=== PATIENT | male | born 1945 | race Caucasian/White ===

== ENCOUNTER 2017-06-10 18:46 | Emergency (ER) | payer MEDICARE, SELFPAY ==
[2017-06-10 18:48] VITALS: BP 146/77; PULSE 98; RESP 18; TEMP 36.9; O2SAT 95; BMI 24.5
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
--- NOTE | 2017-06-10 19:08 | CT_ITS ---
STUDY: CT BRAIN WITHOUT CONTRAST REASON FOR EXAM: Male, 72 years old. Dizziness after falling. RADIATION DOSAGE (If Supplied By Facility): CTDIvol = ( 44.99 ) mGy, DLP = ( 779.24 ) mGycm TECHNIQUE: Transaxial CT imaging of the brain was performed without administration of intravenous contrast material. Individualized dose optimization techniques were used for this CT. COMPARISON: None. FINDINGS: Normal soft tissue structures. Normal calvarium. Normal size ventricles and extra-axial spaces for the patient's age. Normal white matter tracts of the cerebral hemispheres. Normal basal ganglia and thalami. Normal brainstem. There is mild cerebellar atrophy. Carotid artery calcification. There is no intracranial hemorrhage. There are no findings of an acute ischemic infarction. 1.5 cm retention cyst of the right maxillary sinus. Mild mucosal thickening in right ethmoid, sphenoid and frontal sinuses. One opacified air cell at the tip of the left mastoid process. CT/Brain/Head without Contrast IMPRESSION: No acute intracranial findings. Negative for hemorrhage, hematoma or mass density. Negative for demarcation of a nonhemorrhagic infarct zone. Mild involutional changes. Carotid artery calcifications. Incidental sinus findings as stated above. Electronically Signed: Kenyatta Burger MD at 19:52 EST , Service support ,
--- NOTE | 2017-06-10 19:08 | EKG12_ITS ---
Test Reason : FALL Blood Pressure : / mmHG Vent. Rate : 089 BPM Atrial Rate : 089 BPM P-R Int : 194 ms QRS Dur : 090 ms QT Int : 372 ms P-R-T Axes : 003 015 030 degrees QTc Int : 452 ms Normal sinus rhythm Normal ECG Confirmed by KATYA ROBERTS, AMBER ([id number]), content editor BASSAM HENDERSON ([id number]) on 06/14/2017 3:26:27 PM Referred By: CORAZON Confirmed By:AMBER ALDANA MD
[2017-06-10 19:24] LABS: Absolute Lymphocyte Count 3.32 X10^3/ul (0.83-4.51); Absolute Neutrophil Count 2.2 X10^3/uL (2.0-7.7); Basophil# 0.02 X10^3/uL; Basophil% 0.3 % (0-1); Eosinophil# 0.52 X10^3/uL; Eosinophils% 7.9 % (0-5); Hematocrit 43.8 % (40-54); Hemoglobin 14.9 g/dl (13.0-16.5); Lymphocyte # 3.32 X10^3/ul (4.0); Lymphocyte % 50.4 % (19-41); Mean Corpuscular Hgb 34.9 pg (27.0-32.0); Mean Corpuscular Volume 102.6 fL (80-94); Monocyte# 0.48 X10^3/uL; Monocyte% 7.3 % (0-10); Neutrophil # 2.24 X10^3/uL (2.7-7.7); Neutrophil % 33.9 % (47-70); Platelet Count 161 K/mm3 (150-450); RBC Distribution Width CV 13.9 % (11.6-14.6); RBC Distribution Width SD 51.8 fl (35.1-43.9); Red Blood Count 4.27 M/mm3 (4.6-6.2); White Blood Count 6.6 K/mm3 (4.4-11.0)
[2017-06-10 19:25] LABS: POSITIVE COUNT NO; POSITIVE DIFFERENTIAL NO; POSITIVE MORPHOLOGY NO
[2017-06-10 20:07] LABS: BUN 13 mg/dL (7-18); Creatinine, Serum 0.82 mg/dL (0.70-1.30); Glucose 102 mg/dL (70-110)
[2017-06-10 20:08] LABS: AST(SGOT) 29 U/L (15-37); Alanine Aminotransfer ALT/SGPT 30 U/L (16-61); Albumin, Serum 3.8 g/dL (3.2-5.0); Alkaline Phosphatase 80 U/L (45-117); Anion Gap 12 (5-15); BUN/Creat Ratio 15.8 RATIO (10-20); Calcium,Total 8.4 mg/dL (8.5-10.1); Chloride 101 mmol/L (98-107); EST Glomerular Filtration Rate 97 mL/min (>60); Est Glom Filt Rate - Afr Amer 118 mL/min (>60); Estimated Creatinine Clearance 84.18 ml/min; Globulin 3.8 g/dL (2.2-4.2); Potassium 3.9 mmol/L (3.5-5.1); Protein, Total 7.6 g/dL (6.4-8.2); Sodium Level 138 mmol/L (136-145)
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
[2017-06-10 20:52] VITALS: BP 137/91; PULSE 91; RESP 16; O2SAT 94
[2017-06-10] MEDS: BACITRACIN 15 GM Tube 1 APPLIC TOPICAL (20:52)
--- NOTE | 2017-06-10 20:53 | ED.RN ---
REVIEWED D/C INSTRUCTIONS, FOLLOW UP CARE, AND S/S THAT WOULD WARRANT A RETURN TO THE ED WITH PT. PT VERBALIZED AN UNDERSTANDING AND DENIES FURTHER QUESTIONS FOR THIS RN. PT SKIN P/W/D, RESP EVEN AND UNLABORED, PT A&O X 3, NO DISTRESS NOTED. PT AMBULATED OUT OF ED WITH FRIEND, GAIT STEADY.
== END 2017-06-10 20:53 | disposition home or self-care (01) ==
PROVIDERS: Emergency Provider Emergency Medicine; Family Provider Family Medicine; PCP Family Medicine
DX: F10.129 Alcohol abuse with intoxication, unspecified (principal); Y90.8 Blood alcohol level of 240 mg/100 ml or more; S61.012A Laceration without foreign body of left thumb without damage to nail, initial encounter; S60.812A Abrasion of left wrist, initial encounter; S60.811A Abrasion of right wrist, initial encounter; W19.XXXA Unspecified fall, initial encounter; Y93.9 Activity, unspecified; Y92.9 Unspecified place or not applicable; Y99.9 Unspecified external cause status; R29.6 Repeated falls; I10 Essential (primary) hypertension; J45.909 Unspecified asthma, uncomplicated; Z79.899 Other long term (current) drug therapy
CPT/HCPCS: 12001; 70450; 72125; 80053; 80320; 84484; 85025; 93005; 99285; A4216; G0480

== ENCOUNTER 2018-04-23 21:49 | Inpatient (IN) | payer MEDICARE, SELFPAY ==
[2018-04-23] VITALS (8 sets, daily range): BP systolic 76–214; BP diastolic 47–181; PULSE 126–179; RESP 20–34; TEMP 37.9–39.4; O2SAT 90–97; BMI 24.3
--- NOTE | 2018-04-23 21:52 | ED.RN ---
CALLED FOR EKG PER RN REQUEST, PULLED OLD EKGS FOR
--- NOTE | 2018-04-23 21:59 | RAD_ITS ---
STUDY: X-RAY CHEST REASON FOR EXAM: Male, 73 years old. Chest pain started approximately 2 hours ago TECHNIQUE: AP COMPARISON: 03/27/2017 FINDINGS: EKG leads project over the chest. Lungs are less expanded as compared to the prior study with persistent mild fibrotic changes in the lung bases. There is no demonstrated pleural abnormality. Normal size heart. Normal mediastinum and monisha. Normal visualized pulmonary arteries. There is atherosclerotic calcification of the aortic arch with tortuosity. No acute bony process. There is no demonstrated abnormality of the visualized soft tissue structures of the upper abdomen. RAD/Chest 1 View (Portable) IMPRESSION: Hypoinflation but no airspace consolidation. Electronically Signed: Calvin Cee MD at 22:22 EST , Service support ,
--- NOTE | 2018-04-23 21:59 | EKG12_ITS ---
Test Reason : CP Blood Pressure : / mmHG Vent. Rate : 171 BPM Atrial Rate : 171 BPM P-R Int : 000 ms QRS Dur : 076 ms QT Int : 292 ms P-R-T Axes : 000 -38 059 degrees QTc Int : 492 ms Supraventricular tachycardia Left axis deviation Septal infarct , age undetermined Inferior infarct , age undetermined Abnormal ECG Confirmed by KATYA ROBERTS, AMBER ([id number]), editor book BASSAM HENDERSON ([id number]) on 04/27/2018 3:30:05 PM Referred By: CYNDI Confirmed By:AMBER ALDANA MD
[2018-04-23] MEDS: Adenosine 6 MG/2 ML Syringe IV (22:07)
[2018-04-23] MEDS: Adenosine 6 MG/2 ML Syringe 12 MG IV (22:09)
[2018-04-23] MEDS: 0.9% Normal Saline 1,000 ML 150 ML IV (22:23)
[2018-04-23 22:28] LABS: Absolute Lymphocyte Count 0.21 X10^3/ul (0.83-4.51); Absolute Neutrophil Count 0.8 X10^3/uL (2.0-7.7); Eosinophil# 0.01 X10^3/uL; Hematocrit 46.4 % (40-54); Hemoglobin 15.6 g/dl (13.0-16.5); Lymphocyte # 0.21 X10^3/ul (4.0); Mean Corp Hgb Conc 33.6 g/gl (32-36); Mean Corpuscular Hgb 35.1 pg (27.0-32.0); Mean Corpuscular Volume 104.3 fL (80-94); Neutrophil # 0.78 X10^3/uL (2.7-7.7); Platelet Count 121 K/mm3 (150-450); RBC Distribution Width CV 13.5 % (11.6-14.6); RBC Distribution Width SD 51.4 fl (35.1-43.9); Red Blood Count 4.45 M/mm3 (4.6-6.2)
[2018-04-23 22:30] LABS: Differential Indicated SCAN CRITERIA MET; POSITIVE COUNT YES; POSITIVE DIFFERENTIAL YES; POSITIVE MORPHOLOGY YES
[2018-04-23] MEDS: Acetaminophen 500 MG Tablet 1000 MG PO (22:30)
--- NOTE | 2018-04-23 22:30 | ED.RN ---
lab called with critical lab results. WBC 1.0. Dr. Banegas made aware. Order given for 500 ml bolus normal saline at this time
[2018-04-23 22:36] LABS: International Normalized Ratio 1.2; Prothrombin Time (Protime)PT. 15.3 SECONDS (11.7-14.9)
[2018-04-23 22:37] LABS: Partial Thromboplast Time 29.5 Seconds (24.1-36.2)
[2018-04-23 22:38] LABS: AST(SGOT) 30 U/L (15-37); Alanine Aminotransfer ALT/SGPT 22 U/L (16-61); Albumin, Serum 3.4 g/dL (3.2-5.0); Alkaline Phosphatase 87 U/L (45-117); Anion Gap 16 (5-15); BUN 6 mg/dL (7-18); Calcium,Total 8.2 mg/dL (8.5-10.1); Chloride 102 mmol/L (98-107); EST Glomerular Filtration Rate 63 mL/min (>60); Est Glom Filt Rate - Afr Amer 76 mL/min (>60); Estimated Creatinine Clearance 56.65 ml/min; Globulin 3.5 g/dL (2.2-4.2); Glucose 91 mg/dL (74-106); Potassium 3.7 mmol/L (3.5-5.1); Protein, Total 6.9 g/dL (6.4-8.2); Sodium Level 139 mmol/L (136-145)
[2018-04-23 22:45] LABS: Anisocytosis 1+; Differential Comment SEE COMMENTS; Macrocytosis 1+; Platelet Estimate ADEQUATE (ADEQ)
[2018-04-23 22:48] LABS: Bacteria 0 SEEN /hpf (None Seen); Mucous, Urine 0 SEEN /hpf (<or=2+); Red Blood Cells-Urine 0 SEEN /hpf (0-5); Squamous Epithelial Cells - UA 0 SEEN /hpf (0-5)
[2018-04-23 22:49] LABS: Color, Urine Yellow (Yellow); Glucose, Dipstick Normal (Normal); Ketone-Dipstick Negative (Negative); Leukocyte Esterase-Dipstick Negative /ul (Negative); Nitrite-Dipstick Negative (Negative); Occult Blood-Urine Negative /ul (Negative); Protein-Dipstick 100 mg/dl (Negative); Urine Bilirubin Dipstick Negative (Negative); Urine Clarity Clear (Clear); Urine Urobilinogen Normal (Normal)
[2018-04-23 22:54] LABS: Hyaline Cast 0-5 SEEN /lpf (0-5)
[2018-04-23 22:56] LABS: Transitional Epithelial - Ur 0-5 SEEN /hpf (0-5); White Blood Cells 0-5 SEEN /hpf (0-5)
--- NOTE | 2018-04-23 23:02 | ED.RN ---
lab called with critical lab results. Lactic acid 7.6. Dr. Banegas made aware.
[2018-04-23 23:03] LABS: Lactic Acid 7.6 mmol/L (0.4-2.0)
[2018-04-23] MEDS: 0.9% Normal Saline 1,000 ML 999 ML IV ×2 (23:08→23:13)
--- NOTE | 2018-04-23 23:45 | ED.VISSUMM ---
- ER Visit Summary Date of Service: 04/23/18 Chief Complaint: Chest pain and tachycardia History of Present Illness: The patient is a 73 M who presents with chest pain and tachycardia that began approximately 8 hours prior to arrival. Patient states he feels like he has some tightness in his chest. Patient states it is across his entire chest. Patient states nothing seems to make it better or worse. Patient denies any fevers at home. Patient admits to a cough. Patient admits to some nausea but denies any vomiting. Patient admits to some shortness of breath and diaphoresis. Patient also states he had an episode of lightheadedness today. Patient has a history of hypertension and a family history of coronary artery disease in both parents. Physical Examination: Vital signs showed a initial blood pressure of 214/181, temperature is 101.3, heart rate 170, respiratory rate 31, pulse oximeter on 3 L nasal cannula. Oral mucosa is pink and moist. Neck is supple. Trachea is midline. There is no JVD noted. Heart was regular and tachycardic. Lung sounds were diminished bilaterally. There is adequate respiratory effort noted. Abdomen is soft. Bowel sounds are normal. There is no tenderness. Cranial nerves II through XII are intact. There are no focal motor or sensory deficits noted. The remaining physical exam is within normal limits. Test Results: EKG showed supraventricular tachycardia with a rate of 171. There are no acute ST or T wave changes. Portable chest x-ray shows hypoinflation but there is no infiltrate noted. CBC shows a white blood cell count of 1.0. Lactate was elevated at 7.6. Comprehensive metabolic profile was essentially within normal limits. INR was 1.2. Urinalysis was normal. Troponin was 0.019. Emergency Department Course and Treatment: Patient was initially given adenosine 6 mg IV with no improvement. Patient was given a dose of adenosine 12 mg IV which had no improvement of the tachycardia. Patient was given 1000 mg of Tylenol. Patient was given normal saline bolus of 2500 cc. Blood cultures were obtained and are pending. Patient was started on Zosyn and vancomycin. Case was discussed with Dr. King. He will admit the patient to his service to the ICU. Disposition: Admit to ICU Impression: 1. SIRS 2. Neutropenia This note was generated with HASHation software. It may contain incorrect words, spelling, and punctuation that were not noted in review of the chart prior to signing ED Disposition - Plan for ED Patient: Disposition: Acute Care Hospital [facility] Chief Complaint: Chest Pain Diagnosis: SIRS (systemic inflammatory response syndrome), Neutropenia Referrals: Elijah Rodriguez MD [Primary Care Provider] -
--- NOTE | 2018-04-23 23:53 | ED.DCSUM_ITS ---
- ER Visit Summary Date of Service: 04/23/18 Chief Complaint: Chest pain and tachycardia History of Present Illness: The patient is a 73 M who presents with chest pain and tachycardia that began approximately 8 hours prior to arrival. Patient states he feels like he has some tightness in his chest. Patient states it is across his entire chest. Patient states nothing seems to make it better or worse. Patient denies any fevers at home. Patient admits to a cough. Patient admits to some nausea but denies any vomiting. Patient admits to some shortness of breath and diaphoresis. Patient also states he had an episode of lightheadedness today. Patient has a history of hypertension and a family hist ory of coronary artery disease in both parents. Physical Examination: Vital signs showed a initial blood pressure of 214/181, temperature is 101.3, heart rate 170, respiratory rate 31, pulse oximeter on 3 L nasal cannula. Oral mucosa is pink and moist. Neck is supple. Trachea is midline. There is no JVD noted. Heart was regular and tachycardic. Lung sounds were diminished bilaterally. There is adequate respiratory effort noted. Abdomen is soft. Bowel sounds are normal. There is no tenderness. Cranial nerves II through XII are intact. There are no focal motor or sensory deficits noted. The remaining physical exam is within normal limits. Test Results: EKG showed supraventricular tachycardia with a rate of 171. There are no acute ST or T wave changes. Portable chest x-ray shows hypoinflation but there is no infiltrate noted. CBC shows a white blood cell count of 1.0. Lactate was elevated at 7.6. Comprehensive metabolic profile was essentially within normal limits. INR was 1.2. Urinalysis was normal. Troponin was 0.019. Emergency Department Course and Treatment: Patient was initially given adenosine 6 mg IV with no improvement. Patient was given a dose of adenosine 12 mg IV which had no improvement of the tachycardia. Patient was given 1000 mg of Tylenol. Patient was given normal saline bolus of 2500 cc. Blood cultures were obtained and are pending. Patient was started on Zosyn and vancomycin. Case was discussed with Dr. King. He will admit the patient to his service to the ICU. Disposition: Admit to ICU Impression: 1. SIRS 2. Neutropenia This note was generated with vitalclipation software. It may contain incorrect words, spelling, and punctuation that were not noted in review of the chart prior to signing ED Disposition - Plan for ED Patient: Disposition: Acute Care Hospital [facility] Chief Complaint: Chest Pain Diagnosis: SIRS (systemic inflammatory response syndrome), Neutropenia Referrals: Elijah Rodriguez MD [Primary Care Provider] -
[2018-04-24] VITALS (35 sets, daily range): BP systolic 75–106; BP diastolic 48–75; PULSE 87–120; RESP 13–24; TEMP 37–37.7; O2SAT 90–97; BMI 24.4; BMI 24.6
[2018-04-24] MEDS: Vancomycin IV 1,000 MG/200 ML BAG 200 MG IV (00:24)
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
[2018-04-24] MEDS: 0.9% Normal Saline 1,000 ML 150 ML IV ×3 (01:45→18:34)
[2018-04-24] MEDS: 0.9% NaCl Peripheral Flush Adult/Peds IV (02:02)
[2018-04-24 02:23] LABS: Reflex Lactate? Y
[2018-04-24 02:30] LABS: LDH 218 U/L (87-241); Uric Acid 5.2 mg/dL (3.5-7.2)
--- NOTE | 2018-04-24 02:32 | PCM.RX.CS ---
Consult Pharmacy has been consulted to manage selected antiobiotic: Vancomycin Type of Consult: New start Suspected Infection: Sepsis Prior Doses of Antibiotics Received/Current Regimen: Medications Vancomycin HCl 750 mg/ Sodium (Chloride) 265 mls @ 250 mls/hr IV Q12H LELO Discontinued Medications Vancomycin HCl (Vancomycin) 1,000 mg in 200 mls @ 200 mls/hr IV X1 ONE Stop: 04/24/18 00:37 Last Admin: 04/24/18 00:24 Dose: 200 mls/hr Labs: Sodium 139 mmol/L (136-145) 04/23/18 22:00 Potassium 3.7 mmol/L (3.5-5.1) 04/23/18 22:00 Chloride 102 mmol/L (98-107) 04/23/18 22:00 Carbon Dioxide 21.0 mmol/L (21.0-32.0) 04/23/18 22:00 Anion Gap 16 (5-15) H 04/23/18 22:00 BUN 6 mg/dL (7-18) L 04/23/18 22:00 Creatinine 1.20 mg/dL (0.70-1.30) 04/23/18 22:00 Est GFR (MDRD) Af Amer 76 mL/min (>60) 04/23/18 22:00 Est GFR (MDRD) Non-Af 63 mL/min (>60) 04/23/18 22:00 BUN/Creatinine Ratio 5.0 RATIO (10-20) L 04/23/18 22:00 Glucose 91 mg/dL (74-106) 04/23/18 22:00 Weight used for dosin.2 kg Estimated Creatinine Clearance: 57 Goal Trough: 15-20 mcg/mL Pharmacy Plan for Drug Dosing: Pharmacy Service will continue to monitor and adjust dosing as required. Follow-Up Labs: Trough Vancomycin Labs to be done on [date and time ordered]: 04/25/18 @1200
[2018-04-24] MEDS: Midodrine HCl 5 MG Tablet 10 MG PO (02:55)
[2018-04-24 05:27] LABS: Hematocrit 37.4 % (40-54); Hemoglobin 12.7 g/dl (13.0-16.5); Mean Corpuscular Hgb 35.8 pg (27.0-32.0); Mean Corpuscular Volume 105.4 fL (80-94); Mean Platelet Vol. 10.5 fl (6.2-12.0); Platelet Count 65 K/mm3 (150-450); RBC Distribution Width CV 13.5 % (11.6-14.6); RBC Distribution Width SD 50.8 fl (35.1-43.9); Red Blood Count 3.55 M/mm3 (4.6-6.2); White Blood Count 5.2 K/mm3 (4.4-11.0)
[2018-04-24 05:36] LABS: Anion Gap 9 (5-15); BUN 10 mg/dL (7-18); BUN/Creat Ratio 7.4 RATIO (10-20); Calcium,Total 6.7 mg/dL (8.5-10.1); Chloride 111 mmol/L (98-107); Creatinine, Serum 1.35 mg/dL (0.70-1.30); EST Glomerular Filtration Rate 55 mL/min (>60); Est Glom Filt Rate - Afr Amer 66 mL/min (>60); Estimated Creatinine Clearance 50.35 ml/min; Glucose 114 mg/dL (74-106); Lactic Acid 2.6 mmol/L (0.4-2.0); Potassium 3.5 mmol/L (3.5-5.1); Sodium Level 141 mmol/L (136-145)
[2018-04-24 05:40] LABS: Scan Indicated on CBC? Y/N NO
[2018-04-24] MEDS: Piperacil/Tazobactam 3.375 GM/50 ML ML IV ×3 (06:07→21:12)
--- NOTE | 2018-04-24 07:55 | ECHOD_ITS ---
Reason For Study: ARRHYTHMIA Procedure This was a 2D Doppler, Color Flow transthoracic echocardiogram. Exam performed portable in ICU/CCU. Left Ventricle Normal LV size. The estimated ejection fraction is 47 %. Left ventricular systolic function is lower limits of normal. Transmitral and pulmonary venous doppler flow suggestive of impaired relaxation of left ventricle. Stage 1 diastolic dysfunction. There is borderline global hypokinesis of the left ventricle. Right Ventricle Normal RV size. Normal systolic function. Atria Normal left atrium. Normal right atrium. Mitral Valve Normal mitral valve. Tricuspid Valve Normal tricuspid valve. Mild (1+) tricuspid valve insufficiency. Pulmonary artery systolic pressure is 43 mmHg. Aortic Valve Trisinus/trileaflet aortic valve. Mild focal aortic valve thickening. Pulmonic Valve Normal pulmonic valve. Mild (1+) pulmonic valve insufficiency. Great Vessels Normal aortic root. The pulmonary artery is normal size. Normal inferior vena cava. Pericardium/Pleural Trivial pericardial effusion. MMode/2D Measurements & Calculations LVIDd: 4.4 cm IVSd: 1.1 cm Ao root diam: 3.3 cm LVIDs: 3.6 cm LVPWd: 0.91 cm RVDd: 3.1 cm FS: 19.2 % LAV(MOD-bp): 54.5 ml EDV(MOD-sp4): 81.5 ml EDV(MOD-sp2): 73.0 ml LAV(MOD-bp) Indexed: 28.4 ml/m2 ESV(MOD-sp4): 41.7 ml EF(MOD-sp2): 39.5 % LAV(MOD-sp2): 45.9 ml EF(MOD-sp4): 48.8 % LAV(MOD-sp4): 59.7 ml SV(MOD-sp4): 39.8 ml SV(MOD-sp2): 28.8 ml LA A4 area: 19.7 cm2 LA dimension(2D): 4.5 cm RA A4 area: 16.2 cm2 Time Measurements MV dec time: 0.23 sec Doppler Measurements & Calculations MV E max ryan: 67.4 cm/sec Lat Peak E' Ryan: 7.7 cm/sec Med Peak E' Ryan: 4.9 cm/sec MV A max ryan: 76.4 cm/sec E/E' lat: 8.8 E/E' med: 13.7 MV E/A: 0.88 Ao V2 max: 102.0 cm/sec LV V1 max: 71.8 cm/sec PA V2 max: 82.2 cm/sec Ao max P.2 mmHg LV V1 max P.1 mmHg PI end-d ryan: 159.1 cm/sec TR max ryan: 314.4 cm/sec TR max P.6 mmHg Interpretation Summary Normal LV size. The estimated ejection fraction is 47 %. Left ventricular systolic function is lower limits of normal. Transmitral and pulmonary venous doppler flow suggestive of impaired relaxation of left ventricle Stage 1 diastolic dysfunction. Mild (1+) tricuspid valve insufficiency. Ordering Physician: Trace Alcazar Referring Physician: MICHELE DYER Performed By: Vale Maldonado, PRADIP, RVT
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
[2018-04-24 09:01] LABS: Reflex Lactate? Y
[2018-04-24] MEDS: Lactated Ringers 1,000 ML 999 ML IV (09:07)
[2018-04-24 10:17] LABS: Lactic Acid 3.5 mmol/L (0.4-2.0)
--- NOTE | 2018-04-24 15:14 | CON.PCM_ITS ---
Consult Referring Physician: Dr. King. Consult Results: Pancytopenia. Subjective Date of Service:: 04/24/18 Chief Complaint: Tightness in chest History of Present Illness: 73y.o.man presented to ER with chest pain, abdominal pain, vomiting after eating stallings sandwich. EKG showed SVT which did not respond to adenosine so patient was admitted. Admission labs showed WBC 1, hemoglobin 15.6 platelets 121, high Lactic acid. Patient was given Zosyn and Vancomycin for suspected SIRS in the ER. Subsequent labs showed PLT of 65K, and normal WBC. He feels better this morning. Past Medical History: Chronic Problems Asthma (Chronic) Past Medical/Surgical History: Past Medical History - Most Recent Inpatient Visit Past Medical History Start: 04/24/18 01:07 Text: Status: Complete Freq: ONCE Protocol: Document 04/24/18 01:07 SHERRI (Rec: 04/24/18 01:34 [facility] [id number]) BMI Required to complete PMH What is Patient's BMI 24.4 Past Medical History Unable History Recalled No Query Text:Pt Unable/Family Not Present Neurologic Medical History Hx Stroke/TIA No Hx Dementia/Alzheimer's No Hx Parkinson's Disease No Hx Seizures No Hx Multiple Sclerosis No Hx Migraines No Cardiac Medical History VTE Present on Admission No Hx of Deep Vein Thrombosis/VTE/PE No Hx Hypertension Yes Hx Chest Pain/Angina No Hx Heart Attack No Hx Cardiac Surgery/Stents/Etc. No Hx Heart Failure No Hx Pacemaker/AICD No Hx Irregular Heartbeat and/or Afib No Hx Anticoagulant Therapy No Query Text:(Coumadin, Aspirin, Plavix, Xarelto, etc.) Hx Pain in Legs when Walking/Leg Cramps No Respiratory Medical History Hx COPD Yes: Asthma Hx Emphysema No Hx Smoking No Smoking Status Never smoker Tobacco Use Non-smoker Secondhand Hx Smoking Exposure Yes: Parents and Grandparents smoked around pt Hx Tobacco Use in last 12 months No Hx of Pipe Smoking No Hx of Cigar Smoking No Hx Sleep Apnea Yes CPAP No BIPAP No STOP Results Positive GI Medical History Hx Ulcer No Hx Hepatitis No Hx Cirrhosis No Hx GI Bleed No Hx Unplanned Weight Loss No Genitourinary Medical History Indwelling Catheter in Place on Arrival/ No Admission Hx Renal Disease No Hx Dialysis No Musculoskeletal History Hx Arthritis No Hx Rheumatoid Arthritis No Endocrine Medical History Hx Diabetes No Hx Thyroid Disease No Hematologic Medical History Hx of Blood Transfusion No Hx of Transfusion in last 3 Months No Ever experience any problems with No transfusion(s)? Hx of Preganancy in last 3 Months N/A Nurse Filling Out Transfusion & DMORROW Questions: Date: 04/24/18 Time: 01:25 Psycho/Social Medical History Hx Depression No Hx Anxiety No Hx Behavior Disorder No Hx Alcohol Use Yes: 1-2 GLASSES WINE QOD Hx Substance Use No Other Medical History Hx Blood Disorders No Hx Anemia No Hx Cancer No Hx Drug Resistant Organism No Wound/Pressure Injury Present on Arrival No /Admission Query Text:If yes, chart assessment in Shift/Clinical Findings Central Line/PICC/VAD Present on Arrival No /Admission Antibiotics within last 7 days? No Methicillin Resistant Staphylococcus aureus Screening Active MRSA No Risk for Readmission Number of Risk Factors 2 At Risk for Readmission Patient is Not at Risk Patient is eligible for Call Back N Maternal Family History: No pertinent history - Social History Lives: Alone Smoking Status: Never smoker Tobacco Use: Non-smoker, Secondhand Alcohol: None Drugs: None Allergies/Adverse Reactions: Allergy/AdvReac Type Severity Reaction Status Date / Time Sulfa (Sulfonamide Allergy Rash Verified 04/23/18 22:21 Antibiotics) Review of Systems Constitutional:: Denies: Fever, Sweats, Weight loss, Appetite change, Chills Cardiovascular:: Denies: Chest pain, Palpitations, Dyspnea on exertion, Orthopnea, PND, Shortness of breath Respiratory: Denies: Cough, Hemoptysis, Shortness of Breath, Wheezing Gastrointestinal:: Denies: Abdominal pain, Nausea, Vomiting, Diarrhea, Cons tipation, Hematochezia Genitourinary: Denies: Dysuria, Hematuria, 15, Flank pain Musculoskeletal:: Denies: Back pain, Myalgia, Arthralgia Skin: Denies: Rash, Skin Changes, Wounds Neurological:: Denies: Headache, Dizziness, Visual changes, Tinnitus, Hearing loss Psychiatric: Denies: Anxiety, Depression, Homicidal Ideations, Suicidal Ideations Vital Signs Height 5 ft 11 in Weight: 80.2 kg Weight in Pounds 176.8 lbs Pulse Ox 95 Temperature 98.6 F Pulse Rate 94 Respiratory Rate 19 Blood Pressure [BP] 100/60 Blood Pressure 102/54 Blood Pressure Position [BP] Semi-Fowlers Blood Pressure Position Sitting - Physical Exam General: Alert, Oriented x3, No apparent distress HEENT: Atraumatic, PERRLA, EOMI, Normocephalic Oropharynx:: Dry mucosa Neck:: Supple, Trachea midline. Negative for: JVD, bilateral Cardiac:: Regular rate, Regular rhythm, Normal S1, Normal S2. Negative for: Murmur Lungs: Clear to auscultation, Excusion symmetrical. Negative for: Rhonchi, Wheezes Abdomen:: Bowel sounds x 4, Soft, Non-tender, Non-distended. Negative for: Hepatosplenomegaly Extremities:: Negative for: Cyanosis, Edema Neurological: Neuro grossly intact Skin:: Negative for: Lesions, Rash, Petechiae, Ecchymosis Psychiatric:: Appropriate affect, Euthymic Lymphatics:: Negative for: Cervical lymphadenopathy, Supraclavicular lymphadenopathy, Axillary lymphadenopathy Laboratory Data: Microbiology 04/23/18 22:20 Blood Culture - Preliminary Blood Culture (Wb) - Venous 04/23/18 22:20 Blood Culture - Preliminary Blood Culture (Wb) - Venous 04/24/18 06:50 Respiratory Panel (PCR) - Final Mucosa - Nose Laboratory Tests 04/24/18 04/24/18 04/24/18 Range/Units 09:40 04:55 04:55 WBC 5.2 (4.4-11.0) K/mm3 RBC 3.55 L (4.6-6.2) M/mm3 Hgb 12.7 L (13.0-16.5) g/dl Hct 37.4 L (40-54) % MCV 105.4 H (80-94) fL MCH 35.8 H (27.0-32.0) pg MCHC 34.0 (32-36) g/gl RDW 13.5 (11.6-14.6) % RDW Differential 50.8 H (35.1-43.9) fl Plt Count 65 L (150-450) K/mm3 MPV 10.5 (6.2-12.0) fl Immature Gran % (Auto) (0.0-0.9) % Neut % (Auto) (47-70) % Lymph % (Auto) (19-41) % [place] % (Auto) (0-10) % Eos % (Auto) (0-5) % Baso % (Auto) (0-1) % Absolute Neuts (auto) (2.0-7.7) X10^3/uL Absolute Lymphs (auto) (0.83-4.51) X10^3/ul Total Counted Differential Comment Diff Path Review Platelet Estimate (ADEQ) Anisocytosis Macrocytosis PT (11.7-14.9) SECONDS INR APTT (24.1-36.2) Seconds Sodium 141 (136-145) mmol/L Potassium 3.5 (3.5-5.1) mmol/L Chloride 111 H (98-107) mmol/L Carbon Dioxide 21.0 (21.0-32.0) mmol/L Anion Gap 9 (5-15) BUN 10 (7-18) mg/dL Creatinine 1.35 H (0.70-1.30) mg/dL Estim Creat Clear Calc 50.35 ml/min Est GFR (MDRD) Af Amer 66 (>60) mL/min Est GFR (MDRD) Non-Af 55 L (>60) mL/min BUN/Creatinine Ratio 7.4 L (10-20) RATIO Glucose 114 H (74-106) mg/dL Lactic Acid 3.5 H (0.4-2.0) mmol/L Uric Acid (3.5-7.2) mg/dL Calcium 6.7 L (8.5-10.1) mg/dL Total Bilirubin (0.20-1.00) mg/dL AST (15-37) U/L ALT (16-61) U/L Alkaline Phosphatase (45-117) U/L Lactate Dehydrogenase (87-241) U/L Troponin I (<0.045) ng/mL Total Protein (6.4-8.2) g/dL Albumin (3.2-5.0) g/dL Globulin (2.2-4.2) g/dL Albumin/Globulin Ratio (0.9-2.4) RATIO Urine Color (Yellow) Urine Clarity (Clear) Urine pH (5.0 - 8.0) Ur Specific [place] (1.002-1.030) Urine Protein (Negative) mg/dl Urine Glucose (UA) (Normal) mg/dl Urine Ketones (Negative) mg/dl Urine Occult Blood (Negative) /ul Urine Nitrite (Negative) Urine Bilirubin (Negative) mg/dL Urine Urobilinogen (Normal) mg/dl Ur Leukocyte Esterase (Negative) /ul Urine RBC (0-5) /hpf Urine WBC (0-5) /hpf Ur Squamous Epith Cells (0-5) /hpf Ur Transition Epith Cell (0-5) /hpf Urine Bacteria (None Seen) /hpf Hyaline Casts (0-5) /lpf Urine Mucus (<or=2+) /hpf 04/24/18 04/24/18 04/24/18 Range/Units 04:55 02:50 02:05 WBC (4.4-11.0) K/mm3 RBC (4.6-6.2) M/mm3 Hgb (13.0-16.5) g/dl Hct (40-54) % MCV (80-94) fL MCH (27.0-32.0) pg MCHC (32-36) g/gl RDW (11.6-14.6) % RDW Differential (35.1-43.9) fl Plt Count (150-450) K/mm3 MPV (6.2-12.0) fl Immature Gran % (Auto) (0.0-0.9) % Neut % (Auto) (47-70) % Lymph % (Auto) (19-41) % [place] % (Auto) (0-10) % Eos % (Auto) (0-5) % Baso % (Auto) (0-1) % Absolute Neuts (auto) (2.0-7.7) X10^3/uL Absolute Lymphs (auto) (0.83-4.51) X10^3/ul Total Counted Differential Comment Diff Path Review Platelet Estimate (ADEQ) Anisocytosis Macrocytosis PT (11.7-14.9) SECONDS INR APTT (24.1-36.2) Seconds Sodium (136-145) mmol/L Potassium (3.5-5.1) mmol/L Chloride (98-107) mmol/L Carbon Dioxide (21.0-32.0) mmol/L Anion Gap (5-15) BUN (7-18) mg/dL Creatinine (0.70-1.30) mg/dL Estim Creat Clear Calc ml/min Est GFR (MDRD) Af Amer (>60) mL/min Est GFR (MDRD) Non-Af (>60) mL/min BUN/Creatinine Ratio (10-20) RATIO Glucose (74-106) mg/dL Lactic Acid 2.6 H 3.0 H (0.4-2.0) mmol/L Uric Acid 5.2 (3.5-7.2) mg/dL Calcium (8.5-10.1) mg/dL Total Bilirubin (0.20-1.00) mg/dL AST (15-37) U/L ALT (16-61) U/L Alkaline Phosphatase (45-117) U/L Lactate Dehydrogenase 218 (87-241) U/L Troponin I (<0.045) ng/mL Total Protein (6.4-8.2) g/dL Albumin (3.2-5.0) g/dL Globulin (2.2-4.2) g/dL Albumin/Globulin Ratio (0.9-2.4) RATIO Urine Color (Yellow) Urine Clarity (Clear) Urine pH (5.0 - 8.0) Ur Specific [place] (1.002-1.030) Urine Protein (Negative) mg/dl Urine Glucose (UA) (Normal) mg/dl Urine Ketones (Negative) mg/dl Urine Occult Blood (Negative) /ul Urine Nitrite (Negative) Urine Bilirubin (Negative) mg/dL Urine Urobilinogen (Normal) mg/dl Ur Leukocyte Esterase (Negative) /ul Urine RBC (0-5) /hpf Urine WBC (0-5) /hpf Ur Squamous Epith Cells (0-5) /hpf Ur Transition Epith Cell (0-5) /hpf Urine Bacteria (None Seen) /hpf Hyaline Casts (0-5) /lpf Urine Mucus (<or=2+) /hpf 04/23/18 04/23/18 04/23/18 Range/Units 22:40 22:20 22:20 WBC (4.4-11.0) K/mm3 RBC (4.6-6.2) M/mm3 Hgb (13.0-16.5) g/dl Hct (40-54) % MCV (80-94) fL MCH (27.0-32.0) pg MCHC (32-36) g/gl RDW (11.6-14.6) % RDW Differential (35.1-43.9) fl Plt Count (150-450) K/mm3 MPV (6.2-12.0) fl Immature Gran % (Auto) (0.0-0.9) % Neut % (Auto) (47-70) % Lymph % (Auto) (19-41) % [place] % (Auto) (0-10) % Eos % (Auto) (0-5) % Baso % (Auto) (0-1) % Absolute Neuts (auto) (2.0-7.7) X10^3/uL Absolute Lymphs (auto) (0.83-4.51) X10^3/ul Total Counted Differential Comment Diff Path Review Platelet Estimate (ADEQ) Anisocytosis Macrocytosis PT 15.3 H (11.7-14.9) SECONDS INR 1.2 APTT 29.5 (24.1-36.2) Seconds Sodium (136-145) mmol/L Potassium (3.5-5.1) mmol/L Chloride (98-107) mmol/L Carbon Dioxide (21.0-32.0) mmol/L Anion Gap (5-15) BUN (7-18) mg/dL Creatinine (0.70-1.30) mg/dL Estim Creat Clear Calc ml/min Est GFR (MDRD) Af Amer (>60) mL/min Est GFR (MDRD) Non-Af (>60) mL/min BUN/Creatinine Ratio (10-20) RATIO Glucose (74-106) mg/dL Lactic Acid 7.6 H* (0.4-2.0) mmol/L Uric Acid (3.5-7.2) mg/dL Calcium (8.5-10.1) mg/dL Total Bilirubin (0.20-1.00) mg/dL AST (15-37) U/L ALT (16-61) U/L Alkaline Phosphatase (45-117) U/L Lactate Dehydrogenase (87-241) U/L Troponin I (<0.045) ng/mL Total Protein (6.4-8.2) g/dL Albumin (3.2-5.0) g/dL Globulin (2.2-4.2) g/dL Albumin/Globulin Ratio (0.9-2.4) RATIO Urine Color Yellow (Yellow) Urine Clarity Clear (Clear) Urine pH 5.0 (5.0 - 8.0) Ur Specific [place] 1.010 (1.002-1.030) Urine Protein 100 H (Negative) mg/dl Urine Glucose (UA) Normal (Normal) mg/dl Urine Ketones Negative (Negative) mg/dl Urine Occult Blood Negative (Negative) /ul Urine Nitrite Negative (Negative) Urine Bilirubin Negative (Negative) mg/dL Urine Urobilinogen Normal (Normal) mg/dl Ur Leukocyte Esterase Negative (Negative) /ul Urine RBC 0 SEEN (0-5) /hpf Urine WBC 0-5 SEEN (0-5) /hpf Ur Squamous Epith Cells 0 SEEN (0-5) /hpf Ur Transition Epith Cell 0-5 SEEN (0-5) /hpf Urine Bacteria 0 SEEN (None Seen) /hpf Hyaline Casts 0-5 SEEN (0-5) /lpf Urine Mucus 0 SEEN (<or=2+) /hpf 04/23/18 04/23/18 Range/Units 22:11 22:00 WBC 1.0 L* (4.4-11.0) K/mm3 RBC 4.45 L (4.6-6.2) M/mm3 Hgb 15.6 (13.0-16.5) g/dl Hct 46.4 (40-54) % MCV 104.3 H (80-94) fL MCH 35.1 H (27.0-32.0) pg MCHC 33.6 (32-36) g/gl RDW 13.5 (11.6-14.6) % RDW Differential 51.4 H (35.1-43.9) fl Plt Count 121 L (150-450) K/mm3 MPV 10.0 (6.2-12.0) fl Immature Gran % (Auto) 0.000 (0.0-0.9) % Neut % (Auto) 78.0 H (47-70) % Lymph % (Auto) 21.0 (19-41) % [place] % (Auto) 0.0 (0-10) % Eos % (Auto) 1.0 (0-5) % Baso % (Auto) 0.0 (0-1) % Absolute Neuts (auto) 0.8 L (2.0-7.7) X10^3/uL Absolute Lymphs (auto) 0.21 L (0.83-4.51) X10^3/ul Total Counted Not Reportable Differential Comment SEE COMMENTS Diff Path Review May foll Platelet Estimate ADEQUATE (ADEQ) Anisocytosis 1+ Macrocytosis 1+ PT (11.7-14.9) SECONDS INR APTT (24.1-36.2) Seconds Sodium 139 (136-145) mmol/L Potassium 3.7 (3.5-5.1) mmol/L Chloride 102 (98-107) mmol/L Carbon Dioxide 21.0 (21.0-32.0) mmol/L Anion Gap 16 H (5-15) BUN 6 L (7-18) mg/dL Creatinine 1.20 (0.70-1.30) mg/dL Estim Creat Clear Calc 56.65 ml/min Est GFR (MDRD) Af Amer 76 (>60) mL/min Est GFR (MDRD) Non-Af 63 (>60) mL/min BUN/Creatinine Ratio 5.0 L (10-20) RATIO Glucose 91 (74-106) mg/dL Lactic Acid (0.4-2.0) mmol/L Uric Acid (3.5-7.2) mg/dL Calcium 8.2 L (8.5-10.1) mg/dL Total Bilirubin 0.80 (0.20-1.00) mg/dL AST 30 (15-37) U/L ALT 22 (16-61) U/L Alkaline Phosphatase 87 (45-117) U/L Lactate Dehydrogenase (87-241) U/L Troponin I 0.019 (<0.045) ng/mL Total Protein 6.9 (6.4-8.2) g/dL Albumin 3.4 (3.2-5.0) g/dL Globulin 3.5 (2.2-4.2) g/dL Albumin/Globulin Ratio 1.0 (0.9-2.4) RATIO Urine Color (Yellow) Urine Clarity (Clear) Urine pH (5.0 - 8.0) Ur Specific [place] (1.002-1.030) Urine Protein (Negative) mg/dl Urine Glucose (UA) (Normal) mg/dl Urine Ketones (Negative) mg/dl Urine Occult Blood (Negative) /ul Urine Nitrite (Negative) Urine Bilirubin (Negative) mg/dL Urine Urobilinogen (Normal) mg/dl Ur Leukocyte Esterase (Negative) /ul Urine RBC (0-5) /hpf Urine WBC (0-5) /hpf Ur Squamous Epith Cells (0-5) /hpf Ur Transition Epith Cell (0-5) /hpf Urine Bacteria (None Seen) /hpf Hyaline Casts (0-5) /lpf Urine Mucus (<or=2+) /hpf Diagnostic Data: Diagnostic Data Chest X-Ray 04/23/18 21:59 IMPRESSION: Hypoinflation but no airspace consolidation. Electronically Signed: Calvin Cee MD at 22:22 EST , Service support , Assessment and Plan Thrombocytopenia, etiology may be multifactorial including SIRS, Medication including Zosyn, Vancomycin. ITP is unlikely as he has never had low PLT before this time. Suggestion: Observation, transfuse only if PLT drop to less than 20K. Avoid Heparin for DVT prophylaxis. Will follow. Medications: Prescriptions This Visit Medication Instructions Recorded Amlodipine [Norvasc] 5 mg PO DAILY 04/23/18 Medications Added to Medication List This Visit Category Date Time Status Vancomycin IV 750 mg Med 04/24/18 12:30 Active 0.9% Normal Saline 250 ml IV Q12H Primary Care Provider: Elijah Rodriguez Referring Provider: - Problem List (1) Thrombocytopenia Status: Acute Code Visit Office Visits / Consults: [id number] IP Consult L5
[2018-04-24] MEDS: Acetaminophen 325 MG Tablet 650 MG PO (20:33)
[2018-04-25] VITALS (16 sets, daily range): BP systolic 88–141; BP diastolic 60–92; PULSE 78–98; RESP 15–22; TEMP 36.4–37.1; O2SAT 93–96
[2018-04-25] MEDS: DiphenhydrAMINE 25 MG Capsule 50 MG PO (00:11)
[2018-04-25] MEDS: 0.9% Normal Saline 1,000 ML 150 ML IV ×3 (01:19→20:26)
[2018-04-25] MEDS: Acetaminophen 325 MG Tablet 650 MG PO ×2 (02:32→12:06)
[2018-04-25] MEDS: Piperacil/Tazobactam 3.375 GM/50 ML ML IV ×3 (05:38→21:49)
--- NOTE | 2018-04-25 06:42 | PCM.PN.INT ---
Subjective: The patient was seen and examined at the bedside this morning. Events from the last 24 hours have been reviewed. The patient is currently afebrile, hemodynamically stable and maintaining appropriate oxygen saturations on room air. He denies the presence of abdominal pain, nausea or vomiting. His only complaint is for that of right lower extremity weakness. Objective: The patient's most recent lab work, culture data and imaging studies have all been personally reviewed. Preliminary blood cultures from April 23 were positive for the presence of a gram-negative emi. Urine culture is pending. Respiratory viral panel was negative. C. difficile was negative. General: Alert, Oriented x3, Cooperative, No apparent distress HEENT: Atraumatic, PERRLA, Normocephalic Oral: No Gingival or Mucosal Lesions/ Ulcerations Neck: Supple, No Nodes, Trachea Midline Lungs: No rhonchi, No wheeze, No rales, Diminished Cardiovascular: Regular rate, Regular Rhythm, Normal S1, Normal S2, No murmurs Abdomen: Bowel Sounds Present, Soft, Non Tender Extremities: No clubbing, No cyanosis, No edema Skin: No breakdown Musculoskeletal: No Tenderness to Palpation of Joints or Extremities Lymphatic: No Cervical, Supraclavicular, or Inguinal Adenopathy Neurological: Cranial nerves II-XII grossly intact, Neuro grossly intact Psych/Mental Status: Alert and oriented to time, place, person, mood and affect Vital Signs Temp Pulse Resp BP Pulse Ox 37.1 C 86 21 H 113/74 95 04/25/18 04:00 04/25/18 06:00 04/25/18 06:00 04/25/18 06:00 04/25/18 06:00 Oxygen Flow Rate (L/min) 2 Oxygen Delivery Method Room Air Weight: 183 lb 3.266 oz Body Mass Index (BMI) 24.6 Intake and Output for Last 24 Hours 04/23/18 04/24/18 04/25/18 23:59 23:59 23:59 Intake Total 3540 / 3540 3190.8 / 3190.8 Output Total 1070 / 1070 550 / 550 Balance 2470 / 2470 2640.8 / 2640.8 Labs (Last 48 Hours) 04/23/18 04/23/18 04/23/18 22:00 22:11 22:20 WBC 1.0 L* RBC 4.45 L Hgb 15.6 Hct 46.4 MCV 104.3 H MCH 35.1 H MCHC 33.6 RDW 13.5 RDW Differential 51.4 H Plt Count 121 L MPV 10.0 Immature Gran % (Auto) 0.000 Neut % (Auto) 78.0 H Lymph % (Auto) 21.0 [place] % (Auto) 0.0 Eos % (Auto) 1.0 Baso % (Auto) 0.0 Absolute Neuts (auto) 0.8 L Absolute Lymphs (auto) 0.21 L Total Counted Not Reportable Differential Comment SEE COMMENTS Diff Path Review May foll Platelet Estimate ADEQUATE Anisocytosis 1+ Macrocytosis 1+ PT 15.3 H INR 1.2 APTT 29.5 Sodium 139 Potassium 3.7 Chloride 102 Carbon Dioxide 21.0 Anion Gap 16 H BUN 6 L Creatinine 1.20 Estim Creat Clear Calc 56.65 Est GFR (MDRD) Af Amer 76 Est GFR (MDRD) Non-Af 63 BUN/Creatinine Ratio 5.0 L Glucose 91 Lactic Acid Uric Acid Calcium 8.2 L Total Bilirubin 0.80 AST 30 ALT 22 Alkaline Phosphatase 87 Lactate Dehydrogenase Troponin I 0.019 Total Protein 6.9 Albumin 3.4 Globulin 3.5 Albumin/Globulin Ratio 1.0 Urine Color Urine Clarity Urine pH Ur Specific [place] Urine Protein Urine Glucose (UA) Urine Ketones Urine Occult Blood Urine Nitrite Urine Bilirubin Urine Urobilinogen Ur Leukocyte Esterase Urine RBC Urine WBC Ur Squamous Epith Cells Ur Transition Epith Cell Urine Bacteria Hyaline Casts Urine Mucus 04/23/18 04/23/18 04/24/18 22:20 22:40 02:05 WBC RBC Hgb Hct MCV MCH MCHC RDW RDW Differential Plt Count MPV Immature Gran % (Auto) Neut % (Auto) Lymph % (Auto) [place] % (Auto) Eos % (Auto) Baso % (Auto) Absolute Neuts (auto) Absolute Lymphs (auto) Total Counted Differential Comment Diff Path Review Platelet Estimate Anisocytosis Macrocytosis PT INR APTT Sodium Potassium Chloride Carbon Dioxide Anion Gap BUN Creatinine Estim Creat Clear Calc Est GFR (MDRD) Af Amer Est GFR (MDRD) Non-Af BUN/Creatinine Ratio Glucose Lactic Acid 7.6 H* Uric Acid 5.2 Calcium Total Bilirubin AST ALT Alkaline Phosphatase Lactate Dehydrogenase 218 Troponin I Total Protein Albumin Globulin Albumin/Globulin Ratio Urine Color Yellow Urine Clarity Clear Urine pH 5.0 Ur Specific [place] 1.010 Urine Protein 100 H Urine Glucose (UA) Normal Urine Ketones Negative Urine Occult Blood Negative Urine Nitrite Negative Urine Bilirubin Negative Urine Urobilinogen Normal Ur Leukocyte Esterase Negative Urine RBC 0 SEEN Urine WBC 0-5 SEEN Ur Squamous Epith Cells 0 SEEN Ur Transition Epith Cell 0-5 SEEN Urine Bacteria 0 SEEN Hyaline Casts 0-5 SEEN Urine Mucus 0 SEEN 04/24/18 04/24/18 04/24/18 02:50 04:55 04:55 WBC 5.2 RBC 3.55 L Hgb 12.7 L Hct 37.4 L MCV 105.4 H MCH 35.8 H MCHC 34.0 RDW 13.5 RDW Differential 50.8 H Plt Count 65 L MPV 10.5 Immature Gran % (Auto) Neut % (Auto) Lymph % (Auto) [place] % (Auto) Eos % (Auto) Baso % (Auto) Absolute Neuts (auto) Absolute Lymphs (auto) Total Counted Differential Comment Diff Path Review Platelet Estimate Anisocytosis Macrocytosis PT INR APTT Sodium Potassium Chloride Carbon Dioxide Anion Gap BUN Creatinine Estim Creat Clear Calc Est GFR (MDRD) Af Amer Est GFR (MDRD) Non-Af BUN/Creatinine Ratio Glucose Lactic Acid 3.0 H 2.6 H Uric Acid Calcium Total Bilirubin AST ALT Alkaline Phosphatase Lactate Dehydrogenase Troponin I Total Protein Albumin Globulin Albumin/Globulin Ratio Urine Color Urine Clarity Urine pH Ur Specific [place] Urine Protein Urine Glucose (UA) Urine Ketones Urine Occult Blood Urine Nitrite Urine Bilirubin Urine Urobilinogen Ur Leukocyte Esterase Urine RBC Urine WBC Ur Squamous Epith Cells Ur Transition Epith Cell Urine Bacteria Hyaline Casts Urine Mucus 04/24/18 04/24/18 04:55 09:40 WBC RBC Hgb Hct MCV MCH MCHC RDW RDW Differential Plt Count MPV Immature Gran % (Auto) Neut % (Auto) Lymph % (Auto) [place] % (Auto) Eos % (Auto) Baso % (Auto) Absolute Neuts (auto) Absolute Lymphs (auto) Total Counted Differential Comment Diff Path Review Platelet Estimate Anisocytosis Macrocytosis PT INR APTT Sodium 141 Potassium 3.5 Chloride 111 H Carbon Dioxide 21.0 Anion Gap 9 BUN 10 Creatinine 1.35 H Estim Creat Clear Calc 50.35 Est GFR (MDRD) Af Amer 66 Est GFR (MDRD) Non-Af 55 L BUN/Creatinine Ratio 7.4 L Glucose 114 H Lactic Acid 3.5 H Uric Acid Calcium 6.7 L Total Bilirubin AST ALT Alkaline Phosphatase Lactate Dehydrogenase Troponin I Total Protein Albumin Globulin Albumin/Globulin Ratio Urine Color Urine Clarity Urine pH Ur Specific [place] Urine Protein Urine Glucose (UA) Urine Ketones Urine Occult Blood Urine Nitrite Urine Bilirubin Urine Urobilinogen Ur Leukocyte Esterase Urine RBC Urine WBC Ur Squamous Epith Cells Ur Transition Epith Cell Urine Bacteria Hyaline Casts Urine Mucus Microbiology 04/24/18 22:00 Stool C. difficile DNA Amplification - Final 04/23/18 22:20 Blood Culture (Wb) - Venous Blood Culture - Preliminary 04/23/18 22:20 Blood Culture (Wb) - Venous Blood Culture - Preliminary 04/24/18 06:50 Mucosa - Nose Respiratory Panel (PCR) - Final Clinical Impression(s) from Imaging Studies Chest X-Ray 04/23/18 21:59 IMPRESSION: Hypoinflation but no airspace consolidation. Electronically Signed: Calvin Cee MD at 22:22 EST , Service support , Medical Necessity - Tobacco Use Smoking Status: Never smoker Tobacco Use: Non-smoker, Secondhand Assessment/Plan All Active Problems SIRS (systemic inflammatory response syndrome) (Acute) Neutropenia (Acute) Sepsis associated hypotension (Acute) SVT (supraventricular tachycardia) (Acute) Thrombocytopenia (Acute) Asthma exacerbation (Acute) RECOMMENDATIONS: 1. Recommend discontinuation of supplemental IV fluids, as the patient is becoming hyperchloremic. 2. Continue antibiotics. 3. Encourage incentive spirometer use and mobilize patient as tolerated. 4. The patient can be transferred out of the ICU to [facility] telemetry. IMPRESSIONS: 1. Sepsis secondary to gram-negative bacteremia The patient's initial blood cultures obtained on April 23 were positive for gram-negative rods. Urine culture is currently pending. The patient has responded appropriately to IV fluid resuscitation and antibiotics. At this time, the patient is tolerating p.o. intake. Therefore, would recommend discontinuation of supplemental IV fluids. Antibiotics will be continued, pending finalized culture results. 2. SVT Resolved at this time. Likely secondary to the above. 3. Acute kidney injury Likely prerenal in etiology. Given that the patient is developing hyperchloremia, recommend discontinuation of supplemental IV fluids. The patient remains hemodynamically stable. Urine output is appropriate. No indication for renal replacement therapy. 4. Advanced age/hypertension Complicates care, management, recovery and prognosis. Recommend physical therapy evaluation today. This note was generated with [employer] software. It may contain incorrect words, spelling, and punctuation that were not noted in checking the note before signing. Code Visit Inpatient E&M: 46496 Subs Hosp L3
--- NOTE | 2018-04-25 07:59 | PN_ITS ---
Patient Problems: Active and Suspected Problems SIRS (systemic inflammatory response syndrome) (Acute) Neutropenia (Acute) Sepsis associated hypotension (Acute) SVT (supraventricular tachycardia) (Acute) Thrombocytopenia (Acute) Subjective: Patient is a 73-year-old gentleman who presented to the emergency department with chest discomfort. EKG on admission demonstrated SVT which apparently did not respond to adenosine. Patient was also found to have leukopenia as well as thrombocytopenia with elevated lactic acid level and assessment of sepsis of undetermined source made admitted to the intensive care unit for further management Objective: GENERAL: cooperative HEENT: Atraumatic; moist oral mucosa EYES; Anicteric, Normal Conjunctiva NECK; supple, normal thyroid, no distended JVD. RESPIRATORY: Diminished to auscultation bilaterally, CARDIOVASCULAR: Regular S1 S2, no audible murmurs GI: soft, non-tender, normoactive bowel sounds, : No Renal angle tenderness; EXTREMITIES: No edema, no clubbing, no cyanosis. MUSCULOSKELETAL: No Joint Tenderness; NEURO: Awake; no lateralizing signs. SKIN: No Rash PSYCH; Normal affect Vitals/I&O's: Vital Signs Temp Pulse Resp BP Pulse Ox 98.7 F 86 21 H 113/74 95 04/25/18 04:00 04/25/18 06:00 04/25/18 06:00 04/25/18 06:00 04/25/18 06:50 Oxygen Flow Rate (L/min) 2 Oxygen Delivery Method Room Air Weight: 83.1 kg Body Mass Index (BMI) 24.6 Intake and Output for Last 24 Hours 04/23/18 04/24/18 04/25/18 23:59 23:59 23:59 Intake Total 3540 / 3540 3190.8 / 3190.8 Output Total 1070 / 1070 550 / 550 Balance 2470 / 2470 2640.8 / 2640.8 Microbiology Past 72 Hours 04/24/18 22:00 Stool C. difficile DNA Amplification - Final 04/23/18 22:20 Blood Culture (Wb) - Venous Blood Culture - Preliminary 04/23/18 22:20 Blood Culture (Wb) - Venous Blood Culture - Preliminary 04/24/18 06:50 Mucosa - Nose Respiratory Panel (PCR) - Final Laboratory Results 04/24/18 09:40: Lactic Acid 3.5 H Current Medications Acetaminophen (Tylenol) 650 mg PO Q6H PRN PRN PRN Reason: fever, headache, pain Last Admin: 04/25/18 02:32 Dose: 650 mg Albuterol Sulfate (Ventolin Aerosols) 2.5 mg INHALATION Q2H PRN PRN PRN Reason: WHEEZING Diphenhydramine HCl (Benadryl) 50 mg PO QHS PRN PRN PRN Reason: SLEEP Last Admin: 04/25/18 00:11 Dose: 50 mg Sodium Chloride () 1,000 mls @ 150 mls/hr IV .Q6H40M [facility] Last Admin: 04/25/18 01:19 Dose: 150 mls/hr Piperacillin Sod/Tazobactam Sod (Zosyn) 3.375 gm in 50 mls @ 12.5 mls/hr IV Q8 [facility] Last Admin: 04/25/18 05:38 Dose: 12.5 mls/hr Vancomycin IV Pharmacy to Dose (1 ea/ Sodium Chloride) 500 mls @ 250 mls/hr IV PRN PRN; Protocol PRN Reason: Rx to Dose Vancomycin HCl 750 mg/ Sodium (Chloride) 265 mls @ 250 mls/hr IV Q12H [facility] Last Admin: 04/25/18 01:18 Dose: 250 mls/hr Sodium Chloride () 250 mls @ 15 mls/hr IV BOLUS [facility] Last Admin: 04/24/18 06:45 Dose: 15 mls/hr Magnesium Hydroxide (Milk Of Magnesia) 30 ml PO DAILY PRN PRN PRN Reason: Constipation Sodium Chloride () 5 - 15 ml IV UD PRN PRN Reason: flush Medical Necessity - Tobacco Use Smoking Status: Never smoker Tobacco Use: Non-smoker, Secondhand Assessment/Plan All Active Problems SIRS (systemic inflammatory response syndrome) (Acute) Neutropenia (Acute) Sepsis associated hypotension (Acute) SVT (supraventricular tachycardia) (Acute) Thrombocytopenia (Acute) Asthma exacerbation (Acute) Patient is a 73-year-old gentleman who presented to the emergency department with chest discomfort. EKG on admission demonstrated SVT which apparently did not respond to adenosine. Patient was also found to have leukopenia as well as thrombocytopenia with elevated lactic acid level and assessment of sepsis of undetermined source made admitted to the intensive care unit for further management 1. Septic shock of undetermined origin. Patient blood cultures so far positive for gram-negative rods. Patient was started on Zosyn and vancomycin admitted to the intensive care unit 2. SVT attributed by patient underlying infection 3. Leukopenia leukopenia attributed to patient sepsis 4. Thrombocytopenia treated patient sepsis 5. Hypertension: Patient is on amlodipine at home however this was held in view of patient presented with hypotension 6. DVT prophylaxis SCDs avoided systemic use of anticoagulants Advance planning; did discuss with the patient regarding his advanced directives as well as CODE STATUS. Did explain the various modalities involved ( FULL CODE, DNR CCA, DNR CCA with no intubation, and DNR CC ) patient elected to be full code order was placed. Time spent on discussion 18 minutes. Active Medications Acetaminophen (Tylenol) 650 mg PO Q6H PRN PRN PRN Reason: fever, headache, pain Last Admin: 04/25/18 02:32 Dose: 650 mg Albuterol Sulfate (Ventolin Aerosols) 2.5 mg INHALATION Q2H PRN PRN PRN Reason: WHEEZING Diphenhydramine HCl (Benadryl) 50 mg PO QHS PRN PRN PRN Reason: SLEEP Last Admin: 04/25/18 00:11 Dose: 50 mg Sodium Chloride () 1,000 mls @ 150 mls/hr IV .Q6H40M [facility] Last Admin: 04/25/18 01:19 Dose: 150 mls/hr Piperacillin Sod/Tazobactam Sod (Zosyn) 3.375 gm in 50 mls @ 12.5 mls/hr IV Q8 [facility] Last Admin: 04/25/18 05:38 Dose: 12.5 mls/hr Vancomycin IV Pharmacy to Dose (1 ea/ Sodium Chloride) 500 mls @ 250 mls/hr IV PRN PRN; Protocol PRN Reason: Rx to Dose Vancomycin HCl 750 mg/ Sodium (Chloride) 265 mls @ 250 mls/hr IV Q12H [facility] Last Admin: 04/25/18 01:18 Dose: 250 mls/hr Sodium Chloride () 250 mls @ 15 mls/hr IV BOLUS [facility] Last Admin: 04/24/18 06:45 Dose: 15 mls/hr Magnesium Hydroxide (Milk Of Magnesia) 30 ml PO DAILY PRN PRN PRN Reason: Constipation Sodium Chloride () 5 - 15 ml IV UD PRN PRN Reason: flush Clinical Impression(s) from Imaging Studies Chest X-Ray 12/15/18 21:59 IMPRESSION: Hypoinflation but no airspace consolidation. Electronically Signed: Calvin Cee MD at 22:22 EST , Service support , Code Visit Inpatient E&M: 65035 Subs Hosp L3 Procedures: 98738 Advncd Care Plan 30 Min
--- NOTE | 2018-04-25 10:47 | CASEMGMT ---
SW met w/pt briefly in room in regard to prior level of function and discharge plan. Pt's primary care doctor is Dr. Rodriguez, pt sees no specialists. Pt goes to [facility] for scripts, [employer] is pt's insurance. Prior to admission, pt lives alone in an apartment, two steps to enter. Pt is fully independent, no DME, no O2, drives. Pt does have someone come in to clean. Pt has no history of home health, SNF. Pt reports no family in the area. Pt anticipates returning home at discharge and no homegoing needs are anticipated. RN did state pt is having some right leg weakness so pt will be seen by PT. SW explained to pt will let the caser in know on the floor where pt is going to watch for the PT notes to make sure nothing is needed. Otherwise, pt does not identify any homegoing needs. SW did let CM and SW on MS3 know that pt has been seen, and for CM to watch for PT in the event pt needs PT at discharge. NELSON High, CONSULTING NURSE
[2018-04-25] MEDS: 0.9% Saline Lock 10 ML Syringe IV (11:13)
[2018-04-25 14:02] LABS: Pathologist Review Reviewed
[2018-04-25] MEDS: HYDROcodone Bitartrate/Apap 5/325 Tablet PO ×2 (17:41→21:48)
[2018-04-25] MEDS: Loperamide 2 MG Capsule PO (21:48)
[2018-04-26] VITALS (15 sets, daily range): BP systolic 135–167; BP diastolic 76–103; PULSE 80–97; RESP 18; TEMP 36.3–36.9; O2SAT 94–96
[2018-04-26] MEDS: 0.9% Normal Saline 1,000 ML 150 ML IV (03:46)
[2018-04-26] MEDS: HYDROcodone Bitartrate/Apap 5/325 Tablet PO ×4 (03:49→22:04)
[2018-04-26] MEDS: Piperacil/Tazobactam 3.375 GM/50 ML ML IV (05:57)
[2018-04-26 06:11] LABS: Mean Corp Hgb Conc 33.3 g/gl (32-36); Mean Corpuscular Hgb 35.3 pg (27.0-32.0); Mean Corpuscular Volume 105.9 fL (80-94); Mean Platelet Vol. 11.6 fl (6.2-12.0); Platelet Count 56 K/mm3 (150-450); RBC Distribution Width CV 13.8 % (11.6-14.6); RBC Distribution Width SD 52.3 fl (35.1-43.9); White Blood Count 6.6 K/mm3 (4.4-11.0)
[2018-04-26 06:12] LABS: Scan Indicated on CBC? Y/N NO
[2018-04-26 06:22] LABS: Anion Gap 10 (5-15); BUN 14 mg/dL (7-18); Calcium,Total 7.6 mg/dL (8.5-10.1); Chloride 114 mmol/L (98-107); Creatinine, Serum 0.74 mg/dL (0.70-1.30); EST Glomerular Filtration Rate 110 mL/min (>60); Est Glom Filt Rate - Afr Amer 133 mL/min (>60); Estimated Creatinine Clearance 67.98 ml/min; Glucose 63 mg/dL (74-106); Magnesium 1.8 mg/dL (1.6-2.6); Potassium 3.1 mmol/L (3.5-5.1); Sodium Level 145 mmol/L (136-145)
--- NOTE | 2018-04-26 07:24 | PCM.PROGNOTE ---
Patient Problems: Active and Suspected Problems SIRS (systemic inflammatory response syndrome) (Acute) Neutropenia (Acute) Sepsis associated hypotension (Acute) SVT (supraventricular tachycardia) (Acute) Thrombocytopenia (Acute) Subjective: The patient was seen and examined at the bedside this morning. Events from the last 24 hours have been reviewed. The patient is currently afebrile, hemodynamically stable and maintaining appropriate oxygen saturations on room air. Objective: The patient's most recent lab work, culture data and imaging studies have all been personally reviewed. Preliminary blood cultures from April 23 were positive for the presence of a gram-negative emi. The rest of the patient's infectious workup has been negative. - Physical Exam General: Alert, Oriented x3, Cooperative, No apparent distress HEENT: Atraumatic, PERRLA, Normocephalic Oral: No Gingival or Mucosal Lesions/ Ulcerations Neck: Supple, No Nodes, Trachea Midline Lungs: No rhonchi, No wheeze, No rales, Diminished Cardiovascular: Regular rate, Regular Rhythm, Normal S1, Normal S2, No murmurs Abdomen: Bowel Sounds Present, Soft, Non Tender, Non-Distended Extremities: No clubbing, No cyanosis, No edema Skin: No breakdown Musculoskeletal: No Tenderness to Palpation of Joints or Extremities Lymphatic: No Cervical, Supraclavicular, or Inguinal Adenopathy Neurological: Cranial nerves II-XII grossly intact, Neuro grossly intact Psych/Mental Status: Normal Affect, Appropriate Vital Signs Temp Pulse Resp BP Pulse Ox 36.3 C L 97 18 152/88 H 94 04/26/18 02:30 04/26/18 04:00 04/26/18 02:30 04/26/18 02:30 04/26/18 02:30 Oxygen Flow Rate (L/min) 2 Oxygen Delivery Method Room Air Weight: 183 lb 3.266 oz Body Mass Index (BMI) 24.6 Intake and Output for Last 24 Hours 04/24/18 04/25/18 04/26/18 23:59 23:59 23:59 Intake Total 3540 / 3540 3286.8 / 3286.8 2455 / 2455 Output Total 1070 / 1070 750 / 750 1300 / 1300 Balance 2470 / 2470 2536.8 / 2536.8 1155 / 1155 Microbiology Past 72 Hours 04/24/18 22:00 Enteric Bacteriology - Final Stool 04/23/18 22:40 Urine Culture - Final Urine, Clean Catch Mixed Gram Positive Organisms 04/24/18 22:00 C. difficile DNA Amplification - Final Stool 04/23/18 22:20 Blood Culture - Preliminary Blood Culture (Wb) - Venous 04/23/18 22:20 Blood Culture - Preliminary Blood Culture (Wb) - Venous 04/24/18 06:50 Respiratory Panel (PCR) - Final Mucosa - Nose Laboratory Tests Past 24 Hrs 04/23/18 04/26/18 04/26/18 22:11 05:15 05:15 WBC 6.6 RBC 3.40 L Hgb 12.0 L Hct 36.0 L MCV 105.9 H MCH 35.3 H MCHC 33.3 RDW 13.8 RDW Differential 52.3 H Plt Count 56 L MPV 11.6 [address] Review Reviewed Sodium 145 Potassium 3.1 L Chloride 114 H Carbon Dioxide 21.0 Anion Gap 10 BUN 14 Creatinine 0.74 Estim Creat Clear Calc 67.98 Est GFR (MDRD) Af Amer 133 Est GFR (MDRD) Non-Af 110 BUN/Creatinine Ratio 19.0 Glucose 63 L Calcium 7.6 L Magnesium 1.8 Clinical Impression(s) from Imaging Studies Chest X-Ray 04/23/18 21:59 IMPRESSION: Hypoinflation but no airspace consolidation. Electronically Signed: Calvin Cee MD at 22:22 EST , Service support , Medical Necessity - Tobacco Use Smoking Status: Never smoker Tobacco Use: Non-smoker, Secondhand Assessment/Plan All Active Problems SIRS (systemic inflammatory response syndrome) (Acute) Neutropenia (Acute) Sepsis associated hypotension (Acute) SVT (supraventricular tachycardia) (Acute) Thrombocytopenia (Acute) Asthma exacerbation (Acute) RECOMMENDATIONS: 1. Okay from my perspective to transition to cefazolin to complete treatment course. 2. Potassium repletion as indicated. 3. Encourage incentive spirometer use and mobilize patient as tolerated. IMPRESSIONS: 1. Sepsis secondary to gram-negative bacteremia The patient's initial blood cultures obtained on April 23 were positive for gram-negative rods. The remainder of the infectious workup has been unrevealing. The patient has responded appropriately to IV fluid resuscitation and antibiotics. At this time, the patient is tolerating p.o. intake. The patient can be transitioned to cefazolin to complete a treatment course of antibiotics. 2. SVT Resolved at this time. Likely secondary to the above. 3. Acute kidney injury Resolved. Likely prerenal in etiology. The patient remains hemodynamically stable. Urine output is appropriate. No indication for renal replacement therapy. 4. Hypokalemia Electrolyte repletion as indicated. 5. Advanced age/hypertension Complicates care, management, recovery and prognosis. Physical therapy to work with patient. This note was generated with [employer] software. It may contain incorrect words, spelling, and punctuation that were not noted in checking the note before signing. DISPOSITION: Given the lack of further ICU/pulmonary needs, will sign off. Please call with any additional questions. Code Visit Inpatient E&M: 56567 Subs Hosp L2
--- NOTE | 2018-04-26 09:01 | PN_ITS ---
Patient Problems: Active and Suspected Problems SIRS (systemic inflammatory response syndrome) (Acute) Neutropenia (Acute) Sepsis associated hypotension (Acute) SVT (supraventricular tachycardia) (Acute) Thrombocytopenia (Acute) Subjective: Patient was transferred from intensive care unit to [facility] on 04/25/2018. Potassium this morning is 3.0 correction initiated. Patient blood cultures grew E. coli in the blood possibly from urinary source. On appropriate antibiotic therapy Objective: GENERAL: cooperative HEENT: Atraumatic; moist oral mucosa EYES; Anicteric, Normal Conjunctiva NECK; supple, normal thyroid, no distended JVD. RESPIRATORY: Diminished to auscultation bilaterally, CARDIOVASCULAR: Regular S1 S2, no audible murmurs GI: soft, non-tender, normoactive bowel sounds, : No Renal angle tenderness; EXTREMITIES: No edema, no clubbing, no cyanosis. MUSCULOSKELETAL: No Joint Tenderness; NEURO: Awake; no lateralizing signs. SKIN: No Rash PSYCH; Normal affect Vitals/I&O's: Vital Signs Temp Pulse Resp BP Pulse Ox 98.5 F 88 18 153/76 H 95 04/26/18 07:59 04/26/18 07:59 04/26/18 07:59 04/26/18 07:59 04/26/18 08:07 Oxygen Flow Rate (L/min) 2 Oxygen Delivery Method Room Air Weight: 82.7 kg Body Mass Index (BMI) 24.6 Intake and Output for Last 24 Hours 04/24/18 04/25/18 04/26/18 23:59 23:59 23:59 Intake Total 3540 / 3540 3286.8 / 3286.8 2455 / 2455 Output Total 1070 / 1070 750 / 750 1300 / 1300 Balance 2470 / 2470 2536.8 / 2536.8 1155 / 1155 Microbiology Past 72 Hours 04/23/18 22:20 Blood Culture (Wb) - Venous Blood Culture - 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 difficile DNA Amplification - Final 04/24/18 06:50 Mucosa - Nose Respiratory Panel (PCR) - Final Laboratory Results 04/23/18 22:11: Diff Path Review Reviewed 04/26/18 05:15: WBC 6.6, RBC 3.40 L, Hgb 12.0 L, Hct 36.0 L, MCV 105.9 H, MCH 35.3 H, MCHC 33.3, RDW 13.8, RDW Differential 52.3 H, Plt Count 56 L, MPV 11.6 04/26/18 05:15: Sodium 145, Potassium 3.1 L, Chloride 114 H, Carbon Dioxide 21.0, Anion Gap 10, BUN 14, Creatinine 0.74, Estim Creat Clear Calc 67.98, Est GFR (MDRD) Af Amer 133, Est GFR (MDRD) Non-Af 110, BUN/Creatinine Ratio 19.0, Glucose 63 L, Calcium 7.6 L, Magnesium 1.8 Current Medications Acetaminophen (Tylenol) 650 mg PO Q6H PRN PRN PRN Reason: fever, headache, pain Last Admin: 04/25/18 12:06 Dose: 650 mg Hydrocodone Bitart/Acetaminophen (Fleming 5mg-325mg) 1 tablet PO Q4H PRN PRN PRN Reason: SEVERE PAIN (6-10/10) Last Admin: 04/26/18 03:49 Dose: 1 tablet Albuterol Sulfate (Ventolin Aerosols) 2.5 mg INHALATION Q2H PRN PRN PRN Reason: WHEEZING Diphenhydramine HCl (Benadryl) 50 mg PO QHS PRN PRN PRN Reason: SLEEP Last Admin: 04/25/18 00:11 Dose: 50 mg Piperacillin Sod/Tazobactam Sod (Zosyn) 3.375 gm in 50 mls @ 12.5 mls/hr IV Q8 [facility] Last Admin: 04/26/18 05:57 Dose: 12.5 mls/hr Sodium Chloride () 250 mls @ 15 mls/hr IV BOLUS [facility] Last Admin: 04/24/18 06:45 Dose: 15 mls/hr Potassium Chloride (Kcl 10meq/100ml) 10 meq in 100 mls @ 100 mls/hr IV BOLUS Q1H [facility] Stop: 04/26/18 11:59 Loperamide HCl (Imodium) 2 mg PO Q6H PRN PRN PRN Reason: Diarrhea Last Admin: 04/25/18 21:48 Dose: 2 mg Magnesium Hydroxide (Milk Of Magnesia) 30 ml PO DAILY PRN PRN PRN Reason: Constipation Potassium Chloride (K-Dur) 20 meq PO BIDCM [facility] Sodium Chloride () 5 - 15 ml IV UD PRN PRN Reason: flush Last Admin: 04/25/18 11:13 Dose: 10 ml Medical Necessity - Tobacco Use Smoking Status: Never smoker Tobacco Use: Non-smoker, Secondhand Assessment/Plan All Active Problems SIRS (systemic inflammatory response syndrome) (Acute) Neutropenia (Acute) Sepsis associated hypotension (Acute) SVT (supraventricular tachycardia) (Acute) Thrombocytopenia (Acute) Asthma exacerbation (Acute) Patient is a 73-year-old gentleman who presented to the emergency department with chest discomfort. EKG on admission demonstrated SVT which apparently did not respond to adenosine. Patient was also found to have leukopenia as well as thrombocytopenia with elevated lactic acid level and assessment of sepsis of undetermined source made admitted to the intensive care unit for further management 1. Septic shock of undetermined origin. Patient blood cultures so far positive for gram-negative rods. Patient was started on Zosyn and vancomycin admitted to the intensive care unit 2. SVT attributed by patient underlying infection 3. Leukopenia leukopenia attributed to patient sepsis 4. Thrombocytopenia treated patient sepsis 5. Hypertension: Patient is on amlodipine at home however this was held in view of patient presented with hypotension 6. DVT prophylaxis SCDs avoided systemic use of anticoagulants 7. Hypokalemia corrected per protocol Disposition: Do anticipate discharging to home in 1-2 days Code Visit Inpatient E&M: 43446 [facility] L3
[2018-04-26] MEDS: Cefazolin 2 GM in 0.9% Normal Saline 100 ML IV ×2 (14:28→22:04)
[2018-04-26] MEDS: DiphenhydrAMINE 25 MG Capsule 50 MG PO (22:04)
[2018-04-26] MEDS: 0.9% Saline Lock 10 ML Syringe IV ×2 (22:04→22:23)
[2018-04-26] MEDS: hydrALAZINE 20 MG/ML Vial 10 MG IV (22:23)
[2018-04-27 02:57] VITALS: BP 139/85; PULSE 82; RESP 18; TEMP 36.6; O2SAT 95
[2018-04-27 04:00] VITALS: PULSE 72
[2018-04-27 05:41] LABS: Hematocrit 39.2 % (40-54); Hemoglobin 13.3 g/dl (13.0-16.5); Mean Corp Hgb Conc 33.9 g/gl (32-36); Mean Corpuscular Hgb 35.6 pg (27.0-32.0); Mean Corpuscular Volume 104.8 fL (80-94); Mean Platelet Vol. 11.6 fl (6.2-12.0); Platelet Count 73 K/mm3 (150-450); RBC Distribution Width CV 13.5 % (11.6-14.6); RBC Distribution Width SD 50.4 fl (35.1-43.9); Red Blood Count 3.74 M/mm3 (4.6-6.2); White Blood Count 5.5 K/mm3 (4.4-11.0)
[2018-04-27 05:45] LABS: Anion Gap 8 (5-15); BUN 10 mg/dL (7-18); BUN/Creat Ratio 13.6 RATIO (10-20); Calcium,Total 8.4 mg/dL (8.5-10.1); Chloride 108 mmol/L (98-107); Creatinine, Serum 0.74 mg/dL (0.70-1.30); EST Glomerular Filtration Rate 110 mL/min (>60); Est Glom Filt Rate - Afr Amer 133 mL/min (>60); Estimated Creatinine Clearance 67.98 ml/min; Glucose 69 mg/dL (74-106); Potassium 3.3 mmol/L (3.5-5.1); Sodium Level 142 mmol/L (136-145)
[2018-04-27] MEDS: Cefazolin 2 GM in 0.9% Normal Saline 100 ML IV (05:48)
[2018-04-27] MEDS: 0.9% Saline Lock 10 ML Syringe IV (05:48)
[2018-04-27] MEDS: HYDROcodone Bitartrate/Apap 5/325 Tablet PO (05:48)
[2018-04-27 05:59] LABS: Scan Indicated on CBC? Y/N NO
[2018-04-27 06:46] VITALS: O2SAT 93
[2018-04-27 07:27] VITALS: BP 139/85; PULSE 72; PULSE 80; RESP 18; TEMP 36.6
--- NOTE | 2018-04-27 09:39 | PCM.DC ---
- Discharge Diagnoses Current Active Problems: Current Active and Chronic Problems SIRS (systemic inflammatory response syndrome) (Acute) Neutropenia (Acute) Sepsis associated hypotension (Acute) SVT (supraventricular tachycardia) (Acute) Thrombocytopenia (Acute) You will use the following diet at home:: No restrictions Your food should be the consistency of: Regular Discharge Activity: Return to Normal Activity Allergies/Adverse Reactions: Allergies Sulfa (Sulfonamide Antibiotics) Allergy (Verified 04/23/18 22:21) Rash Medications to take at Discharge Albuterol Aerosols [Ventolin Aerosols] 2.5 mg INHALATION Q2H PRN PRN #1000 vial.neb. 11/06/13 Amlodipine [Norvasc] 5 mg PO DAILY 04/23/18 Cephalexin [Keflex] 500 mg PO Q12 #14 capsule 04/27/18 The following prescriptions were given: Cephalexin [Keflex] 500 mg PO Q12 #14 capsule Primary Care Physician: Elijah Rodriguez MD [Primary Care Provider] - Test Results: Test results from this visit will be discussed in further detail at your follow-up appointment, if applicable. Proposed Discharge Date: 04/27/18
--- NOTE | 2018-04-27 09:43 | DCINST_ITS ---
- Discharge Diagnoses Current Active Problems: Current Active and Chronic Problems SIRS (systemic inflammatory response syndrome) (Acute) Neutropenia (Acute) Sepsis associated hypotension (Acute) SVT (supraventricular tachycardia) (Acute) Thrombocytopenia (Acute) You will use the following diet at home:: No restrictions Your food should be the consistency of: Regular Discharge Activity: Return to Normal Activity Allergies/Adverse Reactions: Allergies Sulfa (Sulfonamide Antibiotics) Allergy (Verified 04/23/18 22:21) Rash Medications to take at Discharge Albuterol Aerosols [Ventolin Aerosols] 2.5 mg INHALATION Q2H PRN PRN #1000 vial.neb. 11/06/13 Amlodipine [Norvasc] 5 mg PO DAILY 04/23/18 Cephalexin [Keflex] 500 mg PO Q12 #14 capsule 04/27/18 The following prescriptions were given: Cephalexin [Keflex] 500 mg PO Q12 #14 capsule Primary Care Physician: Elijah Rodriguez MD [Primary Care Provider] - Test Results: Test results from this visit will be discussed in further detail at your follow- up appointment, if applicable. Proposed Discharge Date: 04/27/18
[2018-04-27 10:19] VITALS: BP 151/88; PULSE 85; RESP 18; TEMP 36.9; O2SAT 993
--- NOTE | 2018-04-27 10:31 | PCA ---
Made follow up apt for primary care physician
--- NOTE | 2018-04-27 13:38 | PCM.DC.SUM ---
Discharge Date and Diagnosis Date of Admission: 04/24/18 Date of Discharge: 04/27/18 - Primary Discharge Diagnosis Septic shock secondary to E. coli bacteremia probably from a urinary - Secondary Discharge Diagnosis Chronic Problems Asthma (Chronic) Hospital Course and Treatment Imaging Results: Clinical Impression(s) from Imaging Studies Chest X-Ray 04/23/18 21:59 IMPRESSION: Hypoinflation but no airspace consolidation. Electronically Signed: Calvin Cee MD at 22:22 EST , Service support , Summary of Care Provided: Patient is a 73-year-old gentleman who presented to the emergency department with chest discomfort. EKG on admission demonstrated SVT which apparently did not respond to adenosine. Patient was also found to have leukopenia as well as thrombocytopenia with elevated lactic acid level and assessment of sepsis of undetermined source made admitted to the intensive care unit for further management 1. Septic shock secondary to E. coli bacteremia. Patient was initially managed with Zosyn and vancomycin and admitted to the intensive care unit resuscitated with IV fluid. Patient was transferred to regular nursing floor once his condition stabilized. Patient was discharged home on Keflex 500 mg p.o. twice daily for 7 days. 2. SVT attributed by patient underlying infection 3. Leukopenia leukopenia attributed to patient sepsis 4. Thrombocytopenia attributed to patient's sepsis plan is for patient to follow-up with PCP in 1-2 weeks for repeat CBC to be done 5. Hypertension: Patient is on amlodipine at home however this was held in view of patient presented with hypotension 6. DVT prophylaxis SCDs avoided systemic use of anticoagulants 7. Hypokalemia corrected per protocol - Physical Exam General: Alert HEENT: Atraumatic Oral: Moist Mucosa Neck: Supple Neurological: Neuro grossly intact Psych/Mental Status: Normal Affect Vital Signs Temp Pulse Resp BP Pulse Ox 98.5 F 85 18 151/88 H 993 04/27/18 10:19 04/27/18 10:19 04/27/18 10:19 04/27/18 10:19 04/27/18 10:19 Oxygen Flow Rate (L/min) 2 Oxygen Delivery Method Room Air Weight: 79.6 kg Body Mass Index (BMI) 24.6 Intake and Output for Last 24 Hours 04/25/18 04/26/18 04/27/18 23:59 23:59 23:59 Intake Total 3286.8 / 3286.8 5428 / 5428 200 / 200 Output Total 750 / 750 4340 / 4340 1775 / 1775 Balance 2536.8 / 2536.8 1088 / 1088 -1575 / -1575 Microbiology Past 72 Hours 04/23/18 22:20 Blood Culture - Final Blood Culture (Wb) - 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 difficile DNA Amplification - Final Stool 04/24/18 06:50 Respiratory Panel (PCR) - Final Mucosa - Nose Laboratory Tests Past 24 Hrs 04/27/18 04/27/18 04:58 04:58 WBC 5.5 RBC 3.74 L Hgb 13.3 Hct 39.2 L MCV 104.8 H MCH 35.6 H MCHC 33.9 RDW 13.5 RDW Differential 50.4 H Plt Count 73 L MPV 11.6 Sodium 142 Potassium 3.3 L Chloride 108 H Carbon Dioxide 26.0 Anion Gap 8 BUN 10 Creatinine 0.74 Estim Creat Clear Calc 67.98 Est GFR (MDRD) Af Amer 133 Est GFR (MDRD) Non-Af 110 BUN/Creatinine Ratio 13.6 Glucose 69 L Calcium 8.4 L Discharge Diet: No Restrictions Discharge Activity: Return to Normal Activity Home Medications: Medications to take at Discharge Albuterol Aerosols [Ventolin Aerosols] 2.5 mg INHALATION Q2H PRN PRN #1000 vial.neb. 11/06/13 Amlodipine [Norvasc] 5 mg PO DAILY 04/23/18 Cephalexin [Keflex] 500 mg PO Q12 #14 capsule 04/27/18 Following Prescrptions Were Given to Patient: Cephalexin [Keflex] 500 mg PO Q12 #14 capsule Primary Care Physician: Maeve Domingo MD [Primary Care Provider] - Please Follow Up With: maeve domingo Disposition: Home Minutes spent on discharge:: 40 Patient Condition:: Stable Medical Necessity - Tobacco Use Smoking Status: Never smoker Tobacco Use: Non-smoker, Secondhand Meaningful Use Info Meaningful Use Diagnoses (Choose all that apply): None applicable Code Visit Inpatient E&M: 41126 Disch Hosp
--- NOTE | 2018-04-29 16:40 | CASEMGMT ---
RN CM Discharge Follow-up Phone Call: GUMARO: Jana Strata: 3 Call Date: 04/29/18 Discharge Date: 04/27/18 Time of Call: 1640 Duration: 1 minute ? Admitting Diagnosis: Sepsis due to UTI This RN CM attempted to contact pt regarding discharge follow-up. Voicemail received and message left requesting a return call if pt has questions or concerns. Chuy Briceno RN
--- NOTE | 2018-04-29 17:23 | CASEMGMT ---
[facility] Discharge Follow-up Phone Call: Pt returned call. States he has been doing well since discharged. Complained of right leg pain when he tries to pick it up and when getting in and out of the car. States it is decreasing. Denies any swelling, reddness or bruising to the leg. He has a follow-up appointment with his PCP Dr. Rodriguez on 05/19 and states he did stop into Dr. Rodriguez's office to say hi on the way home from [place]. States he will have the doctor look at it when he goes in if it isn't better. Pt states he has been taking his antibiotic without difficulty. Denied any other complaints, questions, or concerns. Chuy Briceno RN
--- OUTSIDE RECORDS SUMMARY | 2018-07-27 12:37 | XMS RPT_ITS ---
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 [place], [place], [address] Observed: 04/23/2018 Status: F Source: JEFF CULTURE, BLOOD (WB) 10:20 PM [facility] REPOSITORY AEROBIC AND ANAEROBIC BOTTLE GRAM STAIN= GRAM NEGATIVE RODS REFER TO -46 FOR COMPLETE IDENTIFICATION AND SENSITIVITIES. RESULTS CALLED TO [facility] 04/24/18 1108 Corinne Barillas. REPORT READ BACK BY [facility]. ORGANISM 1: GNR lactose dope edger Amount Growth Growth Performed By: #### M200.1000 #### [facility] [place], [place], [address] Observed: 04/23/2018 Status: F Source: [place] CULTURE, BLOOD (WB) 10:20 PM [facility] REPOSITORY AEROBIC AND ANAEROBIC BOTTLE GRAM STAIN= GRAM NEGATIVE JANETH RESULTS CALLED TO [facility] 04/24/18 1248 Corinne Barillas. REPORT READ BACK BY [employer]. ORGANISM 1: Escherichia coli Escherichia coli: REACTION Amoxacillin/Clavulanic Acid $ 4 S Ampicillin $ 8 S Ampicillin/Sulbactam $ 4 S Cefazolin $ <=4 S Cefepime $ <=1 S Ceftriaxone $ <=1 S Ciprofloxacin $ <=0.25 S ESBL - Ertapenim $$$ <=0.5 S Gentamicin $ <=1 S Imipenem *NF <=0.25 S Levofloxacin $ <=0.12 S Piperacillin/Tazobactam $$ <=4 S Tobramycin $ <=1 S Trimethoprim/Sulfametho $ <=20 S (NF) indicates non-formulary drug at [facility]. Approval by Infectious Disease Specialist required before non-formulary drugs may be ordered and/or dispensed. Performed By: #### M200.1000 #### [facility] [address] [place], [place], [address] CBC W/DIFF, AUTOMATED Collected: 04/23/2018 Status: C Source: [place] 10:11 PM [facility] REPOSITORY Order Comment: CRITICAL VALUE VERIFIED. CALLED TO ALYSSA SCHMITT 04/23/18 2220 Cassie Akil Efren. RESULTS READ BACK BY SAME. TYPE CODE TESTS RESULT OUT OF RANGE REFERENCE UNITS LAB L100.1000 4.4-11.0 K/mm3 Low alert WBC 1.0 LAB L100.1200 4.6-6.2 M/mm3 Low RBC 4.45 LAB L100.1300 13.0-16.5 g/dl Normal HGB 15.6 LAB L100.1400 40-54 % Normal HCT 46.4 LAB L100.1500 80-94 fL High MCV 104.3 LAB L100.1600 27.0-32.0 pg High MCH 35.1 LAB L100.1700 32-36 g/gl Normal MCHC 33.6 LAB L100.1810 11.6-14.6 % Normal RDW CV 13.5 LAB L100.1820 35.1-43.9 fl High RDW SD 51.4 LAB L100.1900 150-450 K/mm3 Low PLT 121 LAB L100.2000 6.2-12.0 fl Normal MPV 10.0 LAB L100.2100 47-70 % High NEUT% 78.0 LAB L100.2200 19-41 % Normal LY% 21.0 LAB L100.2300 0-10 % Normal MONO% 0.0 LAB L100.2400 0-5 % Normal EO% 1.0 LAB L100.2500 0-1 % Normal BASO% 0.0 LAB L100.2550 0.0-0.9 % Normal IM GRAN % 0.000 Result Comment: IG% - Immature Granulocytes (promyelocytes, myelocytes and metamyelocytes) > 1% indicates that a LEFT SHIFT is Present. LAB L100.2620 2.0-7.7 X10 3/uL Low Absolute Neut 0.8 LAB L100.2720 0.83-4.51 X10 3/ul Low Absolute Lymph 0.21 LAB L100.4500 Normal SMEAR COMMENT SEE COMMENTS Result Comment: NEUTROPENIA NOTED LYMPHOPENIA NOTED LEUKOCYTOPENIA NOTED LAB L100.5500 ADEQ PLT EST Normal ADEQUATE LAB L100.7300 ANISO 1+ Normal LAB L100.7800 1+ Normal MACROCYTE LAB L100.9900 PATH REV Normal Reviewed Result Comment: Leukopenia and neutropenia. Clinical correlation necessary. Chalo Coelho M.D. 04/25/18 AMENDED REPORT 04/25/18 1401 PATH REV previously reported as: September Performed By: #### L100.0100 #### [facility] [address] [place], [address] CHEST 1 VIEW Observed: 04/23/2018 Status: F Source: [place] (PORTABLE) 10:01 PM [facility] REPOSITORY [facility] Imaging Services [address] [place] [address] Chest 1 View (Portable) MR#: [id number] Acct: [id number] Name: BHASKAR VASQUEZ Rep #: [id number] : 1945 M 73 From: Calvin Cee MD PCP: Elijah Domingo MD Status: REG ER Study: Chest 1 View (Portable) Date of Exam: 04/23/18 Exam# [id number] Ordering Dr: Homer Banegas DO STUDY: X-RAY CHEST REASON FOR EXAM: Male, 73 years old. Chest pain started approximately 2 hours ago TECHNIQUE: AP COMPARISON: 03/27/2017 FINDINGS: EKG leads project over the chest. Lungs are less expanded as compared to the prior study with persistent mild fibrotic changes in the lung bases. There is no demonstrated pleural abnormality. Normal size heart. Normal mediastinum and monisha. Normal visualized pulmonary arteries. There is atherosclerotic calcification of the aortic arch with tortuosity. No acute bony process. There is no demonstrated abnormality of the visualized soft tissue structures of the upper abdomen. RAD/Chest 1 View (Portable) IMPRESSION: Hypoinflation but no airspace consolidation. Electronically Signed: Calvin Cee MD at 22:22 EST , Service support , CC: Homer Banegas DO; Elijah oDmingo MD Reinforcing Rod Layer: Signed COMPREHENSIVE METABOLIC Collected: 04/23/2018 Status: F Source: JEFF PRUETT 10:00 PM [facility] REPOSITORY TYPE CODE TESTS RESULT OUT OF RANGE REFERENCE UNITS LAB L501.0100 74-106 mg/dL Normal GLU 91 Result Comment: Please note revised GLUCOSE reference range effective 2017. LAB L501.1000 7-18 mg/dL Low BUN 6 LAB L501.1100 0.70-1.30 mg/dL Normal CREAT,SERUM 1.20 Result Comment: The validity of the calculated GFR AND GFRAA in patients over 70 years has not been determined. Clinical correlation is essential. LAB L501.1110 >60 mL/min Normal EST GFR 63 Result Comment: Non- GFR Calc LAB L501.1115 >60 mL/min Normal EST GFR - AA 76 Result Comment: GFR Calc LAB L501.1255 ml/min Normal Estimated CRCL 56.65 LAB L501.1300 10-20 RATIO Low BUN/CRE 5.0 LAB L501.1500 6.4-8. g/dL Normal 2 T PROT 6.9 LAB L501.1800 3.2-5. g/dL Normal 0 ALB 3.4 LAB L501.1950 2.2-4. g/dL Normal 2 GLOB 3.5 LAB L501.2000 0.9-2. RATIO Normal 4 A/G 1.0 LAB L501.2200 8.5-10 mg/dL Low .1 CA 8.2 LAB L501.4100 15-37 U/L Normal AST 30 LAB L501.4305 45-117 U/L Normal ALK P 87 LAB L501.4405 16-61 U/L Normal ALT 22 LAB L501.4600 0.20-1 mg/dL Normal .00 T BILI 0.80 LAB L501.5300 136-14 mmol/L Normal 5 NA 139 LAB L501.5600 3.5-5. mmol/L Normal 1 K 3.7 LAB L501.5900 98-107 mmol/L Normal CL 102 LAB L501.6100 21.0-3 mmol/L Normal 2.0 CO2 21.0 LAB L501.6200 5-15 High GAP 16 Performed By: #### L500.4050, L501.4010 #### [facility] [address] [place], [address] TROPONIN-I Collected: 04/23/2018 Status: F Source: [place] 10:00 PM [facility] REPOSITORY TYPE CODE TESTS RESULT OUT OF RANGE REFERENCE UNITS LAB L501.4010 <0.045 ng/mL Normal 0.019 TROPONIN-I Result Comment: TROPONIN-I EXPECTED VALUES <0.045 Negative 0.045 - 0.590 Consistent with Cardiac Damage > OR = 0.600 Critical Value Not every elevated troponin is indicative of DE. These values should be used with clinical judgement in examining the patient's clinical picture for diagnosis. To establish a diagnosis of DE versus myocardial injury, there must be a demonstrated rise and/or fall in the troponin values, in addition to ischemic symptoms, EKG changes, new regional wall motion abnormality, and/or angiographical evidence. PLEASE NOTE: REFERENCE RANGES EDITED 17 Performed By: #### L500.4050, L501.4010 #### [facility] [address] [place], [address] 12 LEAD ELECTROCARDIOGRAM Observed: 06/14/2017 Status: F Source: [place] 3:26 PM [facility] REPOSITORY [facility] Cardiovascular Services [address] [facility] [place] [address] 12 Lead EKG 06/10/171932 MR#: [id number] Acct: [id number] Name: BHASKAR VASQUEZ Kinjal Rep #: [id number] : 1945 72 From: Rickie Rangel MD Attending Dr: Status: DEP ER Ordering Dr: Ryder Fleming DO Date: 06/10/17 Location: ED Sex: M C Admitted: Test Reason : FALL Blood Pressure : / mmHG Vent. Rate : 089 BPM Atrial Rate : 089 BPM P-R Int : 194 ms QRS Dur : 090 ms QT Int : 372 ms P-R-T Axes : 003 015 030 degrees QTc Int : 452 ms Normal sinus rhythm Normal ECG Confirmed by RICKIE RANGEL MD ([id number]), editor map BASSAM HENDERSON ([id number]) on 06/14/2017 3:26:27 PM Referred By: CORAZON Confirmed By:RICKIE RANGEL MD 06/14/17 1526 Date Rickie Rangel MD CC: Elijah Domingo MD Signed EMERGENCY DEPARTMENT Observed: 06/11/2017 Status: F Source: [place] SUMMARY 3:35 PM [facility] REPOSITORY [facility] Medical Records Department [address] [place] [address] Emergency Department Summary 06/10/172036 MR#: [id number] Acct: [id number] Name: BHASKAR VASQUEZ Rep #: [id number] : 1945 72 From: Ryder Fleming DO PCP: Elijah Domingo MD Status: DEP ER - ER Visit Summary Date of Service: 06/10/17 Chief Complaint: Alcohol intoxication and fall History of Present Illness: The patient is a 72 M who parked his car then went inside his house. He states he had a number of glasses Pinot grigio. Afterwards she decided to go back out to the car and take a drive. However he did not make it to his car. Serendipitously he fell and was unable to get up. He states that he is very sorry that he is here in his intoxicated state and tries very hard not to come here. He does drink alcohol quite regularly. He notes blood in his hands but is unsure where he cut himself. He denies any leg or arm symptoms. He does not believe he hit his head. He has fallen several times over the past month and he believes those were also alcohol related. Tetanus was approximately 6 years ago. Physical Examination: Afebrile vital signs are stable Gen: Well-nourished well-developed Head: Normocephalic atraumatic Eyes: Perrl EOMI ENT: TMs clear no rhinorrhea moist mucous membranes Neck: Supple no lymphadenopathy no JVD nontender CVS: Regular rate rhythm no murmurs normal S1-S2 Respiratory: No distress clear to auscultation bilaterally chest nontender Abdomen: Soft nontender nondistended normal bowel sounds no masses Back: Nontender Extremity: Nontender no edema Skin: 1 cm left skin laceration and a flap-like fashion there are numerous wrist abrasions on the right and the left volar surfaces. Neuro: alert orientated 3 CN II-XII intact normal strength sensation reflexes gait cerebellar Psych: Normal affect normal mood Test Results: Basic labs showed an alcohol level of 265. CT of the brain and C-spine was negative. Emergency Department Course and Treatment: His wounds were locally washed and dressed with bacitracin and dressings. The left thumb was washed and Dermabonded. The patient ambulated and did quite well. He has a sober straddle bug driver (his neighbor) who is willing to take care of him and ensure that he has a safe night. Patient was advised not to drink and drive. Impression: 1. Alcohol intoxication 2. Left thumb laceration with repair 1 cm This note was generated with [employer] dictation software. It may contain incorrect words, spelling, and punctuation that were not noted in review of the chart prior to signing ED Disposition - Plan for ED Patient: Disposition: Home or Assisted Living Chief Complaint: Fall Instructions: ED Alcohol Intoxication, ED Laceration Ext Skin Glue Referrals: Elijah Domingo MD [Primary Care Provider] - As Needed Additional Instructions: Please do not drink and drive What to do if you have Problems For any increased pain, shortness of breath, bleeding, nausea or vomiting, chest pain, or any unexpected problems, contact your Primary Care Provider. Call [facility] ([phone]) or report to the closest Emergency Room. Call 911 if necessary. 06/11/17 1535 <Electronically signed by Ryder Fleming DO> Date Ryder Fleming DO Cosigner Signature (If Indicated): Date CC: Elijah Domingo MD BRAIN/HEAD WITHOUT Observed: 06/10/2017 Status: F Source: JEFF CONTRAST 7:10 PM [facility] REPOSITORY [facility] Imaging Services [address] [place] [address] [place] [address] Brain/Head without Contrast MR#: [id number] Acct: [id number] Name: BHASKAR VASQUEZ Rep #: [id number] : 1945 M 72 From: Kenyatta Burger MD PCP: Elijah Domingo MD Status: REG ER Study: Brain/Head without Contrast Date of Exam: 06/10/17 Exam# [id number] Ordering Dr: Ryder Fleming DO STUDY: CT BRAIN WITHOUT CONTRAST REASON FOR EXAM: Male, 72 years old. Dizziness after falling. RADIATION DOSAGE (If Supplied By Facility): CTDIvol = ( 44.99 ) mGy, DLP = ( 779.24 ) mGycm TECHNIQUE: Transaxial CT imaging of the brain was performed without administration of intravenous contrast material. Individualized dose optimization techniques were used for this CT. COMPARISON: None. FINDINGS: Normal soft tissue structures. Normal calvarium. Normal size ventricles and extra-axial spaces for the patient's age. Normal white matter tracts of the cerebral hemispheres. Normal basal ganglia and thalami. Normal brainstem. There is mild cerebellar atrophy. Carotid artery calcification. There is no intracranial hemorrhage. There are no findings of an acute ischemic infarction. 1.5 cm retention cyst of the right maxillary sinus. Mild mucosal thickening in right ethmoid, sphenoid and frontal sinuses. One opacified air cell at the tip of the left mastoid process. CT/Brain/Head without Contrast IMPRESSION: No acute intracranial findings. Negative for hemorrhage, hematoma or mass density. Negative for demarcation of a nonhemorrhagic infarct zone. Mild involutional changes. Carotid artery calcifications. Incidental sinus findings as stated above. Electronically Signed: Kenyatta Burger MD at 19:52 EST , Service support , CC: Ryder Fleming DO; Elijah Domingo MD Reinforcing Rod Layer: Signed SPINE CERVICAL Observed: 06/10/2017 Status: F Source: TOUGAL[place] WITHOUT CONTRAS 7:10 PM [facility] REPOSITORY [facility] Imaging Services [address] [place] [address] Spine Cervical without Contras MR#: [id number] Acct: [id number] Name: BHASKAR VASQUEZ Rep #: [id number] : 1945 M 72 From: Kenyatta Burger MD PCP: Elijah Domingo MD Status: REG ER Study: Spine Cervical without Contras Date of Exam: 06/10/17 Exam# [id number] Ordering Dr: Ryder Fleming DO STUDY: CT CERVICAL SPINE WITHOUT CONTRAST REASON FOR EXAM: Male, 72 years old. Falling injury of the neck. Dizziness. RADIATION DOSAGE (If Supplied By Facility): CTDIvol = ( 24.16 ) mGy, DLP = ( 487.21 ) mGycm TECHNIQUE: High resolution transaxial imaging was performed without contrast material. Sagittal and coronal images were reconstructed. Individualized dose optimization techniques were used for this CT. COMPARISON: None FINDINGS: Normal craniovertebral junction. Normal C1, C2 and odontoid alignment. Degenerative arthrosis of the atlantoaxial articulation. Normal odontoid process. Straightening of the cervical spine and a mild dextroscoliosis. Negative for acute fracture of the cervical spine. C2-3: Disc narrowing, uncovertebral arthrosis and bilateral facet arthrosis, left greater than right. Minimal central disc bulge. Negative for central stenosis. Moderate foraminal narrowing on the right. Mild foraminal narrowing on the left. C3-4: Disc narrowing, uncovertebral arthrosis. Facet arthrosis greater on the left. Posterior disc osteophyte. Negative for central stenosis. Severe foraminal narrowing on the right. Mild foraminal narrowing on the left. C4-5: Advanced disc narrowing and uncovertebral arthrosis. Bilateral facet arthrosis. Posterior disc osteophyte. Borderline spinal stenosis. Severe foraminal narrowing on the right. Mild to moderate foraminal narrowing on the left. C5-6: Advanced disc narrowing and uncovertebral arthrosis. Posterior disc osteophyte. Borderline spinal stenosis. Severe foraminal narrowing on the right. Moderate foraminal narrowing on the left. C6-7: Advanced disc narrowing and uncovertebral arthrosis. Negative for central stenosis. Moderate foraminal narrowing on the right and mild foraminal narrowing on the left. C7-T1: Disc narrowing and uncovertebral arthrosis. Bilateral facet arthrosis. Slight degenerative anterolisthesis of C7. Negative for central stenosis. Moderate foraminal narrowing on the right and mild foraminal narrowing on the left. Carotid artery calcifications. CT/Spine Cervical without Contras IMPRESSION: Straightening of the cervical spine with a minimal degenerative anterolisthesis of C7. Otherwise normal alignment. Negative for acute fracture of the cervical spine. Degenerative disc and joint changes as stated above. Bilateral carotid artery calcifications. Electronically Signed: Kenyatta Burger MD at 20:00 EST , Service support , CC: Ryder Fleming DO; Elijah Domingo MD Reinforcing Rod Layer: Signed CBC W/DIFF, AUTOMATED Collected: 06/10/2017 Status: F Source: [place] 7:05 PM [facility] REPOSITORY TYPE CODE TESTS RESULT OUT OF RANGE REFERENCE UNITS LAB L100.1000 4.4-11.0 K/mm3 Normal WBC 6.6 LAB L100.1200 4.6-6.2 M/mm3 Low RBC 4.27 LAB L100.1300 13.0-16.5 g/dl Normal HGB 14.9 LAB L100.1400 40-54 % Normal HCT 43.8 LAB L100.1500 80-94 fL High MCV 102.6 LAB L100.1600 27.0-32.0 pg High MCH 34.9 LAB L100.1700 32-36 g/gl Normal MCHC 34.0 LAB L100.1810 11.6-14.6 % Normal RDW CV 13.9 LAB L100.1820 35.1-43.9 fl High RDW SD 51.8 LAB L100.1900 150-450 K/mm3 Normal PLT 161 LAB L100.2000 6.2-12.0 fl Normal MPV 10.0 LAB L100.2100 47-70 % Low NEUT% 33.9 LAB L100.2200 19-41 % High LY% 50.4 LAB L100.2300 0-10 % Normal MONO% 7.3 LAB L100.2400 0-5 % High EO% 7.9 LAB L100.2500 0-1 % Normal BASO% 0.3 LAB L100.2550 0.0-0.9 % Normal IM GRAN % 0.200 Result Comment: IG% - Immature Granulocytes (promyelocytes, myelocytes and metamyelocytes) > 1% indicates that a LEFT SHIFT is Present. LAB L100.2620 2.0-7.7 X10 3/uL Normal Absolute Neut 2.2 LAB L100.2720 0.83-4.51 X10 3/ul Normal Absolute Lymph 3.32 Performed By: #### L100.0100 #### [facility] [address] [place], [place], [address] ALCOHOL, BLOOD Collected: 06/10/2017 Status: F Source: [place] (MEDICAL)-SERUM 7:05 PM [facility] REPOSITORY TYPE CODE TESTS RESULT OUT OF RANGE REFERENCE UNITS LAB L501.9100 mg/dL Normal SERUM 265.0 ETOH Result Comment: The serum:whole blood ethanol ratio is approximately 1.14 and varies slightly with hematocrit. Medical Alcohol reference interval and critical value in non-tolerant individuals; 50 - 100 Impairment 100 Intoxication 100 - 250 Severe Poisoning 250 - 400 Deep/possible fatal coma Performed By: #### L501.9100 #### [facility] [address] [place], [place], [address] COMPREHENSIVE METABOLIC Collected: 06/10/2017 Status: F Source: [place] PROFIL 7:05 PM [facility] REPOSITORY Order Comment: 'TROP' Serial specimen #1, #2, #3, or #4: 1 TYPE CODE TESTS RESULT OUT OF RANGE REFERENCE UNITS LAB L501.0100 70-110 mg/dL Normal GLU 102 LAB L501.1000 7-18 mg/dL Normal BUN 13 LAB L501.1100 0.70-1.30 mg/dL Normal 0.82 CREAT,SERUM Result Comment: The validity of the calculated GFR AND GFRAA in patients over 70 years has not been determined. Clinical correlation is essential. LAB L501.1110 >60 mL/min Normal EST GFR 97 Result Comment: Non- GFR Calc LAB L501.1115 >60 mL/min Normal EST GFR - AA 118 Result Comment: GFR Calc LAB L501.1255 ml/min Normal Estimated CRCL 84.18 LAB L501.1300 10-20 RATIO Normal BUN/CRE 15.8 LAB L501.1500 6.4-8. g/dL Normal 2 T PROT 7.6 LAB L501.1800 3.2-5. g/dL Normal 0 ALB 3.8 LAB L501.1950 2.2-4. g/dL Normal 2 GLOB 3.8 LAB L501.2000 0.9-2. RATIO Normal 4 A/G 1.0 LAB L501.2200 8.5-10 mg/dL Low .1 CA 8.4 LAB L501.4100 15-37 U/L Normal AST 29 LAB L501.4305 45-117 U/L Normal ALK P 80 LAB L501.4405 16-61 U/L Normal ALT 30 Result Comment: Please note revised ALT reference range effective 2017. LAB L501.4600 0.20-1.00 mg/dL Normal T BILI 0.40 LAB L501.5300 136-145 mmol/L Normal NA 138 LAB L501.5600 3.5-5.1 mmol/L Normal K 3.9 LAB L501.5900 98-107 mmol/L Normal CL 101 LAB L501.6100 21.0-32.0 mmol/L Normal CO2 25.0 LAB L501.6200 5-15 Normal GAP 12 Performed By: #### L500.4050, L501.4010 #### [facility] [address] [place], [place], [address] TROPONIN-I Collected: 06/10/2017 Status: F Source: [place] 7:05 PM [facility] REPOSITORY Order Comment: 'TROP' Serial specimen #1, #2, #3, or #4: 1 TYPE CODE TESTS RESULT OUT OF RANGE REFERENCE UNITS LAB L501.4010 <0.06 ng/mL Normal < 0.02 TROPONIN-I Result Comment: TROPONIN-I EXPECTED VALUES <0.05 NEGATIVE 0.06 - 0.59 AT RISK OF DE > OR = 0.60 SUGGEST DE Performed By: #### L500.4050, L501.4010 #### [facility] [address] [place], [address] ALLERGIES ALLERGIES DATE TYPE / CODE NAME / CODE REACTION SEVERITY SOURCE 04/23/2018 Drug Sulfa Rash Unknown [facility] Allergy/4160 ([facility] 7[facility]25(SNOMED Antibiotics)/ Repository CT) [id number](RX NORM) ENCOUNTERS ENCOUNTERS ADMIT/DISCHARGE ACCOUNT ADMITTING ENCOUNTER LOCATION SOURCE NUMBER CLASS 04/24/2018/ [id number] [facility] Inpatient Jeff Jeff 8 0 Encounter [facility] ing:[id number]: Repository [id number]: 1 04/24/2018 [id number] Christine, Jose Ambulatory BMSBuilding:B [place] 5 MS.[facility] Repository 04/24/2018 [id number] Christine, [facility] Ambulatory BMSBuilding:B [place] [address] MS.CF.[facility] Repository 04/24/2018 [id number] Christine, Jose Ambulatory BMSBuilding:B [place] 7 MS.[facility] Repository 04/24/2018 [id number] Christine, [facility] Ambulatory BMSBuilding:B Jeff 9 MS.CF.[facility] Repository 04/24/2018 [id number] Christine, Jose Ambulatory BMSBuilding:B [place] 5 MS.CF.[facility] Repository 04/24/2018 [id number] Christine, Jose Ambulatory BMSBuilding:B [place] 8 MS.[facility] Repository 04/24/2018 [id number] Christine, Jose Ambulatory BMSBuilding:B [place] 2 MS.CF.[facility] Repository 04/24/2018 [id number] Christine, Jose Ambulatory BMSBuilding:B [place] 7 MS.[facility] Repository 04/24/2018/ [id number] Ambulatory BMSBuilding:W Jeff 8 6 [facility] Repository 06/10/2017/ [id number] Emergency Jeff Jeff 8 7 [facility] ing:ED Repository PAYERS PAYERS ENCOUNTER GUARANTOR PAYER SUBSCRIBER SOURCE 04/24/2018 BHASKAR R Primary BHASKAR R Jeff VASQUEZ416 SAUNDRA Insurance:DUC MORRISDOB: [id number] [address]: Repository [id number] (HP) Date:[id number] [address]RM: 04/24/2018 Secondary NOT GIVENUNK Jeff Insurance:SELF PAY [facility] Number: Effective Repository Date:2018-04-23 04/24/2018 BHASKAR R Primary BHASKAR R Jeff VASQUEZ416 SAUNDRA Insurance:DUC MORRISDOB: [facility] [id number] [place] [address]Dzw: [facility]: [facility] [id number] (HP) Date:2442-49-69XD [address] [place] [address]GB: 04/24/2018 Secondary NOT GIVENUNK [place] Insurance:SELF PAY [facility] Number: Effective Repository Date:2018-04-24 04/24/2018 BHASKAR R Primary BHASKAR R Jeff [id number] SAUNDRA Insurance:DUC MORRISDOB: [facility] [id number] [place] [address]Pts: [facility]ository [id number] (HP) Date:8832-70-79RX [address] [address]EP: 04/24/2018 Secondary NOT GIVENUNK Jeff Insurance:SELF PAY [facility] Number: Effective Repository Date:2018-04-24 04/24/2018 BHASKAR R Primary BHASKAR R Jeff [id number] SAUNDRA Insurance:DUC MORRISDOB: [facility] [id number] [place] [address]Ctm: [facility]: [facility]ository [id number] (HP) Date:8894-07-47[address] [address]IB: 04/24/2018 Secondary NOT GIVENUNK Jeff Insurance:SELF PAY [facility] Number: Effective Repository Date:2018-04-24 04/24/2018 BHASKAR R Primary BHASKAR R Jeff [id number] SAUNDRA Insurance:DUC MORRISDOB: [facility] [id number] Hospital [place] [address]Zld: [facility]: Repository [id number] (HP) Date:2817-75-58FY [facility] [address] [place] [address]HS: 04/24/2018 Secondary NOT GIVENUNK Jeff Insurance:SELF PAY [facility] Number: Effective Repository Date:2018-04-24 04/24/2018 BHASKAR R Primary BHASKAR R Jeff [id number] SAUNDRA Insurance:DUC MORRISDOB: [facility] [id number] [place] [address]Pxw: [facility]: [facility]ository [id number] (HP) Date:[id number] [facility] [address] [place] [phone]: 04/24/2018 Secondary NOT GIVENUNK Jeff Insurance:SELF PAY [facility] Number: Effective Repository Date:2018-04-24 04/24/2018 BHASKAR R Primary BHASKAR R Jeff [id number] SAUNDRA Insurance:DUC MORRISDOB: [facility] [id number] [place] [address]Gpe: [facility]: Repository [id number] (HP) Date:3958-24-19YY [facility] [place] [address]KC: 04/24/2018 Secondary NOT GIVENUNK [place] Insurance:SELF PAY [facility] Number: Effective Repository Date:2018-04-24 04/24/2018 BHASKAR R Primary BHASKAR R Jeff [id number] SAUNDRA Insurance:DUC CHRISTINADOB: [facility] [id number] [place] [address]Bxo[facility] [id number] (HP) Date:2074-16-46VK [address] [place] [phone]: 04/24/2018 Secondary NOT GIVENUNK [place] Insurance:SELF PAY [facility] Number: Effective Repository Date:2018-04-24 04/24/2018 BHASKAR R Primary BHASKAR R Jeffwerner [id number] SAUNDRA Insurance:DUC CHRISTINADOB: [facility] [id number] [place] [address]Jed: [facility]: [facility]ository [id number] (HP) Date:4736-03-35WT [address] [place] [address]DD: 04/24/2018 Secondary NOT GIVENUNK [place] Insurance:SELF PAY [facility] Number: Effective Repository Date:2018-04-24 04/24/2018 BHASKAR R Primary [place]AR R [place] [id number] [place]UNDRA Insurance:DUC CHRISTINADOB: [facility] [id number] [place] [address]Wbg: [facility]: [facility]ository [id number] (HP) Date:6916-45-00US [facility] [address] [place] [phone]: 04/24/2018 Secondary NOT GIVENUNK [place] Insurance:SELF PAY [facility] Number: Effective Repository Date:2018-04-24 06/10/2017 BHASKAR R Primary BHASKAR R Jeff [id number] ASUNDRA Insurance:DUC CHRISTINADOB: [facility] [id number] [place] [address]Wpl: [facility]: Repository [id number] (HP) Date:[id number] [address]GE: 06/10/2017 Secondary NOT GIVENUNK [place] Insurance:[facility]LF [facility]: Effective Repository Date:2017-06-10
== END 2018-04-27 11:08 | disposition home or self-care (01) | DRG 871 ==
LOC: ED 23:47 → ICU 04-24 00:08 → MS3 04-25 10:48
PROVIDERS: Admitting Provider Internal Medicine; Emergency Provider Emergency Medicine; Family Provider Family Medicine; PCP Family Medicine; Visit Provider Internal Medicine
DX: A41.51 Sepsis due to Escherichia coli [E. coli] (principal); R65.21 Severe sepsis with septic shock; I47.1 Supraventricular tachycardia; N17.9 Acute kidney failure, unspecified; E87.2 Acidosis; I10 Essential (primary) hypertension; E87.6 Hypokalemia; Z82.49 Family history of ischemic heart disease and other diseases of the circulatory system; Z23 Encounter for immunization; J45.909 Unspecified asthma, uncomplicated; D72.819 Decreased white blood cell count, unspecified; D69.59 Other secondary thrombocytopenia
CPT/HCPCS: 36415; 71045; 80048; 80053; 81001; 83605; 83615; 83735; 84484; 84550; 85025; 85027; 85610; 85730; 87040; 87086; 87088; 87186; 87493; 87506; 87633; 93005; 93306; 97161; 97530; 99285; J7030; J7040; J7050; J7120; 90686; A4216; J0153

== ENCOUNTER → 2018-09-12 08:15 | Outpatient (CLI) | payer MEDICARE, SELFPAY ==
[2018-04-24 01:07] VITALS: BMI 24.6
[2018-09-12 10:32] LABS: Absolute Lymphocyte Count 1.91 X10^3/ul (0.83-4.51); Basophil# 0.02 X10^3/uL; Basophil% 0.4 % (0-1); Eosinophil# 0.66 X10^3/uL; Eosinophils% 13.4 % (0-5); Hematocrit 47.5 % (40-54); Hemoglobin 16.1 g/dl (13.0-16.5); Lymphocyte # 1.91 X10^3/ul (4.0); Lymphocyte % 38.7 % (19-41); Mean Corp Hgb Conc 33.9 g/gl (32-36); Mean Corpuscular Hgb 33.9 pg (27.0-32.0); Mean Platelet Vol. 10.9 fl (6.2-12.0); Monocyte# 0.32 X10^3/uL; Monocyte% 6.5 % (0-10); Neutrophil # 2.01 X10^3/uL (2.7-7.7); Neutrophil % 40.8 % (47-70); Platelet Count 147 K/mm3 (150-450); RBC Distribution Width CV 13.3 % (11.6-14.6); RBC Distribution Width SD 48.2 fl (35.1-43.9); Red Blood Count 4.75 M/mm3 (4.6-6.2); White Blood Count 4.9 K/mm3 (4.4-11.0)
[2018-09-12 10:36] LABS: POSITIVE COUNT NO; POSITIVE DIFFERENTIAL NO; POSITIVE MORPHOLOGY NO
[2018-09-12 11:14] LABS: ALB/GLOB Ratio 1.1 RATIO (0.9-2.4); AST(SGOT) 25 U/L (15-37); Alanine Aminotransfer ALT/SGPT 21 U/L (16-61); Albumin, Serum 3.8 g/dL (3.2-5.0); Alkaline Phosphatase 74 U/L (45-117); Anion Gap 7 (5-15); BUN 10 mg/dL (7-18); BUN/Creat Ratio 11.1 RATIO (10-20); Chloride 102 mmol/L (98-107); Cholesterol 157 mg/dL (200); EST Glomerular Filtration Rate 87 mL/min (>60); Est Glom Filt Rate - Afr Amer 105 mL/min (>60); Globulin 3.6 g/dL (2.2-4.2); Glucose 97 mg/dL (74-106); High Density Lipoprotein 72 mg/dL; PSA,Total - Annual Screen 2.52 ng/mL (0.00-4.00); Potassium 3.6 mmol/L (3.5-5.1); Protein, Total 7.4 g/dL (6.4-8.2); Sodium Level 139 mmol/L (136-145); Triglycerides 106 mg/dL; Very Low Density Lipoprotein 21 mg/dL (5-40)
[2018-09-12 13:27] LABS: Color, Urine Yellow (Yellow); Glucose, Dipstick Normal (Normal); Ketone-Dipstick Negative (Negative); Leukocyte Esterase-Dipstick Negative /ul (Negative); Nitrite-Dipstick Negative (Negative); Occult Blood-Urine Negative /ul (Negative); Protein-Dipstick Negative (Negative); Urine Bilirubin Dipstick Negative (Negative); Urine Clarity Sl. Cloudy (Clear); Urine Urobilinogen 1 mg/dl (Normal)
== END ==
PROVIDERS: Family Provider Family Medicine; PCP Family Medicine; Referring Provider Family Medicine; Visit Provider Family Medicine
DX: Z00.00 Encounter for general adult medical examination without abnormal findings (principal); I10 Essential (primary) hypertension; Z12.5 Encounter for screening for malignant neoplasm of prostate
CPT/HCPCS: 36415; 80053; 80061; 81002; 84153; 85025; G0103

== ENCOUNTER 2019-02-15 23:46 | Inpatient (IN) | payer MEDICARE, SELFPAY ==
[2018-04-24 01:07] VITALS: BMI 24.6
[2019-02-15 23:47] VITALS: BP 147/133; PULSE 117; RESP 22; TEMP 36.6; O2SAT 95; BMI 22.2
[2019-02-16] VITALS (21 sets, daily range): BP systolic 110–160; BP diastolic 62–98; PULSE 90–124; RESP 16–28; TEMP 36.7–37; O2SAT 92–98; BMI 21.0
--- NOTE | 2019-02-16 | EKG12_ITS ---
Test Reason : SOB Blood Pressure : / mmHG Vent. Rate : 117 BPM Atrial Rate : 117 BPM P-R Int : 176 ms QRS Dur : 084 ms QT Int : 334 ms P-R-T Axes : 063 -01 050 degrees QTc Int : 465 ms Sinus tachycardia Anteroseptal infarct , age undetermined Abnormal ECG Confirmed by NHUNG ROBERTS, CARMEN ([id number]), graphics editor RUKHSANA PIERRE ([id number]) on 02/22/2019 9:33:46 A M Referred By: Gabino Feng Confirmed By:EDIE HOOKER MD
--- NOTE | 2019-02-16 00:05 | ED.RN ---
UPON ARRIVAL PT SPO2 WAS 78 ON ROOM AIR, PLACED PT ON 4L OF O2 TO GET HIS SPO2 ABOVE 90%. DR. KAYE MADE AWARE.
--- NOTE | 2019-02-16 00:06 | RAD_ITS ---
STUDY: X-RAY CHEST REASON FOR EXAM: Male, 74 years old. Short of breath TECHNIQUE: Portable chest COMPARISON: 04/23/2018 FINDINGS: There is stable bibasilar scarring.. There is no demonstrated pleural abnormality. Normal size heart. Normal mediastinum and monisha. Normal visualized pulmonary arteries. Normal visualized aortic arch and descending thoracic aorta. Normal visualized thoracic spine. Normal visualized ribs, clavicles, and shoulders. There is no demonstrated abnormality of the visualized soft tissue structures of the upper abdomen. RAD/Chest 1 View (Portable) IMPRESSION: Stable bibasilar scarring Electronically Signed: Alex Medrano, at 1:27 EDT Tel , Service support ,
[2019-02-16] MEDS: Ipratropium/Albuterol Sulfate 3 ML AMPUL.NEB INHALATION ×4 (00:25→22:06)
[2019-02-16 00:26] LABS: Absolute Neutrophil Count 3.5 X10^3/uL (2.0-7.7); Basophil# 0.03 X10^3/uL; Basophil% 0.5 % (0-1); Eosinophil# 0.57 X10^3/uL; Eosinophils% 10.1 % (0-5); Hematocrit 45.3 % (40-54); Hemoglobin 15.1 g/dL (13.0-16.5); Lymphocyte % 19.4 % (19-41); Mean Corp Hgb Conc 33.3 g/dL (32-36); Mean Corpuscular Hgb 35.1 pg (27.0-32.0); Mean Corpuscular Volume 105.3 fL (80-94); Mean Platelet Vol. 10.4 fl (6.2-12.0); Monocyte# 0.41 X10^3/uL; Monocyte% 7.2 % (0-10); NRBC Flagged by Analyzer 0 % (0-5); Neutrophil # 3.53 X10^3/uL (2.7-7.7); Neutrophil % 62.4 % (47-70); Platelet Count 130 K/mm3 (150-450); RBC Distribution Width CV 13.2 % (11.6-14.6); RBC Distribution Width SD 51.2 fl (35.1-43.9); White Blood Count 5.7 K/mm3 (4.4-11.0)
[2019-02-16 00:29] LABS: International Normalized Ratio 1.1; Prothrombin Time (Protime)PT. 14.1 SECONDS (11.7-14.9)
[2019-02-16 00:30] LABS: Partial Thromboplast Time 30.2 Seconds (24.1-36.2)
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
[2019-02-16 00:41] LABS: Anion Gap 4 (5-15); BUN 9 mg/dL (7-18); BUN/Creat Ratio 10.2 RATIO (10-20); Calcium,Total 9.1 mg/dL (8.5-10.1); Chloride 101 mmol/L (98-107); Creatinine, Serum 0.88 mg/dL (0.70-1.30); EST Glomerular Filtration Rate 89 mL/min (>60); Est Glom Filt Rate - Afr Amer 108 mL/min (>60); Estimated Creatinine Clearance 73.03 ml/min; Glucose 118 mg/dL (74-106); Potassium 3.7 mmol/L (3.5-5.1); Sodium Level 136 mmol/L (136-145)
[2019-02-16 00:54] LABS: D-Dimer Quantitative (DVT/PE) 0.31 FEU/ug/m (0.27-0.49)
--- NOTE | 2019-02-16 01:02 | CT_ITS ---
STUDY: CTA CHEST REASON FOR EXAM: Male, 74 years old. Short of breath, hypertension RADIATION DOSAGE (If Supplied By Facility): CTDIvol = ( 11.43 ) mGy, DLP = ( 443.62 ) mGycm TECHNIQUE: The examination was performed with the intravenous administration of IV 75mL [id number]-[id number] 75ML. Post-processing of the angiographic images was performed, with multiplanar reformation and 3D reconstruction. Individualized dose optimization techniques were used for this CT. COMPARISON: CT chest 01/30/2015 FINDINGS: Normal enhancement of the main pulmonary artery and right and left pulmonary arteries. Evaluation of the subsegmental pulmonary arteries is nondiagnostic due to significant respiratory motion. There is a small hiatal hernia. The surgical clips within the right upper quadrant of the abdomen. There is no demonstrated pulmonary embolism. Normal thoracic aorta and visualized great vessels. There is no demonstrated aortic dissection. Normal mediastinum. Normal hilar regions. There is calcific coronary atherosclerosis.. The lungs are well expanded. There is new infiltrate within the right middle lobe. There is significant respiratory motion artifact. There is mild persistent right lower lobe segmental atelectasis and mild bronchiectasis. There is slight worsening when compared to the prior exam. There is mild right basilar infiltrate. Normal pleura. There is mild stenosis proximal celiac artery with mild poststenotic dilation unchanged from prior imaging. Normal chest wall structures. Normal osseous structures. There are stable multiple surgical clips within the right upper quadrant of the abdomen CT/CTA Chest W/WO Contrast IMPRESSION: No CTA evidence of pulmonary emboli within the main pulmonary arteries, evaluation of more distal pulmonary arteries is nondiagnostic due to significant respiratory motion artifact, there is no CTA evidence for thoracic aortic aneurysm or dissection New significant pulmonary infiltrate within the right middle lobe which is suspicious for pneumonia, follow-up CT in 3 months is recommended to prove stability and/or clearing to exclude pathologic lesion Evaluation for pulmonary nodules is limited due to significant respiratory motion artifact Right lower lobe subsegmental atelectasis and mild bronchiectasis, mild right basilar infiltrate which demonstrates slight worsening when compared to CT chest 01/30/2015 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 Calcific coronary atherosclerosis that should be correlated clinically Electronically Signed: Alex Medrano, at 2:59 EDT Tel , Service support ,
[2019-02-16 02:19] LABS: Lactic Acid 1.8 mmol/L (0.4-2.0)
[2019-02-16] MEDS: levoFLOXacin IV 750 MG/150 ML BAG 150 MG IV (03:01)
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
[2019-02-16] MEDS: Albuterol 2.5 MG/3 ML VIAL.NEB. INHALATION (04:00)
[2019-02-16 05:36] LABS: Thyroid Stim Hormone (TSH) 1.04 uIU/mL (0.358-3.74)
[2019-02-16] MEDS: Enoxaparin 40 MG/0.4 ML Syringe SC (05:37)
[2019-02-16] MEDS: 0.9% Normal Saline 1,000 ML 100 ML IV ×2 (05:37→15:41)
--- NOTE | 2019-02-16 05:39 | ED.RN ---
pt 95% on 2L on admission. had requested for 4L. breathing much improved after breathing tx.
--- NOTE | 2019-02-16 06:39 | NURSING ---
notified resp therapy of pt requesting breathing tx. pt calling down his breakfast at this time.
[2019-02-16] MEDS: Budesonide Respules 0.5 MG/2 ML AMPUL.NEB. INHALATION (06:47)
[2019-02-16] MEDS: guaiFENesin 1,200 MG Tablet 1200 MG PO ×2 (08:05→21:39)
[2019-02-16] MEDS: amLODIPine 5 MG Tablet PO (08:05)
[2019-02-16] MEDS: Famotidine 20 MG Tablet PO ×2 (08:05→21:39)
--- NOTE | 2019-02-16 11:35 | CASEMGMT ---
RN ROZINA TERRAZZO TILE SETTER CM to room to meet with patient for initial transition planning/care coordination assessment. ZAHIDA HANDY introduced self and role at [facility]. Pt voices understanding and consents to assessment at this time. Pt resting in bed in no distress at this time. Pt is A/O at this time and answers all questions appropriately. Care providers, pharmacy, and demographics verified/updated at this time. PCP: Dr Rodriguez Specialists: Denies Preferred Pharmacy: [facility] Insurance: [employer] listed on demographics sheet. Pt states he no longer has [employer], but now has M[employer] and [employer]. Pt gave ZAHIDA HANDY MCR card, copy made and faxed to Registration and placed on chart. MCR Card given back to pt. Call placed to Registration to inform them that pt states no longer has [employer] and that he states he has both MCR and LORENE. They stated they would check/confirm this information. Prescription Benefit: Yes Living Will/HPOA: does not have LW or HCPOA . Interested in more information but states does not want to talk with SW at this time to complete paperwork. Provided information on advanced directives and given Social Service rac card with number to call if chooses in the future to utilize [facility] social work for advanced directive completion. Educated patient that, if patient so chooses, can come back to [facility] and meet with a SW as an outpatient to complete health care advanced directives. Patient expresses understanding. Pt states he would like to think about who he would like to have as his POA. States he is considering his wilfrid who lives in [place] but would like to talk with him first to inquire if he would be willing to do this. Pt states he plans on making an appt with SW as an Out-pt once he gets a chance to talk with him. LNOK: does not have any LNOK. Has friend, Liban Morin, listed on demographics as personal care worker. Living Arrangements: Lives alone in a1-story apartment w/3 steps to enter. is independent with ADL's and home mgmt tasks. Transportation: Pt states drives self and states no transportation concerns at this time. DME: has the following DME: shower chair (does not use), rails/grab bars, hand held shower, nebulizer. No home O2. Currently remains on O2. Denies having preference of DME company if he would need home O2 @ discharge. Given list of DME companies. Pt states no need for further DME at this time. HHC/SNF: No history of either and denies needs. Pt wishes to return home and states has no concerns with going home at time of discharge. CM to follow for home oxygen needs and any further discharge planning/needs. Pt voices no further concerns/needs at this time. Advised pt to ask for CM if any further questions/concerns/needs arise. Voices understanding. PLAN: Home w/discharge plans in place. Jose WASHINGTON RN
--- NOTE | 2019-02-16 17:08 | PCM.PROGNOTE ---
Patient Problems: Active and Suspected Problems CAP (community acquired pneumonia) (Acute) Hypoxemia (Acute) Subjective: The patient is a 74-year-old male with a past medical history of asthma, thrombocytopenia and hypertension presented to the emergency department at [facility] on 02/16/2019 complaining of shortness of breath with a cough productive of yellow sputum for the preceding 2 days. Vital signs at presentation to the emergency room were temperature 97.9, pulse rate 117, blood pressure 147/133, respiratory rate 22 and he was 95% saturated on a 4 L nasal cannula. White blood cell count was 5.7 with 62% neutrophils. There were 10.1% eosinophils. Hemoglobin was 15.1 and the platelet count was mildly decreased at 130,000 which is within his baseline. BMP was remarkable for a mildly increased random blood sugar of 118. TSH was normal. Troponin was less than 0.019. Lactic acid was normal at 1.8. Was recently in [facility] visiting a friend and towards the end of the visit he started sneezing and it has gotten worse since he returned to [place]. Nose is also itchy and he has a dry cough. Admits to having seasonal allergies. No new medications recently - Physical Exam General: Alert, Oriented x3, Cooperative HEENT: Atraumatic Oral: Moist Mucosa Neck: No Nodes, Trachea Midline Lungs: No rales, Tachypneic, - - BS's are very diminished throughout with very poor air exchange....localized very tight inspiratory and expiratory wheezing in the Left base posteriorly Cardiovascular: Regular Rhythm, Normal S1, Normal S2, No murmurs, Tachycardic Abdomen: Bowel Sounds Present, Soft, Non Tender, Non-Distended Extremities: No cyanosis, No edema Skin: No rashes Neurological: Cranial nerves II-XII grossly intact, Neuro grossly intact Psych/Mental Status: Normal Affect, Appropriate Vital Signs Temp Pulse Resp BP Pulse Ox 98.3 F 90 20 H 116/62 95 02/16/19 13:15 02/16/19 14:46 02/16/19 13:15 02/16/19 13:15 02/16/19 13:15 Oxygen Flow Rate (L/min) 3 Oxygen Delivery Method Room Air Weight: 155 lb 6.814 oz Body Mass Index (BMI) 21.0 Intake and Output for Last 24 Hours 02/14/19 02/15/19 02/16/19 23:59 23:59 23:59 Intake Total 1965 Output Total 775 / 775 Balance 1191 / 1191 Microbiology Past 72 Hours 02/16/19 07:00 Gram Stain - Final Sputum, Expectorated/Coughed 02/16/19 04:13 Respiratory Panel (PCR) - Final Mucosa - Nose 02/16/19 04:30 Legionella Antigen - Final Urine, Clean Catch 02/16/19 04:30 Streptococcus pneumoniae Antigen (M - Final Urine, Clean Catch Laboratory Tests Past 24 Hrs 02/16/19 02/16/19 02/16/19 00:10 00:10 00:10 WBC 5.7 RBC 4.30 L Hgb 15.1 Hct 45.3 MCV 105.3 H MCH 35.1 H MCHC 33.3 RDW Std Deviation 51.2 H RDW Coeff of Mya 13.2 Plt Count 130 L MPV 10.4 Immature Gran % (Auto) 0.400 Neut % (Auto) 62.4 Lymph % (Auto) 19.4 [place] % (Auto) 7.2 Eos % (Auto) 10.1 H Baso % (Auto) 0.5 Absolute Neuts (auto) 3.5 Absolute Lymphs (auto) 1.10 Nucleated RBC % 0 PT 14.1 INR 1.1 APTT 30.2 D-Dimer Quant (PE/DVT) 0.31 Sodium 136 Potassium 3.7 Chloride 101 Carbon Dioxide 31.0 Anion Gap 4 L BUN 9 Creatinine 0.88 Estim Creat Clear Calc 73.03 Est GFR (MDRD) Af Amer 108 Est GFR (MDRD) Non-Af 89 BUN/Creatinine Ratio 10.2 Glucose 118 H Lactic Acid Calcium 9.1 Troponin I < 0.015 TSH 02/16/19 02/16/19 00:10 01:35 WBC RBC Hgb Hct MCV MCH MCHC RDW Std Deviation RDW Coeff of Mya Plt Count MPV Immature Gran % (Auto) Neut % (Auto) Lymph % (Auto) [place] % (Auto) Eos % (Auto) Baso % (Auto) Absolute Neuts (auto) Absolute Lymphs (auto) Nucleated RBC % PT INR APTT D-Dimer Quant (PE/DVT) Sodium Potassium Chloride Carbon Dioxide Anion Gap BUN Creatinine Estim Creat Clear Calc Est GFR (MDRD) Af Amer Est GFR (MDRD) Non-Af BUN/Creatinine Ratio Glucose Lactic Acid 1.8 Calcium Troponin I TSH 1.04 Medical Necessity - Tobacco Use Smoking Status: Never smoker Assessment/Plan All Active Problems SIRS (systemic inflammatory response syndrome) (Acute) Sepsis associated hypotension (Acute) CAP (community acquired pneumonia) (Acute) Hypoxemia (Acute) Asthma exacerbation (Acute) Impressions 1. acute exacerbation asthma - has never been a smoker. Has not had PFT's. suspect the exacerbation is due to allergic reaction/trigger... Eosinophils are 10% 2. 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 DC the Budesonide and start Solumedrol. Refer to the pulmonary clinic for follow up at [place]. Ambulatory pulse ox on RA prior to DC
[2019-02-16] MEDS: levoFLOXacin IV 750 MG/150 ML BAG 100 MG IV (21:37)
[2019-02-17] VITALS (15 sets, daily range): BP systolic 136–155; BP diastolic 73–96; PULSE 76–103; RESP 16–20; TEMP 36.6–37.1; O2SAT 89–98
[2019-02-17] MEDS: 0.9% Normal Saline 1,000 ML 100 ML IV ×3 (02:46→21:57)
[2019-02-17] MEDS: Enoxaparin 40 MG/0.4 ML Syringe SC (05:24)
[2019-02-17 05:52] LABS: Absolute Lymphocyte Count 0.48 X10^3/uL (0.83-4.51); Absolute Neutrophil Count 2.2 X10^3/uL (2.0-7.7); Basophil# 0.01 X10^3/uL; Basophil% 0.3 % (0-1); Hematocrit 39.9 % (40-54); Hemoglobin 13.4 g/dL (13.0-16.5); Lymphocyte # 0.48 X10^3/ul (4.0); Lymphocyte % 16.6 % (19-41); Mean Corp Hgb Conc 33.6 g/dL (32-36); Mean Corpuscular Hgb 35.3 pg (27.0-32.0); Mean Platelet Vol. 11.2 fl (6.2-12.0); Monocyte# 0.15 X10^3/uL; Monocyte% 5.2 % (0-10); NRBC Flagged by Analyzer 0 % (0-5); Neutrophil # 2.24 X10^3/uL (2.7-7.7); Neutrophil % 77.6 % (47-70); POSITIVE DIFFERENTIAL YES; Platelet Count 106 K/mm3 (150-450); RBC Distribution Width CV 13.1 % (11.6-14.6); RBC Distribution Width SD 50.6 fl (35.1-43.9); White Blood Count 2.9 K/mm3 (4.4-11.0)
[2019-02-17 05:57] LABS: Differential Indicated SCAN CRITERIA MET
[2019-02-17 06:20] LABS: Anion Gap 7 (5-15); BUN 8 mg/dL (7-18); BUN/Creat Ratio 9.6 RATIO (10-20); Calcium,Total 8.8 mg/dL (8.5-10.1); Chloride 107 mmol/L (98-107); Creatinine, Serum 0.84 mg/dL (0.70-1.30); EST Glomerular Filtration Rate 95 mL/min (>60); Est Glom Filt Rate - Afr Amer 115 mL/min (>60); Estimated Creatinine Clearance 75.66 ml/min; Glucose 127 mg/dL (74-106); Sodium Level 140 mmol/L (136-145)
[2019-02-17] MEDS: Ipratropium/Albuterol Sulfate 3 ML AMPUL.NEB INHALATION ×4 (07:06→19:18)
[2019-02-17] MEDS: guaiFENesin 1,200 MG Tablet 1200 MG PO ×2 (08:10→21:59)
[2019-02-17] MEDS: amLODIPine 5 MG Tablet PO (08:10)
[2019-02-17] MEDS: Famotidine 20 MG Tablet PO ×2 (08:10→21:59)
[2019-02-17 10:18] LABS: Pathologist Review Reviewed
--- NOTE | 2019-02-17 14:02 | CASEMGMT ---
Pt does not qualify for home oxygen at this time. Katya TEAGUE CM
--- NOTE | 2019-02-17 19:50 | PCM.PROGNOTE ---
Patient Problems: Active and Suspected Problems CAP (community acquired pneumonia) (Acute) Hypoxemia (Acute) Subjective: Afebrile Vital signs are stable, heart rate has improved with treatment of acute exacerbation of asthma with steroids He was 89% ambulating on room air today and 94% at rest on room air. All lab was personally reviewed. The white blood cell count today is 2.9 with 77% neutrophils however the patient is on high-dose intravenous steroids. Hemoglobin is within normal limits and the platelet count is 106,000. BMP is unremarkable. Fasting glucose is mildly increased at 127, likely secondary to high-dose steroids. Sputum culture appears to be normal respiratory isabel. Legionella and streptococcal antigens were negative. States he feels better today but not sure he is ready to go home. - Physical Exam General: Alert, Cooperative Oral: Moist Mucosa Neck: No Nodes, Trachea Midline Lungs: Wheezes - too tight to wheeze yesterday. the air exchange is better but still considered diminished in a pt who has been a life long non-smoker, - - Not tachypneic today, no conversational dyspnea, no accessory muscle use Cardiovascular: Regular rate, Regular Rhythm, Normal S1, Normal S2, No Gallop Abdomen: Bowel Sounds Present, Soft, Non Tender, Non-Distended Extremities: No edema Skin: No rashes Psych/Mental Status: Normal Affect, Appropriate Vital Signs Temp Pulse Resp BP Pulse Ox 98.8 F 101 H 20 H 146/81 H 94 02/17/19 16:15 02/17/19 18:53 02/17/19 16:15 02/17/19 16:15 02/17/19 16:15 Oxygen Flow Rate (L/min) 2 Oxygen Delivery Method Room Air Weight: 157 lb 10.088 oz Body Mass Index (BMI) 21.0 Intake and Output for Last 24 Hours 02/15/19 02/16/19 02/17/19 23:59 23:59 23:59 Intake Total 3276.00 / 3276.00 1878.33 / 1878.33 Output Total 1875 / 1875 2024 Balance 1401.00 / 1401.00 -146.67 / -146.67 Microbiology Past 72 Hours 02/16/19 07:00 Gram Stain - Final Sputum, Expectorated/Coughed Respiratory Culture - Preliminary Appears to be normal respiratory isabel. Further studies to follow. 02/16/19 04:13 Respiratory Panel (PCR) - Final Mucosa - Nose 02/16/19 04:30 Legionella Antigen - Final Urine, Clean Catch 02/16/19 04:30 Streptococcus pneumoniae Antigen (M - Final Urine, Clean Catch Laboratory Tests Past 24 Hrs 02/17/19 02/17/19 05:25 05:25 WBC 2.9 L RBC 3.80 L Hgb 13.4 Hct 39.9 L MCV 105.0 H MCH 35.3 H MCHC 33.6 RDW Std Deviation 50.6 H RDW Coeff of Mya 13.1 Plt Count 106 L MPV 11.2 Immature Gran % (Auto) 0.300 Neut % (Auto) 77.6 H Lymph % (Auto) 16.6 L [place] % (Auto) 5.2 Eos % (Auto) 0.0 Baso % (Auto) 0.3 Absolute Neuts (auto) 2.2 Absolute Lymphs (auto) 0.48 L Nucleated RBC % 0 [address] Review Reviewed Sodium 140 Potassium 4.0 Chloride 107 Carbon Dioxide 26.0 Anion Gap 7 BUN 8 Creatinine 0.84 Estim Creat Clear Calc 75.66 Est GFR (MDRD) Af Amer 115 Est GFR (MDRD) Non-Af 95 BUN/Creatinine Ratio 9.6 L Glucose 127 H Calcium 8.8 Medical Necessity - Tobacco Use Smoking Status: Never smoker Assessment/Plan All Active Problems SIRS (systemic inflammatory response syndrome) (Acute) Sepsis associated hypotension (Acute) CAP (community acquired pneumonia) (Acute) Hypoxemia (Acute) Asthma exacerbation (Acute) Impressions 1. acute exacerbation asthma - has never been a smoker. Has not had PFT's. suspect the exacerbation is due to allergic reaction/trigger... Eosinophils 10% at admission. 0% after high dose steroid started. Has seen Dr. Raymond in the past but, not for 3-4 years. Uses duonebs at home and has a rescue inhaler. Not on a steroid inhaler or a long-acting inhaled bronchodilator. 2. 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 Continue antibiotic. Continue the Solu-medrol re-evaluate in the AM Recheck PA and Lat Code Visit Inpatient E&M: 31300 Subs Hosp L2
[2019-02-17] MEDS: levoFLOXacin IV 750 MG/150 ML BAG 100 MG IV (21:57)
[2019-02-17] MEDS: 0.9% NaCl Peripheral Flush Adult/Peds IV (21:59)
[2019-02-18] VITALS (8 sets, daily range): BP systolic 145–147; BP diastolic 72–84; PULSE 89–100; RESP 15–19; TEMP 36.8–36.9; O2SAT 92–94
[2019-02-18] MEDS: Ipratropium/Albuterol Sulfate 3 ML AMPUL.NEB INHALATION ×3 (00:07→06:24)
[2019-02-18] MEDS: Enoxaparin 40 MG/0.4 ML Syringe SC (06:01)
--- NOTE | 2019-02-18 06:10 | RAD_ITS ---
STUDY: X-RAY CHEST REASON FOR EXAM: Male, 74 years old. Pneumonia TECHNIQUE: Frontal and lateral views COMPARISON: February 16, 2019 FINDINGS: Slightly elevated right hemidiaphragm. The lungs are not fully expanded. Mild basilar atelectasis. Normal size heart. Normal mediastinum and monisha. Normal visualized pulmonary arteries. Calcified aortic arch and descending thoracic aorta. Normal visualized thoracic spine. Normal visualized ribs, clavicles, and shoulders. Surgical clips in the right upper quadrant. RAD/Chest PA and Lateral IMPRESSION: Mild basilar atelectasis. Electronically Signed: Elfego Godfrey DO at 9:10 EDT Tel [phone], Service support ,
[2019-02-18] MEDS: Famotidine 20 MG Tablet PO (08:09)
[2019-02-18] MEDS: amLODIPine 5 MG Tablet PO (08:09)
[2019-02-18] MEDS: guaiFENesin 1,200 MG Tablet 1200 MG PO (08:09)
--- NOTE | 2019-02-18 10:15 | DCINST_ITS ---
- Discharge Diagnoses Current Active Problems: Current Active and Chronic Problems CAP (community acquired pneumonia) (Acute) Hypoxemia (Acute) You will use the following diet at home:: No restrictions Your food should be the consistency of: Regular Your liquids should be the consistency of: Regular/Thin Discharge Activity: - - Avoid exposure to any strong smells such as bleach, cleaning products, strong colognes or perfumes, paint fumes and smoke of any kind. Avoid sudden exposure to cold air because this can cause bronchospasm. You may want to cover your mouth when you go outside in the winter. Avoid exposure to anyone who is sick with a cough or sore throat. Call your doctor if you observe: Fever of 101 or Higher, Shortness of breath, Dizziness, Fainting spells, Swelling in the ankles, Chest pain, - - Call your PCP if severe diarrhea ( > 5 stools a day), painful sores in the mouth, painful swallowing, rash or itching. Taking a probiotic such as Lactobacillus or Kefir can help with loose stools while taking antibiotics. Additional Instructions: You should check in with Dr. Raymond.....if you are getting frequent exacerbations of asthma you may need a steroid inhaler. You will need a follow up CT scan of your chest in 3 months to make sure the pneumonia has resolved. Dr. Raymond or your PCP can order this for you. I have given you a prescription for Famotidine for the next 2 weeks. Steroids can irritate your stomach and cause ulcers. Famotidine will protect your stomach. Allergies/Adverse Reactions: Allergies Sulfa (Sulfonamide Antibiotics) Allergy (Verified 04/23/18 22:21) Rash Medications to take at Discharge Albuterol Aerosols [Ventolin Aerosols] 2.5 mg INHALATION Q2H PRN PRN #1000 vial.neb. 11/06/13 Amlodipine [Norvasc] 5 mg PO DAILY 04/23/18 Famotidine [Pepcid] 20 mg PO BID #28 tab 02/18/19 Guaifenesin [Mucinex] 1,200 mg PO BID #20 tab 02/18/19 Prednisone 10 mg PO UD #30 tab 02/18/19 levoFLOXacin tablet [Levaquin tablet] 750 mg PO DAILY #3 tab 02/18/19 The following prescriptions were given: levoFLOXacin tablet [Levaquin tablet] 750 mg PO DAILY #3 tab Transmission Status: Pending to [facility]30 Guaifenesin [Mucinex] 1,200 mg PO BID #20 tab Transmission Status: Pending to [facility]30 Famotidine [Pepcid] 20 mg PO BID #28 tab Transmission Status: Pending to [facility]30 Prednisone 10 mg PO UD #30 tab Primary Care Physician: Elijah Rodriguez MD [Primary Care Provider] - Please follow up with your Primary Care Physician in: 1-2 weeks. Test Results: Test results from this visit will be discussed in further detail at your follow- up appointment, if applicable. Please Follow Up With: Alex Raymond MD When: call for an appt in the next 2-4 weeks Proposed Discharge Date: 02/18/19
--- NOTE | 2019-02-18 10:34 | PCM.DC.SUM ---
Discharge Date and Diagnosis - Problem List Patient Problems: Active and Suspected Problems Eosinophilia (Acute) Acute respiratory insufficiency (Acute) CAP (community acquired pneumonia) (Acute) Hypoxemia (Acute) Date of Admission: 02/16/19 Date of Discharge: 02/18/19 - Primary Discharge Diagnosis Active and Suspected Problems Community-acquired right middle lobe pneumonia Acute exacerbation of asthma Acute respiratory insufficiency with hypoxemia Eosinophilia with 10% eosinophils on white blood cell differential Neutropenia - Secondary Discharge Diagnosis Chronic Problems SVT (supraventricular tachycardia) (Chronic) Thrombocytopenia (Chronic) Asthma (Chronic) Calcification of coronary arteries on CT scan of the chest 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 Hospital Course and Treatment Imaging Results: 02/18/19 06:10 Chest PA and Lateral [RAD] AM (NON MEDS) Clinical Impression(s) from Imaging Studies Chest X-Ray 02/16/19 00:06 IMPRESSION: Stable bibasilar scarring Electronically Signed: Alex Medrano at 1:27 EDT Tel , Service support , Chest CTA 02/16/19 01:02 IMPRESSION: No CTA evidence of pulmonary emboli within the main pulmonary arteries, evaluation of more distal pulmonary arteries is nondiagnostic due to significant respiratory motion artifact, there is no CTA evidence for thoracic aortic aneurysm or dissection New significant pulmonary infiltrate within the right middle lobe which is suspicious for pneumonia, follow-up CT in 3 months is recommended to prove stability and/or clearing to exclude pathologic lesion Evaluation for pulmonary nodules is limited due to significant respiratory motion artifact Right lower lobe subsegmental atelectasis and mild bronchiectasis, mild right basilar infiltrate which demonstrates slight worsening when compared to CT chest 01/30/2015 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 Calcific coronary atherosclerosis that should be correlated clinically Electronically Signed: Alex Medrano at 2:59 EDT Tel , Service support , Chest X-Ray 02/18/19 06:10 IMPRESSION: Mild basilar atelectasis. Electronically Signed: Elfego Godfrey DO at 9:10 EDT Tel [phone], Service support , Microbiology 02/16/19 01:50 Blood Culture (Wb) - Anticubital Right Blood Culture - Preliminary No growth in 48 hours. 02/16/19 01:35 Blood Culture (Wb) - Anticubital Left Blood Culture - Preliminary No growth in 48 hours. 02/16/19 07:00 Sputum, Expectorated/Coughed Gram Stain - Final 02/16/19 07:00 Sputum, Expectorated/Coughed Respiratory Culture - Final Mixed normal respiratory isabel. No Haemophilus, Streptococcus pneumoniae, beta-hemolytic Streptococcus or Staphylococcus aureus isolated. 02/16/19 04:13 Mucosa - Nose Respiratory Panel (PCR) - Final 02/16/19 04:30 Urine, Clean Catch Legionella Antigen - Final 02/16/19 04:30 Urine, Clean Catch Streptococcus pneumoniae Antigen (M - Final none Operations: None Procedures: None Summary of Care Provided: The patient is a 74-year-old male with a past medical history of asthma, thrombocytopenia and hypertension who presented to the emergency department at [facility] on 02/16/2019 complaining of shortness of breath with a cough productive of yellow sputum for the preceding 2 days. Vital signs at presentation to the emergency room were temperature 97.9, pulse rate 117, blood pressure 147/133, respiratory rate 22 and he was 95% saturated on a 4 L nasal cannula. White blood cell count was 5.7 with 62% neutrophils. There were 10.1% eosinophils. Hemoglobin was 15.1 and the platelet count was mildly decreased at 130,000 which is within his baseline. BMP was remarkable for a mildly increased random blood sugar of 118. TSH was normal. Troponin was less than 0.019. Lactic acid was normal at 1.8. Chest x-ray in the emergency department showed stable bibasilar scarring. CTA of the chest showed no evidence of pulmonary emboli but there was a new significant pulmonary infiltrate within the right middle lobe and right lower lobe and the radiologist recommended a CT scan in 3 months to document that this is cleared with treatment. The CT also was reported as having mild stenosis of the proximal celiac artery with mild poststenotic dilatation which was unchanged from prior studies. There was calcification of the coronary arteries. There was right lower lobe subsegmental atelectasis and mild bronchiectasis. He was admitted to the hospital with diagnosis of Sirs and community-acquired pneumonia. He was started on Levaquin 750 mg p.o. daily. He was initially treated with ATC aerosols and Budesonide but, he was transitioned to high dose Solu-medrol because of the eosinophila and the failure to improve significantly with budesonide. He was afebrile for the duration of his hospital stay. The percent eosinophils on the WBC differential was 0.0% following initiation of high-dose steroids. Cough improved and he had much better air exchange after 48 hours on intravenous steroids. On 02/18/2019 he had no cough and his breathing was much improved. He was ambulating in the halls off oxygen with no shortness of breath. He was discharged home with a tapering dose of prednisone, guaifenesin, 3 additional days of Levaquin 750 mg daily to complete 5 days of treatment and Famotidine for GI protection. He will follow up with Dr. Rodriguez in 1 week and will also reconnect with Dr. Raymond. He needs a follow up CT chest in 3 months to document clearing of the RML and RLL infiltrates. If the R middle lobe infiltrate fails to clear he will require additional W/U for possible post obstructive PNA. He has been a life long non-smoker. The infiltrates were not seen on the PA and Lateral chest XRAYs. - Physical Exam General: Alert, Oriented x3, Cooperative, no apparent distress, not coughing HEENT: Atraumatic Oral: Moist Mucosa Neck: No Nodes, Trachea Midline Lungs: No rales, no wheezes, no rhonchi. Air exchange is much improved from admission and he was observed walking on room air with no tachypnea and no obvious shortness of breath. Cardiovascular: Regular Rhythm, Normal S1, Normal S2, No murmurs, Tachycardic Abdomen: Bowel Sounds Present, Soft, Non Tender, Non-Distended Extremities: No cyanosis, No edema Skin: No rashes Neurological: Cranial nerves II-XII grossly intact, Neuro grossly intact Psych/Mental Status: Normal Affect, Appropriate This note was generated with [employer] software. It may contain incorrect words, spelling, and punctuation that were not noted in checking the note before signing. Patient Problems: Active and Suspected Problems Eosinophilia (Acute) Acute respiratory insufficiency (Acute) CAP (community acquired pneumonia) (Acute) Hypoxemia (Acute) - Physical Exam Vital Signs Temp Pulse Resp BP Pulse Ox 98.2 F 96 16 147/72 H 94 02/18/19 08:09 02/18/19 08:09 02/18/19 08:09 02/18/19 08:09 02/18/19 08:09 Oxygen Flow Rate (L/min) 2 Oxygen Delivery Method Room Air Weight: 162 lb 7.691 oz Body Mass Index (BMI) 21.0 Intake and Output for Last 24 Hours 02/16/19 02/17/19 02/18/19 23:59 23:59 23:59 Intake Total 3276.00 / 3276.00 3050.00 / 3050.00 656.67 / 656.67 Output Total 1875 / 1875 2250 / 2250 1050 / 1050 Balance 1401.00 / 1401.00 800.00 / 800.00 -393.33 / -393.33 Microbiology Past 72 Hours 02/16/19 01:50 Blood Culture - Preliminary Blood Culture (Wb) - Anticubital Right No growth in 48 hours. 02/16/19 01:35 Blood Culture - Preliminary Blood Culture (Wb) - Anticubital Left No growth in 48 hours. 02/16/19 07:00 Gram Stain - Final Sputum, Expectorated/Coughed Respiratory Culture - Final Mixed normal respiratory isabel. No Haemophilus, Streptococcus pneumoniae, beta-hemolytic Streptococcus or Staphylococcus aureus isolated. 02/16/19 04:13 Respiratory Panel (PCR) - Final Mucosa - Nose 02/16/19 04:30 Legionella Antigen - Final Urine, Clean Catch 02/16/19 04:30 Streptococcus pneumoniae Antigen (M - Final Urine, Clean Catch Discharge Activity: - - Avoid exposure to any strong smells such as bleach, cleaning products, strong colognes or perfumes, paint fumes and smoke of any kind. Avoid sudden exposure to cold air because this can cause bronchospasm. You may want to cover your mouth when you go outside in the winter. Avoid exposure to anyone who is sick with a cough or sore throat. Call your doctor if you observe: Fever of 101 or Higher, Shortness of breath, Dizziness, Fainting spells, Swelling in the ankles, Chest pain, - - Call your PCP if severe diarrhea ( > 5 stools a day), painful sores in the mouth, painful swallowing, rash or itching. Taking a probiotic such as Lactobacillus or Kefir can help with loose stools while taking antibiotics. Home Medications: Medications to take at Discharge Albuterol Aerosols [Ventolin Aerosols] 2.5 mg INHALATION Q2H PRN PRN #1000 vial.neb. 11/06/13 Amlodipine [Norvasc] 5 mg PO DAILY 04/23/18 Famotidine [Pepcid] 20 mg PO BID #28 tab 02/18/19 Guaifenesin [Mucinex] 1,200 mg PO BID #20 tab 02/18/19 Prednisone 10 mg PO UD #30 tab 02/18/19 levoFLOXacin tablet [Levaquin tablet] 750 mg PO DAILY #3 tab 02/18/19 Following Prescrptions Were Given to Patient: levoFLOXacin tablet [Levaquin tablet] 750 mg PO DAILY #3 tab Transmission Status: Pending to [facility] #30 Guaifenesin [Mucinex] 1,200 mg PO BID #20 tab Transmission Status: Pending to [facility] #30 Famotidine [Pepcid] 20 mg PO BID #28 tab Transmission Status: Pending to [facility] #30 Prednisone 10 mg PO UD #30 tab Primary Care Physician: Elijah Rodriguez MD [Primary Care Provider] - Please follow up with your Primary Care Physician in: 1-2 weeks. Please Follow Up With: Alex Raymond MD When: call for an appt in the next 2-4 weeks Minutes spent on discharge:: 30 Patient Condition:: Good Medical Necessity - Tobacco Use Smoking Status: Never smoker Tobacco Use: Non-smoker Meaningful Use Info Meaningful Use Diagnoses (Choose all that apply): None applicable Code Visit Inpatient E&M: 61122 Disch Hosp
--- NOTE | 2019-02-18 11:00 | NURSING ---
This nurse reviewed charting of student nurseGracie SN
--- NOTE | 2019-02-20 15:31 | CASEMGMT ---
Case Management DC F/u Call: DC Date: 02/18/19 DC Diagnosis: Community-acquired right middle lobe pneumonia, Acute exacerbation of asthma, Acute respiratory insufficiency with hypoxemia Eosinophilia with 10% eosinophils on white blood cell differential, Neutropenia DC Disposition: Home Lace/Strata: 02/09 Called patient cell phone listed in demographics, no answer and Voice Msg does not identify correct patient-Therefore no VM left. Anshu Nation RNCM
== END 2019-02-18 10:56 | disposition home or self-care (01) | DRG 871 ==
LOC: ED 02-16 03:09 → PCU 02-16 03:40
PROVIDERS: Admitting Provider Internal Medicine; Emergency Provider Emergency Medicine; Family Provider Family Medicine; PCP Family Medicine; Referring Provider Internal Medicine; Visit Provider Internal Medicine
DX: A41.9 Sepsis, unspecified organism (principal); J44.0 Chronic obstructive pulmonary disease with (acute) lower respiratory infection; J18.9 Pneumonia, unspecified organism; J45.901 Unspecified asthma with (acute) exacerbation; I47.1 Supraventricular tachycardia; R09.02 Hypoxemia; I95.89 Other hypotension; D70.3 Neutropenia due to infection; D69.6 Thrombocytopenia, unspecified; R73.9 Hyperglycemia, unspecified; T38.0X5A Adverse effect of glucocorticoids and synthetic analogues, initial encounter; Y92.9 Unspecified place or not applicable; I25.10 Atherosclerotic heart disease of native coronary artery without angina pectoris; I10 Essential (primary) hypertension; Z79.899 Other long term (current) drug therapy; Z87.01 Personal history of pneumonia (recurrent)
CPT/HCPCS: 36415; 71045; 71046; 71275; 80048; 83605; 84443; 84484; 85025; 85379; 85610; 85730; 87040; 87070; 87205; 87449; 87633; 93005; 94640; 94668; 99285; J7030; J7050; Q9967; A4216; J0696

== ENCOUNTER 2019-09-09 20:27 | Inpatient (IN) | payer MEDICARE, SELFPAY ==
[2019-02-16 03:32] VITALS: BMI 21.0
[2019-09-09 20:28] VITALS: BP 141/67; PULSE 122; RESP 18; TEMP 36.8; O2SAT 90; O2SAT 91; BMI 21.3
--- NOTE | 2019-09-09 20:59 | EKG12_ITS ---
Test Reason : SOB Blood Pressure : / mmHG Vent. Rate : 112 BPM Atrial Rate : 112 BPM P-R Int : 174 ms QRS Dur : 072 ms QT Int : 328 ms P-R-T Axes : 063 016 068 degrees QTc Int : 447 ms Sinus tachycardia Nonspecific ST abnormality Abnormal ECG Confirmed by KATYA ROBERTS, AMBER ([id number]), news copy editor BASSAM HENDERSON ([id number]) on 09/12/2019 11:12:34 AM Referred By: Confirmed By:AMBER ALDANA MD
[2019-09-09] MEDS: Ipratropium/Albuterol Sulfate 3 ML AMPUL.NEB INHALATION (21:20)
--- NOTE | 2019-09-09 21:40 | RAD_ITS ---
STUDY: X-RAY CHEST REASON FOR EXAM: Male, 74 years old. INCREASING SOB AND SORE THROAT. PT REPORTS SYMPTOM STARTING 2 WEEKS AGO. TECHNIQUE: Single AP portable view of the chest. COMPARISON: 02/18/2019. FINDINGS: The lungs are clear and expanded. There is no demonstrated pleural abnormality. Normal size heart. Normal mediastinum and monisha. Normal visualized pulmonary arteries. There is atherosclerotic calcification of the aortic arch. Normal visualized thoracic spine. Normal visualized ribs, clavicles, and shoulders. There is no demonstrated abnormality of the visualized soft tissue structures of the upper abdomen. RAD/Chest 1 View (Portable) IMPRESSION: Normal x-ray examination of the chest. Electronically Signed: Abigail Gonzalez MD at 22:04 EDT Tel , Service support ,
[2019-09-09] MEDS: 0.9% Normal Saline 1,000 ML 999 ML IV (22:01)
[2019-09-09] MEDS: MethylPREDNISolone 125 MG/2 ML Vial IV (22:02)
[2019-09-09 22:09] VITALS: BP 154/76; PULSE 110; RESP 22; O2SAT 99
[2019-09-09 22:09] LABS: Absolute Lymphocyte Count 1.44 X10^3/uL (0.83-4.51); Absolute Neutrophil Count 4.3 X10^3/uL (2.0-7.7); Basophil# 0.04 X10^3/uL; Basophil% 0.5 % (0-1); Eosinophil# 0.99 X10^3/uL; Eosinophils% 13.4 % (0-5); Hemoglobin 14.7 g/dL (13.0-16.5); Lymphocyte # 1.44 X10^3/ul (4.0); Lymphocyte % 19.5 % (19-41); Mean Corp Hgb Conc 33.4 g/dL (32-36); Mean Corpuscular Hgb 35.1 pg (27.0-32.0); Mean Platelet Vol. 10.3 fl (6.2-12.0); Monocyte# 0.63 X10^3/uL; Monocyte% 8.5 % (0-10); NRBC Flagged by Analyzer 0 % (0-5); Neutrophil # 4.28 X10^3/uL (2.7-7.7); Neutrophil % 57.8 % (47-70); Platelet Count 131 K/mm3 (150-450); RBC Distribution Width CV 14.4 % (11.6-14.6); Red Blood Count 4.19 M/mm3 (4.6-6.2); White Blood Count 7.4 K/mm3 (4.4-11.0)
[2019-09-09 22:33] LABS: Anion Gap 4 (5-15); BUN 12 mg/dL (7-18); Calcium,Total 9.1 mg/dL (8.5-10.1); Chloride 104 mmol/L (98-107); Creatinine, Serum 0.92 mg/dL (0.70-1.30); EST Glomerular Filtration Rate 85 mL/min (>60); Est Glom Filt Rate - Afr Amer 102 mL/min (>60); Estimated Creatinine Clearance 67.15 ml/min; Glucose 124 mg/dL (74-106); Potassium 3.1 mmol/L (3.5-5.1); Sodium Level 138 mmol/L (136-145)
[2019-09-09 23:00] VITALS: BP 150/78; PULSE 112; RESP 18; O2SAT 92
--- NOTE | 2019-09-09 23:27 | ED.DCSUM_ITS ---
- ER Visit Summary Date of Service: 09/09/19 Chief Complaint: Cough and shortness of breath History of Present Illness: The patient is a [address] Rodriguez. He has a history of severe asthma. He is not on home O2. He reports he has a cough began approximately 2 weeks ago. Is productive yellow sputum initially and now hutchins/brown sputum. He denies any blood in the sputum. Reports he has shortness of breath is severe at worst moderate currently. Has been using his nebulizer with minimal/transient relief. Patient denies any fever or chills. He does have a sore throat. He denies chest pain. He has been self quarantining. He denies any sick contacts. Physical Examination: Vitals: Stable. Afebrile. General: Well-nourished and well-developed. Head: Normocephalic atraumatic. Neck: Supple, no lymphadenopathy. No JVD. Nontender. Cardiovascular: Tachycardic regular rhythm with a 2 out of 6 systolic murmur. Respiratory: Moderate respiratory distress. He is wheezing bilaterally with greatly decreased air movement. Abdominal: Soft, nontender, nondistended, normal bowel sounds. No guarding, rebound, or peritoneal signs. Back: Nontender. Extremities: Nontender, no edema. Skin: Normal color, no rash. Neurologic: Alert and oriented ?3. Cranial nerves II through XII are intact. Normal strength and sensation. Psych: Normal affect. Test Results: EKG is sinus tach at [address] changes. CBC shows platelets 131 and eosinophils of 13. Chem-7 shows a potassium 3.1 and glucose 124. Lactic acid is 1.0. Troponin is negative. Influenza is negative. Clinical Impression(s) from Imaging Studies Chest X-Ray 09/09/19 21:40 IMPRESSION: Normal x-ray examination of the chest. Electronically Signed: Abigail Gonzalez MD at 22:04 EDT Tel , Service support , Emergency Department Course and Treatment: Patient's pulse ox when he got into bed was 83% on room air. It was 91% once he was back at rest. He was treated with multiple albuterol aerosols. He is given Atrovent aerosol. He is given Solu-Medrol IV. He was given Tessalon Perles p.o. He had a COVID-19 and respiratory panel sent. Treatment Plan: Patient was discussed with Dr. Hernandez. He will be admitted to the hospital for further evaluation and treatment. Disposition: Admitted in improved condition. Impression: 1. Asthma exacerbation. 2. URI. 3. Hypoxia. 4. Possible COVID-19 infection. This note was generated with [email or web address] dictation software. It may contain incorrect words, spelling, and punctuation that were not noted in review of the chart prior to signing ED Disposition - Plan for ED Patient: Referrals: Elijah Rodriguez MD [Primary Care Provider] -
[2019-09-09] MEDS: Albuterol 2.5 MG/3 ML VIAL.NEB. INHALATION (23:36)
[2019-09-09 23:37] VITALS: PULSE 110; RESP 20
[2019-09-09 23:57] VITALS: BP 156/80; PULSE 114; RESP 18; TEMP 36.7; O2SAT 92
[2019-09-10] VITALS (11 sets, daily range): BP systolic 125–150; BP diastolic 73–85; PULSE 95–114; RESP 16–20; TEMP 36.3–36.7; O2SAT 95–98; BMI 21.1; BMI 21.4
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
[2019-09-10] MEDS: Benzonatate 100 MG Capsule 200 MG PO (00:06)
[2019-09-10 00:12] LABS: D-Dimer Quantitative (DVT/PE) < 0.27 FEU/ug/m (0.27-0.49)
[2019-09-10 06:33] LABS: Absolute Lymphocyte Count 0.29 X10^3/uL (0.83-4.51); Absolute Neutrophil Count 3.2 X10^3/uL (2.0-7.7); Basophil# 0.01 X10^3/uL; Basophil% 0.3 % (0-1); Hematocrit 43.4 % (40-54); Hemoglobin 14.4 g/dL (13.0-16.5); Lymphocyte # 0.29 X10^3/ul (4.0); Lymphocyte % 8.3 % (19-41); Mean Corp Hgb Conc 33.2 g/dL (32-36); Mean Corpuscular Hgb 34.4 pg (27.0-32.0); Mean Corpuscular Volume 103.6 fL (80-94); Mean Platelet Vol. 10.7 fl (6.2-12.0); Monocyte# 0.02 X10^3/uL; Monocyte% 0.6 % (0-10); NRBC Flagged by Analyzer 0 % (0-5); Neutrophil # 3.15 X10^3/uL (2.7-7.7); Neutrophil % 90.2 % (47-70); POSITIVE DIFFERENTIAL YES; Platelet Count 124 K/mm3 (150-450); RBC Distribution Width CV 13.9 % (11.6-14.6); RBC Distribution Width SD 53.1 fl (35.1-43.9); Red Blood Count 4.19 M/mm3 (4.6-6.2); White Blood Count 3.5 K/mm3 (4.4-11.0)
[2019-09-10 06:34] LABS: Differential Indicated SCAN CRITERIA MET
[2019-09-10 06:48] LABS: Anion Gap 5 (5-15); BUN 10 mg/dL (7-18); BUN/Creat Ratio 13.8 RATIO (10-20); Calcium,Total 8.4 mg/dL (8.5-10.1); Chloride 106 mmol/L (98-107); Creatinine, Serum 0.72 mg/dL (0.70-1.30); EST Glomerular Filtration Rate 112 mL/min (>60); Est Glom Filt Rate - Afr Amer 135 mL/min (>60); Estimated Creatinine Clearance 61.16 ml/min; Glucose 166 mg/dL (74-106); Potassium 4.2 mmol/L (3.5-5.1); Sodium Level 139 mmol/L (136-145)
[2019-09-10 06:53] LABS: Differential Comment SCANNED; Reactive Lymphocyte 1+
[2019-09-10 06:55] LABS: Bedside Glucose 174 mg/dL (70-110)
[2019-09-10] MEDS: Ipratropium/Albuterol Sulfate 3 ML AMPUL.NEB INHALATION ×4 (07:33→23:10)
[2019-09-10] MEDS: 0.9% Saline Lock 10 ML Syringe IV ×2 (09:11→17:21)
[2019-09-10] MEDS: amLODIPine 5 MG Tablet PO (09:12)
[2019-09-10] MEDS: Famotidine 20 MG Tablet PO ×2 (09:12→21:54)
[2019-09-10] MEDS: Enoxaparin 40 MG/0.4 ML Syringe SC (09:13)
[2019-09-10] MEDS: guaiFENesin 10 ML UDC (200MG/10ML) PO ×4 (10:54→21:54)
--- NOTE | 2019-09-10 11:23 | PCM.PN.HOSP ---
Patient Problems: Active and Suspected Problems Asthma exacerbation (Acute) Reason for Visit: asthma exacerbation Subjective: Breathing better. Not on oxygen at home. Vitals/I&O's: Vital Signs Temp Pulse Resp BP Pulse Ox 36.5 C L 102 H 20 H 144/85 H 97 09/10/19 08:30 09/10/19 08:30 09/10/19 08:30 09/10/19 08:30 09/10/19 08:30 Oxygen Flow Rate (L/min) 3.5 Oxygen Delivery Method Nasal Cannula Weight: 68.8 kg Body Mass Index (BMI) 21.1 Intake and Output for Last 24 Hours 09/08/19 09/09/19 09/10/19 23:59 23:59 23:59 Intake Total 1000 / 1000 200 / 200 Balance 1000 / 1000 200 / 200 General: Alert, No apparent distress HEENT: Atraumatic, Normocephalic Neck: No Nodes, Trachea Midline Lungs: Diminished, Wheezes Cardiovascular: Regular rate, Regular Rhythm, Normal S1, Normal S2, No murmurs Abdomen: Bowel Sounds Present, Soft, Non Tender, Non-Distended, No Hepato-splenomegaly Extremities: No edema, No Calf Tenderness Skin: No rashes, No breakdown Psych/Mental Status: Normal Affect, Appropriate Microbiology Past 72 Hours 09/09/19 23:31 Mucosa - Nose Respiratory Panel (PCR) - Final 09/09/19 21:05 Mucosa - Nose Influenza Types A,B Direct FA (AJ) - Final Laboratory Results 09/09/19 22:00: WBC 7.4, RBC 4.19 L, Hgb 14.7, Hct 44.0, MCV 105.0 H, MCH 35.1 H, MCHC 33.4, RDW Std Deviation 55.0 H, RDW Coeff of Mya 14.4, Plt Count 131 L, MPV 10.3, Immature Gran % (Auto) 0.300, Neut % (Auto) 57.8, Lymph % (Auto) 19.5, [place] % (Auto) 8.5, Eos % (Auto) 13.4 H, Baso % (Auto) 0.5, Absolute Neuts (auto) 4.3, Absolute Lymphs (auto) 1.44, Nucleated RBC % 0 09/09/19 22:00: Sodium 138, Potassium 3.1 L, Chloride 104, Carbon Dioxide 30.0, Anion Gap 4 L, BUN 12, Creatinine 0.92, Estim Creat Clear Calc 67.15, Est GFR (MDRD) Af Amer 102, Est GFR (MDRD) Non-Af 85, BUN/Creatinine Ratio 13.0, Glucose 124 H, Calcium 9.1, Troponin I < 0.015 09/09/19 22:00: Lactic Acid 1.0 09/09/19 22:00: D-Dimer Quant (PE/DVT) < 0.27 L 09/09/19 23:31: COVID-19 (ABBIE) Pending 09/10/19 05:56: WBC 3.5 L, RBC 4.19 L, Hgb 14.4, Hct 43.4, MCV 103.6 H, MCH 34.4 H, MCHC 33.2, RDW Std Deviation 53.1 H, RDW Coeff of Mya 13.9, Plt Count 124 L, MPV 10.7, Immature Gran % (Auto) 0.600, Neut % (Auto) 90.2 H, Lymph % (Auto) 8.3 L, [place] % (Auto) 0.6, Eos % (Auto) 0.0, Baso % (Auto) 0.3, Absolute Neuts (auto) 3.2, Absolute Lymphs (auto) 0.29 L, Nucleated RBC % 0, Differential Comment SCANNED, Diff Path Review May , Reactive Lymphocytes 1+ 09/10/19 05:56: Sodium 139, Potassium 4.2, Chloride 106, Carbon Dioxide 28.0, Anion Gap 5, BUN 10, Creatinine 0.72, Estim Creat Clear Calc 61.16, Est GFR (MDRD) Af Amer 135, Est GFR (MDRD) Non-Af 112, BUN/Creatinine Ratio 13.8, Glucose 166 H, Calcium 8.4 L 09/10/19 06:45: POC Glucose 174 H Current Medications Acetaminophen (Tylenol) 650 mg PO Q6H PRN PRN PRN Reason: Pain Score 1-10/Temp > 100.7 F Albuterol Sulfate (Ventolin Aerosols) 2.5 mg INHALATION Q2H PRN PRN PRN Reason: Shortness of Breath/Wheezing Albuterol/Ipratropium (Duoneb) 3 ml INHALATION Q4HWA.RT [facility] Last Admin: 09/10/19 07:33 Dose: 3 ml Documented by: Amlodipine Besylate (Norvasc) 5 mg PO DAILY [facility] Last Admin: 09/10/19 09:12 Dose: 5 mg Documented by: Dextrose (D50w Syringe) 0 gm IV X1 PRN; Protocol PRN Reason: Hypoglycemia Enoxaparin Sodium (Lovenox) 40 mg SC DAILY [facility] Last Admin: 09/10/19 09:13 Dose: 40 mg Documented by: Famotidine (Pepcid) 20 mg PO BID [facility] Last Admin: 09/10/19 09:12 Dose: 20 mg Documented by: Glucagon () 1 mg IM .X1 PRN PRN Reason: Hypoglycemia Guaifenesin (Robitussin) 10 ml PO 4X/DAY [facility] Last Admin: 09/10/19 10:54 Dose: 10 ml Documented by: Sodium Chloride () 250 mls @ 15 mls/hr IV .[id number] PRN PRN Reason: Saline Flush Sodium Chloride () 250 mls @ 15 mls/hr IV .[id number] PRN PRN Reason: Additional IVPB Infusion Methylprednisolone (Solu-Medrol) 40 mg IV Q8@0200,1000,1800 [facility] Last Admin: 09/10/19 09:09 Dose: 40 mg Documented by: Ondansetron HCl (Zofran) 4 mg IV Q8H PRN PRN PRN Reason: NAUSEA/VOMITING Potassium Chloride (K-Dur) 40 meq PO BIDCM [facility] Stop: 09/10/19 17:01 Last Admin: 09/10/19 08:32 Dose: 40 meq Documented by: Sodium Chloride () 10 - 40 ml IV UD PRN PRN Reason: SALINE FLUSH Last Admin: 09/10/19 09:11 Dose: 10 ml Documented by: STROKE Vital Signs/Narrative: Vital Signs Temp Pulse Resp BP Pulse Ox 09/10/19 08:30 36.5 C L 102 H 20 H 144/85 H 97 09/10/19 07:34 95 16 98 Medical Necessity - Tobacco Use Smoking Status: Never smoker Assessment/Plan All Active Problems Asthma exacerbation (Acute) Acute respiratory insufficiency (Acute) SIRS (systemic inflammatory response syndrome) (Acute) Hypoxemia (Acute) Asthma exacerbation (Acute) Sepsis associated hypotension (Resolved) 1. acute asthma exacerbation subjectively improved on BDs and methylpred check ambulatory pulse ox prior to discharge (no oxygen at home) COVID-19 testing pending, 2. acute hypoxic respiratory insufficiency wean oxygen as able. 3. VTE prophylaxis: LMWH Inpatient E&M: 16268 Subs Hosp L2
[2019-09-10 12:46] LABS: Bedside Glucose 134 mg/dL (70-110)
[2019-09-10 20:26] LABS: Bedside Glucose 145 mg/dL (70-110)
[2019-09-10 22:41] LABS: Bedside Glucose 193 mg/dL (70-110)
[2019-09-11] VITALS (7 sets, daily range): BP systolic 119–128; BP diastolic 66–69; PULSE 96–110; RESP 16–20; TEMP 35.8–36.7; O2SAT 92–98
[2019-09-11] MEDS: 0.9% Saline Lock 10 ML Syringe IV ×2 (01:55→09:15)
[2019-09-11 07:00] LABS: Bedside Glucose 190 mg/dL (70-110)
[2019-09-11] MEDS: Ipratropium/Albuterol Sulfate 3 ML AMPUL.NEB INHALATION ×3 (07:12→16:03)
[2019-09-11] MEDS: guaiFENesin 10 ML UDC (200MG/10ML) PO (09:15)
[2019-09-11] MEDS: Famotidine 20 MG Tablet PO (09:15)
[2019-09-11] MEDS: Enoxaparin 40 MG/0.4 ML Syringe SC (09:15)
[2019-09-11] MEDS: amLODIPine 5 MG Tablet PO (09:15)
[2019-09-11 11:18] LABS: Pathologist Review Reviewed
[2019-09-11] MEDS: guaiFENesin 1,200 MG Tablet 1200 MG PO (12:33)
[2019-09-11] MEDS: Benzonatate 100 MG Capsule 200 MG PO (12:33)
[2019-09-11 12:46] LABS: Bedside Glucose 189 mg/dL (70-110)
--- NOTE | 2019-09-11 14:30 | CASEMGMT ---
Social Work Note SW reviewed chart, pt has difficulty paying for Symbicort. RN ROZINA Saucedo updating this worker that pt is interested in talking to someone regarding Medicaid. SINTIA placed a call to pt's room as pt is in COVID precautions, SW unable to meet in pt's room. SW introduced self and role at [facility]. Pt is alert and orientated x3. Pt states that he has Medicare and Medicaid and he wanted to know if he should get a supplement insurance or go back to [employer]. SW informed pt that this worker can't tell him what insurance to get and it is personal choice but recommended pt call Medicaid or [employer] to review costs/plans/etc. SW informed pt that this worker can put together packet of financial resources and can provide numbers for Medicaid and [employer]. SW informed pt that this worker can't enter pt's room but can give resources to RN to give to pt. Pt states understanding, thanked this worker for the help. SINTIA put together packet of financial resources including Medicaid application, [employer], [employer], [employer], Application from [employer] website that pt can complete to determine if eligible for financial assistance, Medicaid number, [facility] number and [employer] number. SINTIA placed a call to registration and spoke with Sharon. Sharon states pt is only showing that Medicare is active not medicaid. SINTIA placed another call to pt's room and informed him that Medicaid is not showing active for pt and encouraged Reji to call Medicaid to determine if he is eligible for Medicaid. SW informed pt that he can complete over the phone application for medicaid. Reji states understanding. Pt was provided resources for financial assistance and insurances. Pt will need to call Medicaid/[employer] to discuss costs and plans and determine best plan for pt. Silvia Waller POLYSTYRENE BEAD MOLDER, BILINGUAL SECRETARY
--- NOTE | 2019-09-11 14:33 | CASEMGMT ---
RN CM Assessment Note Presentation: Asthma exacerbation, respiratory insufficiency and SIRS. COVID-19 testing pending Intro role of CM and purpose of RN CM assessment to patient via phone. Demographics, PCP and Pharmacy verified. Pt states he is independent @ home, does not use DME, drives and is able to care for self. Plans to return home on dc. -Pt states he lives alone, so can self-isolate if needed. -Has friend who is can assist with bring groceries, prescriptions if needed on dc. -Does not anticipate transportation home concerns. -RN CM let pt know physician and nursing would give information re: dc instructions, including any special isolation needs if COVID 19 testing returns positive. PCP: Chandler Killian. Call to office to inquire if they have completed any financial forms for patient re: Symbicort. Per nurse, they were aware pt could not afford, and have given samples in past, but no further assistance was given. Specialists: Pt saw Dr. Raymond in past and if recommended pt see insurance examiner on dc, would like to return to Dr. Raymond's office. [email or web address] [employer] Prescription Benefit: no. Pt states he does not have [facility] prescription coverage and has paid out of pocket for medications. Call to [email or web address] to verify any prescription coverage. They do not have prescription coverage listed for pt. Symbicort cost would have been over $200, so pt did not fill. -[employer] has a financial form pt can complete and mail in. Script portion for Dr. Feng faxed to unit to place on front of chart, and Dr. Feng notified. When completed, can give remaining packet to pt to take home to complete the financial portion and mail to [place]. -Spoke with pt on phone re: [place] form. Reviewed that financial information will need to be filled out, and phone # for rep is listed if there are questions. Pt states he feels able to complete this and mail in. RN CM let pt know it would be reviewed, and if he qualifies, they would notify him and provide the medication. Pt was very appreciative for assistance. LNOK : Friend, Liban Morin Living Arrangements: Lives in 1st story apartment withy 3 steps to enter. States he has been independent with his own care. Transportation: drives, or friend can drive DME: shower chair, HHC: no Patient DC goals: Home DC PLAN: Home on discharge. Pt to take [place] packet home to complete. RN CM advised to contact cm for any concerns/needs that may arise. Myrtle MIGUELN RN ACM
--- NOTE | 2019-09-11 15:27 | PN_ITS ---
Patient Problems: Active and Suspected Problems Asthma exacerbation (Acute) Reason for Visit: Asthma exacerbation shortness of breath. Objective: Patient shortness of breath is getting better. Pulse ox 92% on room air. Currently off oxygen. Mild tachycardia. Afebrile. Vitals/I&O's: Vital Signs Temp Pulse Resp BP Pulse Ox 98.0 F 106 H 20 H 124/69 H 92 09/11/19 15:00 09/11/19 15:00 09/11/19 15:00 09/11/19 15:00 09/11/19 15:00 Oxygen Flow Rate (L/min) 2 Oxygen Delivery Method Room Air Weight: 151 lb 10.848 oz Body Mass Index (BMI) 21.1 Intake and Output for Last 24 Hours 09/09/19 09/10/19 09/11/19 23:59 23:59 23:59 Intake Total 1000 / 1000 1020 / 1020 630 / 630 Balance 1000 / 1000 1020 / 1020 630 / 630 General: Alert, Oriented x3, Cooperative HEENT: Atraumatic, PERRLA, EOMI, Normocephalic Neck: Supple, No JVD, Negative Carotid Bruits Lungs: No rhonchi, No wheeze, No rales, Diminished, Wheezes Cardiovascular: Regular rate, Regular Rhythm, Normal S1, Normal S2, No murmurs Abdomen: Bowel Sounds Present, Soft, Non Tender, Non-Distended Extremities: No edema, Capillary Refill Less than 3 Seconds Skin: No rashes, No breakdown Musculoskeletal: No Tenderness to Palpation of Joints or Extremities, Arthritic Changes Neurological: Cranial nerves II-XII grossly intact, Deep Tendon Reflexes 2+/4 and Symmetrical, Neuro grossly intact Psych/Mental Status: Normal Affect, Appropriate Microbiology Past 72 Hours 09/09/19 23:31 Mucosa - Nose Respiratory Panel (PCR) - Final 09/09/19 21:05 Mucosa - Nose Influenza Types A,B Direct FA (AJ) - Final Laboratory Results 09/09/19 23:31: COVID-19 (ABBIE) Pending 09/10/19 05:56: Diff Path Review Reviewed 09/10/19 17:12: POC Glucose 145 H 09/10/19 22:00: POC Glucose 193 H 09/11/19 06:51: POC Glucose 190 H 09/11/19 12:31: POC Glucose 189 H Current Medications Acetaminophen (Tylenol) 650 mg PO Q6H PRN PRN PRN Reason: Pain Score 1-10/Temp > 100.7 F Albuterol Sulfate (Ventolin Aerosols) 2.5 mg INHALATION Q2H PRN PRN PRN Reason: Shortness of Breath/Wheezing Albuterol/Ipratropium (Duoneb) 3 ml INHALATION Q4HWA.RT [facility] Last Admin: 09/11/19 11:50 Dose: 3 ml Documented by: Amlodipine Besylate (Norvasc) 5 mg PO DAILY [facility] Last Admin: 09/11/19 09:15 Dose: 5 mg Documented by: Benzonatate (Tessalon Perle) 200 mg PO TID [facility] Last Admin: 09/11/19 12:33 Dose: 200 mg Documented by: Dextrose (D50w Syringe) 0 gm IV X1 PRN; Protocol PRN Reason: Hypoglycemia Enoxaparin Sodium (Lovenox) 40 mg SC DAILY [facility] Last Admin: 09/11/19 09:15 Dose: 40 mg Documented by: Famotidine (Pepcid) 20 mg PO BID [facility] Last Admin: 09/11/19 09:15 Dose: 20 mg Documented by: Glucagon () 1 mg IM .X1 PRN PRN Reason: Hypoglycemia Guaifenesin (Mucinex) 1,200 mg PO BID [facility] Last Admin: 09/11/19 12:33 Dose: 1,200 mg Documented by: Sodium Chloride () 250 mls @ 15 mls/hr IV .[id number] PRN PRN Reason: Saline Flush Sodium Chloride () 250 mls @ 15 mls/hr IV .[id number] PRN PRN Reason: Additional IVPB Infusion Methylprednisolone (Solu-Medrol) 40 mg IV Q8@0200,1000,1800 [facility] Last Admin: 09/11/19 09:15 Dose: 40 mg Documented by: Ondansetron HCl (Zofran) 4 mg IV Q8H PRN PRN PRN Reason: NAUSEA/VOMITING Sodium Chloride () 10 - 40 ml IV UD PRN PRN Reason: SALINE FLUSH Last Admin: 09/11/19 09:15 Dose: 10 ml Documented by: STROKE Vital Signs/Narrative: Vital Signs Temp Pulse Resp BP Pulse Ox 09/11/19 15:00 98.0 F 106 H 20 H 124/69 H 92 09/11/19 11:52 105 H 16 Medical Necessity - Tobacco Use Smoking Status: Never smoker Assessment/Plan All Active Problems Asthma exacerbation (Acute) Acute respiratory insufficiency (Acute) SIRS (systemic inflammatory response syndrome) (Acute) Hypoxemia (Acute) Asthma exacerbation (Acute) Sepsis associated hypotension (Resolved) This 74-year-old gentleman with history of hypertension and asthma admitted with 2-week history of persistent shortness of breath associated with productive cough and sore throat. Patient has been on 2 courses of antibiotics as an outpatient. 1. acute asthma exacerbation: Patient shortness of breath is improved. It seems patient could not afford for Symbicort, probably reason for asthma exacerbation. His prescription for free supply of Symbicort from pharmacy, with the help of skilled nursing case manager signed. On Solu-MedBrian [place], bronchopulmonary hygiene. COVID- 19 test pending. * 2. acute hypoxic respiratory insufficiency * Currently patient is off oxygen at rest. Will need home oxygen testing at the time of discharge. 3. VTE prophylaxis: On Lovenox. Inpatient E&M: [id number] [facility] Hosp L2
--- NOTE | 2019-09-11 15:32 | CASEMGMT ---
RN CM Note: Dr. Feng completed [place] script for Symbicort. Placed with packet for pt. Nurse took packet for AZ&ME, and SW resources including [employer] application in to patient. CM will be available if questions arise. Myrtle MIGUELN RN ACM
--- NOTE | 2019-09-11 17:08 | PCM.DC ---
- Discharge Diagnoses Current Active Problems: Current Active and Chronic Problems Asthma exacerbation (Acute) You will use the following diet at home:: Cardiac Your food should be the consistency of: Regular Discharge Activity: May Not Drive - Until sees PCP in about 1 to 2 weeks Call your doctor if you observe: Fever of 101 or Higher, Coldness, Increased Pain, Numbness or Tingling, Inability to urinate, Inability to have a bowel movement, Shortness of breath, Dizziness, Fainting spells, Swelling in the ankles, Chest pain, Prolonged hiccoughing, Increased palpitations (irregular heartbeat) Allergies/Adverse Reactions: Allergies Sulfa (Sulfonamide Antibiotics) Allergy (Verified 09/09/19 20:28) Rash Medications to take at Discharge Albuterol Aerosols [Ventolin Aerosols] 2.5 mg INHALATION Q2H PRN PRN #1000 vial.neb. 11/06/13 Amlodipine [Norvasc] 5 mg PO DAILY 04/23/18 Famotidine [Pepcid] 20 mg PO BID #28 tab 02/18/19 Albuterol Sulfate [Albuterol Sulfate HFA] 1 - 2 puff INHALATION Q4H PRN 09/09/19 Ipratropium/Albuterol Sulfate [Duoneb] 1 amp INHALATION TID 09/09/19 Benzonatate [Tessalon Perle] 200 mg PO TID PRN PRN #20 cap 09/11/19 Guaifenesin [Mucinex] 1,200 mg PO BID #14 tab 09/11/19 Prednisone 10 mg PO DAILY #30 tab 09/11/19 The following prescriptions were given: Guaifenesin [Mucinex] 1,200 mg PO BID #14 tab Transmission Status: Pending to [facility] #30 Prednisone 10 mg PO DAILY #30 tab Transmission Status: Pending to [facility] #30 Benzonatate [Tessalon Perle] 200 mg PO TID PRN PRN #20 cap PRN Reason: cough Transmission Status: Pending to [facility] Primary Care Physician: Elijah Rodriguez MD [Primary Care Provider] - Please follow up with your Primary Care Physician in: in 2 week Test Results: Test results from this visit will be discussed in further detail at your follow-up appointment, if applicable. Please Follow Up With: Trace Alcazar MD When: in 3-4 weeks for asthma
--- NOTE | 2019-09-11 17:09 | PCM.DC.SUM ---
Discharge Date and Diagnosis Date of Admission: 09/09/19 Date of Discharge: 09/11/19 - Primary Discharge Diagnosis Active and Suspected Problems Asthma exacerbation (Acute) - Secondary Discharge Diagnosis Chronic Problems SVT (supraventricular tachycardia) (Chronic) Thrombocytopenia (Chronic) Asthma (Chronic) Hospital Course and Treatment Operations: None Summary of Care Provided: The patient is a 74 year old gentleman with history of hypertension and asthma admitted with 2-week history of persistent shortness of breath associated with productive cough and sore throat. Patient has been on 2 courses of antibiotics as an outpatient. 1. acute asthma exacerbation: Patient shortness of breath is improved. It seems patient could not afford for Symbicort, probably reason for asthma exacerbation. His prescription for free supply of Symbicort from pharmacy, with the help of case resource manager signed. On Solu-Medrol, [facility]eb, bronchopulmonary hygiene. COVID-19 test came negative. Blood culture negative for more than 48 hours. Respiratory panel negative. Infectious process ruled out. Patient discharged on tapering dose of prednisone, Tessalon Perles and Mucinex. Pretension: On Norvasc. 2. acute hypoxic respiratory insufficiency Currently patient is off oxygen at rest. Walking pulse oximetry at time of discharge done. Patient pulse ox normal and does not require oxygen. 3. VTE prophylaxis: On Lovenox. Discharge medication reconciliation done. Discharge follow-up instructions completed. Discharge process discussed with the patient and all questions were answered to patient's satisfaction. Total time spent, exact 35 minutes on discharge meds reconciliation, examination, coordination of care with nurses and ancillary staff, review of imaging and blood test and discussion with the patient on follow-up instructions - Physical Exam Vitals/I&O's: Vital Signs Temp Pulse Resp BP Pulse Ox 98.0 F 99 16 124/69 H 92 09/11/19 15:00 09/11/19 16:03 09/11/19 16:03 09/11/19 15:00 09/11/19 15:00 Oxygen Flow Rate (L/min) 2 Oxygen Delivery Method Room Air Weight: 151 lb 10.848 oz Body Mass Index (BMI) 21.1 Intake and Output for Last 24 Hours 09/09/19 09/10/19 09/11/19 23:59 23:59 23:59 Intake Total 1000 / 1000 1020 / 1020 630 / 630 Balance 1000 / 1000 1020 / 1020 630 / 630 Microbiology Past 72 Hours 09/09/19 23:31 Mucosa - Nose Respiratory Panel (PCR) - Final 09/09/19 21:05 Mucosa - Nose Influenza Types A,B Direct FA (AJ) - Final Laboratory Results 09/09/19 23:31: COVID-19 (ABBIE) Not Detected 09/10/19 05:56: Diff Path Review Reviewed 09/10/19 17:12: POC Glucose 145 H 09/10/19 22:00: POC Glucose 193 H 09/11/19 06:51: POC Glucose 190 H 09/11/19 12:31: POC Glucose 189 H Current Medications Acetaminophen (Tylenol) 650 mg PO Q6H PRN PRN PRN Reason: Pain Score 1-10/Temp > 100.7 F Albuterol Sulfate (Ventolin Aerosols) 2.5 mg INHALATION Q2H PRN PRN PRN Reason: Shortness of Breath/Wheezing Albuterol/Ipratropium (Duoneb) 3 ml INHALATION Q4HWA.RT [facility] Last Admin: 09/11/19 16:03 Dose: 3 ml Documented by: Amlodipine Besylate (Norvasc) 5 mg PO DAILY [facility] Last Admin: 09/11/19 09:15 Dose: 5 mg Documented by: Benzonatate (Tessalon Perle) 200 mg PO TID [facility] Last Admin: 09/11/19 12:33 Dose: 200 mg Documented by: Dextrose (D50w Syringe) 0 gm IV X1 PRN; Protocol PRN Reason: Hypoglycemia Enoxaparin Sodium (Lovenox) 40 mg SC DAILY [facility] Last Admin: 09/11/19 09:15 Dose: 40 mg Documented by: Famotidine (Pepcid) 20 mg PO BID [facility] Last Admin: 09/11/19 09:15 Dose: 20 mg Documented by: Glucagon () 1 mg IM .X1 PRN PRN Reason: Hypoglycemia Guaifenesin (Mucinex) 1,200 mg PO BID [facility] Last Admin: 09/11/19 12:33 Dose: 1,200 mg Documented by: Sodium Chloride () 250 mls @ 15 mls/hr IV .[id number] PRN PRN Reason: Saline Flush Sodium Chloride () 250 mls @ 15 mls/hr IV .[id number] PRN PRN Reason: Additional IVPB Infusion Methylprednisolone (Solu-Medrol) 40 mg IV Q8@0200,1000,1800 [facility] Last Admin: 09/11/19 09:15 Dose: 40 mg Documented by: Ondansetron HCl (Zofran) 4 mg IV Q8H PRN PRN PRN Reason: NAUSEA/VOMITING Sodium Chloride () 10 - 40 ml IV UD PRN PRN Reason: SALINE FLUSH Last Admin: 09/11/19 09:15 Dose: 10 ml Documented by: Discharge Activity: May Not Drive - Until sees PCP in about 1 to 2 weeks Call your doctor if you observe: Fever of 101 or Higher, Coldness, Increased Pain, Numbness or Tingling, Inability to urinate, Inability to have a bowel movement, Shortness of breath, Dizziness, Fainting spells, Swelling in the ankles, Chest pain, Prolonged hiccoughing, Increased palpitations (irregular heartbeat) Home Medications: Medications to take at Discharge Albuterol Aerosols [Ventolin Aerosols] 2.5 mg INHALATION Q2H PRN PRN #1000 vial.neb. 11/06/13 Amlodipine [Norvasc] 5 mg PO DAILY 04/23/18 Famotidine [Pepcid] 20 mg PO BID #28 tab 02/18/19 Albuterol Sulfate [Albuterol Sulfate HFA] 1 - 2 puff INHALATION Q4H PRN 09/09/19 Ipratropium/Albuterol Sulfate [Duoneb] 1 amp INHALATION TID 09/09/19 Benzonatate [Tessalon Perle] 200 mg PO TID PRN PRN #20 cap 09/11/19 Guaifenesin [Mucinex] 1,200 mg PO BID #14 tab 09/11/19 Prednisone 10 mg PO DAILY #30 tab 09/11/19 Following Prescrptions Were Given to Patient: Guaifenesin [Mucinex] 1,200 mg PO BID #14 tab Transmission Status: Received by [facility] #30 Prednisone 10 mg PO DAILY #30 tab Transmission Status: Received by [facility] #30 Benzonatate [Tessalon Perle] 200 mg PO TID PRN PRN #20 cap PRN Reason: cough Transmission Status: Received by [facility] #30 Primary Care Physician: Elijah Rodriguez MD [Primary Care Provider] - Please follow up with your Primary Care Physician in: in 2 week Please Follow Up With: Trace Alcazar MD When: in 3-4 weeks for asthma Medical Necessity - Tobacco Use Smoking Status: Never smoker Meaningful Use Info Meaningful Use Diagnoses (Choose all that apply): None applicable Please cancel the charge for progress note of same date. Inpatient E&M: [id number] [facility] Hosp
--- NOTE | 2019-09-14 10:01 | PCM.PN.SRG ---
Subjective: Patient is doing well and tolerating regular diet with several bowel movements and no abdominal pain and he is passing flatus - Physical Exam Vitals/I&O's: Vital Signs Temp Pulse Resp BP Pulse Ox 98.0 F 99 16 124/69 H 92 09/11/19 15:00 09/11/19 16:03 09/11/19 16:03 09/11/19 15:00 09/11/19 15:00 Oxygen Flow Rate (L/min) 2 Oxygen Delivery Method Room Air Weight: 151 lb 10.848 oz Body Mass Index (BMI) 21.1 General: Alert, Oriented x3 Lungs: Normal air movement Cardiovascular: Regular rate, Regular Rhythm Abdomen: Soft, Non Tender, Non-Distended Microbiology Past 72 Hours 09/09/19 22:15 Blood Culture (Wb) #2 - Venous Blood Culture - Preliminary No growth in 48 hours. 09/09/19 22:00 Blood Culture (Wb) - Left Forearm Blood Culture - Preliminary No growth in 48 hours. Medical Necessity - Tobacco Use Smoking Status: Never smoker Assessment/Plan All Active Problems Small bowel obstruction (Acute) 74-year-old male with resolving obstruction versus ileus 1. Patient is doing well and tolerating regular diet. He had a small bowel follow-through yesterday which showed no complete obstruction. There was a small change in caliber of his small bowel. The patient reports no abdominal pain and he is not having any nausea or vomiting. He is passing flatus. He is okay for discharge. Rafiq Beltre MD Pager: [facility] [address] [place] [address], [address] [place] [address] Office:
== END 2019-09-11 17:45 | disposition home or self-care (01) | DRG 202 ==
LOC: ED 23:46 → MS2 09-10 01:15
PROVIDERS: Admitting Provider Hospitalist; Emergency Provider Emergency Medicine; PCP Family Medicine; Visit Provider Internal Medicine
DX: J45.901 Unspecified asthma with (acute) exacerbation (principal); I47.1 Supraventricular tachycardia; R06.89 Other abnormalities of breathing; R09.02 Hypoxemia; I10 Essential (primary) hypertension; D69.6 Thrombocytopenia, unspecified; K21.9 Gastro-esophageal reflux disease without esophagitis; Z82.5 Family history of asthma and other chronic lower respiratory diseases
CPT/HCPCS: 36415; 71045; 80048; 82962; 83605; 84484; 85025; 85379; 87040; 87633; 87635; 87804; 93005; 94640; 96361; 96374; 99285; G2023; J7030; A4216; U0004

== ENCOUNTER 2019-09-12 16:00 | Inpatient (IN) | payer MEDICARE, SELFPAY ==
[2019-09-10 02:38] VITALS: BMI 21.1
[2019-09-12] VITALS (7 sets, daily range): BP systolic 132–165; BP diastolic 89–93; PULSE 63–100; RESP 16–20; TEMP 36.3–36.9; O2SAT 93–100; BMI 21.5; BMI 21.2
--- NOTE | 2019-09-12 16:36 | CT_ITS ---
STUDY: CT ABDOMEN AND PELVIS WITH CONTRAST REASON FOR EXAM: Male, 74 years old. Nausea. History of appendectomy. RADIATION DOSAGE (If Supplied By Facility): CTDIvol = ( 12.12 ) mGy, DLP = ( 789.30 ) mGycm TECHNIQUE: Transaxial images were obtained from the dome of the diaphragm to the symphysis pubis without oral contrast. 100 ml of Isovue-300 contrast was administered. Sagittal and coronal images were reconstructed. Individualized dose optimization techniques were used for this CT. COMPARISON: 01/30/2015 FINDINGS: There is atelectasis at the lung bases. The visualized portions of the heart and pericardium are within normal limits. There are no calcified gallstones present. The liver is within normal limits. There are no suspicious hepatic lesions. The spleen is normal in size. The pancreas is within normal limits. The adrenal glands are within normal limits. There are no renal or ureteral stones. There is no hydronephrosis. There are no focal renal lesions. Normal visualized stomach. The multiple dilated loops of small bowel partially collapsed loops noted distally. This is consistent with small bowel obstruction. The transition point appears to be in the right lower quadrant. There are colonic diverticula noted without evidence of diverticulitis. The aorta is normal in caliber. There are atherosclerotic calcifications noted in the aorta and its branches. There is a small amount of free fluid. There is no free air, fluid collection or lymphadenopathy. There are no destructive osseous lesions. CT/Abdomen/Pelvis W IV Cont ONLY IMPRESSION: Small bowel obstruction with the transition point likely in the right lower quadrant. Small amount of free fluid. No free air or fluid collections. Electronically Signed: Noah Mcnally, at 17:35 EDT Tel , Service support ,
[2019-09-12 16:53] LABS: Absolute Lymphocyte Count 1.35 X10^3/uL (0.83-4.51); Absolute Neutrophil Count 9.5 X10^3/uL (2.0-7.7); Basophil# 0.03 X10^3/uL; Basophil% 0.3 % (0-1); Eosinophil# 0.02 X10^3/uL; Eosinophils% 0.2 % (0-5); Hematocrit 49.6 % (40-54); Hemoglobin 16.4 g/dL (13.0-16.5); Lymphocyte # 1.35 X10^3/ul (4.0); Lymphocyte % 11.4 % (19-41); Mean Corp Hgb Conc 33.1 g/dL (32-36); Mean Corpuscular Hgb 34.5 pg (27.0-32.0); Mean Corpuscular Volume 104.2 fL (80-94); Mean Platelet Vol. 10.5 fl (6.2-12.0); Monocyte# 0.93 X10^3/uL; Monocyte% 7.8 % (0-10); NRBC Flagged by Analyzer 0 % (0-5); Neutrophil # 9.46 X10^3/uL (2.7-7.7); Neutrophil % 79.6 % (47-70); Platelet Count 187 K/mm3 (150-450); RBC Distribution Width SD 54.5 fl (35.1-43.9); Red Blood Count 4.76 M/mm3 (4.6-6.2); White Blood Count 11.9 K/mm3 (4.4-11.0)
--- NOTE | 2019-09-12 17:02 | RAD_ITS ---
STUDY: X-RAY CHEST REASON FOR EXAM: Male, 74 years old. Chest pain TECHNIQUE: Frontal view of the chest COMPARISON: 07/10/2019 FINDINGS: There is linear atelectasis at the lung bases. The lungs are otherwise clear. There are no pleural effusions. There is no pneumothorax. The heart is normal in size. The visualized osseous structures are within normal limits. RAD/Chest 1 View (Portable) IMPRESSION: Bibasilar atelectasis. Otherwise, clear lungs. Electronically Signed: Noah Mcnally, at 17:15 EDT Tel , Service support ,
[2019-09-12 17:04] LABS: ALB/GLOB Ratio 1.1 RATIO (0.9-2.4); AST(SGOT) 19 U/L (15-37); Alanine Aminotransfer ALT/SGPT 28 U/L (16-61); Albumin, Serum 3.9 g/dL (3.2-5.0); Alkaline Phosphatase 64 U/L (45-117); Anion Gap 4 (5-15); BUN 26 mg/dL (7-18); BUN/Creat Ratio 25.5 RATIO (10-20); Calcium,Total 9.8 mg/dL (8.5-10.1); Chloride 102 mmol/L (98-107); Creatinine, Serum 1.02 mg/dL (0.70-1.30); EST Glomerular Filtration Rate 75 mL/min (>60); Est Glom Filt Rate - Afr Amer 91 mL/min (>60); Globulin 3.6 g/dL (2.2-4.2); Glucose 122 mg/dL (74-106); Lipase 87 U/L (73-393); Potassium 3.9 mmol/L (3.5-5.1); Protein, Total 7.5 g/dL (6.4-8.2); Sodium Level 138 mmol/L (136-145)
[2019-09-12] MEDS: Morphine 4 MG/ML Syringe IV (17:10)
[2019-09-12] MEDS: Ondansetron 4 MG/2 ML Vial IV (17:10)
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
[2019-09-12 17:55] LABS: Bacteria 0 SEEN /hpf (None Seen); Mucous, Urine 0 SEEN /hpf (<or=2+); Red Blood Cells-Urine 0 SEEN /hpf (0-5); White Blood Cells 0 SEEN /hpf (0-5)
[2019-09-12 18:10] LABS: Color, Urine Yellow (Yellow); Glucose, Dipstick Normal (Normal); Ketone-Dipstick Negative (Negative); Leukocyte Esterase-Dipstick Negative /ul (Negative); Nitrite-Dipstick Negative (Negative); Occult Blood-Urine Negative /ul (Negative); Protein-Dipstick Negative (Negative); Urine Bilirubin Dipstick Negative (Negative); Urine Clarity Clear (Clear); Urine Urobilinogen Normal (Normal)
[2019-09-12 18:36] LABS: Squamous Epithelial Cells - UA 0-5 SEEN /hpf (0-5)
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
--- NOTE | 2019-09-12 18:59 | ED.RN ---
ng tube held per dr thomas
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
[2019-09-12] MEDS: 0.9% Normal Saline 1,000 ML 100 ML IV (20:15)
[2019-09-12] MEDS: Morphine 2 MG/ML Syringe IV (20:22)
[2019-09-12] MEDS: Famotidine 200 MG/20 ML MDV 20 MG in 0.9% Normal Saline (Pres. free 8 ML 300 MG IV (20:22)
[2019-09-12] MEDS: Ipratropium/Albuterol Sulfate 3 ML AMPUL.NEB INHALATION (23:13)
[2019-09-13] VITALS (10 sets, daily range): BP systolic 116–135; BP diastolic 69–88; PULSE 85–97; RESP 18–21; TEMP 36.6–37.1; O2SAT 92–96
--- NOTE | 2019-09-13 02:41 | NURSING ---
Called for breathing tmt per pt request.
[2019-09-13] MEDS: Albuterol 2.5 MG/3 ML VIAL.NEB. INHALATION (02:54)
[2019-09-13] MEDS: 0.9% Normal Saline 1,000 ML 100 ML IV ×2 (04:09→16:34)
--- NOTE | 2019-09-13 05:30 | RAD_ITS ---
STUDY: X-RAY - ABDOMEN/PELVIS REASON FOR EXAM: Male, 74 years old. ILEUS VS SBO -- SMALL BOWEL OBSTRUCTION TECHNIQUE: AP supine and upright views of the abdomen and pelvis. COMPARISON: Comparison is made with prior CT scan done the pelvis done earlier in the evening. FINDINGS: Blunting of both cosmetic angles. Mild bibasilar atelectasis. There are dilated loops of the small intestine with a non-distended colon consistent with a small bowel obstruction. Large amount of fecal material is seen in the colon. There is no demonstrated free abdominal air. Surgical clips are seen in the right upper quadrant. Contrast is seen within the urinary bladder. There are diffuse degenerative changes of the visualized lumbar spine. RAD/Abd Decub and/or Erect(Portabl IMPRESSION: Mildly distended small bowel loops with air-fluid levels suggestive of very early small bowel obstruction. Large amount of fecal material is seen in the colon. Electronically Signed: Babar Tomas, at 8:59 EDT , Service support ,
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
[2019-09-13] MEDS: Ipratropium/Albuterol Sulfate 3 ML AMPUL.NEB INHALATION ×3 (07:00→19:30)
[2019-09-13 07:05] LABS: Absolute Lymphocyte Count 1.34 X10^3/uL (0.83-4.51); Absolute Neutrophil Count 4.7 X10^3/uL (2.0-7.7); Basophil# 0.01 X10^3/uL; Basophil% 0.1 % (0-1); Eosinophil# 0.26 X10^3/uL; Eosinophils% 3.7 % (0-5); Hematocrit 43.9 % (40-54); Hemoglobin 14.5 g/dL (13.0-16.5); Lymphocyte # 1.34 X10^3/ul (4.0); Lymphocyte % 19.2 % (19-41); Mean Corpuscular Hgb 34.6 pg (27.0-32.0); Mean Corpuscular Volume 104.8 fL (80-94); Mean Platelet Vol. 10.4 fl (6.2-12.0); Monocyte% 8.6 % (0-10); NRBC Flagged by Analyzer 0 % (0-5); Neutrophil # 4.73 X10^3/uL (2.7-7.7); Neutrophil % 67.8 % (47-70); Platelet Count 147 K/mm3 (150-450); RBC Distribution Width SD 54.3 fl (35.1-43.9); Red Blood Count 4.19 M/mm3 (4.6-6.2)
[2019-09-13 07:27] LABS: Anion Gap 4 (5-15); BUN 17 mg/dL (7-18); BUN/Creat Ratio 19.9 RATIO (10-20); Calcium,Total 8.6 mg/dL (8.5-10.1); Chloride 102 mmol/L (98-107); Creatinine, Serum 0.86 mg/dL (0.70-1.30); EST Glomerular Filtration Rate 92 mL/min (>60); Est Glom Filt Rate - Afr Amer 112 mL/min (>60); Estimated Creatinine Clearance 71.21 ml/min; Glucose 93 mg/dL (74-106); Potassium 4.1 mmol/L (3.5-5.1); Sodium Level 138 mmol/L (136-145)
--- NOTE | 2019-09-13 08:17 | PN.SURG_ITS ---
Subjective: Patient reports he is passing flatus and his abdominal pain is improved. No nausea or vomiting. - Physical Exam Vitals/I&O's: Vital Signs Temp Pulse Resp BP Pulse Ox 98.8 F 91 18 125/69 H 94 09/13/19 02:31 09/13/19 07:10 09/13/19 07:10 09/13/19 02:31 09/13/19 07:45 Oxygen Flow Rate (L/min) 2 Oxygen Delivery Method Room Air Weight: 151 lb 14.376 oz Body Mass Index (BMI) 21.2 Intake and Output for Last 24 Hours 09/11/19 09/12/19 09/13/19 23:59 23:59 23:59 Intake Total 820 / 820 Balance 820 / 820 General: Alert, Oriented x3 Lungs: Normal air movement Abdomen: Soft, Non-Distended, Tender - Mildly tender in the lower abdomen Laboratory Results 09/12/19 16:20: WBC 11.9 H, RBC 4.76, Hgb 16.4, Hct 49.6, MCV 104.2 H, MCH 34.5 H, MCHC 33.1, RDW Std Deviation 54.5 H, RDW Coeff of Mya 14.0, Plt Count 187, MPV 10.5, Immature Gran % (Auto) 0.700, Neut % (Auto) 79.6 H, Lymph % (Auto) 11.4 L, [place] % (Auto) 7.8, Eos % (Auto) 0.2, Baso % (Auto) 0.3, Absolute Neuts (auto) 9.5 H, Absolute Lymphs (auto) 1.35, Nucleated RBC % 0 09/12/19 16:20: Sodium 138, Potassium 3.9, Chloride 102, Carbon Dioxide 32.0, Anion Gap 4 L, BUN 26 H, Creatinine 1.02, Estim Creat Clear Calc 61.00, Est GFR (MDRD) Af Amer 91, Est GFR (MDRD) Non-Af 75, BUN/Creatinine Ratio 25.5 H, Glucose 122 H, Calcium 9.8, Total Bilirubin 0.80, AST 19, ALT 28, Alkaline Phosphatase 64, Troponin I < 0.015, Total Protein 7.5, Albumin 3.9, Globulin 3.6, Albumin/Globulin Ratio 1.1, Lipase 87 09/12/19 17:50: Urine Color Yellow, Urine Clarity Clear, Urine pH 7.0, Ur Specific [place] 1.010, Urine Protein Negative, Urine Glucose (UA) Normal, Urine Ketones Negative, Urine Occult Blood Negative, Urine Nitrite Negative, Urine Bilirubin Negative, Urine Urobilinogen Normal, Ur Leukocyte Esterase Negative, Urine RBC 0 SEEN, Urine WBC 0 SEEN, Ur Squamous Epith Cells 0-5 SEEN, Urine Bacteria 0 SEEN, Urine Mucus 0 SEEN 09/13/19 06:30: WBC 7.0, RBC 4.19 L, Hgb 14.5, Hct 43.9, MCV 104.8 H, MCH 34.6 H , MCHC 33.0, RDW Std Deviation 54.3 H, RDW Coeff of Mya 14.0, Plt Count 147 L, MPV 10.4, Immature Gran % (Auto) 0.600, Neut % (Auto) 67.8, Lymph % (Auto) 19.2, [place] % (Auto) 8.6, Eos % (Auto) 3.7, Baso % (Auto) 0.1, Absolute Neuts (auto) 4.7, Absolute Lymphs (auto) 1.34, Nucleated RBC % 0 09/13/19 06:30: Sodium 138, Potassium 4.1, Chloride 102, Carbon Dioxide 32.0, Anion Gap 4 L, BUN 17, Creatinine 0.86, Estim Creat Clear Calc 71.21, Est GFR (MDRD) Af Amer 112, Est GFR (MDRD) Non-Af 92, BUN/Creatinine Ratio 19.9, Glucose 93, Calcium 8.6 Current Medications Acetaminophen (Tylenol) 650 mg PO Q6H PRN PRN PRN Reason: Pain Score 1-10/Temp > 100.7 F Albuterol Sulfate (Ventolin Aerosols) 2.5 mg INHALATION Q2H PRN PRN PRN Reason: Shortness of Breath/Wheezing Last Admin: 09/13/19 02:54 Dose: 2.5 mg Documented by: Albuterol/Ipratropium (Duoneb) 3 ml INHALATION Q6H.RT [facility] Last Admin: 09/13/19 07:00 Dose: 3 ml Documented by: Amlodipine Besylate (Norvasc) 5 mg PO DAILY [facility] Enoxaparin Sodium (Lovenox) 40 mg SC DAILY [facility] Guaifenesin (Mucinex) 1,200 mg PO BID [facility] Last Admin: 09/12/19 20:22 Dose: Not Given Documented by: Sodium Chloride () 1,000 mls @ 100 mls/hr IV .Q10H [facility] Last Admin: 09/13/19 04:09 Dose: 100 mls/hr Documented by: Famotidine 20 mg/ Sodium (Chloride) 10 mls @ 300 mls/hr IV Q12 [facility] Last Infusion: 09/12/19 20:24 Dose: Infused Documented by: Morphine Sulfate () 2 mg IV Q3H PRN PRN PRN Reason: Pain Score 6-10/10 Last Admin: 09/12/19 20:22 Dose: 2 mg Documented by: Ondansetron HCl (Zofran) 4 mg IV Q8H PRN PRN PRN Reason: NAUSEA/VOMITING Prednisone () 40 mg PO DAILY@0800 [facility]; Taper Stop: 09/23/19 07:59 Sodium Chloride () 10 - 40 ml IV UD PRN PRN Reason: SALINE FLUSH Zolpidem Tartrate (Ambien (Generic)) 5 mg PO QHS PRN PRN PRN Reason: INSOMNIA Medical Necessity - Tobacco Use Smoking Status: Never smoker Tobacco Use: Secondhand Assessment/Plan All Active Problems Small bowel obstruction (Acute) 74-year-old male with ileus versus small bowel obstruction 1. Patient reports he is passing flatus and his abdominal pain is improving. His x-ray does show some dilation of his small bowel still. I will order a Gastrografin small bowel follow-through today. If the contrast reaches the colon he may start on a clear liquid diet and advance as tolerated. Rafiq Beltre MD Pager: [facility] [address] [place] [address], [address] [place] [address] Office:
[2019-09-13] MEDS: predniSONE 20 MG Tablet 30 MG PO (12:16)
[2019-09-13] MEDS: Enoxaparin 40 MG/0.4 ML Syringe SC (12:16)
[2019-09-13] MEDS: amLODIPine 5 MG Tablet PO (12:17)
[2019-09-13] MEDS: 0.9% Saline Lock 10 ML Syringe IV (12:17)
[2019-09-13] MEDS: guaiFENesin 1,200 MG Tablet 1200 MG PO ×2 (12:17→21:19)
[2019-09-13] MEDS: Famotidine 200 MG/20 ML MDV 20 MG in 0.9% Normal Saline (Pres. free 8 ML 300 MG IV ×2 (12:17→21:19)
--- NOTE | 2019-09-13 12:17 | PN_ITS ---
Reason for Visit: follow up for small bowel obstruction Subjective: Patient seen and examined. No new complaints. Was comfortably lying in bed. He was passing gas and not had a bowel movement just before reviewed. Review of systems otherwise negative. He is tolerating the clear liquid diet. Vitals/I&O's: Vital Signs Temp Pulse Resp BP Pulse Ox 97.9 F 85 19 H 116/74 94 09/13/19 08:25 09/13/19 08:25 09/13/19 08:25 09/13/19 08:25 09/13/19 08:25 Oxygen Flow Rate (L/min) 2 Oxygen Delivery Method Room Air Weight: 151 lb 14.376 oz Body Mass Index (BMI) 21.2 Intake and Output for Last 24 Hours 09/11/19 09/12/19 09/13/19 23:59 23:59 23:59 Intake Total 820 / 820 Balance 820 / 820 General: Alert, Oriented x3, Cooperative, No apparent distress HEENT: EOMI, Normocephalic Oral: Moist Mucosa, No Gingival or Mucosal Lesions/ Ulcerations Neck: Supple, No JVD, Negative Carotid Bruits, Trachea Midline, Thyroid Normal Size and Texture Lungs: Clear to auscultation, Normal air movement, No rhonchi, No wheeze Cardiovascular: Regular rate, Regular Rhythm, Normal S1, Normal S2, PMI Normal Abdomen: Soft, Non-Distended, No Hepato-splenomegaly, normal bowel sounds, nontender Extremities: No clubbing, No cyanosis, No edema Skin: No rashes, No breakdown Lymphatic: No Cervical, Supraclavicular, or Inguinal Adenopathy Neurological: Cranial nerves II-XII grossly intact, Motor Exam 5/5 strength throughout Psych/Mental Status: Normal Affect, Appropriate, Alert and oriented to time, place, person, mood and affect Laboratory Results 09/12/19 16:20: WBC 11.9 H, RBC 4.76, Hgb 16.4, Hct 49.6, MCV 104.2 H, MCH 34.5 H, MCHC 33.1, RDW Std Deviation 54.5 H, RDW Coeff of Mya 14.0, Plt Count 187, MPV 10.5, Immature Gran % (Auto) 0.700, Neut % (Auto) 79.6 H, Lymph % (Auto) 11.4 L, [place] % (Auto) 7.8, Eos % (Auto) 0.2, Baso % (Auto) 0.3, Absolute Neuts (auto) 9.5 H, Absolute Lymphs (auto) 1.35, Nucleated RBC % 0 09/12/19 16:20: Sodium 138, Potassium 3.9, Chloride 102, Carbon Dioxide 32.0, Anion Gap 4 L, BUN 26 H, Creatinine 1.02, Estim Creat Clear Calc 61.00, Est GFR (MDRD) Af Amer 91, Est GFR (MDRD) Non-Af 75, BUN/Creatinine Ratio 25.5 H, Glucose 122 H, Calcium 9.8, Total Bilirubin 0.80, AST 19, ALT 28, Alkaline Phosphatase 64, Troponin I < 0.015, Total Protein 7.5, Albumin 3.9, Globulin 3.6, Albumin/Globulin Ratio 1.1, Lipase 87 09/12/19 17:50: Urine Color Yellow, Urine Clarity Clear, Urine pH 7.0, Ur Specific [place] 1.010, Urine Protein Negative, Urine Glucose (UA) Normal, Urine Ketones Negative, Urine Occult Blood Negative, Urine Nitrite Negative, Urine Bilirubin Negative, Urine Urobilinogen Normal, Ur Leukocyte Esterase Negative, Urine RBC 0 SEEN, Urine WBC 0 SEEN, Ur Squamous Epith Cells 0-5 SEEN, Urine Bacteria 0 SEEN, Urine Mucus 0 SEEN 09/13/19 06:30: WBC 7.0, RBC 4.19 L, Hgb 14.5, Hct 43.9, MCV 104.8 H, MCH 34.6 H , MCHC 33.0, RDW Std Deviation 54.3 H, RDW Coeff of Mya 14.0, Plt Count 147 L, MPV 10.4, Immature Gran % (Auto) 0.600, Neut % (Auto) 67.8, Lymph % (Auto) 19.2, [place] % (Auto) 8.6, Eos % (Auto) 3.7, Baso % (Auto) 0.1, Absolute Neuts (auto) 4.7, Absolute Lymphs (auto) 1.34, Nucleated RBC % 0 09/13/19 06:30: Sodium 138, Potassium 4.1, Chloride 102, Carbon Dioxide 32.0, Anion Gap 4 L, BUN 17, Creatinine 0.86, Estim Creat Clear Calc 71.21, Est GFR (MDRD) Af Amer 112, Est GFR (MDRD) Non-Af 92, BUN/Creatinine Ratio 19.9, Glucose 93, Calcium 8.6 Diagnostic Data Abdomen/Pelvis CT 09/12/19 16:36 IMPRESSION: Small bowel obstruction with the transition point likely in the right lower quadrant. Small amount of free fluid. No free air or fluid collections. Electronically Signed: Noah cMnally, at 17:35 EDT Tel , Service support , Chest X-Ray 09/12/19 17:02 IMPRESSION: Bibasilar atelectasis. Otherwise, clear lungs. Electronically Signed: Noah Mcnally, at 17:15 EDT Tel , Service support , Abdomen X-Ray 09/13/19 05:30 IMPRESSION: Mildly distended small bowel loops with air-fluid levels suggestive of very early small bowel obstruction. Large amount of fecal material is seen in the colon. Electronically Signed: Babar Tomas, at 8:59 EDT , Service support , Small Bowel X-Ray 09/13/19 06:59 IMPRESSION: Findings suggestive of a partial small bowel obstruction with the transition point in the mid to lower left lower quadrant. Electronically Signed: Babar Tomas, at 11:12 EDT , Service support , Current Medications Acetaminophen (Tylenol) 650 mg PO Q6H PRN PRN PRN Reason: Pain Score 1-10/Temp > 100.7 F Albuterol Sulfate (Ventolin Aerosols) 2.5 mg INHALATION Q2H PRN PRN PRN Reason: Shortness of Breath/Wheezing Last Admin: 09/13/19 02:54 Dose: 2.5 mg Documented by: Albuterol/Ipratropium (Duoneb) 3 ml INHALATION Q6H.RT [facility] Last Admin: 09/13/19 07:00 Dose: 3 ml Documented by: Amlodipine Besylate (Norvasc) 5 mg PO DAILY [facility] Enoxaparin Sodium (Lovenox) 40 mg SC DAILY [facility] Guaifenesin (Mucinex) 1,200 mg PO BID [facility] Last Admin: 09/12/19 20:22 Dose: Not Given Documented by: Sodium Chloride () 1,000 mls @ 100 mls/hr IV .Q10H [facility] Last Admin: 09/13/19 04:09 Dose: 100 mls/hr Documented by: Famotidine 20 mg/ Sodium (Chloride) 10 mls @ 300 mls/hr IV Q12 [facility] Last Infusion: 09/12/19 20:24 Dose: Infused Documented by: Morphine Sulfate () 2 mg IV Q3H PRN PRN PRN Reason: Pain Score 6-10/10 Last Admin: 09/12/19 20:22 Dose: 2 mg Documented by: Ondansetron HCl (Zofran) 4 mg IV Q8H PRN PRN PRN Reason: NAUSEA/VOMITING Prednisone () 40 mg PO DAILY@0800 [facility]; Taper Stop: 09/23/19 07:59 Sodium Chloride () 10 - 40 ml IV UD PRN PRN Reason: SALINE FLUSH Zolpidem Tartrate (Ambien (Generic)) 5 mg PO QHS PRN PRN PRN Reason: INSOMNIA STROKE Vital Signs/Narrative: Vital Signs Temp Pulse Resp BP Pulse Ox 09/13/19 08:25 97.9 F 85 19 H 116/74 94 Medical Necessity - Tobacco Use Smoking Status: Never smoker Tobacco Use: Secondhand Assessment/Plan All Active Problems Small bowel obstruction (Acute) 1. Small bowel obstruction * Patient now passing gas. * Small bowel x-ray this morning showed findings suggestive of partial small bowel obstruction with a transition point in the mid to lower left quadrant. * general surgery on board; patient started on clear liquids today, to advance diet 2. Asthma * not in exacerbation. on breathing treatments with bronchodilators * 3. Hypertension: stable. 4. chronic thrombocytopenia: * platelets today are 147. Have ranged between 56 to the 130s since 2018. Will monitor. * DVT prophylaxis: lovenox. Will monitor platelet count closely. OBSV E&M: 63556 Subsequent observation care L2
--- NOTE | 2019-09-13 12:20 | NURSING ---
medication late due to NPO and test.
[2019-09-14 02:38] VITALS: BP 141/86; PULSE 87; RESP 18; TEMP 36.6; O2SAT 94
[2019-09-14] MEDS: 0.9% Normal Saline 1,000 ML 100 ML IV (02:42)
[2019-09-14 05:38] LABS: Absolute Lymphocyte Count 0.56 X10^3/uL (0.83-4.51); Absolute Neutrophil Count 4.7 X10^3/uL (2.0-7.7); Eosinophil# 0.04 X10^3/uL; Eosinophils% 0.7 % (0-5); Hematocrit 38.7 % (40-54); Hemoglobin 13.1 g/dL (13.0-16.5); Lymphocyte # 0.56 X10^3/ul (4.0); Lymphocyte % 9.8 % (19-41); Mean Corp Hgb Conc 33.9 g/dL (32-36); Mean Corpuscular Hgb 34.7 pg (27.0-32.0); Mean Corpuscular Volume 102.4 fL (80-94); Mean Platelet Vol. 10.6 fl (6.2-12.0); Monocyte# 0.39 X10^3/uL; Monocyte% 6.8 % (0-10); NRBC Flagged by Analyzer 0 % (0-5); POSITIVE DIFFERENTIAL YES; Platelet Count 126 K/mm3 (150-450); RBC Distribution Width CV 13.5 % (11.6-14.6); RBC Distribution Width SD 51.1 fl (35.1-43.9); Red Blood Count 3.78 M/mm3 (4.6-6.2); White Blood Count 5.7 K/mm3 (4.4-11.0)
[2019-09-14 05:40] LABS: Differential Indicated SCAN CRITERIA MET
[2019-09-14 05:57] LABS: Anion Gap 5 (5-15); BUN 11 mg/dL (7-18); BUN/Creat Ratio 19.1 RATIO (10-20); Calcium,Total 8.1 mg/dL (8.5-10.1); Chloride 104 mmol/L (98-107); Creatinine, Serum 0.58 mg/dL (0.70-1.30); EST Glomerular Filtration Rate 146 mL/min (>60); Est Glom Filt Rate - Afr Amer 176 mL/min (>60); Estimated Creatinine Clearance 61.24 ml/min; Glucose 112 mg/dL (74-106); Potassium 3.5 mmol/L (3.5-5.1); Sodium Level 138 mmol/L (136-145)
[2019-09-14 07:15] VITALS: PULSE 85; RESP 20; O2SAT 95
[2019-09-14] MEDS: Ipratropium/Albuterol Sulfate 3 ML AMPUL.NEB INHALATION (07:15)
--- NOTE | 2019-09-14 08:21 | DCINST_ITS ---
You will use the following diet at home:: Cardiac Your food should be the consistency of: Regular Your liquids should be the consistency of: Regular/Thin Discharge Activity: Return to Normal Activity Weight Bearing Status: Weight bearing as tolerated Call your doctor if you observe: Shortness of breath, Uncontrolled pain, - - abdominal pain, inability to pass gas or have a bowel movement. Allergies/Adverse Reactions: Allergies Sulfa (Sulfonamide Antibiotics) Allergy (Verified 09/12/19 16:14) Rash Medications to take at Discharge Albuterol Aerosols [Ventolin Aerosols] 2.5 mg INHALATION Q2H PRN PRN #1000 vial.neb. 11/06/13 Amlodipine [Norvasc] 5 mg PO DAILY 04/23/18 Famotidine [Pepcid] 20 mg PO BID #28 tab 02/18/19 Albuterol Sulfate [Albuterol Sulfate HFA] 1 - 2 puff INHALATION Q4H PRN 09/09/19 Ipratropium/Albuterol Sulfate [Duoneb] 1 amp INHALATION TID 09/09/19 Benzonatate [Tessalon Perle] 200 mg PO TID PRN PRN #20 cap 09/11/19 Guaifenesin [Mucinex] 1,200 mg PO BID #14 tab 09/11/19 Prednisone 10 mg PO DAILY #30 tab 09/11/19 Primary Care Physician: Elijah Rodriguez MD [Primary Care Provider] - Please follow up with your Primary Care Physician in: 1-2 weeks Test Results: Test results from this visit will be discussed in further detail at your follow- up appointment, if applicable. Please Follow Up With: Rafiq Beltre MD When: one week Proposed Discharge Date: 09/14/19
--- NOTE | 2019-09-14 08:24 | DS.PCM_ITS ---
Discharge Date and Diagnosis Date of Admission: 09/12/19 Date of Discharge: 09/14/19 - Primary Discharge Diagnosis small bowel obstruction - Secondary Discharge Diagnosis Chronic Problems Hypertension (Chronic) SVT (supraventricular tachycardia) (Chronic) Thrombocytopenia (Chronic) Asthma (Chronic) Hospital Course and Treatment Imaging Results: Diagnostic Data Abdomen/Pelvis CT 09/12/19 16:36 IMPRESSION: Small bowel obstruction with the transition point likely in the right lower quadrant. Small amount of free fluid. No free air or fluid collections. Electronically Signed: Noah Mcnally, at 17:35 EDT Tel , Service support , Chest X-Ray 09/12/19 17:02 IMPRESSION: Bibasilar atelectasis. Otherwise, clear lungs. Electronically Signed: Noah Mcnally, at 17:15 EDT Tel , Service support , Abdomen X-Ray 09/13/19 05:30 IMPRESSION: Mildly distended small bowel loops with air-fluid levels suggestive of very early small bowel obstruction. Large amount of fecal material is seen in the colon. Electronically Signed: Babar Tomas, at 8:59 EDT , Service support , Small Bowel X-Ray 09/13/19 06:59 IMPRESSION: Findings suggestive of a partial small bowel obstruction with the transition point in the mid to lower left lower quadrant. Electronically Signed: Babar Tomas, at 11:12 EDT , Service support , general surgery- Dr Beltre Operations: None Procedures: None Summary of Care Provided: The patient is a 74 year old M with a past medical history as outlined. He was admitted through the ED on 09/12/2019 with a complaint of abdominal pain. Symptoms began on the morning of admission and was dull and aching, rated at 9 out of 10 in severity with no aggravating or relieving factors. He had no associated nausea vomiting and not had bowel movements on the morning of admission which was normal. CT of the abdomen and pelvis done showed small bowel obstruction. He was admitted to be managed for small bowel obstruction. He was kept n.p.o. and hydrated with IV fluids. General surgery was consulted. Subsequent abdominal x-rays done showed mildly distended small bowel loops of air level suggestive of very early small bowel obstruction and large amount of fecal material seen in the colon. However patient symptoms improved and he was started on clear liquid diet as per general surgery. This was advanced as tolerated and patient did very well. He was passing gas and had several bowel movements during admission. Patient remained stable and was discharged home on 09/14/2019. He is to follow-up with his primary care doctor and to follow-up with general surgery. Seen and examined prior to discharge. He has no complaints. Review of systems otherwise negative. Labs and vitals reviewed. Home medication reviewed and r econciled. o/e: Vital Signs Temp Pulse Resp BP Pulse Ox 97.4 F L 99 18 141/77 H 98 09/14/19 08:46 09/14/19 08:46 09/14/19 08:46 09/14/19 08:46 09/14/19 08:46 [] General: Alert, Oriented x3, Cooperative, No apparent distress HEENT: EOMI, Normocephalic Oral: Moist Mucosa, No Gingival or Mucosal Lesions/ Ulcerations Neck: Supple, No JVD, Negative Carotid Bruits, Lungs: Clear to auscultation, Normal air movement, No rhonchi, No wheeze Cardiovascular: Regular rate, Regular Rhythm, Normal S1, Normal S2, PMI Normal Abdomen: Soft, Non-Distended, No Hepato-splenomegaly, normal bowel sounds, nontender Extremities: No clubbing, No cyanosis, No edema Skin: No rashes, No breakdown Lymphatic: No Cervical, Supraclavicular, or Inguinal Adenopathy Neurological: Cranial nerves II-XII grossly intact, Motor Exam 5/5 strength throughout Psych/Mental Status: Normal Affect, Appropriate, Alert and oriented to time, place, person, mood and affect Plan is for discharge home today. - Physical Exam Vitals/I&O's: Vital Signs Temp Pulse Resp BP Pulse Ox 98 F 87 18 141/86 H 94 09/14/19 02:38 09/14/19 02:38 09/14/19 02:38 09/14/19 02:38 09/14/19 02:38 Oxygen Flow Rate (L/min) 2 Oxygen Delivery Method Room Air Weight: 151 lb 14.376 oz Body Mass Index (BMI) 21.2 Intake and Output for Last 24 Hours 09/12/19 09/13/19 09/14/19 23:59 23:59 23:59 Intake Total 2750 / 3290 1640 / 1640 Balance 2750 / 3290 1640 / 1640 Laboratory Results 09/14/19 05:20: WBC 5.7, RBC 3.78 L, Hgb 13.1, Hct 38.7 L, MCV 102.4 H, MCH 34.7 H, MCHC 33.9, RDW Std Deviation 51.1 H, RDW Coeff of Mya 13.5, Plt Count 126 L, MPV 10.6, Immature Gran % (Auto) 0.700, Neut % (Auto) 82.0 H, Lymph % (Auto) 9.8 L, [place] % (Auto) 6.8, Eos % (Auto) 0.7, Baso % (Auto) 0.0, Absolute Neuts (auto) 4.7, Absolute Lymphs (auto) 0.56 L, Nucleated RBC % 0, Differential Comment COMMENT 09/14/19 05:20: Sodium 138, Potassium 3.5, Chloride 104, Carbon Dioxide 29.0, Anion Gap 5, BUN 11, Creatinine 0.58 L, Estim Creat Clear Calc 61.24, Est GFR (MDRD) Af Amer 176, Est GFR (MDRD) Non-Af 146, BUN/Creatinine Ratio 19.1, Glucose 112 H, Calcium 8.1 L Current Medications Acetaminophen (Tylenol) 650 mg PO Q6H PRN PRN PRN Reason: Pain Score 1-10/Temp > 100.7 F Albuterol Sulfate (Ventolin Aerosols) 2.5 mg INHALATION Q2H PRN PRN PRN Reason: Shortness of Breath/Wheezing Last Admin: 09/13/19 02:54 Dose: 2.5 mg Documented by: Albuterol/Ipratropium (Duoneb) 3 ml INHALATION Q6H.RT [facility] Last Admin: 09/14/19 07:15 Dose: 3 ml Documented by: Amlodipine Besylate (Norvasc) 5 mg PO DAILY [facility] Last Admin: 09/13/19 12:17 Dose: 5 mg Documented by: Enoxaparin Sodium (Lovenox) 40 mg SC DAILY [facility] Last Admin: 09/13/19 12:16 Dose: 40 mg Documented by: Guaifenesin (Mucinex) 1,200 mg PO BID [facility] Last Admin: 09/13/19 21:19 Dose: 1,200 mg Documented by: Sodium Chloride () 1,000 mls @ 100 mls/hr IV .Q10H [facility] Last Admin: 09/14/19 02:42 Dose: 100 mls/hr Documented by: Famotidine 20 mg/ Sodium (Chloride) 10 mls @ 300 mls/hr IV Q12 [facility] Last Infusion: 09/13/19 21:21 Dose: Infused Documented by: Morphine Sulfate () 2 mg IV Q3H PRN PRN PRN Reason: Pain Score 6-10/10 Last Admin: 09/12/19 20:22 Dose: 2 mg Documented by: Ondansetron HCl (Zofran) 4 mg IV Q8H PRN PRN PRN Reason: NAUSEA/VOMITING Prednisone () 30 mg PO DAILY@0800 [facility]; Taper Stop: 09/23/19 07:59 Last Admin: 09/13/19 12:16 Dose: 40 mg Documented by: Sodium Chloride () 10 - 40 ml IV UD PRN PRN Reason: SALINE FLUSH Last Admin: 09/13/19 12:17 Dose: 10 ml Documented by: Zolpidem Tartrate (Ambien (Generic)) 5 mg PO QHS PRN PRN PRN Reason: INSOMNIA Discharge Diet: Low fat/ Low Cholesterol Discharge Activity: Return to Normal Activity Weight Bearing Status: Weight bearing as tolerated Call your doctor if you observe: Shortness of breath, Uncontrolled pain, - - abdominal pain, inability to pass gas or have a bowel movement. Home Medications: Medications to take at Discharge Albuterol Aerosols [Ventolin Aerosols] 2.5 mg INHALATION Q2H PRN PRN #1000 vial.neb. 11/06/13 Amlodipine [Norvasc] 5 mg PO DAILY 04/23/18 Famotidine [Pepcid] 20 mg PO BID #28 tab 02/18/19 Albuterol Sulfate [Albuterol Sulfate HFA] 1 - 2 puff INHALATION Q4H PRN 09/09/19 Ipratropium/Albuterol Sulfate [Duoneb] 1 amp INHALATION TID 09/09/19 Benzonatate [Tessalon Perle] 200 mg PO TID PRN PRN #20 cap 09/11/19 Guaifenesin [Mucinex] 1,200 mg PO BID #14 tab 09/11/19 Prednisone 10 mg PO DAILY #30 tab 09/11/19 Primary Care Physician: Elijah Rodriguez MD [Primary Care Provider] - Please follow up with your Primary Care Physician in: 1-2 weeks Please Follow Up With: Rafiq Beltre MD When: one week Patient Instructions: Small Bowel Obstruction Disposition: Home Minutes spent on discharge:: 35 Patient Condition:: Stable Medical Necessity - Tobacco Use Smoking Status: Never smoker Tobacco Use: Secondhand Meaningful Use Info Meaningful Use Diagnoses (Choose all that apply): None applicable Inpatient E&M: 56804 [facility]
[2019-09-14 08:46] VITALS: BP 141/77; PULSE 99; RESP 18; TEMP 36.3; O2SAT 98
[2019-09-14] MEDS: guaiFENesin 1,200 MG Tablet 1200 MG PO (08:49)
[2019-09-14] MEDS: amLODIPine 5 MG Tablet PO (08:49)
[2019-09-14] MEDS: Enoxaparin 40 MG/0.4 ML Syringe SC (08:49)
[2019-09-14] MEDS: predniSONE 20 MG Tablet 30 MG PO (08:49)
[2019-09-14] MEDS: 0.9% Saline Lock 10 ML Syringe IV (08:52)
[2019-09-14] MEDS: Famotidine 200 MG/20 ML MDV 20 MG in 0.9% Normal Saline (Pres. free 8 ML 300 MG IV (08:52)
--- NOTE | 2019-09-14 09:30 | CASEMGMT ---
Readmission chart review: Pt was initially admitted 09/10/2019 for c/o asthma exacerbation/rule out COVID. Pt's COVID test was negative and pt was discharged the next day. Pt then returned to [facility] ED on 09/12/2019 for Abd pain and admitted with SBO, which surgeon states may have been an ileus and treated conservatively. Pt's pain improving and was started on diet. CM to follow for any further discharge planning/needs. SStnathanael TEAGUE CM
--- NOTE | 2019-09-15 14:22 | CASEMGMT ---
ZAHIDA CM DC PHONE CALL DC DATE: 09.14.2019 DC DISPOSITION: Home DC DIAGNOSIS: SBO LACE/STRATA: 02/09 F/U APPTS MADE PRIOR TO DC: no Attempted to call. No answer and message machine did not have name identifier. Myrtle MIGUELN RN ACM
== END 2019-09-14 09:23 | disposition home or self-care (01) | DRG 389 ==
LOC: ED 18:31 → MS3 22:54
PROVIDERS: Admitting Provider Hospitalist; Emergency Provider Emergency Medicine; PCP Family Medicine; Referring Provider Hospitalist; Visit Provider Student in an Organized Health Care Education/Training Program
DX: K56.600 Partial intestinal obstruction, unspecified as to cause (principal); I47.1 Supraventricular tachycardia; I10 Essential (primary) hypertension; D69.6 Thrombocytopenia, unspecified; J45.909 Unspecified asthma, uncomplicated; Z77.22 Contact with and (suspected) exposure to environmental tobacco smoke (acute) (chronic)
CPT/HCPCS: 36415; 71045; 74019; 74177; 74250; 80048; 80053; 81001; 83690; 84484; 85025; 94640; 97802; 99251; 99285; J7030; Q9967; A4216; G0463; J2405; J3490

== ENCOUNTER 2019-10-14 01:26 | Inpatient (IN) | payer MEDICARE, SELFPAY ==
[2019-09-12 19:58] VITALS: BMI 21.2
[2019-10-14] VITALS (24 sets, daily range): BP systolic 130–166; BP diastolic 69–114; PULSE 88–120; RESP 18–24; TEMP 36.2–37.1; O2SAT 86–97; BMI 21.7; BMI 21.1
--- NOTE | 2019-10-14 01:29 | EKG12_ITS ---
Test Reason : SOB Blood Pressure : / mmHG Vent. Rate : 115 BPM Atrial Rate : 115 BPM P-R Int : 164 ms QRS Dur : 070 ms QT Int : 322 ms P-R-T Axes : 071 028 057 degrees QTc Int : 445 ms Sinus tachycardia with Premature atrial complexes Septal infarct , age undetermined Abnormal ECG Confirmed by KATYA ROBERTS, AMBER ([id number]), newspaper copy editor RUKHSANA PIERRE ([id number]) on 10/16/2019 1:31:19 PM Referred By: JAYNA Confirmed By:AMBER ALDANA MD
--- NOTE | 2019-10-14 01:29 | RAD_ITS ---
STUDY: X-RAY CHEST REASON FOR EXAM: Male, 74 years old. sob -- hx of copd TECHNIQUE: Frontal view COMPARISON: September 12, 2019 FINDINGS: The lungs are clear and expanded. There are fibrotic changes at the lung bases. There are NO acute infiltrates. There is NO pleural effusion or pneumothorax. Normal size heart. Normal mediastinum and monisha. Normal visualized pulmonary arteries. There is atherosclerotic calcification of the aortic arch with tortuosity. Normal visualized thoracic spine. Normal visualized ribs, clavicles, and shoulders. There is no demonstrated abnormality of the visualized soft tissue structures of the upper abdomen. RAD/Chest 1 View (Portable) IMPRESSION: The lungs are clear and expanded. There are fibrotic changes at the lung bases. There are NO acute infiltrates. There is NO pleural effusion or pneumothorax. Normal size heart. Electronically Signed: Vick Lee MD at 3:08 EDT , Service support ,
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
[2019-10-14] MEDS: MethylPREDNISolone 125 MG/2 ML Vial IV (01:46)
[2019-10-14] MEDS: Albuterol 2.5 MG/3 ML VIAL.NEB. INHALATION ×3 (01:57→22:15)
[2019-10-14] MEDS: Ipratropium/Albuterol Sulfate 3 ML AMPUL.NEB INHALATION ×5 (01:57→19:30)
[2019-10-14 02:03] LABS: Absolute Neutrophil Count 4.4 X10^3/uL (2.0-7.7); Basophil# 0.05 X10^3/uL; Basophil% 0.7 % (0-1); Eosinophil# 0.89 X10^3/uL; Eosinophils% 13.2 % (0-5); Hemoglobin 15.2 g/dL (13.0-16.5); Lymphocyte % 14.9 % (19-41); Mean Corpuscular Hgb 34.9 pg (27.0-32.0); Mean Corpuscular Volume 105.5 fL (80-94); Mean Platelet Vol. 10.1 fl (6.2-12.0); Monocyte# 0.31 X10^3/uL; Monocyte% 4.6 % (0-10); NRBC Flagged by Analyzer 0 % (0-5); Neutrophil # 4.44 X10^3/uL (2.7-7.7); Platelet Count 140 K/mm3 (150-450); RBC Distribution Width CV 14.6 % (11.6-14.6); RBC Distribution Width SD 57.2 fl (35.1-43.9); Red Blood Count 4.36 M/mm3 (4.6-6.2); White Blood Count 6.7 K/mm3 (4.4-11.0)
[2019-10-14 02:19] LABS: Anion Gap 6 (5-15); BUN 15 mg/dL (7-18); BUN/Creat Ratio 20.6 RATIO (10-20); Calcium,Total 9.1 mg/dL (8.5-10.1); Chloride 100 mmol/L (98-107); Creatinine, Serum 0.73 mg/dL (0.70-1.30); EST Glomerular Filtration Rate 111 mL/min (>60); Est Glom Filt Rate - Afr Amer 135 mL/min (>60); Estimated Creatinine Clearance 62.93 ml/min; Glucose 105 mg/dL (74-106); Potassium 3.7 mmol/L (3.5-5.1); Sodium Level 136 mmol/L (136-145)
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
[2019-10-14] MEDS: Terbutaline 1 MG/ML Vial 0.25 MG SC (04:15)
[2019-10-14 05:57] LABS: Probe Check PASS; Specimen Processing Control PASS
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
[2019-10-14] MEDS: 0.9% Normal Saline 1,000 ML 100 ML IV ×2 (09:01→18:17)
[2019-10-14] MEDS: guaiFENesin 1,200 MG Tablet 1200 MG PO (09:06)
[2019-10-14] MEDS: amLODIPine 5 MG Tablet PO (09:06)
[2019-10-14] MEDS: Enoxaparin 40 MG/0.4 ML Syringe SC (09:06)
[2019-10-14] MEDS: Famotidine 20 MG Tablet PO ×2 (09:06→21:51)
[2019-10-14] MEDS: dilTIAZem 30 MG Tablet PO ×3 (10:04→21:51)
--- NOTE | 2019-10-14 14:55 | CASEMGMT ---
RN CM MAJOR GIFTS OFFICER CM to room to meet with patient for initial transition planning/care coordination assessment. RN ROZINA introduced self and role at [facility]. Pt voices understanding and consents to assessment at this time. Pt resting in bed in no distress at this time. Pt is A/O at this time and answers all questions appropriately. Care providers, pharmacy, and demographics verified/updated at this time. PCP: Dr. Rodriguez. Has an appt Sunday 10/15 @ 0800. Specialists: Pt saw Dr Raymond in the past, but now wishes to follow up @ [facility] pulmonary clinic Preferred Pharmacy: [facility] Insurance: [employer]. Prescription Benefit: no. Pt states he does not have [facility] prescription coverage and has paid out of pocket for medications. Pt was given paperwork for financial assistance for Symbicort through [place] & [place], but states he has not mailed it in yet, therefore he has not got the prescription for Symbicort filled yet. Pt states I was going to do that, but then I started not feeling well and never got it sent out. Pt states he plans to do this soon when he returns home. LNOK : Friend, Liban Morin. Pt states he does not have any living family members Living Will/HPOA: Pt does not have LW or Healthcare POA, but he is interested in completing paperwork. Pt made aware, if he is discharged prior to a SW coming to talk with him, that he can make an appt as an out-pt to meet with a SW to complete paperwork. Pt given [employer] card with contact number to call if he chooses. Pt voices appreciation. SW, Francia, made aware. Living Arrangements: Lives in 1st story apartment withy 3 steps to enter. States he has been independent with his own care. Transportation: drives, or friend can drive. Pt states his car is @ [facility] and he plans to drive home @ d/c. DME: shower chair, nebulizer. Does not have Home O2. Currently on 2 L/M. Pt given list of local DME companies and preference is [employer]. HHC/SNF: No history of either and no needs identified. Pt wishes to return home and states has no concerns with going home at time of discharge. Follow for home oxygen needs. Pt voices no further concerns/needs at this time. Advised pt to ask for CM if any further questions/concerns/needs arise. Voices understanding. Patient DC goals: Home DC PLAN: Home on discharge. Follow for Home O2 needs @ d/c. Jose MIGUELN RN CM
[2019-10-14] MEDS: BENZOCAINE/MENTHOL 1 LOZENGE MUCOUS MEM (21:50)
[2019-10-14] MEDS: 0.9% Saline Lock 10 ML Syringe IV (21:51)
[2019-10-14] MEDS: guaiFENesin 10 ML UDC (200MG/10ML) PO (22:38)
[2019-10-15] VITALS (9 sets, daily range): BP systolic 97–135; BP diastolic 65–80; PULSE 69–97; RESP 18–20; TEMP 36.5–37.1; O2SAT 89–95
[2019-10-15] MEDS: 0.9% Normal Saline 1,000 ML 100 ML IV (04:22)
[2019-10-15] MEDS: 0.9% Saline Lock 10 ML Syringe IV (05:35)
[2019-10-15] MEDS: dilTIAZem 30 MG Tablet PO (05:35)
[2019-10-15 06:18] LABS: Absolute Lymphocyte Count 0.45 X10^3/uL (0.83-4.51); Absolute Neutrophil Count 10.1 X10^3/uL (2.0-7.7); Basophil# 0.01 X10^3/uL; Basophil% 0.1 % (0-1); Hematocrit 37.2 % (40-54); Hemoglobin 12.6 g/dL (13.0-16.5); Lymphocyte # 0.45 X10^3/ul (4.0); Lymphocyte % 4.1 % (19-41); Mean Corp Hgb Conc 33.9 g/dL (32-36); Mean Corpuscular Hgb 35.1 pg (27.0-32.0); Mean Corpuscular Volume 103.6 fL (80-94); Mean Platelet Vol. 10.6 fl (6.2-12.0); Monocyte# 0.28 X10^3/uL; Monocyte% 2.6 % (0-10); NRBC Flagged by Analyzer 0 % (0-5); Neutrophil # 10.11 X10^3/uL (2.7-7.7); Neutrophil % 92.7 % (47-70); POSITIVE DIFFERENTIAL YES; POSITIVE MORPHOLOGY YES; Platelet Count 120 K/mm3 (150-450); RBC Distribution Width CV 14.3 % (11.6-14.6); RBC Distribution Width SD 54.4 fl (35.1-43.9); Red Blood Count 3.59 M/mm3 (4.6-6.2); White Blood Count 10.9 K/mm3 (4.4-11.0)
[2019-10-15 06:25] LABS: Anion Gap 6 (5-15); BUN 16 mg/dL (7-18); BUN/Creat Ratio 27.4 RATIO (10-20); Calcium,Total 8.3 mg/dL (8.5-10.1); Chloride 104 mmol/L (98-107); Creatinine, Serum 0.58 mg/dL (0.70-1.30); EST Glomerular Filtration Rate 144 mL/min (>60); Est Glom Filt Rate - Afr Amer 174 mL/min (>60); Estimated Creatinine Clearance 61.11 ml/min; Glucose 165 mg/dL (74-106); Potassium 3.6 mmol/L (3.5-5.1); Sodium Level 138 mmol/L (136-145)
[2019-10-15 06:44] LABS: Differential Indicated SCAN CRITERIA MET
[2019-10-15] MEDS: Ipratropium/Albuterol Sulfate 3 ML AMPUL.NEB INHALATION ×2 (06:55→11:32)
[2019-10-15] MEDS: guaiFENesin 10 ML UDC (200MG/10ML) PO (07:18)
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
[2019-10-15 08:32] LABS: Differential Comment SCANNED
[2019-10-15] MEDS: Enoxaparin 40 MG/0.4 ML Syringe SC (09:45)
[2019-10-15] MEDS: Famotidine 20 MG Tablet PO (09:46)
[2019-10-15] MEDS: amLODIPine 5 MG Tablet PO (09:46)
--- NOTE | 2019-10-15 10:17 | PCM.DC ---
- Discharge Diagnoses Current Active Problems: Current Active and Chronic Problems Acute respiratory failure with hypoxia (Acute) Status asthmaticus (Acute) You will use the following diet at home:: Cardiac Your food should be the consistency of: Regular Discharge Activity: May Not Drive Call your doctor if you observe: Fever of 101 or Higher, Numbness or Tingling, Inability to urinate, Inability to have a bowel movement, Shortness of breath, Dizziness, Fainting spells, Swelling in the ankles, Chest pain, Prolonged hiccoughing, Increased palpitations (irregular heartbeat), Uncontrolled pain Additional Instructions: Needs maintenance inhaler either Symbicort or Pulmicort inhaler Allergies/Adverse Reactions: Allergies Sulfa (Sulfonamide Antibiotics) Allergy (Verified 09/12/19 16:14) Rash Medications to take at Discharge Albuterol Aerosols [Ventolin Aerosols] 2.5 mg INHALATION Q2H PRN PRN #1000 vial.neb. 11/06/13 Amlodipine [Norvasc] 5 mg PO DAILY 04/23/18 Albuterol Sulfate [Albuterol Sulfate HFA] 1 - 2 puff INHALATION Q4H PRN 09/09/19 Ipratropium/Albuterol Sulfate [Duoneb] 1 amp INHALATION TID 09/09/19 Benzonatate [Tessalon Perle] 200 mg PO TID PRN PRN #20 cap 09/11/19 Guaifenesin [Mucinex] 1,200 mg PO BID #14 tab 09/11/19 Prednisone 10 mg PO DAILY #30 tab 10/15/19 The following prescriptions were given: Prednisone 10 mg PO DAILY #30 tab Transmission Status: Pending to [facility]30 Primary Care Physician: Elijah Rodriguez MD [Primary Care Provider] - Please follow up with your Primary Care Physician in: on 10/16/2019 Test Results: Test results from this visit will be discussed in further detail at your follow-up appointment, if applicable. Please Follow Up With: Elijah Rodriguez MD Please Follow Up With: Adiel Ashley DO When: Follow-up with Amy Schmitt NP in 2 weeks
--- NOTE | 2019-10-15 10:20 | PCM.DC.SUM ---
Discharge Date and Diagnosis Date of Admission: 10/14/19 Date of Discharge: 10/15/19 - Primary Discharge Diagnosis Acute Problems: Active Problems Acute respiratory failure with hypoxia (Acute) Status asthmaticus (Acute) - Secondary Discharge Diagnosis Chronic Problems: Chronic Problems Hypertension (Chronic) SVT (supraventricular tachycardia) (Chronic) Thrombocytopenia (Chronic) Asthma (Chronic) Hospital Course and Treatment Operations: None Summary of Care Provided: The patient is a 74 year old M history of chronic Asthma/COPD overlap syndrome, HTN, Hx SVT, Chronic Thrombocytopenia, Hx SBO recently admitted 09/12/19 which resolved conservatively is being admitted on 10/14/19 with shortness of breath, dyspnea and wheezing, progressive worsening along with cough for 4 to 5 days despite recent treatment with prednisone consistent with asthma exacerbation. Pulse ox was found 85% on room air in ED which improved with bronchodilator, IV Solu-Medrol and oxygen therapy. Patient was admitted on [facility] floor. Respiratory panel was negative. Chest x-ray shows mild elevation of right hemidiaphragm. Pulmonary consult seen by Dr. Ashley, reviewed and appreciated. Patient has asthma exacerbation with allergic trigger possible cat dander, household environment as patient has significant peripheral eosinophilia. Patient is discharged on tapering dose of prednisone and Symbicort. Follow-up in pulmonary clinic Patient also has mild sinus tachycardia mostly secondary to frequent use of bronchodilator as patient was using every 1-2 hours. Heart rate was controlled. Other comorbidities include hypertension, recent small bowel obstruction was admitted 09/12/2019 which resolved conservatively. Chronic thrombocytopenia, GERD: Stable. Blood pressure is controlled Walking pulse oximetry was done and pulse ox 95% on room air, 89% ambulating on room air and patient does not meet criteria for home oxygen therapy. Discharge medication reconciliation done. Discharge follow-up instructions completed. Discharge process discussed with the patient and all questions were answered to patient's satisfaction. Follow-up in pulmonary clinic in 2 weeks for PFT, RAST, ANCA and IgE testing. Patient has follow-up PCP tomorrow a.m. Patient was admitted as inpatient but was discharged because of sooner recovery than expected. Total time spent, exact 35 minutes on discharge meds reconciliation, examination, coordination of care with nurses and ancillary staff, review of imaging and blood test and discussion with the patient on follow-up instructions [] Objective: Seen and examined. Patient weaned off oxygen. No tachypnea or hypoxia. Ambulatory Home oxygen evaluation done - Physical Exam Vitals/I&O's: Vital Signs Temp Pulse Resp BP Pulse Ox 98.3 F 91 18 135/75 H 95 10/15/19 09:43 10/15/19 09:43 10/15/19 09:43 10/15/19 09:43 10/15/19 09:43 Oxygen Flow Rate (L/min) 1 Oxygen Delivery Method Room Air Weight: 151 lb 9 oz Body Mass Index (BMI) 21.1 Intake and Output for Last 24 Hours 10/13/19 10/14/19 10/15/19 23:59 23:59 23:59 Intake Total 3030.67 / 3030.67 1150 / 1150 Output Total 1999 / 1999 200 / 200 Balance 1030.67 / 1030.67 950 / 950 General: Alert, Oriented x3, Cooperative HEENT: Atraumatic, PERRLA, EOMI, Normocephalic Neck: Supple, No JVD, Negative Carotid Bruits Lungs: No rhonchi, No wheeze, No rales, Diminished - Air entry diminished but no audible wheezing. No shortness of breath Cardiovascular: Regular rate, Regular Rhythm, Normal S1, Normal S2, No murmurs Abdomen: Bowel Sounds Present, Soft, Non Tender, Non-Distended, No Hepato-splenomegaly Extremities: No edema, Capillary Refill Less than 3 Seconds Skin: No rashes, No breakdown Musculoskeletal: No Tenderness to Palpation of Joints or Extremities Neurological: Cranial nerves II-XII grossly intact Psych/Mental Status: Normal Affect, Appropriate Microbiology Past 72 Hours 10/14/19 08:32 Mucosa - Nose Respiratory Panel (PCR) - Final Laboratory Results 10/15/19 05:26: WBC 10.9, RBC 3.59 L, Hgb 12.6 L, Hct 37.2 L, MCV 103.6 H, MCH 35.1 H, MCHC 33.9, RDW Std Deviation 54.4 H, RDW Coeff of Mya 14.3, Plt Count 120 L, MPV 10.6, Immature Gran % (Auto) 0.500, Neut % (Auto) 92.7 H, Lymph % (Auto) 4.1 L, [place] % (Auto) 2.6, Eos % (Auto) 0.0, Baso % (Auto) 0.1, Absolute Neuts (auto) 10.1 H, Absolute Lymphs (auto) 0.45 L, Nucleated RBC % 0, Differential Comment SCANNED 10/15/19 05:26: Sodium 138, Potassium 3.6, Chloride 104, Carbon Dioxide 28.0, Anion Gap 6, BUN 16, Creatinine 0.58 L, Estim Creat Clear Calc 61.11, Est GFR (MDRD) Af Amer 174, Est GFR (MDRD) Non-Af 144, BUN/Creatinine Ratio 27.4 H, Glucose 165 H, Calcium 8.3 L Current Medications Acetaminophen (Tylenol) 650 mg PO Q6H PRN PRN PRN Reason: Pain Score 1-10/Temp > 100.7 F Al Hydroxide/Mg Hydroxide (Mylanta Ii) 30 ml PO Q6H PRN PRN PRN Reason: Gastric Burning Albuterol Sulfate (Ventolin Aerosols) 2.5 mg INHALATION Q2H PRN PRN PRN Reason: Dyspnea, wheezing Last Admin: 10/14/19 22:15 Dose: 2.5 mg Documented by: Albuterol/Ipratropium (Duoneb) 3 ml INHALATION Q4HWA.RT [facility] Last Admin: 10/15/19 06:55 Dose: 3 ml Documented by: Amlodipine Besylate (Norvasc) 5 mg PO DAILY [facility] Last Admin: 10/15/19 09:46 Dose: 5 mg Documented by: Dextrose (D50w Syringe) 0 gm IV X1 PRN; Protocol PRN Reason: Hypoglycemia Diltiazem HCl (Cardizem) 30 mg PO Q8 [facility] Last Admin: 10/15/19 05:35 Dose: 30 mg Documented by: Enoxaparin Sodium (Lovenox) 40 mg SC DAILY [facility] Last Admin: 10/15/19 09:45 Dose: 40 mg Documented by: Famotidine (Pepcid) 20 mg PO BID [facility] Last Admin: 10/15/19 09:46 Dose: 20 mg Documented by: Glucagon () 1 mg IM .X1 PRN PRN Reason: Hypoglycemia Guaifenesin (Robitussin) 10 ml PO Q4H PRN PRN PRN Reason: COUGH Last Admin: 10/15/19 07:18 Dose: 10 ml Documented by: Hydralazine HCl (Apresoline Iv) 10 mg IV Q4H PRN PRN PRN Reason: SBP > 160 Sodium Chloride () 250 mls @ 15 mls/hr IV .[id number] PRN PRN Reason: Saline Flush Sodium Chloride () 250 mls @ 15 mls/hr IV .[id number] PRN PRN Reason: Additional IVPB Infusion Melatonin (Melatonin) 3 mg PO QHS PRN PRN PRN Reason: INSOMNIA Methylprednisolone (Solu-Medrol) 40 mg IV Q8 [facility] Last Admin: 10/15/19 05:35 Dose: 40 mg Documented by: Morphine Sulfate () 2 mg IV Q3H PRN PRN PRN Reason: Pain Score 6-10/10 Nitroglycerin (Nitrostat) 0.4 mg SUBLINGUAL Q5M PRN PRN Reason: CARDIAC/CHEST PAIN Nutritional Formula (Lactose Free) (Ensure Enlive) 120 ml PO 4X/DAY [facility] Last Admin: 10/15/19 09:47 Dose: 120 ml Documented by: Ondansetron HCl (Zofran) 4 mg IV Q8H PRN PRN PRN Reason: NAUSEA/VOMITING Oxycodone HCl (Oxyir) 5 mg PO Q4H PRN PRN PRN Reason: Pain Score 4-5/10 Prochlorperazine Edisylate (Compazine Iv) 5 mg IV Q4H PRN PRN PRN Reason: Breakthrough Nausea/Vomiting Psyllium Hydrophilic Mucilloid (Metamucil) 1 packet PO DAILY PRN PRN PRN Reason: Constipation Senna/Docusate Sodium (Senokot-S, Mya-Colace) 2 tablet PO BID PRN PRN PRN Reason: Constipation Sodium Chloride () 10 - 40 ml IV UD PRN PRN Reason: SALINE FLUSH Last Admin: 10/15/19 05:35 Dose: 10 ml Documented by: Throat Lozenges (Cepacol Sore Throat Lozenge) 1 lozenge MUCOUS MEM Q2H PRN PRN PRN Reason: SORE THROAT Last Admin: 10/14/19 21:50 Dose: 1 lozenge Documented by: Discharge Activity: May Not Drive Call your doctor if you observe: Fever of 101 or Higher, Numbness or Tingling, Inability to urinate, Inability to have a bowel movement, Shortness of breath, Dizziness, Fainting spells, Swelling in the ankles, Chest pain, Prolonged hiccoughing, Increased palpitations (irregular heartbeat), Uncontrolled pain Home Medications: Medications to take at Discharge Albuterol Aerosols [Ventolin Aerosols] 2.5 mg INHALATION Q2H PRN PRN #1000 vial.neb. 11/06/13 Amlodipine [Norvasc] 5 mg PO DAILY 04/23/18 Albuterol Sulfate [Albuterol Sulfate HFA] 1 - 2 puff INHALATION Q4H PRN 09/09/19 Ipratropium/Albuterol Sulfate [Duoneb] 1 amp INHALATION TID 09/09/19 Benzonatate [Tessalon Perle] 200 mg PO TID PRN PRN #20 cap 09/11/19 Guaifenesin [Mucinex] 1,200 mg PO BID #14 tab 09/11/19 Prednisone 10 mg PO DAILY #30 tab 10/15/19 Following Prescrptions Were Given to Patient: Prednisone 10 mg PO DAILY #30 tab Transmission Status: Received by [facility] #30 Primary Care Physician: Elijah Rodriguez MD [Primary Care Provider] - Please follow up with your Primary Care Physician in: on 10/16/2019 Please Follow Up With: Elijah Rodriguez MD Please Follow Up With: Adiel Ashley DO When: Follow-up with Amy Schmitt NP in 2 weeks Medical Necessity - Tobacco Use Smoking Status: Never smoker Tobacco Use: Secondhand Meaningful Use Info Meaningful Use Diagnoses (Choose all that apply): None applicable Inpatient E&M: 60807 SNF Disch >30 Min
--- NOTE | 2019-10-16 14:58 | CASEMGMT ---
[facility] DC PHONE CALL DC DATE: 10/15/2019 DC DISPOSITION: Home DC DIAGNOSIS: Asthma LACE/STRATA: 03/12 Attempted call. No answer and no message with name identifier. Myrtle WASHINGTON RN ACM
== END 2019-10-15 11:47 | disposition home or self-care (01) | DRG 202 ==
LOC: ED 03:27 → MS3 05:03
PROVIDERS: Admitting Provider Family Medicine; Emergency Provider Emergency Medicine; PCP Family Medicine; Visit Provider Internal Medicine
DX: J45.901 Unspecified asthma with (acute) exacerbation (principal); J96.01 Acute respiratory failure with hypoxia; I47.1 Supraventricular tachycardia; J45.902 Unspecified asthma with status asthmaticus; J44.9 Chronic obstructive pulmonary disease, unspecified; I10 Essential (primary) hypertension; D69.6 Thrombocytopenia, unspecified; D72.1 Eosinophilia; K21.9 Gastro-esophageal reflux disease without esophagitis; Z79.51 Long term (current) use of inhaled steroids; Z79.899 Other long term (current) drug therapy; Z77.22 Contact with and (suspected) exposure to environmental tobacco smoke (acute) (chronic)
CPT/HCPCS: 36415; 71045; 80048; 84484; 85025; 87070; 87106; 87205; 87633; 87635; 93005; 94640; 94664; 94667; 94668; 97802; 99251; 99285; G2023; J7030; A4216; G0463; U0003

== ENCOUNTER → 2019-10-31 09:58 | Outpatient (CLI) | payer MEDICARE, SELFPAY ==
[2019-10-31 08:48] VITALS: BMI 21.1
[2019-10-31 10:19] LABS: Absolute Lymphocyte Count 1.31 X10^3/uL (0.83-4.51); Absolute Neutrophil Count 5.7 X10^3/uL (2.0-7.7); Basophil# 0.03 X10^3/uL; Basophil% 0.4 % (0-1); Eosinophil# 0.35 X10^3/uL; Eosinophils% 4.4 % (0-5); Hematocrit 42.7 % (40-54); Hemoglobin 14.3 g/dL (13.0-16.5); Lymphocyte # 1.31 X10^3/ul (4.0); Lymphocyte % 16.4 % (19-41); Mean Corp Hgb Conc 33.5 g/dL (32-36); Mean Corpuscular Hgb 35.3 pg (27.0-32.0); Mean Corpuscular Volume 105.4 fL (80-94); Mean Platelet Vol. 9.5 fl (6.2-12.0); Monocyte# 0.57 X10^3/uL; Monocyte% 7.2 % (0-10); NRBC Flagged by Analyzer 0 % (0-5); Neutrophil # 5.68 X10^3/uL (2.7-7.7); Neutrophil % 71.2 % (47-70); Platelet Count 163 K/mm3 (150-450); RBC Distribution Width CV 13.9 % (11.6-14.6); RBC Distribution Width SD 54.2 fl (35.1-43.9); Red Blood Count 4.05 M/mm3 (4.6-6.2)
[2019-11-03 03:06] LABS: Alternaria alternata 0.19 kU/L (Class 0/I); Bermuda Grass 0.26 kU/L (Class 0/I); Bluegrass, Kentucky 0.14 kU/L (Class 0/I); Cat Hair/Dander, Standard 0.94 kU/L (Class II); D farinae Mite 2.69 kU/L (Class III); D pteronyssinus 2.91 kU/L (Class III); Elm, American White 0.18 kU/L (Class 0/I); Oak, White 0.17 kU/L (Class 0/I); Plantain, English 0.24 kU/L (Class 0/I); Ragweed, Short/Common 0.37 kU/L (Class I)
[2019-11-03 04:14] LABS: ANTINUCLEAR ANTIBODIES DIRECT Negative (Negative)
[2019-11-06 09:07] LABS: Aspirgillus flavus Negative (Neg:<1:1); Aspirgillus fumigatus Negative (Neg:<1:1); Aspirgillus niger Negative (Neg:<1:1); Cytoplasmic Ab (C-ANCA) <1:20 titer (Neg:<1:20)
[2019-11-06 13:37] LABS: Immunoglobulin E 8646 IU/mL (6-495); Perinuclear Ab (P-ANCA) <1:20 titer (Neg:<1:20)
== END ==
PROVIDERS: PCP Family Medicine; Referring Provider Nurse Practitioner Acute Care; Visit Provider Nurse Practitioner Acute Care
DX: J45.909 Unspecified asthma, uncomplicated (principal); J96.01 Acute respiratory failure with hypoxia
CPT/HCPCS: 36415; 82785; 85025; 86003; 86038; 86225; 86235; 86256; 86606

== ENCOUNTER → 2019-11-06 10:39 | Outpatient (CLI) | payer MEDICARE, SELFPAY ==
[2019-10-31 08:48] VITALS: BMI 21.1
[2019-11-06 12:07] LABS: Absolute Neutrophil Count 2.6 X10^3/uL (2.0-7.7); Basophil# 0.02 X10^3/uL; Basophil% 0.4 % (0-1); Eosinophil# 0.75 X10^3/uL; Eosinophils% 14.4 % (0-5); Hematocrit 39.9 % (40-54); Hemoglobin 13.3 g/dL (13.0-16.5); Lymphocyte % 26.9 % (19-41); Mean Corp Hgb Conc 33.3 g/dL (32-36); Mean Corpuscular Hgb 35.6 pg (27.0-32.0); Mean Corpuscular Volume 106.7 fL (80-94); Mean Platelet Vol. 9.8 fl (6.2-12.0); Monocyte# 0.46 X10^3/uL; Monocyte% 8.8 % (0-10); NRBC Flagged by Analyzer 0 % (0-5); Neutrophil # 2.56 X10^3/uL (2.7-7.7); Neutrophil % 49.3 % (47-70); Platelet Count 210 K/mm3 (150-450); RBC Distribution Width CV 14.2 % (11.6-14.6); RBC Distribution Width SD 55.3 fl (35.1-43.9); Red Blood Count 3.74 M/mm3 (4.6-6.2); White Blood Count 5.2 K/mm3 (4.4-11.0)
[2019-11-06 12:08] LABS: Color, Urine Yellow (Yellow); Glucose, Dipstick Normal (Normal); Ketone-Dipstick 5 mg/dl (Negative); Leukocyte Esterase-Dipstick 25 /ul (Negative); Nitrite-Dipstick Negative (Negative); Occult Blood-Urine Negative /ul (Negative); Protein-Dipstick 15 mg/dl (Negative); Specific Gravity, Urine 1.015 (1.002-1.030); Urine Bilirubin Dipstick Negative (Negative); Urine Clarity Clear (Clear); Urine Urobilinogen 4 mg/dl (Normal)
[2019-11-06 12:29] LABS: ALB/GLOB Ratio 0.8 RATIO (0.9-2.4); AST(SGOT) 17 U/L (15-37); Alanine Aminotransfer ALT/SGPT 21 U/L (16-61); Albumin, Serum 3.2 g/dL (3.2-5.0); Alkaline Phosphatase 89 U/L (45-117); Anion Gap 6 (5-15); BUN 9 mg/dL (7-18); BUN/Creat Ratio 12.7 RATIO (10-20); Calcium,Total 8.5 mg/dL (8.5-10.1); Chloride 102 mmol/L (98-107); Cholesterol 158 mg/dL (200); Creatinine, Serum 0.71 mg/dL (0.70-1.30); EST Glomerular Filtration Rate 115 mL/min (>60); Est Glom Filt Rate - Afr Amer 139 mL/min (>60); Globulin 3.8 g/dL (2.2-4.2); Glucose 98 mg/dL (74-106); High Density Lipoprotein 79 mg/dL; PSA,Total - Annual Screen 2.98 ng/mL (0.00-4.00); Potassium 3.4 mmol/L (3.5-5.1); Sodium Level 136 mmol/L (136-145); Triglycerides 70 mg/dL; Very Low Density Lipoprotein 14 mg/dL (5-40)
== END ==
PROVIDERS: PCP Family Medicine; Referring Provider Family Medicine; Visit Provider Family Medicine
DX: Z00.00 Encounter for general adult medical examination without abnormal findings (principal); Z12.5 Encounter for screening for malignant neoplasm of prostate; I10 Essential (primary) hypertension; J44.9 Chronic obstructive pulmonary disease, unspecified
CPT/HCPCS: 36415; 80053; 80061; 81002; 84153; 85025; G0103

== ENCOUNTER → 2019-11-14 10:20 | Outpatient (CLI) | payer MEDICARE, SELFPAY ==
[2019-10-31 08:48] VITALS: BMI 21.1
--- NOTE | 2019-11-14 14:23 | PFTCOMP_ITS ---
COMPLETE PULMONARY FUNCTION TEST INTERPRETATION Brief HPI: Patient is a 74 year old male, currently under the care of Amy Schmitt, who presents to [facility] for complete pulmonary function tests secondary to diagnosis of asthma. Respiratory therapist reports good effort and reproducible results. Interpretation: Forced expiration spirometry shows a moderate large airways obstructive ventilatory defect with an FEV1 of 70% predicted. There is a significant bronchodilator response in FVC by strict ATS criteria. Spirograms are of good quality and plateau slowly, indicating slowly emptying areas of the lungs. The respiratory flow volume loop shows decreased expiratory flow rates at high lung volumes consistent with small airways obstruction. Lung volumes by body plethysmography show a decreased total lung capacity at 4.73 L, 74% predicted. All other lung volumes are reduced symmetrically. Diffusion capacity by carbon monoxide is normal at 75% predicted. The airway resistance is elevated. No previous pulmonary function tests were available for review. Impression: Partially reversible moderate mixed ventilatory defect with a symmetric reduction diffusion capacity
== END ==
LOC: PSN 10:20
PROVIDERS: PCP Family Medicine; Referring Provider Nurse Practitioner Acute Care; Visit Provider Nurse Practitioner Acute Care
DX: J45.909 Unspecified asthma, uncomplicated (principal)
CPT/HCPCS: 94060; 94726; 94729

== ENCOUNTER 2020-07-26 16:41 | Emergency (ER) | payer MEDICARE, SELFPAY ==
[2020-02-06 06:43] VITALS: BMI 21.9
[2020-07-26 16:43] VITALS: BP 144/74; PULSE 102; RESP 18; TEMP 36.4; O2SAT 96; BMI 23.7
--- NOTE | 2020-07-26 17:06 | EKG12_ITS ---
Test Reason : TRAUMA Blood Pressure : / mmHG Vent. Rate : 103 BPM Atrial Rate : 103 BPM P-R Int : 182 ms QRS Dur : 088 ms QT Int : 358 ms P-R-T Axes : 063 -09 028 degrees QTc Int : 468 ms Sinus tachycardia with Premature atrial complexes with Aberrant conduction Septal infarct , age undetermined Abnormal ECG Confirmed by NHUNG ROBERTS, CARMEN ([id number]), deputy editor in chief RUKHSANA PIERRE ([id number]) on 07/29/2020 10:36:11 A M Referred By: JAMARCUS Confirmed By:EDIE HOOKER MD
--- NOTE | 2020-07-26 17:07 | CT_ITS ---
We are attempting to reach an attending provider to discuss findings. An addendum with communication details will be sent when the communication is complete. STUDY: CT CERVICAL SPINE WITHOUT CONTRAST REASON FOR EXAM: Male, 75 years old. Neck injury RADIATION DOSAGE (If Supplied By Facility): CTDIvol = ( 15.46 ) mGy, DLP = ( 319.39 ) mGycm TECHNIQUE: High resolution transaxial imaging was performed without contrast material. Sagittal and coronal images were reconstructed. Individualized dose optimization techniques were used for this CT. COMPARISON: None FINDINGS: Craniocervical junction is intact and aligned. C1 ring is intact. There is a horizontally oriented fracture at the base of odontoid. There is anterior displacement of the body of C2 with respect to the odontoid by approximately 5 mm with resultant at least moderate thecal sac compression and probably underlying at least mild cord compression. C3-C7 are intact and aligned with expected age-related change. There is multilevel chronic mild spondylotic thecal sac stenosis at most cervical levels. CT/Spine Cervical without Contras IMPRESSION: 1. Acute C2, base of odontoid, moderately displaced acute fracture with moderate thecal sac compression. Emergency neurosurgical referral is advised. Electronically Signed: Dax Petersen MD at 17:57 EDT Tel , Service support ,
--- NOTE | 2020-07-26 17:07 | CT_ITS ---
STUDY: CT FACIAL BONES WITHOUT CONTRAST REASON FOR EXAM: Male, 75 years old. Fall trauma injury RADIATION DOSAGE (If Supplied By Facility): CTDIvol = ( 29.38 ) mGy, DLP = ( 576.84 ) mGycm TECHNIQUE: The patient was scanned in a multi detector CT scanner. Sagittal and coronal images were reconstructed. Individualized dose optimization techniques were used for this CT. COMPARISON: None. FINDINGS: Skull base is intact. There are multiple mildly displaced bilateral nasal bone and nasal septal fractures. Remainder of the facial skeleton is intact. TMJs are located. Orbits are intact and orbital contents are normal. There is irregularity of the anterior vertical plate of the palate, possibly degenerative versus small nondisplaced fracture. There is a posteriorly displaced base of odontoid fracture CT/Sinus/Facial Bone IMPRESSION: 1. Nasal bone fractures. 2. C2 fracture. Refer to cervical spine. Electronically Signed: Dax Petersen MD at 18:04 EDT Tel , Service support ,
--- NOTE | 2020-07-26 17:07 | CT_ITS ---
STUDY: CT BRAIN WITHOUT CONTRAST REASON FOR EXAM: Male, 75 years old. Head injury RADIATION DOSAGE (If Supplied By Facility): CTDIvol = ( 44.99 ) mGy, DLP = ( 846.73 ) mGycm TECHNIQUE: Transaxial CT imaging of the brain was performed without administration of intravenous contrast material. Individualized dose optimization techniques were used for this CT. COMPARISON: 10 June 2017 FINDINGS: Brain parenchyma is without focal lesions, mass effect, acute intracranial hemorrhage, extra parenchymal fluid collections, hydrocephalus or herniation. The skull is intact. There are nasal fractures, refer to CT face. There is soft tissue trauma of the forehead. CT/Brain/Head without Contrast IMPRESSION: 1. Normal brain, no acute intracranial injury. 2. Facial fractures. Electronically Signed: Dax Petersen MD at 17:50 EDT Tel , Service support ,
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
[2020-07-26] MEDS: 0.9% Normal Saline 1,000 ML 1000 ML IV (17:21)
[2020-07-26] MEDS: fentaNYL 100 MCG/2 ML Ampul 50 MCG IV ×2 (17:22→18:18)
[2020-07-26 17:23] LABS: Absolute Lymphocyte Count 4.19 X10^3/uL (0.83-4.51); Absolute Neutrophil Count 2.1 X10^3/uL (2.0-7.7); Basophil# 0.04 X10^3/uL; Basophil% 0.6 % (0-1); Eosinophil# 0.41 X10^3/uL; Eosinophils% 5.7 % (0-5); Hematocrit 40.6 % (40-54); Hemoglobin 13.9 g/dL (13.0-16.5); Lymphocyte # 4.19 X10^3/ul (4.0); Mean Corp Hgb Conc 34.2 g/dL (32-36); Mean Corpuscular Hgb 35.1 pg (27.0-32.0); Mean Corpuscular Volume 102.5 fL (80-94); Monocyte# 0.41 X10^3/uL; Monocyte% 5.7 % (0-10); NRBC Flagged by Analyzer 0 % (0-5); Neutrophil # 2.14 X10^3/uL (2.7-7.7); Neutrophil % 29.4 % (47-70); Platelet Count 182 K/mm3 (150-450); RBC Distribution Width CV 12.5 % (11.6-14.6); RBC Distribution Width SD 47.5 fl (35.1-43.9); Red Blood Count 3.96 M/mm3 (4.6-6.2); White Blood Count 7.2 K/mm3 (4.4-11.0)
[2020-07-26 17:34] LABS: International Normalized Ratio 0.9; Partial Thromboplast Time 26.7 Seconds (24.1-36.2); Prothrombin Time (Protime)PT. 11.4 SECONDS (11.7-14.9)
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
[2020-07-26 17:36] LABS: Anion Gap 9 (5-15); BUN 9 mg/dL (7-18); BUN/Creat Ratio 10.1 RATIO (10-20); Calcium,Total 8.6 mg/dL (8.5-10.1); Chloride 102 mmol/L (98-107); Creatinine, Serum 0.89 mg/dL (0.70-1.30); EST Glomerular Filtration Rate 88 mL/min (>60); Est Glom Filt Rate - Afr Amer 106 mL/min (>60); Estimated Creatinine Clearance 74.03 ml/min; Glucose 112 mg/dL (74-106); Potassium 3.1 mmol/L (3.5-5.1); Sodium Level 138 mmol/L (136-145)
--- NOTE | 2020-07-26 17:36 | RAD_ITS ---
STUDY: X-RAY CHEST REASON FOR EXAM: Male, 75 years old. fall TECHNIQUE: AP portable COMPARISON: None. FINDINGS: Diminished inspiratory effort is seen. There is minimal discoid atelectasis or scarring at the lung bases. There is no demonstrated pleural abnormality. Normal size heart. Normal mediastinum and monisha. Normal visualized pulmonary arteries. Calcified aortic arch and descending thoracic aorta. Dorsal spine and shoulders demonstrate degenerative change.. Normal visualized ribs, and clavicles. Postsurgical changes in the right upper quadrant likely due to cholecystectomy RAD/Chest 1 View (Portable) IMPRESSION: Diminished inspiratory effort and minor discoid atelectasis or scarring at the lung bases Electronically Signed: Joao Pineda MD at 17:57 EDT , Service support ,
[2020-07-26 17:38] VITALS: O2SAT 94
[2020-07-26] MEDS: Cefazolin 1 GM/50 ML BAG IV (17:47)
[2020-07-26] MEDS: 0.9% Normal Saline 1,000 ML 15 ML IV (17:47)
[2020-07-26 17:52] VITALS: BP 151/75; PULSE 104; RESP 22; O2SAT 92
[2020-07-26 18:17] VITALS: BP 168/81; PULSE 112; RESP 20; O2SAT 93
[2020-07-26 18:28] VITALS: BP 168/81; PULSE 109; RESP 14; O2SAT 92
== END 2020-07-26 19:04 | disposition short-term general hospital (02) ==
PROVIDERS: Emergency Provider Emergency Medicine; PCP Family Medicine
DX: S09.90XA Unspecified injury of head, initial encounter (principal); S01.21XA Laceration without foreign body of nose, initial encounter; S01.512A Laceration without foreign body of oral cavity, initial encounter; S01.81XA Laceration without foreign body of other part of head, initial encounter; S02.2XXA Fracture of nasal bones, initial encounter for closed fracture; S12.100A Unspecified displaced fracture of second cervical vertebra, initial encounter for closed fracture; I10 Essential (primary) hypertension; J44.9 Chronic obstructive pulmonary disease, unspecified; W10.9XXA Fall (on) (from) unspecified stairs and steps, initial encounter; Z79.899 Other long term (current) drug therapy
CPT/HCPCS: 70450; 70486; 71045; 72125; 80048; 85025; 85610; 85730; 93005; 96365; 96375; 96376; 99285; J7030; J7050; A4216

== ENCOUNTER 2020-08-02 19:30 | Inpatient (IN) | payer MEDICARE, SELFPAY ==
--- NOTE | 2020-08-02 19:30 | NURSING ---
Arrived to floor per cot and two EMS personnel. Transferred to bed x 2. Oriented to room. Call light w/ in reach.
[2020-08-02 20:27] VITALS: BP 156/72; PULSE 98; RESP 20; TEMP 37.1; O2SAT 93; BMI 20.9
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
[2020-08-02] MEDS: oxyCODONE 5 MG Tablet PO (22:00)
[2020-08-02] MEDS: MELATONIN 3 MG TABLET 6 MG PO (22:00)
[2020-08-03] MEDS: Acetaminophen 650 MG/20 ML UDC PO (01:34)
[2020-08-03] MEDS: oxyCODONE 5 MG Tablet PO ×4 (02:06→21:28)
[2020-08-03 05:58] VITALS: BP 114/61; PULSE 79; RESP 73; TEMP 36.4; O2SAT 96
[2020-08-03] MEDS: BMX LIQUID 180 ML PO ×3 (06:02→21:28)
[2020-08-03] MEDS: Enoxaparin 40 MG/0.4 ML Syringe SC (06:05)
[2020-08-03] MEDS: Polyethylene Glycol 3350 17 GM PACKET PO (06:07)
[2020-08-03] MEDS: Senna/Docusate Sodium 1 Tablet PO ×2 (06:07→16:25)
[2020-08-03] MEDS: amLODIPine 5 MG Tablet PO (06:07)
[2020-08-03] MEDS: Cholecalciferol (VIT D3) 25 MCG TABLET (1,000 UNITS) 125 MCG PO (06:09)
--- NOTE | 2020-08-03 06:30 | NURSING ---
IS given to pt. Instructed to use every hour while awake x 10 deep breaths which will facilitate cough and prevent pneumonia and/or atelectasis. Used at bedside and denied any discomfort with deep breathing exercises. Verbalizes he has received one dose of COVID vaccine. Had a photo of card on phone. Date noted on card for 07/18/20, with vaccine administered at the [facility].
[2020-08-03 07:09] LABS: Absolute Lymphocyte Count 1.26 X10^3/uL (0.83-4.51); Absolute Neutrophil Count 1.9 X10^3/uL (2.0-7.7); Basophil# 0.02 X10^3/uL; Basophil% 0.5 % (0-1); Eosinophil# 0.33 X10^3/uL; Eosinophils% 8.3 % (0-5); Hematocrit 32.5 % (40-54); Hemoglobin 10.6 g/dL (13.0-16.5); Lymphocyte # 1.26 X10^3/ul (4.0); Lymphocyte % 31.7 % (19-41); Mean Corp Hgb Conc 32.6 g/dL (32-36); Mean Corpuscular Hgb 34.6 pg (27.0-32.0); Mean Corpuscular Volume 106.2 fL (80-94); Mean Platelet Vol. 9.4 fl (6.2-12.0); Monocyte# 0.43 X10^3/uL; Monocyte% 10.8 % (0-10); NRBC Flagged by Analyzer 0 % (0-5); Neutrophil # 1.93 X10^3/uL (2.7-7.7); Neutrophil % 48.4 % (47-70); Platelet Count 231 K/mm3 (150-450); RBC Distribution Width CV 12.6 % (11.6-14.6); RBC Distribution Width SD 49.2 fl (35.1-43.9); Red Blood Count 3.06 M/mm3 (4.6-6.2)
[2020-08-03 07:24] LABS: Anion Gap 3 (5-15); BUN 18 mg/dL (7-18); BUN/Creat Ratio 23.8 RATIO (10-20); Calcium,Total 8.9 mg/dL (8.5-10.1); Chloride 104 mmol/L (98-107); Creatinine, Serum 0.76 mg/dL (0.70-1.30); EST Glomerular Filtration Rate 106 mL/min (>60); Est Glom Filt Rate - Afr Amer 129 mL/min (>60); Estimated Creatinine Clearance 59.53 ml/min; Glucose 125 mg/dL (74-106); Potassium 3.5 mmol/L (3.5-5.1); Sodium Level 139 mmol/L (136-145)
[2020-08-03] MEDS: Thiamine Hydrochloride 100 MG Tablet PO (08:57)
[2020-08-03] MEDS: Folic Acid 1 MG Tablet PO (08:57)
--- NOTE | 2020-08-03 10:07 | NURSING ---
Dr Arrington notified of pt with white coating to tongue, new order for nystatin s/s x10 days. pt updated.
[2020-08-03] MEDS: Tuberculin,Purif.prot.deriv. 50 TU/ML Vial 5 ML ID (12:16)
[2020-08-03] MEDS: NYSTATIN 500,000 UNIT/5 ML UDC 500000 UNIT PO ×3 (12:20→21:12)
[2020-08-03 13:42] VITALS: BP 114/61; PULSE 92; RESP 16; TEMP 37.1; O2SAT 94
[2020-08-03] MEDS: Acetaminophen 500 MG Tablet 1000 MG PO (14:52)
[2020-08-03] MEDS: MELATONIN 3 MG TABLET 6 MG PO (21:18)
[2020-08-03] MEDS: Magnesium Hydroxide 30 ML UDC PO (21:58)
[2020-08-04 06:08] VITALS: BP 112/64; PULSE 90; RESP 18; TEMP 36.9; O2SAT 92
[2020-08-04] MEDS: BMX LIQUID 180 ML PO ×3 (06:17→22:00)
[2020-08-04] MEDS: amLODIPine 5 MG Tablet PO (06:18)
[2020-08-04] MEDS: Enoxaparin 40 MG/0.4 ML Syringe SC (06:18)
[2020-08-04] MEDS: Cholecalciferol (VIT D3) 25 MCG TABLET (1,000 UNITS) 125 MCG PO (06:19)
[2020-08-04] MEDS: NYSTATIN 500,000 UNIT/5 ML UDC 500000 UNIT PO ×4 (06:19→22:02)
[2020-08-04] MEDS: Senna/Docusate Sodium 1 Tablet PO ×2 (06:19→16:09)
[2020-08-04] MEDS: oxyCODONE 5 MG Tablet PO ×4 (06:22→20:31)
[2020-08-04] MEDS: Thiamine Hydrochloride 100 MG Tablet PO (08:09)
[2020-08-04] MEDS: Folic Acid 1 MG Tablet PO (08:09)
[2020-08-04] MEDS: Acetaminophen 500 MG Tablet 1000 MG PO ×2 (08:11→18:39)
[2020-08-04 14:09] VITALS: BP 102/64; PULSE 93; RESP 16; TEMP 37; O2SAT 94
[2020-08-04] MEDS: Sodium Chloride 0.65% 1 SPRAY SPRAY.BTL 2 SPRAY NASAL (17:09)
[2020-08-04] MEDS: MELATONIN 3 MG TABLET 6 MG PO (22:01)
[2020-08-05 04:00] VITALS: BP 138/68; PULSE 87; RESP 16; TEMP 37.2; O2SAT 93
[2020-08-05] MEDS: Acetaminophen 500 MG Tablet 1000 MG PO ×2 (05:03→21:42)
[2020-08-05] MEDS: oxyCODONE 5 MG Tablet PO ×2 (05:04→21:39)
[2020-08-05] MEDS: BMX LIQUID 180 ML PO ×3 (05:05→21:29)
[2020-08-05] MEDS: Enoxaparin 40 MG/0.4 ML Syringe SC (05:05)
[2020-08-05] MEDS: amLODIPine 5 MG Tablet PO (05:11)
[2020-08-05] MEDS: Cholecalciferol (VIT D3) 25 MCG TABLET (1,000 UNITS) 125 MCG PO (05:12)
[2020-08-05] MEDS: NYSTATIN 500,000 UNIT/5 ML UDC 500000 UNIT PO ×4 (05:12→21:28)
[2020-08-05] MEDS: Folic Acid 1 MG Tablet PO (08:17)
[2020-08-05] MEDS: Thiamine Hydrochloride 100 MG Tablet PO (08:17)
[2020-08-05 13:48] VITALS: BP 98/52; PULSE 92; RESP 18; TEMP 37.1; O2SAT 93
--- NOTE | 2020-08-05 16:21 | PHA.CONS_ITS ---
<Lindsey Ortiz - Last Filed: 08/05/20 16:21> Progress Note - Pharmacy Subjective: TCU Admission Objective: Allergies Sulfa (Sulfonamide Antibiotics) Allergy (Verified 08/03/20 04:58) Hives fentanyl Adverse Reaction (Verified 08/03/20 04:59) Other Current Medications Generic Name Dose Route Start Last Admin Trade Name Freq PRN Reason Stop Dose Admin Acetaminophen 1,000 mg 08/03/20 10:02 08/05/20 05:03 Acetaminophen 500 Mg Tablet PO 1,000 mg Q6H PRN PRN Administration Pain Score 1-3 Amlodipine Besylate 5 mg 08/03/20 06:00 08/05/20 05:11 Amlodipine 5 Mg Tablet PO 5 mg DAILY LELO Administration Bisacodyl 10 mg 08/02/20 21:25 Bisacodyl 5 Mg Tablet PO DAILY PRN Constipation Cholecalciferol 125 mcg 08/03/20 06:00 08/05/20 05:12 Cholecalciferol (Vit D3) 25 Mcg Tablet (1,000 Units) PO 125 mcg DAILY LELO Administration Enoxaparin Sodium 40 mg 08/03/20 06:00 08/05/20 05:05 Enoxaparin 40 Mg/0.4 Ml Syringe SC 40 mg DAILY@0600 LELO Administration Folic Acid 1 mg 08/03/20 08:00 08/05/20 08:17 Folic Acid 1 Mg Tablet PO 1 mg DAILY@0800 LELO Administration Lidocaine/Diphenhydr/Alum/Mg/Simeth 5 ml 08/02/20 22:00 08/05/20 13:45 Bmx Liquid 180 Ml PO 08/09/20 22:01 5 ml TID LELO Administration Magnesium Hydroxide 30 ml 08/02/20 21:25 08/03/20 21:58 Magnesium Hydroxide 30 Ml Udc PO 30 ml DAILY PRN Administration Constipation Melatonin 6 mg 08/02/20 22:00 08/04/20 22:01 Melatonin 3 Mg Tablet PO 6 mg QHS LELO Administration Nutritional Formula (Lactose Free) 120 ml 08/03/20 06:00 08/05/20 13:45 Ensure Enlive 120 Ml Liquid PO 120 ml TID LELO Administration Nystatin 500,000 unit 08/03/20 12:00 08/05/20 11:57 Nystatin 500,000 Unit/5 Ml Udc PO 08/13/20 12:01 500,000 unit 4X/DAY LELO Administration Oxycodone HCl 5 mg 08/02/20 21:23 08/05/20 05:04 Oxycodone 5 Mg Tablet PO 5 mg Q4H PRN PRN Administration Pain Score 4-10 Polyethylene Glycol 17 gm 08/03/20 06:00 08/05/20 05:11 Polyethylene Glycol 3350 17 Gm Packet PO Not Given DAILY LELO Senna/Docusate Sodium 1 tablet 08/03/20 06:00 08/05/20 05:11 Senna/Docusate Sodium 1 Tablet PO Not Given BID LELO Sodium Chloride 2 spray 08/04/20 15:51 08/04/20 17:09 Sodium Chloride 0.65% 1 Living[place] Livingston.Btl NASAL 2 spray TID PRN PRN Administration NASAL DRYNESS Thiamine HCl 100 mg 08/03/20 08:00 08/05/20 08:17 Thiamine Hydrochloride 100 Mg Tablet PO 100 mg DAILYCM LELO Administration Tuberculin PPD 5 tu 08/10/20 10:00 Tuberculin,Purif.Prot.Deriv. 50 Tu/Ml Vial ID 08/10/20 10:01 X1 ONE Problem List (Last Reviewed 02/06/20 @ 10:34 by Shannon Cottrell) Debility (Acute) Dysphagia (Acute) Alcohol dependence (Chronic) Fall (Acute) Nasal laceration (Acute) Laceration of left eyebrow (Acute) Closed C2 fracture (Acute) Nondisplaced fracture of right scaphoid bone (Acute) Tongue laceration (Acute) Hypertension (Chronic) Vital Signs Temp Pulse Resp BP Pulse Ox 98.7 F 92 18 98/52 L 93 08/05/20 13:48 08/05/20 13:48 08/05/20 13:48 08/05/20 13:48 08/05/20 13:48 Oxygen Delivery Method Room Air Weight: 68.039 kg Body Mass Index (BMI) 20.9 Sodium 139 mmol/L (136-145) 08/03/20 07:00 Potassium 3.5 mmol/L (3.5-5.1) 08/03/20 07:00 Chloride 104 mmol/L (98-107) 08/03/20 07:00 Carbon Dioxide 32.0 mmol/L (21.0-32.0) 08/03/20 07:00 Anion Gap 3 (5-15) L 08/03/20 07:00 BUN 18 mg/dL (7-18) 08/03/20 07:00 Creatinine 0.76 mg/dL (0.70-1.30) 08/03/20 07:00 Est GFR (MDRD) Af Amer 129 mL/min (>60) 08/03/20 07:00 Est GFR (MDRD) Non-Af 106 mL/min (>60) 08/03/20 07:00 BUN/Creatinine Ratio 23.8 RATIO (10-20) H 08/03/20 07:00 Glucose 125 mg/dL (74-106) H 08/03/20 07:00 Assessment/Plan: 1. Pain: acetaminophen 1000mg PO Q6H PRN pain 1-3/10 and oxycodone 5mg PO Q4H PRN pain 4-10/10. Please continue to monitor for increased pain, PRN usage, constipation and respiratory depression. 2. DVT prophylaxis: enoxaparin 40mg SC daily. Please continue to monitor for S/S of bleeding, hemoglobin (last 10.6g/dL), platelets (last 231,000), and renal function. *3. Hypertension: amlodipine 5mg PO daily. Please continue to monitor for BP (last 98/55) and swelling. Please consider adding hold parameters. Thanks. 4. Tongue Laceration/thrush: BMX 15mL PO TID thru 08/09/20 and nystatin 500,000units PO 4x/day thru 08/13/20. Please continue to monitor for improvement in symptoms. 5. Alcohol dependence: folic acid 1mg PO daily and thiamine 100mg PO daily. Please continue to monitor. 6. Insomnia: melatonin 6mg PO QHS. Please continue to monitor for excessive drowsiness. *7. Vitamin D deficiency: cholecalciferol 125mcg PO daily. Please consider ordering a vitamin D level now and then annually as clinically appropriate. Patient does not have one in the chart. Thanks. 8. Nasal dryness: NaCl 0.65% nasal spray 2 sprays nasal TID PRN nasal dryness. Please continue to monitor. Psychotropic Medications: None Unnecessary Medications: None *Bowel Regimen: Miralax 17gm PO daily, senna/docusate 1T PO BID, MOM 30mL PO daily PRN constipation and bisacodyl 10mg PO daily PRN constipation. Patient has refused 2/3 doses of Miralax. Please consider changing from scheduled to PRN. Thanks. Date of Note:: 08/05/20 - Provider Comments Provider responsibility: Provider responsible to enter orders to implement recommendations <Nahun Arrington Chi - Last Filed: 08/05/20 17:11> Progress Note - Pharmacy Subjective: [] Objective: Allergies Sulfa (Sulfonamide Antibiotics) Allergy (Verified 08/03/20 04:58) Hives fentanyl Adverse Reaction (Verified 08/03/20 04:59) Other Current Medications Generic Name Dose Route Start Last Admin Trade Name Freq PRN Reason Stop Dose Admin Acetaminophen 1,000 mg 08/03/20 10:02 08/05/20 05:03 Acetaminophen 500 Mg Tablet PO 1,000 mg Q6H PRN PRN Administration Pain Score 1-3 Amlodipine Besylate 5 mg 08/03/20 06:00 08/05/20 05:11 Amlodipine 5 Mg Tablet PO 5 mg DAILY LELO Administration Bisacodyl 10 mg 08/02/20 21:25 Bisacodyl 5 Mg Tablet PO DAILY PRN Constipation Cholecalciferol 125 mcg 08/03/20 06:00 08/05/20 05:12 Cholecalciferol (Vit D3) 25 Mcg Tablet (1,000 Units) PO 125 mcg DAILY LELO Administration Enoxaparin Sodium 40 mg 08/03/20 06:00 08/05/20 05:05 Enoxaparin 40 Mg/0.4 Ml Syringe SC 40 mg DAILY@0600 LELO Administration Folic Acid 1 mg 08/03/20 08:00 08/05/20 08:17 Folic Acid 1 Mg Tablet PO 1 mg DAILY@0800 LELO Administration Lidocaine/Diphenhydr/Alum/Mg/Simeth 5 ml 08/02/20 22:00 08/05/20 13:45 Bmx Liquid 180 Ml PO 08/09/20 22:01 5 ml TID LELO Administration Magnesium Hydroxide 30 ml 08/02/20 21:25 08/03/20 21:58 Magnesium Hydroxide 30 Ml Udc PO 30 ml DAILY PRN Administration Constipation Melatonin 6 mg 08/02/20 22:00 08/04/20 22:01 Melatonin 3 Mg Tablet PO 6 mg QHS LELO Administration Nutritional Formula (Lactose Free) 120 ml 08/03/20 06:00 08/05/20 13:45 Ensure Enlive 120 Ml Liquid PO 120 ml TID LELO Administration Nystatin 500,000 unit 08/03/20 12:00 08/05/20 16:26 Nystatin 500,000 Unit/5 Ml Udc PO 08/13/20 12:01 500,000 unit 4X/DAY LELO Administration Oxycodone HCl 5 mg 08/02/20 21:23 08/05/20 05:04 Oxycodone 5 Mg Tablet PO 5 mg Q4H PRN PRN Administration Pain Score 4-10 Polyethylene Glycol 17 gm 08/03/20 06:00 08/05/20 05:11 Polyethylene Glycol 3350 17 Gm Packet PO Not Given DAILY LELO Senna/Docusate Sodium 1 tablet 08/03/20 06:00 08/05/20 16:27 Senna/Docusate Sodium 1 Tablet PO 1 tablet BID LELO Administration Sodium Chloride 2 spray 08/04/20 15:51 08/04/20 17:09 Sodium Chloride 0.65% 1 [place] Livingston.Btl NASAL 2 spray TID PRN PRN Administration NASAL DRYNESS Thiamine HCl 100 mg 08/03/20 08:00 08/05/20 08:17 Thiamine Hydrochloride 100 Mg Tablet PO 100 mg DAILYCM LELO Administration Tuberculin PPD 5 tu 08/10/20 10:00 Tuberculin,Purif.Prot.Deriv. 50 Tu/Ml Vial ID 08/10/20 10:01 X1 ONE Problem List (Last Reviewed 02/06/20 @ 10:34 by Shannon Cottrell) Debility (Acute) Dysphagia (Acute) Alcohol dependence (Chronic) Fall (Acute) Nasal laceration (Acute) Laceration of left eyebrow (Acute) Closed C2 fracture (Acute) Nondisplaced fracture of right scaphoid bone (Acute) Tongue laceration (Acute) Hypertension (Chronic) Vital Signs Temp Pulse Resp BP Pulse Ox 98.7 F 92 18 98/52 L 93 08/05/20 13:48 08/05/20 13:48 08/05/20 13:48 08/05/20 13:48 08/05/20 13:48 Oxygen Delivery Method Room Air Weight: 68.039 kg Body Mass Index (BMI) 20.9 Sodium 139 mmol/L (136-145) 08/03/20 07:00 Potassium 3.5 mmol/L (3.5-5.1) 08/03/20 07:00 Chloride 104 mmol/L (98-107) 08/03/20 07:00 Carbon Dioxide 32.0 mmol/L (21.0-32.0) 08/03/20 07:00 Anion Gap 3 (5-15) L 08/03/20 07:00 BUN 18 mg/dL (7-18) 08/03/20 07:00 Creatinine 0.76 mg/dL (0.70-1.30) 08/03/20 07:00 Est GFR (MDRD) Af Amer 129 mL/min (>60) 08/03/20 07:00 Est GFR (MDRD) Non-Af 106 mL/min (>60) 08/03/20 07:00 BUN/Creatinine Ratio 23.8 RATIO (10-20) H 08/03/20 07:00 Glucose 125 mg/dL (74-106) H 08/03/20 07:00 Assessment/Plan: Psychotropic Medications: Unnecessary Medications: Bowel Regimen: - Provider Comments Provider responsibility: Provider responsible to enter orders to implement recommendations Provider Comments to Recommendations by Pharmacy: Agree
[2020-08-05] MEDS: Senna/Docusate Sodium 1 Tablet PO (16:27)
[2020-08-05] MEDS: MELATONIN 3 MG TABLET 6 MG PO (21:29)
[2020-08-06 03:35] VITALS: BP 123/66; PULSE 85; RESP 17; TEMP 36.8; O2SAT 94
[2020-08-06] MEDS: Sodium Chloride 0.65% 1 SPRAY SPRAY.BTL 2 SPRAY NASAL (04:59)
[2020-08-06] MEDS: BMX LIQUID 180 ML PO ×3 (05:00→21:43)
[2020-08-06] MEDS: Enoxaparin 40 MG/0.4 ML Syringe SC (05:00)
[2020-08-06] MEDS: amLODIPine 5 MG Tablet PO (05:01)
[2020-08-06] MEDS: Senna/Docusate Sodium 1 Tablet PO (05:01)
[2020-08-06] MEDS: NYSTATIN 500,000 UNIT/5 ML UDC 500000 UNIT PO ×4 (05:01→21:44)
[2020-08-06] MEDS: Cholecalciferol (VIT D3) 25 MCG TABLET (1,000 UNITS) 125 MCG PO (05:01)
[2020-08-06] MEDS: oxyCODONE 5 MG Tablet PO ×3 (05:07→21:51)
[2020-08-06] MEDS: Acetaminophen 500 MG Tablet 1000 MG PO ×2 (05:07→14:05)
[2020-08-06] MEDS: Folic Acid 1 MG Tablet PO (08:01)
[2020-08-06] MEDS: Thiamine Hydrochloride 100 MG Tablet PO (08:01)
--- NOTE | 2020-08-06 10:03 | NURSING ---
Pt is missing his shirt, pants, Jacket and shoes. Called [facility] to see if they got left there. Spoke with the alumni secretary and she stated that they don't have anything.
--- NOTE | 2020-08-06 10:53 | CASEMGMT ---
Social Work Met with patient for initial assessment. Discussed code status. Pt confirmed full code. MOLST form reviewed, communication to , placed in chart. Pt has HCPOA/LW on file naming friend, Alex (Liban) Mikel. Explained [facility] insurance with NRD 08/08 and continued stay is not guaranteed. The goal is for pt to return home alone to apartment with 3 steps to enter. SW to continue to follow. Waleska Anaya, DRIVER MESSENGER FIXED ROUTE OPERATOR
[2020-08-06 16:00] VITALS: BP 136/74; PULSE 86; RESP 16; TEMP 36.7; O2SAT 92
[2020-08-06 21:30] VITALS: BP 146/87; PULSE 87; RESP 18; TEMP 36.7; O2SAT 94
[2020-08-06] MEDS: MELATONIN 3 MG TABLET 6 MG PO (21:44)
[2020-08-07 04:00] VITALS: BP 117/69; PULSE 78; RESP 16; TEMP 36.5; O2SAT 94
[2020-08-07] MEDS: NYSTATIN 500,000 UNIT/5 ML UDC 500000 UNIT PO ×4 (05:34→22:33)
[2020-08-07] MEDS: Cholecalciferol (VIT D3) 25 MCG TABLET (1,000 UNITS) 125 MCG PO (05:34)
[2020-08-07] MEDS: Enoxaparin 40 MG/0.4 ML Syringe SC (05:34)
[2020-08-07] MEDS: BMX LIQUID 180 ML PO ×2 (05:34→22:32)
[2020-08-07] MEDS: amLODIPine 5 MG Tablet PO (05:35)
[2020-08-07] MEDS: oxyCODONE 5 MG Tablet PO ×4 (05:42→22:36)
[2020-08-07] MEDS: Thiamine Hydrochloride 100 MG Tablet PO (08:08)
[2020-08-07] MEDS: Folic Acid 1 MG Tablet PO (08:08)
[2020-08-07 11:31] VITALS: RESP 18
[2020-08-07] MEDS: Acetaminophen 500 MG Tablet 1000 MG PO ×2 (12:57→19:42)
[2020-08-07 14:07] VITALS: BP 104/52; PULSE 89; RESP 17; TEMP 36.4; O2SAT 94
--- NOTE | 2020-08-07 15:45 | CASEMGMT ---
Social Work IDT met with patient and friend via conference call for care plan meeting. Discussed patient's progress in therapy and nursing. Pt is making progress. ST has pt on modified diet r/t multiple facial fx and neck brace. Pt is not in isolation. Explained [facility] insurance with NRD 08/08 and continued stay is not guaranteed. The goal is for pt to return home alone with 3 steps to enter. Pt does not have any support in the community to assist at DC. Pt must return to OF to DC safely. SW to continue to follow for DC. Waleska Anaya, LOGGING SUPERINTENDENT LOCK MAINTENANCE SUPERVISOR
[2020-08-07] MEDS: Sodium Chloride 0.65% 1 SPRAY SPRAY.BTL 2 SPRAY NASAL (19:38)
[2020-08-07] MEDS: MELATONIN 3 MG TABLET 6 MG PO (22:32)
[2020-08-08 04:00] VITALS: BP 126/77; PULSE 81; RESP 16; TEMP 36.6; O2SAT 93
[2020-08-08] MEDS: BMX LIQUID 180 ML PO ×3 (05:56→21:21)
[2020-08-08] MEDS: oxyCODONE 5 MG Tablet PO ×4 (05:59→21:29)
[2020-08-08] MEDS: Enoxaparin 40 MG/0.4 ML Syringe SC (06:00)
[2020-08-08] MEDS: Polyethylene Glycol 3350 17 GM PACKET PO (06:01)
[2020-08-08] MEDS: Senna/Docusate Sodium 1 Tablet PO (06:02)
[2020-08-08] MEDS: NYSTATIN 500,000 UNIT/5 ML UDC 500000 UNIT PO ×4 (06:02→21:22)
[2020-08-08] MEDS: amLODIPine 5 MG Tablet PO (06:03)
[2020-08-08] MEDS: Cholecalciferol (VIT D3) 25 MCG TABLET (1,000 UNITS) 125 MCG PO (06:03)
[2020-08-08] MEDS: Acetaminophen 500 MG Tablet 1000 MG PO ×2 (06:11→21:29)
[2020-08-08] MEDS: Sodium Chloride 0.65% 1 SPRAY SPRAY.BTL 2 SPRAY NASAL (06:13)
--- NOTE | 2020-08-08 09:54 | PCA ---
Addendum entered by Shira Ng 08/08/20 13:11: Spoke with Krystina at Dr. Gallegos office. Appointment rescheduled for WednesdayAugust 16 at 10am. would like to see the patient and do xrays in the office. Patient updated and agreeable. RN updated Original Note: Per patient/nursing request. Cancelled follow up appointment with Dr. Kevin Gallegos (orthopedic Dr. for right hand). Patient states he can not afford the transportation right now. I called the office and left a message with Carmen velez above and asked if he could reschedule. Awaiting for a return call. Cancelled [facility] to cancel transport. RN updated
[2020-08-08] MEDS: Folic Acid 1 MG Tablet PO (11:58)
[2020-08-08] MEDS: Thiamine Hydrochloride 100 MG Tablet PO (11:58)
[2020-08-08 12:39] VITALS: PULSE 83; RESP 18
--- NOTE | 2020-08-08 14:30 | CASEMGMT ---
BIMS and PHQ9 interviews completed on this date for MDS assessment. JOSE DE JESUS Plunkett
[2020-08-08 15:50] VITALS: BP 105/62; PULSE 83; RESP 18; TEMP 36.7; O2SAT 96
[2020-08-08] MEDS: MELATONIN 3 MG TABLET 6 MG PO (21:21)
[2020-08-09] MEDS: oxyCODONE 5 MG Tablet PO ×4 (01:53→21:43)
[2020-08-09 01:58] VITALS: BP 134/72; PULSE 78; RESP 16; TEMP 36.6; O2SAT 93
[2020-08-09] MEDS: BMX LIQUID 180 ML PO ×3 (04:42→21:44)
[2020-08-09] MEDS: Enoxaparin 40 MG/0.4 ML Syringe SC (04:42)
[2020-08-09] MEDS: Cholecalciferol (VIT D3) 25 MCG TABLET (1,000 UNITS) 125 MCG PO (04:43)
[2020-08-09] MEDS: amLODIPine 5 MG Tablet PO (04:43)
[2020-08-09] MEDS: Polyethylene Glycol 3350 17 GM PACKET PO (04:43)
[2020-08-09] MEDS: NYSTATIN 500,000 UNIT/5 ML UDC 500000 UNIT PO ×4 (04:43→21:43)
[2020-08-09] MEDS: Senna/Docusate Sodium 1 Tablet PO ×2 (04:43→17:05)
[2020-08-09] MEDS: Acetaminophen 500 MG Tablet 1000 MG PO ×2 (04:50→21:43)
[2020-08-09] MEDS: Thiamine Hydrochloride 100 MG Tablet PO (08:11)
[2020-08-09] MEDS: Folic Acid 1 MG Tablet PO (08:11)
[2020-08-09] MEDS: Sodium Chloride 0.65% 1 SPRAY SPRAY.BTL 2 SPRAY NASAL (11:09)
[2020-08-09 13:45] VITALS: BP 112/52; PULSE 86; RESP 16; TEMP 36.7; O2SAT 94
[2020-08-09] MEDS: Magnesium Hydroxide 30 ML UDC PO (14:42)
[2020-08-09] MEDS: MELATONIN 3 MG TABLET 6 MG PO (21:43)
[2020-08-10 06:22] VITALS: BP 135/63; PULSE 80; RESP 18; TEMP 36.2; O2SAT 93
[2020-08-10] MEDS: Cholecalciferol (VIT D3) 25 MCG TABLET (1,000 UNITS) 125 MCG PO (06:30)
[2020-08-10] MEDS: oxyCODONE 5 MG Tablet PO ×3 (06:31→16:49)
[2020-08-10] MEDS: Enoxaparin 40 MG/0.4 ML Syringe SC (06:31)
[2020-08-10] MEDS: Senna/Docusate Sodium 1 Tablet PO (06:31)
[2020-08-10] MEDS: Polyethylene Glycol 3350 17 GM PACKET PO (06:31)
[2020-08-10] MEDS: Acetaminophen 500 MG Tablet 1000 MG PO ×2 (06:31→16:48)
[2020-08-10] MEDS: NYSTATIN 500,000 UNIT/5 ML UDC 500000 UNIT PO ×4 (06:31→21:37)
[2020-08-10] MEDS: amLODIPine 5 MG Tablet PO (06:32)
[2020-08-10 07:26] LABS: Absolute Lymphocyte Count 1.29 X10^3/uL (0.83-4.51); Absolute Neutrophil Count 2.5 X10^3/uL (2.0-7.7); Basophil# 0.05 X10^3/uL; Basophil% 1.1 % (0-1); Eosinophil# 0.47 X10^3/uL; Hematocrit 35.2 % (40-54); Hemoglobin 11.4 g/dL (13.0-16.5); Lymphocyte # 1.29 X10^3/ul (4.0); Lymphocyte % 27.4 % (19-41); Mean Corp Hgb Conc 32.4 g/dL (32-36); Mean Corpuscular Hgb 34.7 pg (27.0-32.0); Mean Platelet Vol. 9.1 fl (6.2-12.0); Monocyte# 0.34 X10^3/uL; Monocyte% 7.2 % (0-10); NRBC Flagged by Analyzer 0 % (0-5); Neutrophil # 2.54 X10^3/uL (2.7-7.7); Neutrophil % 54.1 % (47-70); Platelet Count 363 K/mm3 (150-450); RBC Distribution Width CV 12.5 % (11.6-14.6); RBC Distribution Width SD 50.1 fl (35.1-43.9); Red Blood Count 3.29 M/mm3 (4.6-6.2); White Blood Count 4.7 K/mm3 (4.4-11.0)
[2020-08-10 07:57] LABS: Anion Gap 5 (5-15); BUN 12 mg/dL (7-18); BUN/Creat Ratio 15.2 RATIO (10-20); Calcium,Total 9.3 mg/dL (8.5-10.1); Chloride 101 mmol/L (98-107); Creatinine, Serum 0.79 mg/dL (0.70-1.30); EST Glomerular Filtration Rate 101 mL/min (>60); Est Glom Filt Rate - Afr Amer 122 mL/min (>60); Estimated Creatinine Clearance 59.53 ml/min; Glucose 130 mg/dL (74-106); Potassium 3.6 mmol/L (3.5-5.1); Sodium Level 137 mmol/L (136-145)
[2020-08-10] MEDS: Thiamine Hydrochloride 100 MG Tablet PO (08:07)
[2020-08-10] MEDS: Folic Acid 1 MG Tablet PO (08:07)
[2020-08-10] MEDS: Tuberculin,Purif.prot.deriv. 50 TU/ML Vial 5 ML ID (10:15)
[2020-08-10 15:09] VITALS: BP 113/65; PULSE 85; RESP 18; TEMP 36.6; O2SAT 96
[2020-08-10] MEDS: MELATONIN 3 MG TABLET 6 MG PO (21:38)
[2020-08-10 22:00] VITALS: RESP 16; O2SAT 94
[2020-08-11] MEDS: Acetaminophen 500 MG Tablet 1000 MG PO ×3 (01:47→21:31)
[2020-08-11] MEDS: oxyCODONE 5 MG Tablet PO ×5 (01:47→21:31)
[2020-08-11 04:00] VITALS: BP 113/75; PULSE 78; RESP 16; TEMP 36.6; O2SAT 95
[2020-08-11] MEDS: NYSTATIN 500,000 UNIT/5 ML UDC 500000 UNIT PO ×4 (05:18→21:33)
[2020-08-11] MEDS: Enoxaparin 40 MG/0.4 ML Syringe SC (05:19)
[2020-08-11] MEDS: Polyethylene Glycol 3350 17 GM PACKET PO (05:20)
[2020-08-11] MEDS: Cholecalciferol (VIT D3) 25 MCG TABLET (1,000 UNITS) 125 MCG PO (05:20)
[2020-08-11] MEDS: Senna/Docusate Sodium 1 Tablet PO ×2 (05:20→16:44)
[2020-08-11] MEDS: amLODIPine 5 MG Tablet PO (05:20)
[2020-08-11] MEDS: Thiamine Hydrochloride 100 MG Tablet PO (07:48)
[2020-08-11] MEDS: Folic Acid 1 MG Tablet PO (07:48)
[2020-08-11 11:04] VITALS: PULSE 79; RESP 16; O2SAT 96
[2020-08-11] MEDS: Sodium Chloride 0.65% 1 SPRAY SPRAY.BTL 2 SPRAY NASAL ×2 (11:57→21:33)
[2020-08-11 16:00] VITALS: BP 132/57; PULSE 79; RESP 16; TEMP 36.9; O2SAT 96
[2020-08-11] MEDS: MELATONIN 3 MG TABLET 6 MG PO (21:33)
[2020-08-12] MEDS: oxyCODONE 5 MG Tablet PO ×4 (01:32→18:11)
[2020-08-12 04:00] VITALS: BP 115/64; PULSE 76; RESP 16; TEMP 36.4; O2SAT 94
[2020-08-12] MEDS: Senna/Docusate Sodium 1 Tablet PO ×2 (05:11→17:12)
[2020-08-12] MEDS: amLODIPine 5 MG Tablet PO (05:11)
[2020-08-12] MEDS: Polyethylene Glycol 3350 17 GM PACKET PO (05:11)
[2020-08-12] MEDS: Cholecalciferol (VIT D3) 25 MCG TABLET (1,000 UNITS) 125 MCG PO (05:11)
[2020-08-12] MEDS: Enoxaparin 40 MG/0.4 ML Syringe SC (05:12)
[2020-08-12] MEDS: NYSTATIN 500,000 UNIT/5 ML UDC 500000 UNIT PO ×4 (05:12→21:24)
[2020-08-12] MEDS: Sodium Chloride 0.65% 1 SPRAY SPRAY.BTL 2 SPRAY NASAL (08:38)
[2020-08-12] MEDS: Thiamine Hydrochloride 100 MG Tablet PO (08:39)
[2020-08-12] MEDS: Folic Acid 1 MG Tablet PO (08:39)
--- NOTE | 2020-08-12 10:29 | NURSING ---
message left at Dr Holder office (neuro) regarding neck collar removal for bathing/hygiene. Awaiting return call.
--- NOTE | 2020-08-12 11:38 | NURSING ---
FLOMAX ORDER CLARIFIED WITH DR OWEN. DC FLOMAX, FLONASE PRN ORDERED.
[2020-08-12] MEDS: Acetaminophen 500 MG Tablet 1000 MG PO ×2 (12:07→18:10)
[2020-08-12] MEDS: Fluticasone 0.05% 1 SPRAY NASAL.SRY NASAL ×2 (14:05→21:24)
--- NOTE | 2020-08-12 14:05 | MDS.RN ---
Information for the mds was obtained from review of the clinical record, interview of resident, staff, and direct observation of resident's care.
[2020-08-12 14:36] VITALS: BP 116/52; PULSE 83; RESP 16; TEMP 36.8; O2SAT 94
[2020-08-12] MEDS: MELATONIN 3 MG TABLET 6 MG PO (21:24)
[2020-08-13] MEDS: oxyCODONE 5 MG Tablet PO ×4 (04:43→21:10)
[2020-08-13 04:45] VITALS: BP 126/70; PULSE 82; RESP 16; TEMP 36.6; O2SAT 93
[2020-08-13] MEDS: Cholecalciferol (VIT D3) 25 MCG TABLET (1,000 UNITS) 125 MCG PO (04:47)
[2020-08-13] MEDS: Enoxaparin 40 MG/0.4 ML Syringe SC (04:48)
[2020-08-13] MEDS: NYSTATIN 500,000 UNIT/5 ML UDC 500000 UNIT PO ×2 (04:48→11:42)
[2020-08-13] MEDS: amLODIPine 5 MG Tablet PO (04:48)
[2020-08-13] MEDS: Folic Acid 1 MG Tablet PO (08:38)
[2020-08-13] MEDS: Thiamine Hydrochloride 100 MG Tablet PO (08:38)
[2020-08-13] MEDS: Fluticasone 0.05% 1 SPRAY NASAL.SRY NASAL ×2 (08:50→21:10)
[2020-08-13 14:43] VITALS: BP 105/63; PULSE 85; RESP 16; TEMP 36.3; O2SAT 95
[2020-08-13] MEDS: Acetaminophen 500 MG Tablet 1000 MG PO ×2 (15:04→21:10)
[2020-08-13] MEDS: MELATONIN 3 MG TABLET 6 MG PO (21:09)
[2020-08-14] MEDS: Acetaminophen 500 MG Tablet 1000 MG PO ×4 (02:48→23:05)
[2020-08-14] MEDS: oxyCODONE 5 MG Tablet PO ×4 (02:48→20:33)
[2020-08-14 02:54] VITALS: BP 125/57; PULSE 84; RESP 16; TEMP 36.6; O2SAT 96
[2020-08-14] MEDS: Enoxaparin 40 MG/0.4 ML Syringe SC (05:46)
[2020-08-14] MEDS: Cholecalciferol (VIT D3) 25 MCG TABLET (1,000 UNITS) 125 MCG PO (05:47)
[2020-08-14] MEDS: amLODIPine 5 MG Tablet PO (05:47)
[2020-08-14] MEDS: Thiamine Hydrochloride 100 MG Tablet PO (09:42)
[2020-08-14] MEDS: Folic Acid 1 MG Tablet PO (09:42)
--- NOTE | 2020-08-14 10:19 | NURSING ---
pt off unit to appt at this time
--- NOTE | 2020-08-14 14:29 | NURSING ---
pt returned from appt with orders for keflex x10 days for some redness on neck incison. not allowed to remove Ccollar for showering, when he does shower order to change pads with showering. notified [facility], they do not carry these pads
[2020-08-14 15:19] VITALS: BP 113/60; PULSE 88; RESP 16; TEMP 36.6; O2SAT 96
[2020-08-14] MEDS: Cephalexin 500 MG Capsule PO ×2 (16:29→23:02)
[2020-08-14 20:40] VITALS: PULSE 80; RESP 16; O2SAT 93
[2020-08-14] MEDS: MELATONIN 3 MG TABLET 6 MG PO (23:05)
[2020-08-15 04:00] VITALS: BP 106/55; PULSE 80; RESP 16; TEMP 36.8; O2SAT 94
[2020-08-15] MEDS: Enoxaparin 40 MG/0.4 ML Syringe SC (06:29)
[2020-08-15] MEDS: Cholecalciferol (VIT D3) 25 MCG TABLET (1,000 UNITS) 125 MCG PO (06:30)
[2020-08-15] MEDS: Cephalexin 500 MG Capsule PO ×3 (06:31→17:20)
[2020-08-15] MEDS: amLODIPine 5 MG Tablet PO (06:31)
[2020-08-15] MEDS: Polyethylene Glycol 3350 17 GM PACKET PO (06:31)
[2020-08-15] MEDS: Folic Acid 1 MG Tablet PO (08:00)
[2020-08-15] MEDS: Thiamine Hydrochloride 100 MG Tablet PO (08:00)
--- NOTE | 2020-08-15 08:40 | CASEMGMT ---
Social Work Spoke with pt about DC plans as insurance update is this date. Pt explained he has several friends that will be able to assist and check in often. SW explained he will receive skilled HHC PT/OT/SN/NUR, but that is temporary and not daily. Inquired about toileting tasks as that is difficult for him to complete on his own. Pt stated his friends could assist when they come over but will figure it out on his own. IDT still recommending continued therapy and nursing care at this time. Encouraged pt to have OT focus further on toileting tasks and different strategies. Pt agreeable. Will continue to follow. Waleska Anaya, ROSIBEL BUSINESS BANKING MANAGER
[2020-08-15] MEDS: oxyCODONE 5 MG Tablet PO (11:23)
[2020-08-15] MEDS: Acetaminophen 500 MG Tablet 1000 MG PO (11:23)
[2020-08-15 16:23] VITALS: BP 93/53; PULSE 86; RESP 16; TEMP 36.9; O2SAT 94
[2020-08-15 16:30] VITALS: PULSE 86; RESP 16; O2SAT 94
[2020-08-15] MEDS: Senna/Docusate Sodium 1 Tablet PO (17:20)
[2020-08-15] MEDS: MELATONIN 3 MG TABLET 6 MG PO (20:58)
[2020-08-15] MEDS: Magnesium Hydroxide 30 ML UDC PO (21:02)
[2020-08-15] MEDS: Fluticasone 0.05% 1 SPRAY NASAL.SRY NASAL (21:05)
[2020-08-16] MEDS: oxyCODONE 5 MG Tablet PO ×3 (00:01→21:34)
[2020-08-16] MEDS: Cephalexin 500 MG Capsule PO ×4 (00:02→16:46)
[2020-08-16 04:00] VITALS: BP 121/61; PULSE 84; RESP 16; TEMP 36.7; O2SAT 93
[2020-08-16] MEDS: Cholecalciferol (VIT D3) 25 MCG TABLET (1,000 UNITS) 125 MCG PO (05:14)
[2020-08-16] MEDS: Enoxaparin 40 MG/0.4 ML Syringe SC (05:15)
[2020-08-16] MEDS: Senna/Docusate Sodium 1 Tablet PO ×2 (05:15→16:46)
[2020-08-16] MEDS: amLODIPine 5 MG Tablet PO (05:15)
[2020-08-16] MEDS: Polyethylene Glycol 3350 17 GM PACKET PO (05:16)
[2020-08-16] MEDS: Fluticasone 0.05% 1 SPRAY NASAL.SRY NASAL ×2 (05:31→21:26)
[2020-08-16] MEDS: Folic Acid 1 MG Tablet PO (08:12)
[2020-08-16] MEDS: Thiamine Hydrochloride 100 MG Tablet PO (08:12)
[2020-08-16] MEDS: Acetaminophen 500 MG Tablet 1000 MG PO (08:54)
--- NOTE | 2020-08-16 09:23 | PCA ---
Addendum entered by Shira Ng 08/16/20 10:29: appointment with Dr. Gallegos scheduled for WednesdayAugust 19 at 10:30am. [facility] to [facility] at 8:30am Addendum entered by Shira Ng 08/16/20 09:56: Cancelled transport due to to [facility] running over an hour late for moss picker. Left message with Dr. Gallegos office regarding a new date and time Original Note: Received call from [facility] at 9:05 am stating that they are running behind and that the tower truck driver is en route to moss picker patient for his appt in [place] at 10am. [facility] says they will be here on TCU close to 10am. I called the office to let them know, office states that if the patient is not there by 10:30am they will need to reschedule. Per RN If patient is not picked up by 10am we will reschedule appt. patient updated and agreed to not have to pay for transport if not able to be seen by
[2020-08-16 13:54] VITALS: BP 123/66; PULSE 74; RESP 14; TEMP 36.7; O2SAT 96
[2020-08-16] MEDS: Bisacodyl 5 MG Tablet 10 MG PO (16:50)
--- NOTE | 2020-08-16 16:52 | NURSING ---
R' C/O CONSTIPATION. THICKENED PRUNE JUICE GIVEN EARLIER TODAY. DULCOLAX TABS GIVEN AT THIS TIME.
[2020-08-16 21:20] VITALS: RESP 16
[2020-08-16] MEDS: Menthol/Lanolin/Calamine/Znox 113 GM Tube 1 APPLIC TOPICAL (21:24)
[2020-08-16] MEDS: MELATONIN 3 MG TABLET 6 MG PO (21:25)
[2020-08-17] MEDS: Cephalexin 500 MG Capsule PO ×5 (00:09→22:26)
[2020-08-17 06:01] VITALS: BP 115/61; PULSE 78; RESP 16; TEMP 36.7; O2SAT 94
[2020-08-17] MEDS: Enoxaparin 40 MG/0.4 ML Syringe SC (06:03)
[2020-08-17] MEDS: Menthol/Lanolin/Calamine/Znox 113 GM Tube 1 APPLIC TOPICAL ×2 (06:03→16:58)
[2020-08-17] MEDS: Senna/Docusate Sodium 1 Tablet PO (06:04)
[2020-08-17] MEDS: amLODIPine 5 MG Tablet PO (06:04)
[2020-08-17] MEDS: Cholecalciferol (VIT D3) 25 MCG TABLET (1,000 UNITS) 125 MCG PO (06:05)
[2020-08-17 07:43] LABS: Absolute Lymphocyte Count 1.26 X10^3/uL (0.83-4.51); Absolute Neutrophil Count 1.9 X10^3/uL (2.0-7.7); Basophil# 0.05 X10^3/uL; Basophil% 1.2 % (0-1); Eosinophil# 0.73 X10^3/uL; Hematocrit 33.7 % (40-54); Hemoglobin 10.8 g/dL (13.0-16.5); Lymphocyte # 1.26 X10^3/ul (4.0); Lymphocyte % 29.4 % (19-41); Mean Corpuscular Hgb 33.9 pg (27.0-32.0); Mean Corpuscular Volume 105.6 fL (80-94); Mean Platelet Vol. 9.7 fl (6.2-12.0); Monocyte# 0.33 X10^3/uL; Monocyte% 7.7 % (0-10); NRBC Flagged by Analyzer 0 % (0-5); Neutrophil # 1.91 X10^3/uL (2.7-7.7); Neutrophil % 44.5 % (47-70); Platelet Count 247 K/mm3 (150-450); RBC Distribution Width CV 12.4 % (11.6-14.6); RBC Distribution Width SD 48.5 fl (35.1-43.9); Red Blood Count 3.19 M/mm3 (4.6-6.2); White Blood Count 4.3 K/mm3 (4.4-11.0)
[2020-08-17 08:00] LABS: Anion Gap 3 (5-15); BUN 11 mg/dL (7-18); BUN/Creat Ratio 14.2 RATIO (10-20); Calcium,Total 9.2 mg/dL (8.5-10.1); Chloride 103 mmol/L (98-107); Creatinine, Serum 0.78 mg/dL (0.70-1.30); EST Glomerular Filtration Rate 103 mL/min (>60); Est Glom Filt Rate - Afr Amer 125 mL/min (>60); Estimated Creatinine Clearance 60.15 ml/min; Glucose 126 mg/dL (74-106); Potassium 3.7 mmol/L (3.5-5.1); Sodium Level 137 mmol/L (136-145)
[2020-08-17] MEDS: Folic Acid 1 MG Tablet PO (08:22)
[2020-08-17] MEDS: Thiamine Hydrochloride 100 MG Tablet PO (08:22)
[2020-08-17] MEDS: Acetaminophen 500 MG Tablet 1000 MG PO ×2 (11:35→22:31)
[2020-08-17] MEDS: oxyCODONE 5 MG Tablet PO ×2 (11:35→22:32)
[2020-08-17 13:51] VITALS: BP 106/55; PULSE 84; RESP 16; TEMP 36.3; O2SAT 96
[2020-08-17] MEDS: Fluticasone 0.05% 1 SPRAY NASAL.SRY NASAL (22:24)
[2020-08-17] MEDS: MELATONIN 3 MG TABLET 6 MG PO (22:25)
[2020-08-18 05:37] VITALS: BP 111/59; PULSE 82; RESP 16; TEMP 36.5; O2SAT 92
[2020-08-18] MEDS: Cephalexin 500 MG Capsule PO ×4 (05:39→22:21)
[2020-08-18] MEDS: amLODIPine 5 MG Tablet PO (05:39)
[2020-08-18] MEDS: Enoxaparin 40 MG/0.4 ML Syringe SC (05:39)
[2020-08-18] MEDS: Cholecalciferol (VIT D3) 25 MCG TABLET (1,000 UNITS) 125 MCG PO (05:40)
[2020-08-18] MEDS: oxyCODONE 5 MG Tablet PO ×4 (05:44→22:20)
[2020-08-18] MEDS: Acetaminophen 500 MG Tablet 1000 MG PO ×3 (05:44→22:20)
[2020-08-18] MEDS: Menthol/Lanolin/Calamine/Znox 113 GM Tube 1 APPLIC TOPICAL ×2 (05:47→16:46)
[2020-08-18] MEDS: Fluticasone 0.05% 1 SPRAY NASAL.SRY NASAL ×2 (05:49→22:14)
[2020-08-18] MEDS: Folic Acid 1 MG Tablet PO (08:53)
[2020-08-18] MEDS: Thiamine Hydrochloride 100 MG Tablet PO (08:53)
[2020-08-18 13:25] VITALS: BP 100/56; PULSE 91; RESP 16; TEMP 36.3; O2SAT 96
[2020-08-18] MEDS: MELATONIN 3 MG TABLET 6 MG PO (22:16)
--- NOTE | 2020-08-19 03:56 | NURSING ---
Pt c/o brace rubbing posterior to rt ear. Had gauze in place. None noted per this nurse. One 4x4 placed over rt ear and secured strap for c-collar for comfort.
[2020-08-19 06:04] VITALS: BP 120/70; PULSE 76; RESP 16; TEMP 36.4; O2SAT 93
[2020-08-19] MEDS: Acetaminophen 500 MG Tablet 1000 MG PO ×3 (06:28→21:01)
[2020-08-19] MEDS: amLODIPine 5 MG Tablet PO (06:29)
[2020-08-19] MEDS: oxyCODONE 5 MG Tablet PO ×3 (06:29→21:01)
[2020-08-19] MEDS: Cholecalciferol (VIT D3) 25 MCG TABLET (1,000 UNITS) 125 MCG PO (06:29)
[2020-08-19] MEDS: Enoxaparin 40 MG/0.4 ML Syringe SC (06:30)
[2020-08-19] MEDS: Cephalexin 500 MG Capsule PO ×3 (06:31→18:17)
[2020-08-19] MEDS: Menthol/Lanolin/Calamine/Znox 113 GM Tube 1 APPLIC TOPICAL ×2 (06:31→17:24)
[2020-08-19] MEDS: Folic Acid 1 MG Tablet PO (08:14)
[2020-08-19] MEDS: Thiamine Hydrochloride 100 MG Tablet PO (08:14)
--- NOTE | 2020-08-19 12:27 | NURSING ---
Patient back from appointment. Up to floor via wheelchair and one staff member.
[2020-08-19 13:58] VITALS: BP 137/74; PULSE 88; RESP 16; TEMP 36.8; O2SAT 92
[2020-08-19 14:01] VITALS: PULSE 88; RESP 16; O2SAT 92
[2020-08-19] MEDS: MELATONIN 3 MG TABLET 6 MG PO (21:01)
[2020-08-20] MEDS: Cephalexin 500 MG Capsule PO ×4 (00:22→17:16)
[2020-08-20 04:00] VITALS: BP 125/84; PULSE 77; RESP 16; TEMP 36.6; O2SAT 95
[2020-08-20] MEDS: Menthol/Lanolin/Calamine/Znox 113 GM Tube 1 APPLIC TOPICAL ×2 (05:26→17:17)
[2020-08-20] MEDS: amLODIPine 5 MG Tablet PO (05:27)
[2020-08-20] MEDS: Cholecalciferol (VIT D3) 25 MCG TABLET (1,000 UNITS) 125 MCG PO (05:27)
[2020-08-20] MEDS: Polyethylene Glycol 3350 17 GM PACKET PO (05:27)
[2020-08-20] MEDS: Senna/Docusate Sodium 1 Tablet PO ×2 (05:27→17:16)
[2020-08-20] MEDS: Enoxaparin 40 MG/0.4 ML Syringe SC (05:28)
[2020-08-20] MEDS: Acetaminophen 500 MG Tablet 1000 MG PO ×3 (05:32→19:57)
[2020-08-20] MEDS: oxyCODONE 5 MG Tablet PO ×3 (05:33→19:57)
[2020-08-20] MEDS: Folic Acid 1 MG Tablet PO (08:06)
[2020-08-20] MEDS: Thiamine Hydrochloride 100 MG Tablet PO (08:06)
[2020-08-20 14:04] VITALS: BP 136/63; PULSE 77; RESP 18; TEMP 36.4; O2SAT 95
--- NOTE | 2020-08-20 16:23 | CHAPLAIN ---
Type of Pastoral Visit _x__ Initial Visit ___ Follow-up Visit ___ On-call Visit ___ General Patient Visit ___ Spiritual Assessment ___ Family Conference ___ Bereavement ___ Rapid Response ___ Code Blue ___ Other (describe below) Pastoral Care Referral From _x__ Patient ___ Family ___ Nurse ___ Physician ___ Mash Filter Press Operator ___ Chief Operator Hydroformer ___ Other (describe below) Sacrament/Intervention _x__ Active listening ___ Anointing ___ Sikh ___ Bereavement ___ Communion ___ Masha exploration ___ _x__ Life review _x__ Prayer ___ Reconciliation ___ Sacrament of Sick _x__ Supportive presence ___ Wedding ___ Other (describe below) Pastoral Comments patient is welcoming and 'ready for some company so not have boredom'; pt is connected to [employer] and attending ambulatory care has been in touch; pt does not have family in the area but states friends are better than family; prayer requested
[2020-08-20] MEDS: Magnesium Hydroxide 30 ML UDC PO (19:58)
[2020-08-20] MEDS: Fluticasone 0.05% 1 SPRAY NASAL.SRY NASAL (22:15)
[2020-08-20] MEDS: MELATONIN 3 MG TABLET 6 MG PO (22:16)
[2020-08-20 22:25] VITALS: PULSE 61; RESP 16; O2SAT 99
[2020-08-21] MEDS: Cephalexin 500 MG Capsule PO ×5 (00:45→22:27)
[2020-08-21 04:00] VITALS: BP 120/70; PULSE 77; RESP 16; TEMP 36.7; O2SAT 94
[2020-08-21] MEDS: oxyCODONE 5 MG Tablet PO ×3 (05:38→22:27)
[2020-08-21] MEDS: Acetaminophen 500 MG Tablet 1000 MG PO ×3 (05:38→22:28)
[2020-08-21] MEDS: Polyethylene Glycol 3350 17 GM PACKET PO (05:39)
[2020-08-21] MEDS: Enoxaparin 40 MG/0.4 ML Syringe SC (05:41)
[2020-08-21] MEDS: Cholecalciferol (VIT D3) 25 MCG TABLET (1,000 UNITS) 125 MCG PO (05:42)
[2020-08-21] MEDS: Menthol/Lanolin/Calamine/Znox 113 GM Tube 1 APPLIC TOPICAL ×2 (05:42→16:25)
[2020-08-21] MEDS: Senna/Docusate Sodium 1 Tablet PO ×2 (05:42→16:24)
[2020-08-21] MEDS: amLODIPine 5 MG Tablet PO (05:42)
[2020-08-21] MEDS: Folic Acid 1 MG Tablet PO (08:07)
[2020-08-21] MEDS: Thiamine Hydrochloride 100 MG Tablet PO (08:07)
--- NOTE | 2020-08-21 10:58 | SP.MBSS_ITS ---
Modified Barium Swallow - Patient Information Study Date: 08/21/20 Study Time: 10:30 Direct Billable Minutes: 120 Total Minutes procedure & reportin Diagnosis: oropharyngeal dysphagia (R13.12) Referring Physician: Nahun Arrington Chi Reason for Referral: For repeat modified barium swallow study to determine presence/degree of silent aspiration. Medical History: The patient is a 75 year old Male with past medical history of Debility, Dysphagia, Alcohol dependence, Fall, Nasal laceration, Laceration of left eyebrow, Closed C2 fracture, Nondisplaced fracture of right scaphoid bone, Tongue laceration, and Hypertension. Pt presented to [facility] with fall. 07/26/2020 EKG sinus tachycardia with premature atrial contractions with aberrant conduction, septal infarct, age undetermined. 07/26/2020 CT brain normal brain, facial fractures. 07/26/2020 CT cervical spine Acute C2 fracture, base of odontoid moderate displaced acute fracture with moderate thecal sac compression, emergency neurosurgery referral recommended. 07/26/2020 CT facial bones, nasal bone fracture, C2 fracture. 07/26/2020 Chest X-ray diminished inspiratory effort, minor discoid atelectasis or scarring of the lung bases. Fall down steps at restaurant, going to restaurant. Patient reported had been drinking alcohol. Tripped over his feet at 4th step, 5th step falling down. Complex laceration of nares, Ancef given. Fentanyl given. C2 fracture, placed in C collar. Transfer to [facility] for trauma admission. 07/26/2020 Admit to [facility]. 07/28/2020 Closed reduction of C2 fracture, C1-C2 instrumented fusion. Pain control. SAMANTHA drains removed by Neurosurgery. Stacy Collar. Modified barium swallow for dysphagia. Possible closed reduction nasal bone fracture in 2 weeks. Facial lacerations repaired with sutures. Magic mouthwash TID for tongue laceration. Non Weight Bearing, Right upper extremity splint for right scaphoid fracture. Phenobarbital, thiamine, folate for alcohol dependence. Melatonin, Seroquel for sleep. Passed Modified barium swallow. 08/02/2020 Admit to TCU with debility, here for rehabilitation, strengthening, prior to discharge home alone. Current Diet Ordered: minced and moist textures/mildly thick liquids Dentition: Edentulous - Patient arrived to radiology without dentures present Mental Status: WNL Respiratory Status: Oxygenating on Room Air - Study Findings Consistencies: Thin Liquid, [place] Thick Liquid, Honey Thick Liquid, Pudding, Cookie - Penetration-Aspiration Scale Penetration-Aspiration Scale: OBJECTIVE ASSESSMENT OF SWALLOW FUNCTION (QUANTITATIVE ? PER TRIAL): PENETRATION / ASPIRATION SCALE (DIAZ): 1 = does not enter airway 2 = enters airway/above vocal folds/ejected 3 = enters airway/above vocal folds/not ejected 4 = enters airway/contacts vocal folds/ejected 5 = enters airway/contacts vocal folds/not ejected 6 = enters airway/below vocal folds/ejected 7 = enters airway/below vocal folds/not ejected despite effort 8 = enters airway/below vocal folds/no effort - Penetration-Aspiration Scale Score Thin Liquid via teaspoon Result: 1= does not enter airway Thin Liquid via teaspoon Trial 2 Result: 1= does not enter airway Thin Liquid via small single sip from cup Result: 1= does not enter airway Thin Liquid via large single sip from cup Result: 1= does not enter airway Thin Liquid via sequential sips from cup Result: 1= does not enter airway [place] Thick Liquid via large single sip from cup Result: 1= does not enter airway Honey Thick Liquid via large single sip from cup Result: 1= does not enter airway Pudding via teaspoon Result: 1= does not enter airway Cookie Result: 1= does not enter airway Comment: Had to spit out cookie as texture was too solid without dentures. Thin Liquid via sequential sips from straw Result: 1= does not enter airway - Oral Phase Labial Seal: Interlabial escape, no progression to anterior lip Tongue Control During Bolus Hold: Escape to lateral buccal cavity/floor of mouth Bolus Preparation/Mastication: Minimal chewing/mashing with majority of bolus unchewed Bolus Transport/Lingual Motion: Brisk tongue motion Oral Residue: Residue collection on oral structures - Pharyngeal Phase Initiation of Pharyngeal Swallow: Bolus head in valleculae Soft Palate Elevation: No bolus between soft palate and pharyngeal wall Laryngeal Elevation: Partial superior movement thyroid cart/partial apprx aryt- epig petiole Anterior Hyoid Excursion: Complete anterior movement Epiglottic Movement: Complete inversion Laryngeal Vestibule Closure at Height of Swallow: Incomplete; narrow column of air/contrast in laryngeal vestibule Pharyngeal Stripping Wave: Present - complete Pharyngoesophageal Segment Opening: Parital distension and partial duration; parital obstruction of flow Tongue Base Retraction: Trace column of contrast between tongue base & post. pharyngeal wall Pharyngeal Residue: Trace residue within or on pharyngeal structures - Diagnosis/Impression Diagnosis: mild oropharyngeal dysphagia (R13.12) Impression: The patient has been receiving skilled ST intervention while on [facility] for several weeks and has been demonstrating excellent progress. MBS study completed with patient trialing thin liquids via teaspoon, cup, and straw. No aspiration was found throughout evaluation. Patient trialed solid Kika Doone shortbread cookie, however since he was brought to the unit without his dentures, patient was unable to successfully masticate solid texture and spit out solid piece of cookie unchewed. Will plan to further assess solid textures during future skilled ST sessions. Recommending diet advancement to thin liquids at this time. - Recommendations Diet: Mechanical Soft Textures, Thin Liquids Compensatory Strategies: Small Bites, Small Sips, Slow Rate, Sitting upright Supervision: Distant Supervision Recommend Repeat Modified Barium Swallow: TBD Need for Skilled Speech Therapy Services: Yes Education Completed: 1. Described result of evaluation., 2. Pt understands evaluation & agrees with goals and treatment plan. - Status Active ST Patient: Active - Contact Information [facility] Speech Therapy:: Kandis Gil MA, [facility] HCM DEVELOPER [place] [phone] [email or web address]
[2020-08-21 13:58] VITALS: BP 109/57; PULSE 88; RESP 18; TEMP 36.2; O2SAT 96
--- NOTE | 2020-08-21 15:03 | CASEMGMT ---
Social Work Followed up with pt to inform him insurance approved additional days with NRD 08/23 and to anticipate LCD. Pt agreeable. Inquired about assistance at home. Pt states his yarn hauler will come every other day now, he will order his groceries online and get home delivered meals. Provided [facility] resources to pt. Pt requests [facility] at [place]. Will order. Pt agreeable to [facility]. Provided list of agencies that re in network, in patient's geographical area and meets pts needs. Will continue to follow. ROSIBEL Duff STABILIZING MACHINE OPERATOR
[2020-08-21] MEDS: MELATONIN 3 MG TABLET 6 MG PO (22:27)
[2020-08-22 05:13] VITALS: BP 114/62; PULSE 75; RESP 18; TEMP 36.6; O2SAT 94
[2020-08-22] MEDS: oxyCODONE 5 MG Tablet PO ×2 (05:14→21:32)
[2020-08-22] MEDS: Acetaminophen 500 MG Tablet 1000 MG PO ×2 (05:14→21:31)
[2020-08-22] MEDS: Cholecalciferol (VIT D3) 25 MCG TABLET (1,000 UNITS) 125 MCG PO (05:14)
[2020-08-22] MEDS: Enoxaparin 40 MG/0.4 ML Syringe SC (05:15)
[2020-08-22] MEDS: Senna/Docusate Sodium 1 Tablet PO ×2 (05:15→16:59)
[2020-08-22] MEDS: Cephalexin 500 MG Capsule PO ×3 (05:15→16:59)
[2020-08-22] MEDS: amLODIPine 5 MG Tablet PO (05:16)
[2020-08-22] MEDS: Menthol/Lanolin/Calamine/Znox 113 GM Tube 1 APPLIC TOPICAL ×2 (05:23→16:59)
[2020-08-22] MEDS: Thiamine Hydrochloride 100 MG Tablet PO (07:57)
[2020-08-22] MEDS: Folic Acid 1 MG Tablet PO (07:57)
[2020-08-22] MEDS: Sodium Chloride 0.65% 1 SPRAY SPRAY.BTL 2 SPRAY NASAL (16:57)
[2020-08-22 19:35] VITALS: BP 119/58; PULSE 87; RESP 16; TEMP 36.5; O2SAT 93
[2020-08-22] MEDS: Fluticasone 0.05% 1 SPRAY NASAL.SRY NASAL (21:32)
[2020-08-22] MEDS: MELATONIN 3 MG TABLET 6 MG PO (21:33)
[2020-08-22 22:00] VITALS: RESP 16
[2020-08-23] MEDS: Cephalexin 500 MG Capsule PO ×5 (00:50→23:46)
[2020-08-23] MEDS: oxyCODONE 5 MG Tablet PO ×5 (02:10→21:56)
[2020-08-23 04:00] VITALS: BP 105/58; PULSE 75; RESP 16; TEMP 36.5; O2SAT 93
[2020-08-23] MEDS: Menthol/Lanolin/Calamine/Znox 113 GM Tube 1 APPLIC TOPICAL ×2 (05:29→16:49)
[2020-08-23] MEDS: Senna/Docusate Sodium 1 Tablet PO (05:32)
[2020-08-23] MEDS: Enoxaparin 40 MG/0.4 ML Syringe SC (05:33)
[2020-08-23] MEDS: Cholecalciferol (VIT D3) 25 MCG TABLET (1,000 UNITS) 125 MCG PO (05:33)
[2020-08-23] MEDS: Polyethylene Glycol 3350 17 GM PACKET PO (05:35)
[2020-08-23] MEDS: amLODIPine 5 MG Tablet PO (05:36)
[2020-08-23] MEDS: Folic Acid 1 MG Tablet PO (09:05)
[2020-08-23] MEDS: Thiamine Hydrochloride 100 MG Tablet PO (09:05)
[2020-08-23 10:43] VITALS: PULSE 78; RESP 18
[2020-08-23] MEDS: Acetaminophen 500 MG Tablet 1000 MG PO ×3 (10:53→23:47)
--- NOTE | 2020-08-23 11:34 | CASEMGMT ---
Social Work Insurance issued LCD 08/25, [place] 08/26. Spoke with pt and he is agreeable. Pt agreeable to [facility]. Provided [facility] list of providers including quality and resource use data and consistent with the patient?s preferred geographic region, medical needs, and insurance network. Pt prefers [facility]. Referral made for PT/OT/ST/SN/NUR. Pt requesting FWW. Referral made to [facility]. Friend can transport pt home. No other needs. Plan: DC home alone 08/[address] [facility] PT/OT/ST/SN/NUR, [facility] Waleska Anaya, INSURANCE CHECKER JOSE DE JESUS
[2020-08-23 14:25] VITALS: BP 106/52; PULSE 78; RESP 18; TEMP 36.6; O2SAT 96
[2020-08-23] MEDS: Fluticasone 0.05% 1 SPRAY NASAL.SRY NASAL (21:51)
[2020-08-23] MEDS: MELATONIN 3 MG TABLET 6 MG PO (21:52)
[2020-08-24 05:25] VITALS: BP 116/61; PULSE 80; RESP 16; TEMP 36.7; O2SAT 94
[2020-08-24] MEDS: oxyCODONE 5 MG Tablet PO ×4 (06:11→21:10)
[2020-08-24] MEDS: Acetaminophen 500 MG Tablet 1000 MG PO ×3 (06:11→18:31)
[2020-08-24] MEDS: Menthol/Lanolin/Calamine/Znox 113 GM Tube 1 APPLIC TOPICAL ×2 (06:12→16:47)
[2020-08-24] MEDS: amLODIPine 5 MG Tablet PO (06:13)
[2020-08-24] MEDS: Senna/Docusate Sodium 1 Tablet PO ×2 (06:13→16:41)
[2020-08-24] MEDS: Cholecalciferol (VIT D3) 25 MCG TABLET (1,000 UNITS) 125 MCG PO (06:13)
[2020-08-24] MEDS: Enoxaparin 40 MG/0.4 ML Syringe SC (06:13)
[2020-08-24] MEDS: Cephalexin 500 MG Capsule PO ×3 (06:13→16:42)
[2020-08-24] MEDS: Fluticasone 0.05% 1 SPRAY NASAL.SRY NASAL ×2 (06:14→21:06)
[2020-08-24] MEDS: Sodium Chloride 0.65% 1 SPRAY SPRAY.BTL 2 SPRAY NASAL (06:14)
[2020-08-24 06:47] LABS: Absolute Lymphocyte Count 1.13 X10^3/uL (0.83-4.51); Absolute Neutrophil Count 1.5 X10^3/uL (2.0-7.7); Basophil# 0.02 X10^3/uL; Basophil% 0.5 % (0-1); Eosinophil# 0.89 X10^3/uL; Eosinophils% 23.1 % (0-5); Hematocrit 35.4 % (40-54); Hemoglobin 11.2 g/dL (13.0-16.5); Lymphocyte # 1.13 X10^3/ul (0.83-4.51); Lymphocyte % 29.3 % (19-41); Mean Corp Hgb Conc 31.6 g/dL (32-36); Mean Corpuscular Hgb 33.2 pg (27.0-32.0); Mean Platelet Vol. 10.4 fl (6.2-12.0); Monocyte# 0.32 X10^3/uL; Monocyte% 8.3 % (0-10); NRBC Flagged by Analyzer 0 % (0-5); Neutrophil % 38.8 % (47-70); Platelet Count 176 K/mm3 (150-450); RBC Distribution Width CV 12.1 % (11.6-14.6); RBC Distribution Width SD 46.6 fl (35.1-43.9); Red Blood Count 3.37 M/mm3 (4.6-6.2); White Blood Count 3.9 K/mm3 (4.4-11.0)
[2020-08-24 07:13] LABS: Anion Gap 3 (5-15); BUN 9 mg/dL (7-18); BUN/Creat Ratio 13.1 RATIO (10-20); Calcium,Total 9.5 mg/dL (8.5-10.1); Chloride 101 mmol/L (98-107); Creatinine, Serum 0.69 mg/dL (0.70-1.30); EST Glomerular Filtration Rate 119 mL/min (>60); Est Glom Filt Rate - Afr Amer 144 mL/min (>60); Estimated Creatinine Clearance 60.95 ml/min; Glucose 103 mg/dL (74-106); Potassium 3.8 mmol/L (3.5-5.1); Sodium Level 135 mmol/L (136-145)
--- NOTE | 2020-08-24 07:48 | PCM.DC ---
- Discharge Diagnoses Current Active Problems: Current Active and Chronic Problems (Last Reviewed 02/06/20 @ 10:34 by Shannon Cottrell) Debility (Acute) Dysphagia (Acute) Alcohol dependence (Chronic) Fall (Acute) Nasal laceration (Acute) Laceration of left eyebrow (Acute) Closed C2 fracture (Acute) Nondisplaced fracture of right scaphoid bone (Acute) Tongue laceration (Acute) Hypertension (Chronic) You will use the following diet at home:: No restrictions, Regular Your food should be the consistency of: Soft (bite-sized & easy to chew/swallow) Your liquids should be the consistency of: Regular/Thin Discharge Activity: Return to Normal Activity, May Shower, Use Walker Weight Bearing Status: Weight bearing as tolerated Call your doctor if you observe: Fever of 101 or Higher, Inability to urinate, Inability to have a bowel movement, Shortness of breath, Chest pain, Uncontrolled pain Allergies/Adverse Reactions: Allergies Sulfa (Sulfonamide Antibiotics) Allergy (Verified 08/03/20 04:58) Hives fentanyl Adverse Reaction (Verified 08/03/20 04:59) Other Medications to take at Discharge Albuterol Aerosols [Ventolin Aerosols] 2.5 mg INHALATION Q2H PRN PRN #1000 vial.neb. 11/06/13 Amlodipine [Norvasc] 5 mg PO DAILY 04/23/18 Albuterol Sulfate [Albuterol Sulfate HFA] 1 - 2 puff INHALATION Q4H PRN 09/09/19 Ipratropium/Albuterol Sulfate [Duoneb] 1 amp INHALATION TID 09/09/19 Guaifenesin [Mucinex] 1,200 mg PO BID #14 tab 09/11/19 fluticasone fur. 100 mcg-umeclid 62.5 mcg-vilant 25 mcg inhalat.powder 1 inh INHALATION QDAY #60 ea 11/21/19 Acetaminophen [Tylenol] 1,000 mg PO Q6H PRN PRN tablet 08/24/20 Amlodipine [Norvasc] 5 mg PO DAILY tablet 08/24/20 Cholecalciferol (VIT D3) [Vitamin D3] 125 mcg PO DAILY #30 tablet 08/24/20 Fluticasone 0.05% [Flonase Nasal [place]] 1 spray NASAL BID PRN #1 bottle 08/24/20 Folic Acid 1 mg PO DAILY@0800 #30 tablet 08/24/20 Melatonin 6 mg PO QHS #60 tablet 08/24/20 Menthol/Lanolin/Calamine/Znox [Calmoseptine Ointment] 1 applic TOPICAL BID tube 08/24/20 Oxycodone [Oxyir] 5 mg PO Q4H PRN PRN 7 Days #42 tablet 08/24/20 Polyethylene Glycol 3350 [Miralax] 17 gm PO DAILY #30 packet 08/24/20 Senna/Docusate Sodium [Senokot-S] 1 tablet PO BID #60 tablet 08/24/20 Sodium Chloride 0.65% [[place] Nasal [place]] 2 spray NASAL TID PRN PRN spray.btl 08/24/20 Thiamine Hydrochloride [Vitamin B1] 100 mg PO DAILYCM #30 tablet 08/24/20 The following prescriptions were given: Fluticasone 0.05% [Flonase Nasal [place]] 1 spray NASAL BID PRN #1 bottle PRN Reason: CONGESTION Transmission Status: Pending to [employer] #30 Folic Acid 1 mg PO DAILY@0800 #30 tablet Transmission Status: Pending to [employer] #30 Melatonin 6 mg PO QHS #60 tablet Transmission Status: Pending to [employer] #30 Polyethylene Glycol 3350 [Miralax] 17 gm PO DAILY #30 packet Transmission Status: Pending to [employer] #30 Oxycodone [Oxyir] 5 mg PO Q4H PRN PRN 7 Days #42 tablet PRN Reason: Pain Score 4-10 Transmission Status: Sent to [employer] #30 Senna/Docusate Sodium [Senokot-S] 1 tablet PO BID #60 tablet Transmission Status: Pending to [employer] #30 Thiamine Hydrochloride [Vitamin B1] 100 mg PO DAILYCM #30 tablet Transmission Status: Pending to [employer] #30 Cholecalciferol (VIT D3) [Vitamin D3] 125 mcg PO DAILY #30 tablet Transmission Status: Pending to [employer] #30 Primary Care Physician: Elijah Rodriguez MD [Primary Care Provider] - Please follow up with your Primary Care Physician in: 1 week. Test Results: Test results from this visit will be discussed in further detail at your follow-up appointment, if applicable. Please Follow Up With: Dr Kevin Gallegos When: 2 weeks left message on 08-05 to schedule Please Follow Up With: Silvia Holder Please Follow Up With: Dr. Elijah Rodriguez (PCP) When: 2 weeks after discharge Please Follow Up With: Dr. Sumit Kruse (plastic surgeon) When: 2 weeks Proposed Discharge Date: 08/26/20
--- NOTE | 2020-08-24 07:50 | DS.PCM_ITS ---
Discharge Date and Diagnosis - Problem List Patient Problems: Active and Suspected Problems (Last Reviewed 02/06/20 @ 10:34 by Shannon Cottrell) Debility (Acute) Dysphagia (Acute) Fall (Acute) Nasal laceration (Acute) Laceration of left eyebrow (Acute) Closed C2 fracture (Acute) Nondisplaced fracture of right scaphoid bone (Acute) Tongue laceration (Acute) Date of Admission: 08/02/20 Date of Discharge: 08/26/20 - Primary Discharge Diagnosis Acute Problems: Active Problems (Last Reviewed 02/06/20 @ 10:34 by Shannon Cottrell) Debility (Acute) Dysphagia (Acute) Fall (Acute) Nasal laceration (Acute) Laceration of left eyebrow (Acute) Closed C2 fracture (Acute) Nondisplaced fracture of right scaphoid bone (Acute) Tongue laceration (Acute) - Secondary Discharge Diagnosis Chronic Problems: Chronic Problems (Last Reviewed 02/06/20 @ 10:34 by Shannon Cottrell) Alcohol dependence (Chronic) Asthma-COPD overlap syndrome (Chronic) Hypertension (Chronic) SVT (supraventricular tachycardia) (Chronic) Thrombocytopenia (Chronic) Asthma (Chronic) Hospital Course and Treatment Imaging Results: 08/03/20 01:39 Diet: Regular - General Food consistency:: Soft & Bite Sized Liquid Consistency:: Regular/Thin Is pt able to select menu?: Yes Diet Comments: DISTANT SUPERVISION Labs (Last 48 Hours) 08/24/20 08/24/20 06:35 06:35 WBC 3.9 L RBC 3.37 L Hgb 11.2 L Hct 35.4 L MCV 105.0 H MCH 33.2 H MCHC 31.6 L RDW Std Deviation 46.6 H RDW Coeff of Mya 12.1 Plt Count 176 MPV 10.4 Immature Gran % (Auto) 0.000 Neut % (Auto) 38.8 L Lymph % (Auto) 29.3 [place] % (Auto) 8.3 Eos % (Auto) 23.1 H Baso % (Auto) 0.5 Absolute Neuts (auto) 1.5 L Absolute Lymphs (auto) 1.13 Nucleated RBC % 0 Sodium 135 L Potassium 3.8 Chloride 101 Carbon Dioxide 31.0 Anion Gap 3 L BUN 9 Creatinine 0.69 L Estim Creat Clear Calc 60.95 Est GFR (MDRD) Af Amer 144 Est GFR (MDRD) Non-Af 119 BUN/Creatinine Ratio 13.1 Glucose 103 Calcium 9.5 Operations: None Procedures: None Summary of Care Provided: The patient is a 75 year old Male with below past medical history significant for alcoholism, hospitalized for acute C2 fracture requiring surgical fixation, complicated by nasal fracture, tongue laceration, right scaphoid fracture, admitted to TCU with debility, here for rehabilitation, strengthening, prior to discharge home alone. Consider formal treatment of alcoholism. Discharge home alone, [facility] PT/OT/ST/SN/NUR, Front wheeled walker. Patient Problems: Active and Suspected Problems (Last Reviewed 02/06/20 @ 10:34 by Shannon Cottrell) Debility (Acute) Dysphagia (Acute) Fall (Acute) Nasal laceration (Acute) Laceration of left eyebrow (Acute) Closed C2 fracture (Acute) Nondisplaced fracture of right scaphoid bone (Acute) Tongue laceration (Acute) - Physical Exam Vitals/I&O's: Vital Signs Temp Pulse Resp BP Pulse Ox 98.0 F 80 16 116/61 94 08/24/20 05:25 08/24/20 05:25 08/24/20 05:25 08/24/20 05:25 08/24/20 05:25 Oxygen Delivery Method Room Air Weight: 69.655 kg Body Mass Index (BMI) 20.9 Intake and Output for Last 24 Hours 08/22/20 08/23/20 08/24/20 23:59 23:59 23:59 Intake Total 480 / 480 480 / 480 Output Total 500 / 500 Balance - 480 / 480 Laboratory Results 08/24/20 06:35: WBC 3.9 L, RBC 3.37 L, Hgb 11.2 L, Hct 35.4 L, MCV 105.0 H, MCH 33.2 H, MCHC 31.6 L, RDW Std Deviation 46.6 H, RDW Coeff of Mya 12.1, Plt Count 176, MPV 10.4, Immature Gran % (Auto) 0.000, Neut % (Auto) 38.8 L, Lymph % (Auto) 29.3, Darke % (Auto) 8.3, Eos % (Auto) 23.1 H, Baso % (Auto) 0.5, Absolute Neuts (auto) 1.5 L, Absolute Lymphs (auto) 1.13, Nucleated RBC % 0 08/24/20 06:35: Sodium 135 L, Potassium 3.8, Chloride 101, Carbon Dioxide 31.0, Anion Gap 3 L, BUN 9, Creatinine 0.69 L, Estim Creat Clear Calc 60.95, Est GFR (MDRD) Af Amer 144, Est GFR (MDRD) Non-Af 119, BUN/Creatinine Ratio 13.1, Glucose 103, Calcium 9.5 Current Medications Acetaminophen (Acetaminophen 500 Mg Tablet) 1,000 mg PO Q6H PRN PRN PRN Reason: Pain Score 1-3 Last Admin: 08/24/20 06:11 Dose: 1,000 mg Documented by: Amlodipine Besylate (Amlodipine 5 Mg Tablet) 5 mg PO DAILY [facility] Last Admin: 08/24/20 06:13 Dose: 5 mg Documented by: Bisacodyl (Bisacodyl 5 Mg Tablet) 10 mg PO DAILY PRN PRN Reason: Constipation Last Admin: 08/16/20 16:50 Dose: 10 mg Documented by: Calamine/Phenol (Menthol/Lanolin/Calamine/Znox 113 Gm Tube) 1 applic TOPICAL BID [facility]; Protocol Last Admin: 08/24/20 06:12 Dose: 1 applic Documented by: Cephalexin (Cephalexin 500 Mg Capsule) 500 mg PO Q6 [facility] Stop: 08/24/20 18:01 Last Admin: 08/24/20 06:13 Dose: 500 mg Documented by: Cholecalciferol (Cholecalciferol (Vit D3) 25 Mcg Tablet (1,000 Units)) 125 mcg PO DAILY [facility] Last Admin: 08/24/20 06:13 Dose: 125 mcg Documented by: Enoxaparin Sodium (Enoxaparin 40 Mg/0.4 Ml Syringe) 40 mg SC DAILY@0600 [facility] Last Admin: 08/24/20 06:13 Dose: 40 mg Documented by: Fluticasone Propionate (Fluticasone 0.05% 1 [place] Nasal.Sry) 1 spray NASAL BID PRN PRN Reason: CONGESTION Last Admin: 08/24/20 06:14 Dose: 1 spray Documented by: Folic Acid (Folic Acid 1 Mg Tablet) 1 mg PO DAILY@0800 [facility] Last Admin: 08/23/20 09:05 Dose: 1 mg Documented by: Magnesium Hydroxide (Magnesium Hydroxide 30 Ml Udc) 30 ml PO DAILY PRN PRN Reason: Constipation Last Admin: 08/20/20 19:58 Dose: 30 ml Documented by: Melatonin (Melatonin 3 Mg Tablet) 6 mg PO QHS [facility] Last Admin: 08/23/20 21:52 Dose: 6 mg Documented by: Nutritional Formula (Lactose Free) (Ensure Enlive 120 Ml Liquid) 120 ml PO TID [facility] Last Admin: 08/24/20 06:12 Dose: 120 ml Documented by: Oxycodone HCl (Oxycodone 5 Mg Tablet) 5 mg PO Q4H PRN PRN PRN Reason: Pain Score 4-10 Last Admin: 08/24/20 06:11 Dose: 5 mg Documented by: Polyethylene Glycol (Polyethylene Glycol 3350 17 Gm Packet) 17 gm PO DAILY [facility] Last Admin: 08/24/20 06:12 Dose: Not Given Documented by: Senna/Docusate Sodium (Senna/Docusate Sodium 1 Tablet) 1 tablet PO BID [facility] Last Admin: 08/24/20 06:13 Dose: 1 tablet Documented by: Sodium Chloride (Sodium Chloride 0.65% 1 [place].Btl) 2 spray NASAL TID PRN PRN PRN Reason: NASAL DRYNESS Last Admin: 08/24/20 06:14 Dose: 2 spray Documented by: Thiamine HCl ([facility] Hydrochloride 100 Mg Tablet) [facility] Admin: 08/23/20 09:05 Dose: 100 mg Documented by: Discharge Diet: Soft diet Discharge Activity: Return to Normal Activity, May Shower, Use Walker Weight Bearing Status: Weight bearing as tolerated Call your doctor if you observe: Fever of 101 or Higher, Inability to urinate, Inability to have a bowel movement, Shortness of breath, Chest pain, Uncontrolled pain Home Medications: Medications to take at Discharge Albuterol Aerosols [Ventolin Aerosols] 2.5 mg INHALATION Q2H PRN PRN #1000 vial.neb. 11/06/13 Amlodipine [Norvasc] 5 mg PO DAILY 04/23/18 Albuterol Sulfate [Albuterol Sulfate HFA] 1 - 2 puff INHALATION Q4H PRN 09/09/19 Ipratropium/Albuterol Sulfate [Duoneb] 1 amp INHALATION TID 09/09/19 Guaifenesin [Mucinex] 1,200 mg PO BID #14 tab 09/11/19 fluticasone fur. 100 mcg-umeclid 62.5 mcg-vilant 25 mcg inhalat.powder 1 inh INHALATION QDAY #60 ea 11/21/19 Acetaminophen [Tylenol] 1,000 mg PO Q6H PRN PRN tablet 08/24/20 Amlodipine [Norvasc] 5 mg PO DAILY tablet 08/24/20 Cholecalciferol (VIT D3) [Vitamin D3] 125 mcg PO DAILY #30 tablet 08/24/20 Fluticasone 0.05% [Flonase Nasal [place]] 1 spray NASAL BID PRN #1 bottle 08/24/20 Folic Acid 1 mg PO DAILY@0800 #30 tablet 08/24/20 Melatonin 6 mg PO QHS #60 tablet 08/24/20 Menthol/Lanolin/Calamine/Znox [Calmoseptine Ointment] 1 applic TOPICAL BID tube 08/24/20 Oxycodone [Oxyir] 5 mg PO Q4H PRN PRN 7 Days #42 tablet 08/24/20 Polyethylene Glycol 3350 [Miralax] 17 gm PO DAILY #30 packet 08/24/20 Senna/Docusate Sodium [Senokot-S] 1 tablet PO BID #60 tablet 08/24/20 Sodium Chloride 0.65% [[place] Nasal [place]] 2 spray NASAL TID PRN PRN spray.btl 08/24/20 Thiamine Hydrochloride [Vitamin B1] 100 mg PO DAILYCM #30 tablet 08/24/20 Following Prescriptions Were Given to Patient: Fluticasone 0.05% [Flonase Nasal [place]] 1 spray NASAL BID PRN #1 bottle PRN Reason: CONGESTION Transmission Status: Pending to [employer] #30 Folic Acid 1 mg PO DAILY@0800 #30 tablet Transmission Status: Pending to [facility] #30 Melatonin 6 mg PO QHS #60 tablet Transmission Status: Pending to [facility] #30 Polyethylene Glycol 3350 [Miralax] 17 gm PO DAILY #30 packet Transmission Status: Pending to [facility] #30 Oxycodone [Oxyir] 5 mg PO Q4H PRN PRN 7 Days #42 tablet PRN Reason: Pain Score 4-10 Transmission Status: Sent to [facility] #30 Senna/Docusate Sodium [Senokot-S] 1 tablet PO BID #60 tablet Transmission Status: Pending to [employer] #30 Thiamine Hydrochloride [Vitamin B1] 100 mg PO DAILYCM #30 tablet Transmission Status: Pending to [facility] #30 Cholecalciferol (VIT D3) [Vitamin D3] 125 mcg PO DAILY #30 tablet Transmission Status: Pending to [facility] #30 Primary Care Physician: Elijah Rodriguez MD [Primary Care Provider] - Please follow up with your Primary Care Physician in: 1 week. Please Follow Up With: Dr Kevin Gallegos When: 2 weeks left message on 08-05 to schedule Please Follow Up With: Silvia Holder Please Follow Up With: Dr. Elijah Rodriguez (PCP) When: 2 weeks after discharge Please Follow Up With: Dr. Sumit Kruse (plastic surgeon) When: 2 weeks Disposition: Home with Home Health Minutes spent on discharge:: 35 Patient Condition:: Stable Medical Necessity - Tobacco Use Smoking Status: Never smoker Tobacco Use: Non-smoker Meaningful Use Info Meaningful Use Diagnoses (Choose all that apply): None applicable
[2020-08-24] MEDS: Folic Acid 1 MG Tablet PO (09:09)
[2020-08-24] MEDS: Thiamine Hydrochloride 100 MG Tablet PO (09:09)
[2020-08-24 14:20] VITALS: BP 109/55; PULSE 77; RESP 16; TEMP 36.6; O2SAT 94
[2020-08-24] MEDS: MELATONIN 3 MG TABLET 6 MG PO (21:10)
[2020-08-25] MEDS: oxyCODONE 5 MG Tablet PO ×5 (01:16→20:39)
[2020-08-25] MEDS: Acetaminophen 500 MG Tablet 1000 MG PO ×3 (01:16→16:10)
[2020-08-25 05:22] VITALS: BP 108/56; PULSE 78; RESP 18; TEMP 36.8; O2SAT 93
[2020-08-25] MEDS: Enoxaparin 40 MG/0.4 ML Syringe SC (05:24)
[2020-08-25] MEDS: amLODIPine 5 MG Tablet PO (05:24)
[2020-08-25] MEDS: Cholecalciferol (VIT D3) 25 MCG TABLET (1,000 UNITS) 125 MCG PO (05:24)
[2020-08-25] MEDS: Menthol/Lanolin/Calamine/Znox 113 GM Tube 1 APPLIC TOPICAL ×2 (05:24→16:12)
[2020-08-25] MEDS: Senna/Docusate Sodium 1 Tablet PO (05:24)
[2020-08-25] MEDS: Folic Acid 1 MG Tablet PO (08:42)
[2020-08-25] MEDS: Thiamine Hydrochloride 100 MG Tablet PO (08:42)
[2020-08-25 11:29] VITALS: PULSE 86; RESP 16; O2SAT 95
--- NOTE | 2020-08-25 12:06 | NURSING ---
Patient states he does not feel good at all. Multiple loose stools this morning.
[2020-08-25 15:37] VITALS: BP 95/49; PULSE 86; RESP 16; TEMP 36.6; O2SAT 95
[2020-08-25] MEDS: Sodium Chloride 0.65% 1 SPRAY SPRAY.BTL 2 SPRAY NASAL (18:16)
[2020-08-25] MEDS: Fluticasone 0.05% 1 SPRAY NASAL.SRY NASAL ×2 (18:16→20:40)
[2020-08-25] MEDS: MELATONIN 3 MG TABLET 6 MG PO (20:40)
--- NOTE | 2020-08-26 00:16 | PCA ---
This SENIOR PRODUCTION MANAGER asked pt if he wanted to wash up, change gown or brush teeth, pt stated he did not want to as he was leaving the next day and would wash in the morning. em
[2020-08-26] MEDS: oxyCODONE 5 MG Tablet PO ×2 (02:15→08:55)
[2020-08-26] MEDS: Acetaminophen 500 MG Tablet 1000 MG PO (02:15)
[2020-08-26 04:59] VITALS: BP 118/59; PULSE 79; RESP 16; TEMP 36.8; O2SAT 93
[2020-08-26] MEDS: Cholecalciferol (VIT D3) 25 MCG TABLET (1,000 UNITS) 125 MCG PO (05:01)
[2020-08-26] MEDS: amLODIPine 5 MG Tablet PO (05:01)
[2020-08-26] MEDS: Senna/Docusate Sodium 1 Tablet PO (05:02)
[2020-08-26] MEDS: Enoxaparin 40 MG/0.4 ML Syringe SC (05:02)
[2020-08-26] MEDS: Fluticasone 0.05% 1 SPRAY NASAL.SRY NASAL (05:03)
[2020-08-26] MEDS: Menthol/Lanolin/Calamine/Znox 113 GM Tube 1 APPLIC TOPICAL (05:08)
[2020-08-26] MEDS: Thiamine Hydrochloride 100 MG Tablet PO (08:55)
[2020-08-26] MEDS: Folic Acid 1 MG Tablet PO (08:55)
[2020-08-26 09:17] VITALS: PULSE 91; RESP 18; O2SAT 91
== END 2020-08-26 10:30 | disposition home health service (06) | DRG 560 ==
LOC: TCU 20:10
PROVIDERS: Admitting Provider Family Medicine Geriatric Medicine; PCP Family Medicine; Visit Provider Family Medicine Geriatric Medicine
DX: S12.100D Unspecified displaced fracture of second cervical vertebra, subsequent encounter for fracture with routine healing (principal); I47.1 Supraventricular tachycardia; S62.001D Unspecified fracture of navicular [scaphoid] bone of right wrist, subsequent encounter for fracture with routine healing; S01.512D Laceration without foreign body of oral cavity, subsequent encounter; S01.112D Laceration without foreign body of left eyelid and periocular area, subsequent encounter; I10 Essential (primary) hypertension; F10.20 Alcohol dependence, uncomplicated; R13.10 Dysphagia, unspecified; W10.9XXD Fall (on) (from) unspecified stairs and steps, subsequent encounter; J44.9 Chronic obstructive pulmonary disease, unspecified; D69.6 Thrombocytopenia, unspecified; E55.9 Vitamin D deficiency, unspecified
CPT/HCPCS: 36415; 74230; 80048; 85025; 87635; 92507; 92523; 92526; 92610; 92611; 97110; 97116; 97162; 97166; 97530; 97535; 97802; U0002

== ENCOUNTER → 2020-09-18 13:02 | Outpatient (CLI) | payer MEDICARE, SELFPAY ==
[2020-08-02 20:27] VITALS: BMI 20.9
--- NOTE | 2020-09-18 13:05 | CT_ITS ---
STUDY: CT ABDOMEN WITH AND WITHOUT CONTRAST REASON FOR EXAM: Male, 75 years old. MASS PANCREAS RADIATION DOSAGE (If Supplied By Facility): CTDIvol = ( 14.73 ) mGy, DLP = ( 964.97 ) mGycm TECHNIQUE: Transaxial images were obtained pre and post I.V. administration of IV 100mL Isovue-370, and without oral contrast. Sagittal and coronal images were reconstructed. Individualized dose optimization techniques were used for this CT. COMPARISON: Comparison is made with prior CT scan abdomen dated 09/12/2019. FINDINGS: Focal area of air bronchograms in the posterior medial segment of the right lower lobe suggestive of scarring. This is unchanged. Coronary artery calcification. There is decreased attenuation of the liver consistent with steatosis. Once again, surgical clips are seen in the posterior aspect of the right lobe of liver in keeping with patient''s history of prior trauma and probable liver resection. Normal gallbladder and extrahepatic biliary system. There are multiple benign calcified granulomata of the spleen. There is diffuse atrophy of the pancreas. Normal bilateral adrenal glands. Stable 1 cm cyst in the lower pole of the right kidney. Normal left kidney. Normal visualized stomach. Normal small intestine. There is diverticulosis, with thickening of the colon wall, and pericolonic inflammation changes consistent with acute diverticulitis. The appendix is visualized and appears normal. There is diffuse atherosclerotic calcification of the abdominal aorta and its major visceral branches. Minimal dilatation of the distal portion of the abdominal aorta with a transverse dimension of 2.3 cm. Mild degree of mural thickening is seen., without a demonstrated aneurysm. Normal inferior vena cava. Normal retroperitoneum. Normal abdominal wall. There are degenerative changes of the visualized lumbar spine. CT/Abdomen W/WO IV Contrast IMPRESSION: Stable airspace disease and bronchiectasis in the posterior medial segment of the right lower lobe. Coronary artery calcification. Surgical clips are once again seen in the posterior aspect of the right lobe of the liver. There is atrophy of the pancreas. Electronically Signed: Babar Tomas MD at 13:55 EDT , Service support ,
== END ==
LOC: CT 13:03
PROVIDERS: PCP Family Medicine; Referring Provider Family Medicine; Visit Provider Family Medicine
DX: K86.89 Other specified diseases of pancreas (principal)
CPT/HCPCS: 74170; Q9967

== ENCOUNTER → 2020-11-19 08:34 | Outpatient (CLI) | payer MEDICARE, SELFPAY ==
[2020-08-02 20:27] VITALS: BMI 20.9
[2020-11-19 10:22] LABS: Absolute Lymphocyte Count 1.48 X10^3/uL (0.83-4.51); Absolute Neutrophil Count 1.6 X10^3/uL (2.0-7.7); Basophil# 0.04 X10^3/uL; Eosinophil# 0.62 X10^3/uL; Eosinophils% 15.3 % (0-5); Hematocrit 40.6 % (40-54); Hemoglobin 12.9 g/dL (13.0-16.5); Lymphocyte # 1.48 X10^3/ul (0.83-4.51); Lymphocyte % 36.5 % (19-41); Mean Corp Hgb Conc 31.8 g/dL (32-36); Mean Corpuscular Hgb 31.1 pg (27.0-32.0); Mean Corpuscular Volume 97.8 fL (80-94); Mean Platelet Vol. 10.1 fl (6.2-12.0); Monocyte# 0.32 X10^3/uL; Monocyte% 7.9 % (0-10); NRBC Flagged by Analyzer 0 % (0-5); Neutrophil # 1.58 X10^3/uL (2.7-7.7); Neutrophil % 39.1 % (47-70); Platelet Count 207 K/mm3 (150-450); RBC Distribution Width CV 15.3 % (11.6-14.6); RBC Distribution Width SD 55.3 fl (35.1-43.9); Red Blood Count 4.15 M/mm3 (4.6-6.2); White Blood Count 4.1 K/mm3 (4.4-11.0)
[2020-11-19 10:57] LABS: AST(SGOT) 20 U/L (15-37); Alanine Aminotransfer ALT/SGPT 19 U/L (16-61); Albumin, Serum 3.7 g/dL (3.2-5.0); Alkaline Phosphatase 85 U/L (45-117); Anion Gap 5 (5-15); BUN 10 mg/dL (7-18); BUN/Creat Ratio 12.3 RATIO (10-20); Calcium,Total 9.1 mg/dL (8.5-10.1); Chloride 106 mmol/L (98-107); Cholesterol 176 mg/dL (200); Creatinine, Serum 0.81 mg/dL (0.70-1.30); EST Glomerular Filtration Rate 98 mL/min (>60); Est Glom Filt Rate - Afr Amer 118 mL/min (>60); Globulin 3.8 g/dL (2.2-4.2); Glucose 95 mg/dL (74-106); High Density Lipoprotein 66 mg/dL; PSA,Total - Annual Screen 1.84 ng/mL (0.00-4.00); Potassium 3.6 mmol/L (3.5-5.1); Protein, Total 7.5 g/dL (6.4-8.2); Sodium Level 138 mmol/L (136-145); Triglycerides 116 mg/dL; Very Low Density Lipoprotein 23 mg/dL (5-40)
== END ==
PROVIDERS: PCP Family Medicine; Referring Provider Family Medicine; Visit Provider Family Medicine
DX: Z00.00 Encounter for general adult medical examination without abnormal findings (principal); I10 Essential (primary) hypertension; J44.9 Chronic obstructive pulmonary disease, unspecified; Z12.5 Encounter for screening for malignant neoplasm of prostate
CPT/HCPCS: 36415; 80053; 80061; 84153; 85025; G0103

== ENCOUNTER 2020-12-09 11:00 | Outpatient (RCR) | payer MEDICARE, SELFPAY ==
[2020-08-02 20:27] VITALS: BMI 20.9
--- NOTE | 2020-10-31 11:08 | HP.PTEVAL ---
Patient's Visit Information BHASKAR VASQUEZ is a 75 year old M referred to Physical Therapy by OLIVA RATLIFF with a diagnosis of CLOSED ODONTOID FRACTURE TYPE II ,POSTERIOR DISPLACEMENT, C2 FX,C1-2 FUSION. Date of Evaluation: 10/31/20 Physical Therapist: Sudeep Johnston, PT, Cert MDT, OCS - Visit Plan Frequency: 2x /Week Duration: 4 Weeks Plan: PT INTERVENTIONS GENTLE CERVICAL ROM,ISOMTRICS,POSTURAL EX'S AND STRENGTHENING - Subjective This 75 y/o male presents to physical therapy with s/p cervical fusion C1-2 due to closed odontoid fracture . Patient fell down the steps at restraunt ,went to ER at [facility] had CATSCAN showed fracture C1-2 transferred to [facility] where patient underwent s/p C1-2 instrumented fusion with allograft 07/28/20. Patient was 3 weeks then transferred to [facility] TCU for about 4 weeks then to d/c home then had HHC . Patient recently seen x-rays and CATSCAN looked good. Recommended PT. Patient stopped pain medication. Patient had ASPEN for cervical then removed ~ 2 weeks ago. Also ,patient fracture right wrist . Patient had cast on for ~ 6 weeks. Denies NUR/dizziness/nausea/tinnutus.Patient sleeping okay. Patient RTW 3 months. Patient condition affects QOL and function. SOCIAL: single. VOCATION: retired - Pain Bilateral Neck Pain Intensity (Out of 10): 4 Pain Intensity Range: 10 - Objective POSTURE: mild forward posture head forward. NEURO: denies parathesia/tingling, reflexes C5-6-7 1/3. BUE AROM: WFL. ONLINE CONTENT COORDINATOR STRENGTH: RIGHT 30 #,LEFT 40 # -dynometer. CERVICAL ROM: flexion mod/severe loss, lateral flexion severe loss, rotation mod/severe loss, extension severe loss. MMT: grossly 4-/5 BUE - Special Tests C/S Radiculapathy - Left Upper limb tension test: Negative C/S Radiculapathy - Right Upper limb tension test: Negative Sharp Shelbi: Negative Vertebral Artery Test: Negative - Goals Goal 1:: I with HEP Goal Time Frame: 4-6 Weeks Goal 2:: Improve posture for ADLS' Goal Time Frame: 4-6 Weeks Goal 3:: Patient to decrease cervical pain by 50% or> to improve function Goal Time Frame: 4-6 Weeks Goal 4:: Patient to improve cervical ROM for function of recovery Goal Time Frame: 4-6 Weeks Goal 5:: Patient to improve owestry score by 5 points or > to improve function. 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 Goal Time Frame: 4-6 Weeks - Rehabilitation Potential Physical Therapy Diagnosis: This patient underwent s/p cervical fusion C1-2 instrumented fusion with allograft with weakness ,decrease cervical ROM ,and decrease function and ADLS' thus benefit from skilled PT Rehabilitation Potential: Good - Anticipated Interventions Patient/Client Instruction: Educate patient on: Condition, Plan of Care For the Purpose of:: To decrease pain, To increase ROM, To improve muscle performance and motor function, To improve ability to perform ADL's, To improve performance and independence with ADL's, To improve ability of physical actions for home/community/work/leisure, To improve health of tissue, To decrease soft tissue restriction, To increase flexibility/ROM, To reduce risk of recurrence, To improve ability to perform tasks related to life management Therapeutic Exercise to Include: Strength training, Postural training, Flexibilty training, Active ROM Comment: LALO CHEEK For the Purpose of:: To decrease pain, To increase ROM, To improve nutrient delivery to tissue, To increase oxygenation perfusion, To improve muscle performance and motor function, To improve ability to perform ADL's, To increase tolerance to activity/condition/position, To improve performance and independence with ADL's, To improve ability of physical actions for home/community/work/leisure, To improve health of tissue, To decrease soft tissue restriction, To increase flexibility/ROM, To assume or resume ADL's, To prevent re-injury, To improve tolerance to ADL's TENS: Yes IF ES: Yes Cryotherapy (ice pack, ice massage): Yes Thermo therapy (hot pack): Yes For the Purpose of:: To decrease pain, To improve nutrient delivery to tissue, To increase oxygenation perfusion, To improve health of tissue, To decrease soft tissue restriction Thank you for the opportunity to evaluate your patient. For Medicare and Medicare HMO plans, please review the plan of care and approve it. It will need to be FAXED BACK to us at [phone] for Medicare purposes. For Medicare only, by signing this I certify the plan of care. Please let me know if there are questions or concerns regarding this plan of care. Physician Signature: Date:
--- NOTE | 2021-02-12 09:59 | HP.PT.NRP ---
BHASKAR VASQUEZ was seen in my office for initial evaluation on 10/31/20. The following Plan of Care was established for this patient: Initial Frequency: 2x /Week Initial Duration: 4 Weeks Patient/Client Instruction: Educate patient on: Condition, Plan of Care For the Purpose of:: To decrease pain, To increase ROM, To improve muscle performance and motor function, To improve ability to perform ADL's, To improve performance and independence with ADL's, To improve ability of physical actions for home/community/work/leisure, To improve health of tissue, To decrease soft tissue restriction, To increase flexibility/ROM, To reduce risk of recurrence, To improve ability to perform tasks related to life management Therapeutic Exercise to Include: Strength training, Postural training, Flexibilty training, Active ROM For the Purpose of:: To decrease pain, To increase ROM, To improve nutrient delivery to tissue, To increase oxygenation perfusion, To improve muscle performance and motor function, To improve ability to perform ADL's, To increase tolerance to activity/condition/position, To improve performance and independence with ADL's, To improve ability of physical actions for home/community/work/leisure, To improve health of tissue, To decrease soft tissue restriction, To increase flexibility/ROM, To assume or resume ADL's, To prevent re-injury, To improve tolerance to ADL's TENS: Yes IF ES: Yes Cryotherapy (ice pack, ice massage): Yes Thermo therapy (hot pack): Yes For the Purpose of:: To decrease pain, To improve nutrient delivery to tissue, To increase oxygenation perfusion, To improve health of tissue, To decrease soft tissue restriction This patient was last seen in our office . Pertinent comments regarding their Physical therapy will appear below: Patient was seen for PT for cervical fracture with PT interventions with cervical ROM ,strengthening and postural ex's At this point I will be discontinuing this patient from physical therapy. I would be happy to see this patient again in the future if found appropriate by the physician. Thank you! Sudeep Johnston, PT, Cert MDT, OCS Balance/Gait/Functional tests - Balance/Special Test Scores Oswestry Neck Score: 6
== END 2020-12-09 19:00 | disposition home or self-care (01) ==
LOC: PT 11:00
PROVIDERS: PCP Family Medicine
DX: S12.111D Posterior displaced Type II dens fracture, subsequent encounter for fracture with routine healing (principal); X58.XXXD Exposure to other specified factors, subsequent encounter; Z98.890 Other specified postprocedural states; Z98.1 Arthrodesis status
CPT/HCPCS: 97110; 97162

== ENCOUNTER → 2022-04-21 | Outpatient (CLI) | payer MEDICARE, SELFPAY ==
--- NOTE | 2022-04-23 07:53 | PFT ---
INTRODUCTION: The patient is a 77-year-old male that presents for pulmonary function studies secondary to a diagnosis of COPD. Respiratory therapy reported good patient effort. Bronchodilators were used during testing. INTERPRETATION: Forced expiration spirometry demonstrates the presence of a moderately severe large airways obstructive ventilatory defect. There was a significant response to aerosolized bronchodilators. Spirograms are of good quality but do not plateau indicating slow emptying of the lungs. Body plethysmography was performed and revealed a decreased TLC to 3.96 L, 60% of predicted, indicative of a moderate restrictive ventilatory impairment. The remainder of the lung volumes are symmetrically reduced. Diffusing capacity by single breath CO was preserved at 71% of predicted. IMPRESSION: Partially reversible moderately severe mixed ventilatory defect with relatively preserved diffusing capacity.
== END | disposition home or self-care (01) ==
LOC: PSN 07:47
PROVIDERS: PCP Family Medicine; Referring Provider Nurse Practitioner Acute Care; Visit Provider Nurse Practitioner Acute Care
DX: J44.9 Chronic obstructive pulmonary disease, unspecified (principal)
CPT/HCPCS: 94060; 94726; 94729

== ENCOUNTER → 2022-04-23 | Outpatient (CLI) | payer MEDICARE, SELFPAY ==
[2022-04-23 11:12] VITALS: PULSE 100; PULSE 101; PULSE 103; PULSE 106; PULSE 109; PULSE 118; PULSE 90; O2SAT 91; O2SAT 92; O2SAT 94; O2SAT 96
--- NOTE | 2022-04-23 13:00 | WT_ITS ---
PSN 6 Minute Walk Test 6 Minute Walk Test 6 Minute Walk Test: 6 Minute Walk Test PSN:6-Minute Walk Test Start: 04/23/22 11:12 Freq: Status: Active Protocol: [id number] Document 04/23/22 11:12 [facility] (Rec: 04/23/22 11:15 [facility] [id number]) 6 Minute Walk Test Date Performed 04/23/22 Time Performed 11:12 Height 5 ft 11 in Weight: 152 lb Weight in Pounds 152.[address]: LEXIS Assistive device used: None Pre-test Oxygen Delivery Method Room Air Pulse Ox (%) 96 Pulse Rate (60-100 beats/min) 100 Dyspnea Toribio Scale (0-10) 0.5 Exertion Toribio Scale (6-20) 6 1st minute Oxygen Delivery Method Room Air Pulse Ox (%) 92 Pulse Rate (60-100 beats/min) 101 H 2nd minute Oxygen Delivery Method Room Air Pulse Ox (%) 91 Pulse Rate (60-100 beats/min) 103 H 3rd minute Oxygen Delivery Method Room Air Pulse Ox (%) 92 Pulse Rate (60-100 beats/min) 109 H 4th minute Oxygen Delivery Method Room Air Pulse Ox (%) 91 Pulse Rate (60-100 beats/min) 106 H 5th minute Oxygen Delivery Method Room Air Pulse Ox (%) 94 Pulse Rate (60-100 beats/min) 118 H 6th minute Oxygen Delivery Method Room Air Pulse Rate (60-100 beats/min) 90 Dyspnea Toribio Scale (0-10) 95 Exertion Toribio Scale (6-20) 1 Number of Rests Taken 11 Post-test Oxygen Delivery Method Room Air Pulse Ox (%) 94 Pulse Rate (60-100 beats/min) 100 Full Laps Walked 16 Partial Lap, Number of Tiles Walked 9 Total Distance Walked (ft) 953 Interpretation Interpretation: The patient ambulated 953 feet over the course of 6 minutes beginning on room air without assistive devices. Pretesting oxygen saturation was noted to be 96% on room air. With ambulation, the aurora oxygen saturation was 90%. This represents a significant exertional oxygen desaturation. Recommendations Recommendations: There is no indication for the use of supplemental oxygen at this time. However, close interval follow-up is recommended, given the degree of oxygen desaturation noted during the study.
== END | disposition home or self-care (01) ==
PROVIDERS: PCP Family Medicine; Referring Provider Nurse Practitioner Acute Care; Visit Provider Nurse Practitioner Acute Care
DX: J44.9 Chronic obstructive pulmonary disease, unspecified (principal)
CPT/HCPCS: 94618

== ENCOUNTER 2022-06-12 05:19 | Emergency (ER) | payer MEDICARE, SELFPAY ==
[2022-06-12 05:20] VITALS: BP 173/95; PULSE 100; RESP 18; TEMP 36.6; O2SAT 94; BMI 21.9
--- NOTE | 2022-06-12 05:33 | RAD_ITS ---
INDICATION: pain fell 06/09/22 c/o rt sided lbp EXAMINATION/TECHNIQUE: X-RAY - XR Spine Thoracic 3 Views COMPARISON: None. FINDINGS: Thoracic vertebral bodies are normal in height. L1 vertebral body compression fracture approximately 40% vertebral body height loss of uncertain age. No subluxation. Mild disc space narrowing and osteophytes throughout the mid thoracic levels. Aorta atherosclerotic. Surgical hardware in the cervical spine. RAD/Thoracic Spine 3 Views IMPRESSION: No evidence of fracture or subluxation in the thoracic spine. L1 compression fracture partially included. Lumbar spine x-rays reported separately. Electronically Signed: Vale Vick MD at 6:21 EST ,
--- NOTE | 2022-06-12 05:33 | RAD_ITS ---
INDICATION: pain fell 06/09/22 c/o rt sided lbp EXAMINATION/TECHNIQUE: X-RAY - XR Spine Lumbar 2 or 3 Views COMPARISON: CT abdomen 09/18/2020. FINDINGS: L1 vertebral body compression fracture with approximately 40% vertebral body height loss, of uncertain age. There is minimal compression of the L4 vertebral body with less than 25% vertebral body height loss, uncertain age. These fractures were not present on the prior CT abdomen from 09/18/2020. No subluxation. Disc space narrowing and osteophytes throughout most levels. No paravertebral soft tissue mass identified. Aortic calcifications. Surgical clips right upper abdomen cholecystectomy. RAD/Lumbar Spine 2 or 3 Views IMPRESSION: L1 moderate vertebral body compression fracture, and mild L4 compression fracture, uncertain age, but are new compared to the previous CT abdomen from 09/18/2020. Electronically Signed: Vale Vick MD at 6:15 EST ,
--- NOTE | 2022-06-12 05:34 | EDS_ITS ---
HPI History of Present Illness Chief Complaint: Fall Narrative Narrative: Patient is a 77-year-old male from home with past medical history of hypertension COPD respiratory failure supraventricular tachycardia and previous C2 fracture. He states that on Wednesday he was walking down his computer when he slipped and fell approximately 1 step landing on his right side and buttock. He denies striking his head or any loss of consciousness. He denies any history of bleeding disorder or blood thinner use. He states he laid on the ground for short time after the fall secondary to pain but was able to get up and ambulate. He states since that time he feels like the pain has persisted and slightly worsened although he states there is been no repeat trauma. He also denies any loss of bowel or bladder control or IV drug use. He denies any dysuria or hematuria. He states [id number] medications have not been helping with the pain and concern for underlying fracture he comes in for evaluation [facility] Medical History (Updated 06/12/22 @ 08:[address] Delon Titus, DO) Acute respiratory failure with hypoxia Asthma Hypertension Small bowel obstruction Status asthmaticus SVT (supraventricular tachycardia) Thrombocytopenia Home Medications albuterol sulfate 2.5 mg/3 mL (0.083 %) solution for nebulization 2.5 mg (3 mL) inhalation Q2H PRN PRN Wheezing ##1,000 11/06/13 [Rx Last Taken 09/12/19 08:00] amlodipine 5 mg tablet 5 mg PO DAILY Blood pressure 04/23/18 [History Last Taken 09/12/19 08:00] cholecalciferol (vitamin D3) 25 mcg (1,000 unit) tablet 125 mcg PO DAILY #30 tabs 08/24/20 [Rx Last Taken Unknown] melatonin 3 mg tablet 6 mg PO QHS #60 tabs 08/24/20 [Rx Last Taken Unknown] budesonide 1 mg/2 mL suspension for nebulization 1 mg (2 mL) inhalation BID #60 mL 02/19/22 [Rx Last Taken Unknown] ipratropium 0.5 mg-albuterol 3 mg (2.5 mg base)/3 mL nebulization soln 3 ml inhalation TID asthma #180 mL 02/19/22 [Rx Last Taken Unknown] albuterol sulfate 90 mcg/actuation aerosol inhaler 2 puff inhalation Q4H PRN shortness of breath or wheezing #8.5 grams 05/27/22 [Rx Last Taken Unknown] oxycodone-acetaminophen 5 mg-325 mg tablet (Percocet) 1 tab PO Q6H PRN pain 5 days #20 tabs 06/12/22 [Rx Last Taken Unknown] Allergy/AdvReac Type Severity Reaction Status Date / Time Sulfa (Sulfonamide Allergy Hives Verified 06/12/22 05:24 Antibiotics) fentanyl AdvReac Other Verified 06/12/22 05:24 Social History Smoking Status: Never smoker ROS ROS ED Constitutional Constitutional ED: Denies chills or fever(s) Eyes Eyes: Denies change in vision ENT ENT ED: Denies sore throat Cardiovascular Cardiovascular: Denies chest pain Respiratory/Chest Respiratory/Chest: Denies cough or dyspnea Gastrointestinal Gastrointestinal: Denies abdominal pain, diarrhea, nausea or vomiting Genitourinary Genitourinary ED: Denies dysuria or hematuria Musculoskeletal Musculoskeletal: Reports back pain Integumentary Denies Abrasions or rash Neurologic Neurologic: Denies headache(s) or paresthesias Hematologic/Lymphatic Hematologic/Lymphatic: Denies easy bleeding or easy bruising EXAM Physical Exam Const Vital Signs: 06/12/22 05:20 Temperature 97.9 F Temperature Source Temporal Pulse Rate 100 Respiratory Rate 18 Blood Pressure 173/95 H Blood Pressure Mean 121 Pulse Ox 94 Oxygen Delivery Method Room Air Positive well nourished and well developed General Appearance ED: well developed HEENT HEENT Narrative: Normocephalic atraumatic Eyes PERRL and EOMs intact bilaterally Neck supple Neck Narrative: No bony deformity or step-off of the cervical spine no midline pain on palpation Chest Wall palpation of chest normal Chest Narrative: No bony deformity or crepitance Resp normal respiratory effort Resp Narrative: Breath sounds are diminished throughout with faint rhonchi and expiratory wheezes in the bases consistent with history of COPD Cardio regular rate and regular rhythm Rate: other Other Details: Radial pulses are plus 2 out of 4 bilaterally are equal and symmetric GI normal to inspection, nondistended, normoactive bowel sounds, non-tender, non- distended and no masses GI Narrative: No voluntary guarding or rigidity. no pulsatile mass Auscultation: normoactive bowel sounds Palpation: soft Back/Spine Back/Spine Narrative: No bony deformity or step-off of the thoracic or lumbar spine. However there is midline pain to palpation along the T12-L2 region. No overlying abrasions or ecchymosis noted. No saddle anesthesia. Negative straight leg raise. No clonus or Babinski. Patellar reflexes are plus 1 out of 4 bilaterally. Pain does worsen with active range of motion Extremity normal to inspection Neuro oriented x3 and CN's II-XII intact bilaterally Sensorium / Orientation: alert Psych mental status grossly normal Skin no rashes or lesions noted MDM MDM MDM Narrative Medical decision making narrative: Patient presented to the ER mildly hypertensive otherwise with stable vitals. He reported a mechanical fall that occurred on Wednesday and therefore there is no need for cardiac or syncope work-up. He also denies any head trauma loss of consciousness or bleeding disorder or blood thinner use. Therefore at this time I felt no need for initial x-rays of his back to check for possible fracture. He denies any loss of bowel or bladder control or IV drug use and therefore my concern for cauda equina or epidural abscess is also low. The x-rays did show an L1 and L4 compression deformity and secondary to this a CT was added. The CT confirmed acute L1 compression fracture but he also documented possibility of fracture to T12 so a thoracic CAT scan was added. The case was discussed with orthopedic surgeon Dr. Kwan. He agrees as the patient is neurovascularly intact and closed that he does not need admitted from a surgical standpoint. He states that patient may benefit from admission and PT OT evaluation. I discussed this option with the patient but he states that he has been able to ambulate at home and just feels that he needs improved pain control and does not wish to be placed in the hospital. Therefore patient be discharged at this time with outpatient orthopedic follow-up and prescribed Percocet for improved pain control at home Radiography Diagnostic Testing: Clinical Impression(s) from Imaging Studies Lumbar Spine X-Ray 06/12/22 05:33 IMPRESSION: L1 moderate vertebral body compression fracture, and mild L4 compression fracture, uncertain age, but are new compared to the previous CT abdomen from 09/18/2020. Electronically Signed: Vale Vick MD at 6:15 EST , Thoracic Spine X-Ray 06/12/22 05:33 IMPRESSION: No evidence of fracture or subluxation in the thoracic spine. L1 compression fracture partially included. Lumbar spine x-rays reported separately. Electronically Signed: Vale Vick MD at 6:21 EST Reading Location ID and State: [facility]– [place]note 2[place] / [place] Tel , Service support , Lumbar Spine CT 06/12/22 06:29 IMPRESSION: L1 moderate compression fracture appears acute, with acute fracture inferior aspect of T12 partially included. CT of the thoracic spine recommended to include the complete T12 vertebral body and the T11-T12 disc space above the level of fracture. MRI may be helpful to evaluate for possible injury of the intervening disc T12- L1. Electronically Signed: Vale Vick MD at 7:40 EST Reading Location ID and State: [facility]– [place]note 2[place] / [place] Tel , Service support , X-ray of the thoracic and lumbar spine as interpreted by the emergency medicine physician reveals a L1 and L4 compression fracture with L1 being more severe. There is no spondylolisthesis noted Discharge Plan Triage Chief Complaint: Fall ED Provider: Delon Titus Dx/Rx/DC Orders Clinical Impression: Closed compression fracture of L1 vertebra, T12 compression fracture, Accidental fall, Hypertension Instructions: Compression Fx, Preventing Falls: Staying Active Prescriptions: New oxycodone-acetaminophen [Percocet] 5-325 mg tablet 1 tab PO Q6H PRN (Reason: pain) 5 Days Qty: 20 0RF No Action ipratropium-albuterol 0.5 mg-3 mg(2.5 mg base)/3 mL solution for nebulization 3 ml inhalation TID Qty: 180 0RF budesonide 1 mg/2 mL suspension for nebulization 1 mg inhalation BID Qty: 60 6RF albuterol sulfate 90 mcg/actuation HFA aerosol inhaler 2 puff inhalation Q4H PRN (Reason: shortness of breath or wheezing) Qty: 8.5 6RF Rx Instructions: administer with spacer albuterol sulfate 2.5 MG/3 ML solution for nebulization 2.5 mg inhalation Q2H PRN PRN (Reason: Wheezing) Qty: 1000 0RF Label Comments: ASTHMA amlodipine 5 MG tablet 5 mg PO DAILY melatonin 3 MG tablet 6 mg PO QHS Qty: 60 0RF cholecalciferol (vitamin D3) 25 MCG tablet 125 mcg PO DAILY Qty: 30 0RF Primary Care Provider: Elijah Rodriguez Referrals: Ward Kwan DO [Med Staff - Active Staff] - Elijah Rodriguez MD [Primary Care Provider] - Activity Restrictions/Additional Instructions: Please take the pain medication as directed to help control the pain from your back fractures. Follow-up with orthopedics for repeat evaluation and return to the ER should you have any further concerns.
--- NOTE | 2022-06-12 06:29 | CT_ITS ---
INDICATION: L1 fracture, FALL EXAMINATION: CT LUMBAR SPINE - CT Spine Lumbar W/O Contrast Injection TECHNIQUE: Helically acquired images were obtained of the lumbar spine. 2D reformats were reviewed. A radiation dose optimization technique was used for this scan. IV Contrast dosage and agent: None. COMPARISON: X-rays thoracic and lumbar spine earlier same day. FINDINGS: ALIGNMENT: No subluxation. MINERALIZATION: Osteopenic. VERTEBRAL BODIES: L1 compression fracture appears acute, with approximately 50% vertebral body height loss. There is a fracture of T12 at the inferior endplate partially included, without apparent vertebral body height loss. DISC SPACES: Unremarkable. POSTERIOR ELEMENTS: Unremarkable. SPINAL CANAL: Maintained. PARASPINAL SOFT TISSUES: Mild paravertebral hematoma at T12-L1. OTHER: Infrarenal aorta focal aneurysm approximately [address]/Spine Lumbar without Contrast IMPRESSION: L1 moderate compression fracture appears acute, with acute fracture inferior aspect of T12 partially included. CT of the thoracic spine recommended to include the complete T12 vertebral body and the T11-T12 disc space above the level of fracture. MRI may be helpful to evaluate for possible injury of the intervening disc T12- L1. Electronically Signed: Vale Vick MD at 7:40 EST ,
--- NOTE | 2022-06-12 07:57 | CT_ITS ---
STUDY: CT THORACIC SPINE WITHOUT CONTRAST REASON FOR EXAM: Male, 77 years old. fracture/FALL RADIATION DOSAGE (If Supplied By Facility): CTDIvol = ( 20.01 ) mGy, DLP = ( 846.32 ) mGycm TECHNIQUE: The patient was scanned in a multi detector CT scanner. High resolution imaging was performed. Images were obtained from T1 to T12 vertebral level. Sagittal and coronal images were reconstructed. Individualized dose optimization techniques were used for this CT. COMPARISON: None. FINDINGS: There is multilevel endplate spondylosis of the cervical spine. Normal kyphosis of the thoracic spine. There is no substantial scoliosis. There is multilevel endplate spondylosis of the thoracic spine. There is multilevel degenerative disc disease with loss of the disc space heights. Once again, there is evidence of 50% loss of height of the superior endplate of the L1 vertebrae. Atherosclerotic calcification of the thoracic aorta. CT/Spine Thoracic without Contras IMPRESSION: 50% loss of height of the superior endplate of the L1 vertebrae. Degenerative changes throughout the thoracic spine. Electronically Signed: Babar Tomas MD at 9:01 EST ,
[2022-06-12 09:21] VITALS: BP 124/76; PULSE 59; RESP 16; O2SAT 97
== END 2022-06-12 09:22 | disposition home or self-care (01) ==
PROVIDERS: Emergency Provider Emergency Medicine; PCP Family Medicine; Visit Provider Emergency Medicine
DX: S32.019A Unspecified fracture of first lumbar vertebra, initial encounter for closed fracture (principal); S22.089A Unspecified fracture of T11-T12 vertebra, initial encounter for closed fracture; I10 Essential (primary) hypertension; Z79.899 Other long term (current) drug therapy; W10.9XXA Fall (on) (from) unspecified stairs and steps, initial encounter
CPT/HCPCS: 99282; 72072; 72100; 72128; 72131

== ENCOUNTER 2022-06-12 17:26 | Emergency (ER) | payer MEDICARE, SELFPAY ==
[2022-06-12 17:29] VITALS: BP 129/115; PULSE 112; RESP 18; TEMP 36.2; O2SAT 94; BMI 20.5
--- NOTE | 2022-06-12 20:29 | EDS_ITS ---
HPI HPI - Fall History of Present Illness Chief Complaint: Fall Informant: patient Occured/Mechanism Occurred: Today Mechanism/Context: Yes cannot recall fall Fall down steps #: 3 Pain/Injury Location: Occiput Pain Location: head Current Severity: Gone Worsened by: Nothing Relieved by: Nothing Associated Symptoms Associated Symptoms: Positive for Loss of consciousness and Amnesia; Negative for Parasthesias, Weakness, Loss of function or Inability to ambulate Length of loss of consciousness: Brief Narrative Narrative: Patient presents after a fall that occurred today. Patient states he fell 3 steps off of his front porch. Patient thinks he lost consciousness briefly. Patient does not remember falling. Patient hit the back of his head. Patient denies any other injuries. Patient denies any paresthesias or weakness. Patient states his last tetanus was approximately 6 years ago. Patient denies any pain in his neck. Patient denies any visual changes. Patient denies any nausea or vomiting. Tetanus Immunization: 5-10 years [facility] Medical History (Updated 06/12/22 @ 21:[address] Homer Banegas, ) Acute respiratory failure with hypoxia Asthma Hypertension Small bowel obstruction Status asthmaticus SVT (supraventricular tachycardia) Thrombocytopenia Home Medications albuterol sulfate 2.5 mg/3 mL (0.083 %) solution for nebulization 2.5 mg (3 mL) inhalation Q2H PRN PRN Wheezing ##1,000 11/06/13 [Rx Last Taken 09/12/19 08:00] amlodipine 5 mg tablet 5 mg PO DAILY Blood pressure 04/23/18 [History Last Taken 09/12/19 08:00] cholecalciferol (vitamin D3) 25 mcg (1,000 unit) tablet 125 mcg PO DAILY #30 tabs 08/24/20 [Rx Last Taken Unknown] melatonin 3 mg tablet 6 mg PO QHS #60 tabs 08/24/20 [Rx Last Taken Unknown] budesonide 1 mg/2 mL suspension for nebulization 1 mg (2 mL) inhalation BID #60 mL 02/19/22 [Rx Last Taken Unknown] ipratropium 0.5 mg-albuterol 3 mg (2.5 mg base)/3 mL nebulization soln 3 ml inhalation TID asthma #180 mL 02/19/22 [Rx Last Taken Unknown] albuterol sulfate 90 mcg/actuation aerosol inhaler 2 puff inhalation Q4H PRN shortness of breath or wheezing #8.5 grams 05/27/22 [Rx Last Taken Unknown] oxycodone-acetaminophen 5 mg-325 mg tablet (Percocet) 1 tab PO Q6H PRN pain 5 days #20 tabs 06/12/22 [Rx Last Taken Unknown] Allergy/AdvReac Type Severity Reaction Status Date / Time Sulfa (Sulfonamide Allergy Hives Verified 06/12/22 17:32 Antibiotics) fentanyl AdvReac Other Verified 06/12/22 17:32 Social History Smoking Status: Never smoker ROS ROS ED Constitutional Constitutional ED: Denies chills or fever(s) Eyes Eyes: Denies blurry vision or change in vision ENT ENT ED: Denies rhinorrhea or sore throat Cardiovascular Cardiovascular: Denies chest pain or palpitations Respiratory/Chest Respiratory/Chest: Denies cough or dyspnea Gastrointestinal Gastrointestinal: Denies nausea or vomiting Genitourinary Genitourinary ED: Denies dysuria or hematuria Musculoskeletal Musculoskeletal: Reports back pain; Denies neck pain Integumentary Denies abscess or rash Neurologic Neurologic: Reports headache(s); Denies weakness Allergic/Immunologic Allergic/Immunologic ED: Denies mouth swelling or urticaria EXAM Physical Exam Const Vital Signs: 06/12/22 17:29 06/12/22 20:13 Temperature 97.2 F L Temperature Source Temporal Pulse Rate 112 H Respiratory Rate 18 Respiratory Effort Normal Non-Labored Respiratory Depth Normal Respiratory Pattern Normal Blood Pressure 129/115 H Blood Pressure Mean 119 Pulse Ox 94 Oxygen Delivery Method Room Air Positive well nourished and well developed General Appearance ED: well developed and NAD HEENT Reports moist mucous membranes HEENT Narrative: There is mild tenderness over the occipital scalp. There is a laceration over the left side of the occipital scalp. There is mild gapping of the wound margins. There is no active bleeding. There is no bony crepitance or step-off. There are no foreign bodies visualized. trauma Neck supple and no JVD Resp normal respiratory effort and clear to auscultation bilaterally Cardio regular rate and regular rhythm GI normal to inspection, nondistended, normoactive bowel sounds and non-tender Palpation: soft Extremity normal to inspection General Extremety ED: Negative for edema or tenderness General Extremity: Negative for edema Neuro oriented x3, CN's II-XII intact bilaterally and no sensory deficits noted Sensorium / Orientation: alert Motor Exam: strength 5/5 throughout Psych mental status grossly normal Skin no rashes or lesions noted MDM MDM MDM Narrative Medical decision making narrative: Differential diagnosis includes closed head injury, scalp laceration, skull fracture, intracranial bleeding, concussion, and stroke. CT scan of the brain will be obtained to assess for stroke and intracranial bleeding and skull fracture. Radiography Diagnostic Testing: Clinical Impression(s) from Imaging Studies Brain CT 06/12/22 20:37 IMPRESSION: . There is no underlying fracture. Soft tissue swelling of the scalp- posteriorly. Chronic involutional changes of the brain. Electronically Signed: Raymundo Olmos MD at 21:16 EST , CT scan of the brain was reviewed independently by myself. There is no acute intracranial hemorrhage. There is no skull fracture. There are chronic changes noted. There is no acute abnormality. Radiologist also interpreted the CT scan and agrees. Treatment and Re-Evaluation Narrative: The wound was cleaned and irrigated with copious amounts normal saline. The wound was anesthetized 1% lidocaine with epinephrine locally. The wound was closed with 5 simple des. Patient tolerated the procedure well. Bacitracin dressing was applied. Patient was given head injury instructions. Patient was given wound care instructions. Patient was instructed to follow-up with his primary care physician in 5 days for wound recheck and staple removal. Patient understood and was agreeable with the plan. All questions were answered. Discharge Plan Triage Chief Complaint: Fall ED Provider: Homer Banegas Dx/Rx/DC Orders Clinical Impression: Laceration of occipital scalp, Fall, Closed head injury Instructions: ED Head Injury (Adult), ED Laceration Scalp Stitches or Des Prescriptions: No Action ipratropium-albuterol 0.5 mg-3 mg(2.5 mg base)/3 mL solution for nebulization 3 ml inhalation TID Qty: 180 0RF budesonide 1 mg/2 mL suspension for nebulization 1 mg inhalation BID Qty: 60 6RF albuterol sulfate 90 mcg/actuation HFA aerosol inhaler 2 puff inhalation Q4H PRN (Reason: shortness of breath or wheezing) Qty: 8.5 6RF Rx Instructions: administer with spacer albuterol sulfate 2.5 MG/3 ML solution for nebulization 2.5 mg inhalation Q2H PRN PRN (Reason: Wheezing) Qty: 1000 0RF Label Comments: ASTHMA amlodipine 5 MG tablet 5 mg PO DAILY melatonin 3 MG tablet 6 mg PO QHS Qty: 60 0RF cholecalciferol (vitamin D3) 25 MCG tablet 125 mcg PO DAILY Qty: 30 0RF oxycodone-acetaminophen [Percocet] 5-325 mg tablet 1 tab PO Q6H PRN (Reason: pain) 5 Days Qty: 20 0RF Primary Care Provider: Elijah Rodriguez Referrals: Elijah Rodriguez MD [Primary Care Provider] - 5 Days for suture removal Disposition Disposition: Home, Self Care
--- NOTE | 2022-06-12 20:37 | CT_ITS ---
STUDY: CT BRAIN WITHOUT CONTRAST REASON FOR EXAM: Male, 77 years old. PT INTOXICATED AND FELL OFF THE PORCH,PT HAS LACERATION TO BACK OF HEAD,? LOC HX:HTN,C2 FRACTURE Head injury Individualized dose optimization techniques were used for this CT. TECHNIQUE: Transaxial CT imaging of the brain was performed without administration of intravenous contrast material. COMPARISON: 07/26/2020 FINDINGS: There are calcifications around the carotid artery. These are noted in the cavernous carotid arteries. Normal calvarium. There is no underlying fracture. Soft tissue swelling of the scalp- posteriorly. There is mild cerebral atrophy with widening of the extra-axial spaces and ventricular dilatation. There are areas of decreased attenuation within the white matter tracts of the supratentorial brain, consistent with microvascular disease changes. Normal basal ganglia and thalami. Normal brainstem. There is mild cerebellar atrophy. There is no intracranial hemorrhage. There are no findings of an acute ischemic infarction. There is sinus disease. ASPECTS Score for Acute Strokes: 02/16 CT/Brain/Head without Contrast IMPRESSION: . There is no underlying fracture. Soft tissue swelling of the scalp- posteriorly. Chronic involutional changes of the brain. Electronically Signed: Raymundo Olmos MD at 21:16 EST ,
== END 2022-06-12 21:55 | disposition home or self-care (01) ==
PROVIDERS: Emergency Provider Emergency Medicine; PCP Family Medicine; Visit Provider Emergency Medicine
DX: S01.01XA Laceration without foreign body of scalp, initial encounter (principal); S32.019A Unspecified fracture of first lumbar vertebra, initial encounter for closed fracture; S22.089A Unspecified fracture of T11-T12 vertebra, initial encounter for closed fracture; I10 Essential (primary) hypertension; M54.9 Dorsalgia, unspecified; Z79.899 Other long term (current) drug therapy; W10.9XXA Fall (on) (from) unspecified stairs and steps, initial encounter
CPT/HCPCS: 12001; 70450; 72072; 72100; 72128; 72131; 99282; 99284

== ENCOUNTER 2022-09-15 20:26 | Emergency (ER) | payer MEDICARE, SELFPAY ==
[2022-09-15 20:27] VITALS: BP 147/85; PULSE 90; RESP 18; TEMP 36.6; O2SAT 96; BMI 20.5
[2022-09-15 20:38] VITALS: O2SAT 96
--- NOTE | 2022-09-15 21:29 | CT_ITS ---
INDICATION: facial trauma EXAMINATION: CT FACIAL BONES - CT Maxillofacial W/O Contrast Injection TECHNIQUE: Helically acquired images were obtained of the facial bones. A radiation dose optimization technique was used for this scan. IV Contrast dosage and agent: None. COMPARISON: CT head obtained from the same evening. FINDINGS: SOFT TISSUES: Soft tissue swelling nasal bridge and anterior to the left frontal bone. No discrete fluid collections. VISUALIZED PARANASAL SINUSES: Layering high density fluid left sphenoid sinus consistent with hemorrhage. There is mild mucosal thickening maxillary sinuses and ethmoid air cells. VISUALIZED MASTOID AIR CELLS: Clear. FACIAL BONES, MANDIBLE AND TMJs: Right and left nasal bone fractures with mild malalignment. Left nasal bone is fractured in 2 places. Left or deviation anterior bony nasal septum with suspected fracture, axial image 39. Degenerative changes temporomandibular joints. VISUALIZED DENTITION: Absent ORBITAL CONTENTS: Both globes, extraocular muscles and retrobulbar fat appear unremarkable. Benign senescent scleral plaque on the right. CT/Sinus/Facial Bone IMPRESSION: Mild comminuted bilateral nasal bone fractures with questionable bony nasal septum fracture as above. Layering blood left sphenoid sinus. Scalp contusion left frontal region. Mucosal thickening maxillary sinuses and ethmoid air cells likely representing paranasal sinus disease. Degenerative changes temporomandibular joints. Electronically Signed: Angel Watkins DO at 22:35 EDT ,
--- NOTE | 2022-09-15 21:29 | CT_ITS ---
INDICATION: fall EXAMINATION: CT CERVICAL SPINE - CT Spine Cervical W/O Contrast Injection TECHNIQUE: Helically acquired images were obtained of the cervical spine. 2D reformatted images were reviewed. A radiation dose optimization technique was used for this scan. IV Contrast dosage and agent: None. COMPARISON: CT head the same evening. Also compared with CT Cervical Spine July 26, 2020. FINDINGS: No fracture or focal malalignment. C1-C2 bilateral transpedicular screws and bridging rods. Bridging ossification posterior elements on the right, between C1 and C2. Odontoid process is intact with subtle residual sclerotic margin at prior fracture site. There is normal C1-C2 lateral patellar alignment. Normal C1 occipital condyle alignment. There is degenerative sclerotic changes of these articulations. Multilevel degenerative disc and endplate changes with endplate sclerosis and bony proliferative changes. Bridging anterior osteophytes C5-6 and C6-7. Uncovertebral joint and facet joint arthropathy results in neural foraminal narrowing most notably at C3-4 on the right. No abnormal soft tissue swelling. Soft tissues of the neck are within normal limits. Visualized lung apices are clear. CT/Spine Cervical without Contras IMPRESSION: No fracture or focal malalignment. Healed C2 fracture status post C1 and C2 lateral patellar transpedicular screws and bridging rods. Multilevel degenerative changes with moderate right-sided neural foraminal narrowing most notably at C3-4 on the right. Electronically Signed: Angel Watkins DO at 22:43 EDT ,
--- NOTE | 2022-09-15 21:29 | CT_ITS ---
INDICATION: head injury EXAMINATION: CT BRAIN - CT Head or Brain W/O Contrast Injection TECHNIQUE: Multiple axial images were obtained of the head without intravenous contrast. A radiation dose optimization technique was used for this scan. IV Contrast dosage and agent: None. COMPARISON: June 12, [address] FINDINGS: BRAIN PARENCHYMA: No intra- or extra-axial hemorrhage. No intracranial mass or mass effect. Pace/white matter differentiation is maintained and there is no blurring of the basal ganglia. There is no hyperdense vessel. Mildly decreased density periventricular white matter anterior frontal lobes, right greater than left most commonly represent chronic small vessel ischemic changes. Posterior fossa structures are unremarkable. CSF SPACES: Moderate diffuse pericolic volume loss likely within normal limits for age. No hydrocephalus. Basal cisterns are patent. CALVARIUM, SKULL BASE, PARANASAL SINUSES AND MASTOID AIR CELLS: Intact calvarium and skull base. No fracture or osseous lesion. Layering blood in the left sphenoid sinus. Mucosal thickening bilateral maxillary sinuses. Bilateral nasal bone fractures. Tiny scalp contusion left frontal region. No underlying fracture. ORBITS: Both globes, extraocular muscles, optic nerves and retrobulbar fat appear unremarkable. Senescent scleral calcification right globe. ASPECTS Score for Acute Strokes: 10 CT/Brain/Head without Contrast IMPRESSION: No acute intracranial pathology. Chronic small vessel ischemic changes, mild. Bilateral nasal bone fractures. Layering blood left sphenoid sinus. Electronically Signed: Angel Watkins DO at 22:24 EDT ,
--- NOTE | 2022-09-15 21:41 | EDS_ITS ---
HPI History of Present Illness Chief Complaint: Fall Narrative Narrative: 77-year-old male was drinking at the [employer]. He states he had only had 2 beers and he was not intoxicated. He states he tripped over a stool and fell hitting his face. Denies LOC. He has superficial abrasions of the left eyebrow and bruising over the left lip. There is blood all over his face. He denies any pain. Denies headache. He did not injure any extremities. Patient states he is not anticoagulated. He denies neck pain, paresthesias. [facility] Medical History Acute respiratory failure with hypoxia Asthma Hypertension Small bowel obstruction Status asthmaticus SVT (supraventricular tachycardia) Thrombocytopenia Home Medications albuterol sulfate 2.5 mg/3 mL (0.083 %) solution for nebulization 2.5 mg (3 mL) inhalation Q2H PRN PRN Wheezing ##1,000 11/06/13 [Rx Last Taken 09/12/19 08:00] amlodipine 5 mg tablet 5 mg PO DAILY Blood pressure 04/23/18 [History Last Taken 09/12/19 08:00] cholecalciferol (vitamin D3) 25 mcg (1,000 unit) tablet 125 mcg PO DAILY #30 tabs 08/24/20 [Rx Last Taken Unknown] melatonin 3 mg tablet 6 mg PO QHS #60 tabs 08/24/20 [Rx Last Taken Unknown] budesonide 1 mg/2 mL suspension for nebulization 1 mg (2 mL) inhalation BID #60 mL 02/19/22 [Rx Last Taken Unknown] ipratropium 0.5 mg-albuterol 3 mg (2.5 mg base)/3 mL nebulization soln 3 ml inhalation TID asthma #180 mL 02/19/22 [Rx Last Taken Unknown] oxycodone-acetaminophen 5 mg-325 mg tablet (Percocet) 1 tab PO Q6H PRN pain 5 days #20 tabs 06/12/22 [Rx Last Taken Unknown] albuterol sulfate 90 mcg/actuation aerosol inhaler (ProAir HFA) 2 inh inhalation Q6H PRN shortness of breath or wheezing #8.5 grams 08/31/22 [Rx Last Taken Unknown] Allergy/AdvReac Type Severity Reaction Status Date / Time Sulfa (Sulfonamide Allergy Hives Verified 09/15/22 20:37 Antibiotics) fentanyl AdvReac Other Verified 09/15/22 20:37 Social History Smoking Status: Never smoker ROS ROS ED Constitutional Constitutional ED: Denies chills or fever(s) Eyes Eyes: Denies change in vision ENT ENT ED: Denies rhinorrhea or sore throat Cardiovascular Cardiovascular: Denies chest pain or palpitations Respiratory/Chest Respiratory/Chest: Denies cough or dyspnea on exertion Gastrointestinal Gastrointestinal: Denies abdominal pain or constipation Genitourinary Genitourinary ED: Denies dysuria or hematuria Musculoskeletal Musculoskeletal: Denies arthralgias Integumentary Reports Abrasions; Denies abscess Neurologic Neurologic: Denies headache(s) or paresthesias EXAM Physical Exam Const Vital Signs: 09/15/22 20:27 09/15/22 20:38 09/15/22 22:30 Temperature 97.9 F Temperature Source Oral Pulse Rate 90 86 Respiratory Rate 18 25 H Respiratory Effort Normal Non-Labored Respiratory Depth Normal Respiratory Pattern Normal Blood Pressure 147/85 H 134/75 H Blood Pressure Mean 105 94 Pulse Ox 96 96 95 Oxygen Delivery Method Room Air Room Air Room Air Positive well nourished General Appearance ED: NAD HEENT HEENT Narrative: Superficial abrasion over the left supraorbital ridge. Swelling over the left side of his bottom lip. Lacerations. There is some deformity of the nasal bones. No nasal septal hematoma. No hemotympanum. Eyes PERRL and EOMs intact bilaterally Chest Wall inspection of chest normal and palpation of chest normal Resp normal respiratory effort and clear to auscultation bilaterally Auscultation: Negative for rales, rhonchi or wheezes Cardio regular rhythm GI normal to inspection, nondistended, normoactive bowel sounds Back/Spine normal to inspection Neuro oriented x3, CN's II-XII intact bilaterally, moves all extremities, no focal motor deficits and no sensory deficits noted Sensorium / Orientation: alert Motor Exam: strength 5/5 throughout Psych mental status grossly normal and thought process normal Skin Skin Narrative: Multiple abrasions as described above MDM MDM MDM Narrative Medical decision making narrative: Patient presents after mechanical fall fell on his face. He denies LOC. He states he is not much pain in his face. Denies neck pain. Denies headache. On exam he has some deformity of the nose without nasal septal hematoma. Extraocular motions intact. There is no entrapment. Superficial abrasion to the left supraorbital ridge and lip swelling on the lower lip on the left. CT of the brain, facial bones, cervical spine was ordered. No intracranial hemorrhages noted. No C-spine fracture or subluxation. The facial bone CT does show bilateral nasal bone fractures with likely nasal septum fracture. Patient is given ENT follow-up for this. Prior to being discharged he complained of some chest wall pain over the chest and I went and reevaluated him he had some bruising over the chest. I did offer him a chest x-ray but he states he does not want to miss the cab service because it is getting late. I counseled him that if he wants the chest x-ray it might take longer than the cabs to run but if he wants to have his chest evaluated he would have to stay. He declines this. He states he wants to go home. I believe patient is safe to do so as he is only had 2 beers. He appears to be awake and alert and has capacity. Impression: 1. Mechanical fall 2. Nasal bone fracture 3. Facial contusions 4. Facial abrasions 5. Chest wall pain Lab Data Attestation: I reviewed the patient's lab results. Radiography Diagnostic Testing: Clinical Impression(s) from Imaging Studies Brain CT 09/15/22 21:29 IMPRESSION: No acute intracranial pathology. Chronic small vessel ischemic changes, mild. Bilateral nasal bone fractures. Layering blood left sphenoid sinus. Electronically Signed: Angel Watkins DO at 22:24 EDT , Cervical Spine CT 09/15/22 21:29 IMPRESSION: No fracture or focal malalignment. Healed C2 fracture status post C1 and C2 lateral patellar transpedicular screws and bridging rods. Multilevel degenerative changes with moderate right-sided neural foraminal narrowing most notably at C3-4 on the right. Electronically Signed: Angel Watkins DO at 22:43 EDT , Facial/Sinus 09/15/22 21:29 IMPRESSION: Mild comminuted bilateral nasal bone fractures with questionable bony nasal septum fracture as above. Layering blood left sphenoid sinus. Scalp contusion left frontal region. Mucosal thickening maxillary sinuses and ethmoid air cells likely representing paranasal sinus disease. Degenerative changes temporomandibular joints. Electronically Signed: Angel Watkins DO at 22:35 EDT , Discharge Plan Triage Chief Complaint: Fall ED Provider: Erickson Phipps Dx/Rx/DC Orders Instructions: ED Chest Wall Contusion, ED Facial Contusion, ED Nose Fracture, with X-Ray Prescriptions: No Action ipratropium-albuterol 0.5 mg-3 mg(2.5 mg base)/3 mL solution for nebulization 3 ml inhalation TID Qty: 180 0RF budesonide 1 mg/2 mL suspension for nebulization 1 mg inhalation BID Qty: 60 6RF albuterol sulfate 2.5 MG/3 ML solution for nebulization 2.5 mg inhalation Q2H PRN PRN (Reason: Wheezing) Qty: 1000 0RF Label Comments: ASTHMA amlodipine 5 MG tablet 5 mg PO DAILY melatonin 3 MG tablet 6 mg PO QHS Qty: 60 0RF cholecalciferol (vitamin D3) 25 MCG tablet 125 mcg PO DAILY Qty: 30 0RF oxycodone-acetaminophen [Percocet] 5-325 mg tablet 1 tab PO Q6H PRN (Reason: pain) 5 Days Qty: 20 0RF albuterol sulfate [ProAir HFA] 90 mcg/actuation HFA aerosol inhaler 2 inh inhalation Q6H PRN (Reason: shortness of breath or wheezing) Qty: 8.5 11RF Primary Care Provider: Elijah Rodriguez Referrals: Rodriguez Rossi MD [Med Staff - Active Staff] - As soon as possible Elijah Rodriguez MD [Primary Care Provider] - Disposition Disposition: Home, Self Care
[2022-09-15 22:30] VITALS: BP 134/75; PULSE 86; RESP 25; O2SAT 95
--- NOTE | 2022-09-15 22:58 | ED.RN ---
Per Dr Phipps patient is clinically not intoxicated, pt refusing further care and wants to go home. Ok with Dr Phipps. Pt to call a cab for himself.
[2022-09-15 23:09] VITALS: BP 134/77; PULSE 84; RESP 18; O2SAT 96
== END 2022-09-15 23:23 | disposition home or self-care (01) ==
PROVIDERS: Emergency Provider Student in an Organized Health Care Education/Training Program; PCP Family Medicine; Visit Provider Student in an Organized Health Care Education/Training Program
DX: S02.2XXA Fracture of nasal bones, initial encounter for closed fracture (principal); S00.531A Contusion of lip, initial encounter; S20.219A Contusion of unspecified front wall of thorax, initial encounter; S00.212A Abrasion of left eyelid and periocular area, initial encounter; W18.09XA Striking against other object with subsequent fall, initial encounter; Y92.29 Other specified public building as the place of occurrence of the external cause; Y93.89 Activity, other specified; Y99.8 Other external cause status; I10 Essential (primary) hypertension; Z79.899 Other long term (current) drug therapy
CPT/HCPCS: 70450; 70486; 72125; 99284

== ENCOUNTER 2022-11-28 12:33 | Emergency (ER) | payer MEDICARE, SELFPAY ==
[2022-11-28 12:35] VITALS: BP 123/60; PULSE 101; RESP 16; TEMP 36.6; O2SAT 98; BMI 19.2
--- NOTE | 2022-11-28 12:51 | RAD_ITS ---
INDICATION: fall, pain EXAMINATION/TECHNIQUE: X-RAY - BILATERAL XR Knees Bilateral 3 Views Ea - [id number] [id number] COMPARISON: Prior left knee radiographs of 07/28/2013. FINDINGS: SOFT TISSUES: Diffuse bilateral soft tissue swelling of the distal thighs. No demonstrated radiopaque foreign body. BONES/JOINTS: No acute fracture or subluxation.. Normal alignment. Persistent severe narrowing of the medial joint compartment of the left knee. No evidence of joint effusion. RAD/Knee 3 Views IMPRESSION: 1. Degenerative arthrosis of the left knee. 2. No evidence for acute fracture. Electronically Signed: Wm Murray MD at 13:30 EDT ,
--- NOTE | 2022-11-28 12:55 | EDS_ITS ---
HPI <ЮЛИЯ Marte - Last Filed: 11/28/22 19:27> History of Present Illness Chief Complaint: Fall Narrative Narrative: Patient presenting today to a mechanical fall that occurred yesterday. He reports that he was trying to get out of his truck when his foot caught on the brake pedal and he fell, twisting his legs, following onto his knees first and then fell backwards and hit his head against a cement pole. There was no loss of consciousness. He is not on any blood thinners, he denies any headache, visual changes, nausea, vomiting, or confusion. He reports pain to both of his knees, worse on the right side. He was unable to make it down his steps this morning due to the pain and has had a difficult time ambulating and called EMS to be brought in for evaluation. He denies any other injury. PMH includes hypertension and COPD. PFSH <ЮЛИЯ Marte - Last Filed: 11/28/22 19:27> [facility] Medical History (Updated 11/28/22 @ 14:[address] Wai Deshpande MD) Acute respiratory failure with hypoxia Asthma Hypertension Small bowel obstruction Status asthmaticus SVT (supraventricular tachycardia) Thrombocytopenia Home Medications albuterol sulfate 2.5 mg/3 mL (0.083 %) solution for nebulization 2.5 mg (3 mL) inhalation Q2H PRN PRN Wheezing ##1,000 11/06/13 [Rx Last Taken 09/12/19 08:00] amlodipine 5 mg tablet 5 mg PO DAILY Blood pressure 04/23/18 [History Last Taken 09/12/19 08:00] cholecalciferol (vitamin D3) 25 mcg (1,000 unit) tablet 125 mcg (5 x 25 mcg (1,000 unit)) PO DAILY #30 tabs 08/24/20 [Rx Last Taken Unknown] melatonin 3 mg tablet 6 mg (2 x 3 mg) PO QHS #60 tabs 08/24/20 [Rx Last Taken Unknown] budesonide 1 mg/2 mL suspension for nebulization 1 mg (2 mL) inhalation BID #60 mL 02/19/22 [Rx Last Taken Unknown] ipratropium 0.5 mg-albuterol 3 mg (2.5 mg base)/3 mL nebulization soln 3 ml inhalation TID asthma #180 mL 02/19/22 [Rx Last Taken Unknown] oxycodone-acetaminophen 5 mg-325 mg tablet (Percocet) 1 tab PO Q6H PRN pain 5 days #20 tabs 06/12/22 [Rx Last Taken Unknown] albuterol sulfate 90 mcg/actuation aerosol inhaler (ProAir HFA) 2 inh inhalation Q6H PRN shortness of breath or wheezing #8.5 grams 08/31/22 [Rx Last Taken Unknown] hydrocodone-acetaminophen 5-325mg 5mg-325mg 1 tab PO Q6H PRN PRN Pain 3 days #10 TABLETS 11/28/22 [Rx Last Taken Unknown] Allergy/AdvReac Type Severity Reaction Status Date / Time Sulfa (Sulfonamide Allergy Hives Verified 11/28/22 12:37 Antibiotics) fentanyl AdvReac Other Verified 11/28/22 12:37 Social History Smoking Status: Never smoker ROS <ЮЛИЯ Marte - Last Filed: 11/28/22 19:27> ROS ED Constitutional Constitutional ED: Denies chills or fever(s) Eyes Eyes: Denies change in vision Cardiovascular Cardiovascular: Denies chest pain Respiratory/Chest Respiratory/Chest: Denies cough or dyspnea Gastrointestinal Gastrointestinal: Denies abdominal pain, nausea or vomiting Genitourinary Genitourinary ED: Denies dysuria, hematuria or urinary frequency Musculoskeletal Musculoskeletal: Reports arthralgias; Denies back pain or neck pain Integumentary Denies Abrasions or laceration Neurologic Neurologic: Denies confusion, dizziness, headache(s) or weakness Psychiatric Psychiatric: Denies anxiety or depression EXAM <ЮЛИЯ Marte - Last Filed: 11/28/22 19:27> Physical Exam Const Vital Signs: 11/28/22 12:35 11/28/22 14:32 Temperature 97.9 F Temperature Source Temporal Pulse Rate 101 H 71 Respiratory Rate 16 17 Blood Pressure 123/60 H 127/69 H Blood Pressure Mean 81 Pulse Ox 98 98 Oxygen Delivery Method Room Air Positive well nourished, well developed and no apparent distress General Appearance ED: well developed HEENT Reports normocephalic and head/scalp atraumatic Mouth ED: Yes moist mucous membranes normal Eyes PERRL and EOMs intact bilaterally Neck full ROM and supple Chest Wall inspection of chest normal Resp normal respiratory effort and clear to auscultation bilaterally Cardio regular rate and regular rhythm GI soft to palpation, non-tender, non-distended and no masses Back/Spine normal ROM and normal to inspection Extremity normal to inspection and full ROM Extremity Narrative: Edema to bilateral knees, worse on the right side. Decreased range of motion in both knees due to pain Neuro oriented x3, CN's II-XII intact bilaterally, moves all extremities, no focal motor deficits and no sensory deficits noted Sensorium / Orientation: awake and alert Psych mental status grossly normal and thought process normal Skin no rashes or lesions noted and no wounds <Dr. Wai Deshpande MD - Last Filed: 11/28/22 14:15> Physical Exam Const Vital Signs: 11/28/22 12:35 11/28/22 14:32 Temperature 97.9 F Temperature Source Temporal Pulse Rate 101 H 71 Respiratory Rate 16 17 Blood Pressure 123/60 H 127/69 H Blood Pressure Mean 81 Pulse Ox 98 98 Oxygen Delivery Method Room Air MDM <ЮЛИЯ Marte - Last Filed: 11/28/22 19:27> [facility] MDM Narrative Medical decision making narrative: Patient presenting for evaluation of bilateral knee pain after mechanical fall that occurred yesterday. He reports difficulty ambulating because of the pain. His knees are slightly edematous bilaterally, worse on the right side with painful range of motion. Patient also reports pain to his right ankle, x-rays to be obtained to rule out fracture. Patient did hit his head yesterday after falling onto his bottom first, there was no loss of consciousness, I do not feel head CT is warranted. We did try to ambulate patient with a walker after placing ten wraps to his knees and ankle and he had a difficult time but was able to stand and take a few steps. We did discuss admission with him for placement for rehabilitation and he seemed agreeable to this. However, patient did change his mind and wants to go home. He reports that he has a friend who could help take care of him at home. He has a walker at home. We did discuss at length the risks of going home and he still does not want to stay. He is able to make this decision. He was given pain control here. He will be discharged home in stable condition. Radiography X-Ray: Read by ED Physician and Read by Radiologist Diagnostic Testing: Clinical Impression(s) from Imaging Studies Knee X-Ray 11/28/22 12:51 IMPRESSION: 1. Degenerative arthrosis of the left knee. 2. No evidence for acute fracture. Electronically Signed: Wm Murray MD at 13:30 EDT , Ankle X-Ray 11/28/22 12:57 IMPRESSION: No evidence of acute osseous changes. Electronically Signed: Wm Murray MD at 13:26 EDT , <Dr. Wai Deshpande MD - Last Filed: 11/28/22 14:15> MDM Radiography Diagnostic Testing: Clinical Impression(s) from Imaging Studies Knee X-Ray 11/28/22 12:51 IMPRESSION: 1. Degenerative arthrosis of the left knee. 2. No evidence for acute fracture. Electronically Signed: Wm Murray MD at 13:30 EDT , Ankle X-Ray 11/28/22 12:57 IMPRESSION: No evidence of acute osseous changes. Electronically Signed: Wm Murray MD at 13:26 EDT , Treatment and Re-Evaluation Narrative: I have personally performed a face to face assessment of the patient and have reviewed the ALEX Note. I performed a substantive portion of the visit including all aspects of the following. My garcía findings include: History is [mechanical fall while getting out of his truck, he states he fell to his knees and his back, and then subsequently bumped the back of his head against a nearby cement wall. Did not fall headfirst. No loss consciousness, headache, nausea, vomiting, vision changes, confusion. Been really having trouble because of the right knee more so than the left, also states his right ankle hurts. Lives alone. He states the bump on the back of his head is a lot better today than it was yesterday.] Exam is [limited painful range of motion both knees and the right ankle. Mild tenderness at the distal aspect of the fibula on the right no tenderness at the base of the fifth metatarsal, elsewhere in the foot, or the proximal fibula but he is tender anterior right knee. Not able to fully extend due to pain and some swelling. Ligaments are all stable within the limits of the exam. There is no dislocation of the patella. Left knee is very similar exam. Small contusion at the occiput without boggy hematoma, crepitance, depression. No other signs of head trauma. Rest of his exam is unremarkable except for the patient being unkempt] Medical Decison Making [x-rays of the knees and the right ankle, he does not need a CT of the head. Discussed home care and possible need for assistance, versus being admitted for short-term rehab placement. He states he is going to need short-term rehab and more help. However prior to admitting the patient changed his mind and states that he does not want to stay wants to go home. I had a long discussion with him. He understands he has 2 steps at home, that may be difficult to manage, he does have some when he is going to call to help him, it is the weekend he understands that I cannot get home health to show up there before the end of the weekend, and I discussed the risks of falling and having worse injury. He understands all that he has the capacity to make this decision, and he declines admission and is going to go home. He was able to stand here and take a few steps with a walker which is what he uses at home, he is welcome to come back if he changes his mind or has other problems.] Other additions or changes: [None] Discharge Plan Triage Chief Complaint: Fall ED Midlevel Provider: Toma Drew ED Provider: Wai Deshpande Dx/Rx/DC Orders Clinical Impression: Contusion of left knee, Contusion of right knee, Sprain of ankle, right Instructions: ED Meniscal Injury Knee Poss Prescriptions: New hydrocodone-acetaminophen [hydrocodone-acetaminophen] 5-325 mg tablet 1 tab PO Q6H PRN PRN (Reason: Pain) 3 Days Qty: 10 0RF No Action ipratropium-albuterol 0.5 mg-3 mg(2.5 mg base)/3 mL solution for nebulization 3 ml inhalation TID Qty: 180 0RF budesonide 1 mg/2 mL suspension for nebulization 1 mg inhalation BID Qty: 60 6RF albuterol sulfate 2.5 MG/3 ML solution for nebulization 2.5 mg inhalation Q2H PRN PRN (Reason: Wheezing) Qty: 1000 0RF Patient Comments: ASTHMA amlodipine 5 MG tablet 5 mg PO DAILY melatonin 3 MG tablet 6 mg PO QHS Qty: 60 0RF cholecalciferol (vitamin D3) 25 MCG tablet 125 mcg PO DAILY Qty: 30 0RF oxycodone-acetaminophen [Percocet] 5-325 mg tablet 1 tab PO Q6H PRN (Reason: pain) 5 Days Qty: 20 0RF albuterol sulfate [ProAir HFA] 90 mcg/actuation HFA aerosol inhaler 2 inh inhalation Q6H PRN (Reason: shortness of breath or wheezing) Qty: 8.5 11RF Primary Care Provider: Elijah Rodriguez Referrals: Doctor,Your [Non-Staff] - As soon as possible Disposition Disposition: Home, Self Care Discharge Date/Time: 11/28/22 14:34
--- NOTE | 2022-11-28 12:57 | RAD_ITS ---
INDICATION: ankle pain EXAMINATION/TECHNIQUE: X-RAY - RIGHT XR Ankle Min 3 Views 3 VIEWS COMPARISON: None. FINDINGS: SOFT TISSUES: No soft tissue swelling or gas. Mild vascular calcifications. BONES/JOINTS: No acute fracture or subluxation.. Small plantar calcaneal spur. Preservation of the joint space.. No sclerotic or destructive changes observed. RAD/Ankle min 3 Views IMPRESSION: No evidence of acute osseous changes. Electronically Signed: Wm Murray MD at 13:26 EDT ,
[2022-11-28] MEDS: Acetaminophen 325 MG Tablet 650 MG PO (13:21)
[2022-11-28 14:32] VITALS: BP 127/69; PULSE 71; RESP 17; O2SAT 98
== END 2022-11-28 14:34 | disposition home or self-care (01) ==
PROVIDERS: Emergency Provider Emergency Medicine; PCP Family Medicine; Visit Provider Emergency Medicine
DX: S80.02XA Contusion of left knee, initial encounter (principal); S80.01XA Contusion of right knee, initial encounter; S93.401A Sprain of unspecified ligament of right ankle, initial encounter; W19.XXXA Unspecified fall, initial encounter
CPT/HCPCS: 73562; 73610; 99283

== ENCOUNTER 2023-05-14 07:49 | Emergency (ER) | payer MEDICARE, SELFPAY ==
[2023-05-14 07:50] VITALS: BP 114/83; PULSE 99; RESP 14; TEMP 36.3; O2SAT 96; BMI 20.1
--- NOTE | 2023-05-14 08:22 | RAD_ITS ---
HISTORY: fall. TECHNIQUE: XR Spine Cervical 2 or 3 Views. COMPARISON: CT 09/15/2022. FINDINGS: VERTEBRAE: Vertebral body heights maintained. No acute fracture identified. Posterior spinal fusion hardware of C1-2 again seen ALIGNMENT: No significant anterior or posterior subluxation. Straightening of the cervical lordosis. INTERVERTEBRAL DISCS: Advanced degenerative endplate changes with intervertebral disc space narrowing and osteophytes at multiple levels. SOFT TISSUES: No significant prevertebral soft tissue swelling. RAD/Cerv Spine 2 or 3 Views IMPRESSION: No acute fracture or dislocation identified in the cervical spine. Degenerative and postoperative changes. Electronically Signed: Lily Montelongo MD at 9:01 EST ,
--- NOTE | 2023-05-14 08:22 | RAD_ITS ---
STUDY: X-RAY - UNILATERAL RIBS ( RIGHT ) WITH CHEST REASON FOR EXAM: Male, 78 years old. Fall. TECHNIQUE - RIBS: 4 views of the right ribs. TECHNIQUE - CHEST: Single PA view of the chest. COMPARISON: None. FINDINGS - RIBS: There are minimally displaced fractures of the right sixth and seventh ribs. There are old healed fractures of the eighth through tenth ribs. FINDINGS - CHEST: There is linear platelike atelectasis or linear scarring at the left lung base. There is no demonstrated pleural abnormality. Normal size heart. Normal mediastinum and monisha. Normal visualized pulmonary arteries. There is atherosclerotic calcification of the aortic arch. There are diffuse degenerative changes of the visualized thoracic spine. Normal visualized clavicles and shoulders. There are surgical clips in the right upper quadrant. RAD/Ribs Uni Min 3V w/PA Chest IMPRESSION: RIBS: Minimally displaced fractures of the right sixth and seventh ribs. Old healed fractures of the eighth through tenth ribs. CHEST: Unremarkable x-ray examination of the chest. Electronically Signed: Jonathan Diaz MD at 9:11 EST ,
--- NOTE | 2023-05-14 08:28 | EX.ED.GENINJ ---
HPI History of Present Illness Chief Complaint: Chest Other Detail of Chief Complaint: Fall with right rib injury Informant: patient Onset/Context/Timing Onset: Days (2 days ago) Narrative Narrative: Patient presents secondary to right rib injury. He states he tripped in his home 2 days ago and fell hitting his right ribs against a chair. He denies striking his head. He has pain to the right lateral ribs worse with deep breath. He has chronic shortness of breath secondary to asthma and COPD, but denies any worsening in his dyspnea. He did take ibuprofen this morning prior to arrival. [facility] Medical History (Updated 05/14/23 @ 09:[address] Blanca Leonard MD) Acute respiratory failure with hypoxia Asthma Hypertension Small bowel obstruction Status asthmaticus SVT (supraventricular tachycardia) Thrombocytopenia Home Medications albuterol sulfate 2.5 mg/3 mL (0.083 %) solution for nebulization 2.5 mg (3 mL) inhalation Q2H PRN PRN Wheezing ##1,000 11/06/13 [Rx Last Taken 09/12/19 08:00] amlodipine 5 mg tablet 5 mg PO DAILY Blood pressure 04/23/18 [History Last Taken 09/12/19 08:00] cholecalciferol (vitamin D3) 25 mcg (1,000 unit) tablet 125 mcg (5 x 25 mcg (1,000 unit)) PO DAILY #30 tabs 08/24/20 [Rx Last Taken Unknown] melatonin 3 mg tablet 6 mg (2 x 3 mg) PO QHS #60 tabs 08/24/20 [Rx Last Taken Unknown] budesonide 1 mg/2 mL suspension for nebulization 1 mg (2 mL) inhalation BID #60 mL 02/19/22 [Rx Last Taken Unknown] ipratropium 0.5 mg-albuterol 3 mg (2.5 mg base)/3 mL nebulization soln 3 ml inhalation TID asthma #180 mL 02/19/22 [Rx Last Taken Unknown] oxycodone-acetaminophen 5 mg-325 mg tablet (Percocet) 1 tab PO Q6H PRN pain 5 days #20 tabs 06/12/22 [Rx Last Taken Unknown] albuterol sulfate 90 mcg/actuation aerosol inhaler (ProAir HFA) 2 inh inhalation Q6H PRN shortness of breath or wheezing #8.5 grams 08/31/22 [Rx Last Taken Unknown] hydrocodone-acetaminophen 5-325mg 5mg-325mg 1 tab PO Q6H PRN PRN Pain 3 days #10 TABLETS 11/28/22 [Rx Last Taken Unknown] hydrocodone-acetaminophen 5-325mg 5mg-325mg 1 tab PO Q6H PRN PRN Pain 3 days #10 TABLETS 05/14/23 [Rx Last Taken Unknown] Allergy/AdvReac Type Severity Reaction Status Date / Time Sulfa (Sulfonamide Allergy Hives Verified 05/14/23 07:50 Antibiotics) fentanyl AdvReac Other Verified 05/14/23 07:50 Social History Smoking Status: Never smoker ROS ROS ED Constitutional Constitutional ED: Denies chills or fever(s) Eyes Eyes: Denies change in vision or discharge from eye(s) ENT ENT ED: Denies discharge from eye(s), rhinorrhea or sore throat Cardiovascular Cardiovascular: Reports chest pain; Denies palpitations Respiratory/Chest Respiratory/Chest: Reports dyspnea; Denies cough Gastrointestinal Gastrointestinal: Denies abdominal pain, nausea or vomiting Musculoskeletal Musculoskeletal: Reports neck pain; Denies back pain or extremity pain Integumentary Denies Abrasions or rash Neurologic Neurologic: Denies headache(s) or weakness Psychiatric Psychiatric: Denies anxiety or depression Allergic/Immunologic Allergic/Immunologic ED: Denies lip swelling or urticaria EXAM Physical Exam Const Vital Signs: 05/14/23 07:50 05/14/23 08:02 Temperature 97.3 F L Temperature Source Temporal Pulse Rate 99 Respiratory Rate 14 Respiratory Effort Normal Non-Labored Blood Pressure 114/83 H Blood Pressure Mean 93 Pulse Ox 96 Oxygen Delivery Method Room Air Positive well nourished and well developed General Appearance ED: well developed HEENT atraumatic Eyes EOMs intact bilaterally Neck Neck Narrative: No focal C-spine tenderness. Chest Wall inspection of chest normal Chest Narrative: Right lateral chest wall tenderness. No abrasions or ecchymosis. No crepitus. Resp normal respiratory effort and clear to auscultation bilaterally Cardio regular rhythm Rate: regular rate GI non-tender Palpation: soft Back/Spine normal to inspection Extremity normal to inspection and full ROM Neuro oriented x3, moves all extremities, no focal motor deficits and no sensory deficits noted Psych mental status grossly normal Skin no rashes or lesions noted MDM MDM MDM Narrative Medical decision making narrative: Patient given a dose of [place] which she is tolerated well in the past. Sent for x-ray images of the C-spine as well as ribs with single view chest to evaluate for possible fracture. Radiography Diagnostic Testing: Clinical Impression(s) from Imaging Studies Cervical Spine X-Ray 05/14/23 08:22 IMPRESSION: No acute fracture or dislocation identified in the cervical spine. Degenerative and postoperative changes. Electronically Signed: Lily Montelongo MD at 9:01 EST , Ribs w/Chest X-Ray 05/14/23 08:22 IMPRESSION: RIBS: Minimally displaced fractures of the right sixth and seventh ribs. Old healed fractures of the eighth through tenth ribs. CHEST: Unremarkable x-ray examination of the chest. Electronically Signed: Jonathan Diaz MD at 9:11 EST , Treatment and Re-Evaluation Narrative: C-spine x-ray per my interpretation reveals hardware to be intact. No acute findings. Radiology interpretation reviewed and agrees. Rib series with chest x-ray reviewed by myself. Patient appears to have at least 1 if not 2 mildly displaced rib fractures on the right. No evidence of pneumothorax. Radiology interpretation reviewed. Patient has minimally displaced fractures of the right sixth and seventh ribs. Test results discussed with the patient. He will be treated with a course of [place] which she has tolerated well in the past. He was warned on the sedating and constipating side effects of this medication. We discussed the importance of deep breathing to help prevent pneumonia. Return instructions provided. Discharge Plan Triage Chief Complaint: Chest Other ED Provider: Blanca Leonard Dx/Rx/DC Orders Clinical Impression: Right rib fracture, Fall Instructions: ED Rib Fracture Prescriptions: New hydrocodone-acetaminophen 5-325 mg tablet 1 tab PO Q6H PRN PRN (Reason: Pain) 3 Days Qty: 10 0RF No Action ipratropium-albuterol 0.5 mg-3 mg(2.5 mg base)/3 mL solution for nebulization 3 ml inhalation TID Qty: 180 0RF budesonide 1 mg/2 mL suspension for nebulization 1 mg inhalation BID Qty: 60 6RF albuterol sulfate 2.5 MG/3 ML solution for nebulization 2.5 mg inhalation Q2H PRN PRN (Reason: Wheezing) Qty: 1000 0RF Patient Comments: ASTHMA amlodipine 5 MG tablet 5 mg PO DAILY melatonin 3 MG tablet 6 mg PO QHS Qty: 60 0RF cholecalciferol (vitamin D3) 25 MCG tablet 125 mcg PO DAILY Qty: 30 0RF oxycodone-acetaminophen [Percocet] 5-325 mg tablet 1 tab PO Q6H PRN (Reason: pain) 5 Days Qty: 20 0RF hydrocodone-acetaminophen [hydrocodone-acetaminophen] 5-325 mg tablet 1 tab PO Q6H PRN PRN (Reason: Pain) 3 Days Qty: 10 0RF albuterol sulfate [ProAir HFA] 90 mcg/actuation HFA aerosol inhaler 2 inh inhalation Q6H PRN (Reason: shortness of breath or wheezing) Qty: 8.5 11RF Primary Care Provider: Elijah Rodriguez Referrals: Elijah Rodriguez MD [Primary Care Provider] - 1-2 Weeks Disposition Disposition: Home, Self Care
[2023-05-14] MEDS: HYDROcodone Bitartrate/Apap 5/325 Tablet PO (08:35)
== END 2023-05-14 09:44 | disposition home or self-care (01) ==
PROVIDERS: Emergency Provider Emergency Medicine; PCP Family Medicine; Visit Provider Emergency Medicine
DX: S22.41XA Multiple fractures of ribs, right side, initial encounter for closed fracture (principal); J44.9 Chronic obstructive pulmonary disease, unspecified; W01.190A Fall on same level from slipping, tripping and stumbling with subsequent striking against furniture, initial encounter; Y92.009 Unspecified place in unspecified non-institutional (private) residence as the place of occurrence of the external cause; I10 Essential (primary) hypertension; Z79.899 Other long term (current) drug therapy
CPT/HCPCS: 71101; 72040; 99282

== ENCOUNTER 2023-06-08 09:46 | Inpatient (IN) | payer MEDICARE, SELFPAY ==
[2023-06-08 09:46] VITALS: BP 140/88; PULSE 88; RESP 20; TEMP 37.2; O2SAT 97; BMI 19.9
--- NOTE | 2023-06-08 11:14 | EDS_ITS ---
HPI History of Present Illness Chief Complaint: Wound Informant: patient Narrative Narrative: 86-year-old male states that he was grooming his cat 4-5 days ago, his cat bit him in the arm/hand during this, broke the skin, he states it has become more red, swollen, painful over the last 4 or 5 days, so he presents for evaluation for the first time for this injury. Denies any systemic symptoms or fever/chills. He is right-hand dominant. He states he is having trouble straightening out the fingers of his left hand. Tetanus Immunization: Unknown [facility] Medical History (Updated 06/08/23 @ 11:[address] Wai Deshpande MD) Acute respiratory failure with hypoxia Asthma Hypertension Small bowel obstruction Status asthmaticus SVT (supraventricular tachycardia) Thrombocytopenia Home Medications albuterol sulfate 2.5 mg/3 mL (0.083 %) solution for nebulization 2.5 mg (3 mL) inhalation Q2H PRN PRN Wheezing ##1,000 11/06/13 [Rx Last Taken 09/12/19 08:00] amlodipine 5 mg tablet 5 mg PO DAILY Blood pressure 04/23/18 [History Last Taken 09/12/19 08:00] cholecalciferol (vitamin D3) 25 mcg (1,000 unit) tablet 125 mcg (5 x 25 mcg (1,000 unit)) PO DAILY #30 tabs 08/24/20 [Rx Last Taken Unknown] melatonin 3 mg tablet 6 mg (2 x 3 mg) PO QHS #60 tabs 08/24/20 [Rx Last Taken Unknown] budesonide 1 mg/2 mL suspension for nebulization 1 mg (2 mL) inhalation BID #60 mL 02/19/22 [Rx Last Taken Unknown] ipratropium 0.5 mg-albuterol 3 mg (2.5 mg base)/3 mL nebulization soln 3 ml inhalation TID asthma #180 mL 02/19/22 [Rx Last Taken Unknown] albuterol sulfate 90 mcg/actuation aerosol inhaler (ProAir HFA) 2 inh inhalation Q6H PRN shortness of breath or wheezing #8.5 grams 08/31/22 [Rx Last Taken Unknown] losartan 100 mg tablet mg PO 05/26/23 [History Last Taken Unknown] Allergy/AdvReac Type Severity Reaction Status Date / Time Sulfa (Sulfonamide Allergy Hives Verified 06/08/23 09:46 Antibiotics) fentanyl AdvReac Other Verified 06/08/23 09:46 Social History Smoking Status: Never smoker ROS ROS ED Constitutional Constitutional ED: Denies chills or fever(s) Musculoskeletal Musculoskeletal: Reports extremity pain; Denies neck pain Integumentary Reports rash and wounds; Denies Abrasions Neurologic Neurologic: Denies paresthesias or weakness EXAM Physical Exam Const Vital Signs: 06/08/23 09:46 Temperature 99 F Temperature Source Temporal Pulse Rate 88 Respiratory Rate 20 H Blood Pressure 140/88 H Blood Pressure Mean 105 Pulse Ox 97 Oxygen Delivery Method Room Air Positive well nourished and well developed General Appearance ED: well developed and NAD Neck full ROM and supple Chest Wall inspection of chest normal and palpation of chest normal Resp normal respiratory effort Back/Spine normal ROM and normal to inspection Extremity Extremity Narrative: There are several small wounds dorsum of the left wrist and hand, at least one of them has pus that is able to be expressed out of it. Very tender and swollen throughout this area and up to the junction of the middle and distal thirds of the forearm, but cellulitis extends to the upper arm just proximal to the elbow. No subcutaneous emphysema. All compartments are soft and nondistended. When I passively extend his fingers he is not in severe pain; otherwise he is holding them in a curve neutral position. He can extend at the wrist a little bit very limited due to pain. There is no lymphangitis. There is no epitrochlear lymphadenopathy. No palpable axillary lymphadenopathy. Neuro oriented x3, no focal motor deficits and no sensory deficits noted Sensorium / Orientation: alert Psych mental status grossly normal and thought process normal Skin Skin Narrative: Wound with purulent discharge and cellulitis extending up the left upper extremity see above for details. MDM MDM MDM Narrative Medical decision making narrative: This is clearly an infected wound, and the cellulitis extends all the way up to the upper arm from the hand. He is 78 and having trouble using his hand, lives at home alone. For these reasons I think admitting him to the hospital with IV antibiotics is indicated. Discussed with orthopedics Dr. Villasenor who is comfortable being consulted on this case. Management Discussion w/another healthcare provider: Family Physician (Manuel Villasenor) Discharge Plan Triage Chief Complaint: Wound ED Provider: Wai Deshpande Dx/Rx/DC Orders Clinical Impression: Immunization, tetanus-diphtheria, Cat bite of left hand with infection Prescriptions: No Action ipratropium-albuterol 0.5 mg-3 mg(2.5 mg base)/3 mL solution for nebulization 3 ml inhalation TID Qty: 180 0RF budesonide 1 mg/2 mL suspension for nebulization 1 mg inhalation BID Qty: 60 6RF losartan 100 mg tablet PO Patient Comments: TAKE 1 TABLET BY MOUTH ONCE DAILY albuterol sulfate 2.5 MG/3 ML solution for nebulization 2.5 mg inhalation Q2H PRN PRN (Reason: Wheezing) Qty: 1000 0RF Patient Comments: ASTHMA amlodipine 5 MG tablet 5 mg PO DAILY melatonin 3 MG tablet 6 mg PO QHS Qty: 60 0RF cholecalciferol (vitamin D3) 25 MCG tablet 125 mcg PO DAILY Qty: 30 0RF albuterol sulfate [ProAir HFA] 90 mcg/actuation HFA aerosol inhaler 2 inh inhalation Q6H PRN (Reason: shortness of breath or wheezing) Qty: 8.5 11RF Primary Care Provider: Elijah Rodriguez Referrals: Elijah Rodriguez MD [Primary Care Provider] - Disposition Disposition: Acute Care Hospital [facility]
--- NOTE | 2023-06-08 11:14 | EX.ED.UPPERE ---
HPI History of Present Illness Chief Complaint: Wound Informant: patient Narrative Narrative: 86-year-old male states that he was grooming his cat 4-5 days ago, his cat bit him in the arm/hand during this, broke the skin, he states it has become more red, swollen, painful over the last 4 or 5 days, so he presents for evaluation for the first time for this injury. Denies any systemic symptoms or fever/chills. He is right-hand dominant. He states he is having trouble straightening out the fingers of his left hand. Tetanus Immunization: Unknown [facility] Medical History (Updated 06/08/23 @ 11:[address] Wai Deshpande MD) Acute respiratory failure with hypoxia Asthma Hypertension Small bowel obstruction Status asthmaticus SVT (supraventricular tachycardia) Thrombocytopenia Home Medications amlodipine 5 mg tablet 5 mg PO DAILY Blood pressure 04/23/18 [History Last Taken 06/06/23] cholecalciferol (vitamin D3) 25 mcg (1,000 unit) tablet 125 mcg (5 x 25 mcg (1,000 unit)) PO DAILY #30 tabs 08/24/20 [Rx Last Taken 06/06/23] budesonide 1 mg/2 mL suspension for nebulization 1 mg (2 mL) inhalation BID #60 mL 02/19/22 [Rx Last Taken Unknown] losartan 100 mg tablet 100 mg PO DAILY BLOOD PRESSURE 05/26/23 [History Last Taken 06/06/23] albuterol sulfate 2.5 mg/3 mL (0.083 %) solution for nebulization 2.5 mg inhalation Q2H PRN Wheezing 06/08/23 [History Last Taken Unknown] cyanocobalamin (vitamin B-12) 100 mcg tablet (Vitamin B-12) 100 mcg PO DAILY SUPPLEMENT 06/08/23 [History Last Taken 06/06/23] hydrochlorothiazide 12.5 mg capsule 12.5 mg PO DAILY 06/08/23 [History Last Taken Unknown] sodium chloride 0.65 % nasal spray aerosol (Saline Nasal) 1 spray intranasal BID PRN DRY NARES 06/08/23 [History Last Taken 06/08/23] Allergy/AdvReac Type Severity Reaction Status Date / Time Sulfa (Sulfonamide Allergy Hives Verified 06/08/23 09:46 Antibiotics) fentanyl AdvReac Other Verified 06/08/23 09:46 Social History Smoking Status: Never smoker ROS ROS ED Constitutional Constitutional ED: Denies chills or fever(s) Musculoskeletal Musculoskeletal: Reports extremity pain; Denies neck pain Integumentary Reports rash and wounds; Denies Abrasions Neurologic Neurologic: Denies paresthesias or weakness EXAM Physical Exam Const Vital Signs: 06/08/23 09:46 Temperature 99 F Temperature Source Temporal Pulse Rate 88 Respiratory Rate 20 H Blood Pressure 140/88 H Blood Pressure Mean 105 Pulse Ox 97 Oxygen Delivery Method Room Air Positive well nourished and well developed General Appearance ED: well developed and NAD Neck full ROM and supple Chest Wall inspection of chest normal and palpation of chest normal Resp normal respiratory effort Back/Spine normal ROM and normal to inspection Extremity Extremity Narrative: There are several small wounds dorsum of the left wrist and hand, at least one of them has pus that is able to be expressed out of it. Very tender and swollen throughout this area and up to the junction of the middle and distal thirds of the forearm, but cellulitis extends to the upper arm just proximal to the elbow. No subcutaneous emphysema. All compartments are soft and nondistended. When I passively extend his fingers he is not in severe pain; otherwise he is holding them in a curve neutral position. He can extend at the wrist a little bit very limited due to pain. There is no lymphangitis. There is no epitrochlear lymphadenopathy. No palpable axillary lymphadenopathy. Neuro oriented x3, no focal motor deficits and no sensory deficits noted Sensorium / Orientation: alert Psych mental status grossly normal and thought process normal Skin Skin Narrative: Wound with purulent discharge and cellulitis extending up the left upper extremity see above for details. MDM MDM MDM Narrative Medical decision making narrative: This is clearly an infected wound, and the cellulitis extends all the way up to the upper arm from the hand. He is 78 and having trouble using his hand, lives at home alone. For these reasons I think admitting him to the hospital with IV antibiotics is indicated. Discussed with orthopedics Dr. Villasenor who is comfortable being consulted on this case. Lab Data Attestation: I reviewed the patient's lab results. Labs: Laboratory Tests 06/08/23 Range/Units 10:20 WBC 7.3 (4.4-11.0) K/mm3 RBC 3.85 L (4.6-6.2) M/mm3 Hgb 14.0 (13.0-16.5) g/dL Hct 41.6 (40-54) % MCV 108.1 H (80-94) fL MCH 36.4 H (27.0-32.0) pg MCHC 33.7 (32-36) g/dL RDW Std Deviation 53.1 H (35.1-43.9) fl RDW Coeff of Mya 13.3 (11.6-14.6) % Plt Count 157 (150-450) K/mm3 MPV 10.6 (6.2-12.0) fl Immature Gran % (Auto) 0.500 (0.0-0.9) % Neut % (Auto) 73.4 H (47-70) % Lymph % (Auto) 16.7 L (19-41) % [place] % (Auto) 6.6 (0-10) % Eos % (Auto) 2.5 (0-5) % Baso % (Auto) 0.3 (0-1) % Absolute Neuts (auto) 5.4 (2.0-7.7) X10^3/uL Absolute Lymphs (auto) 1.22 (0.83-4.51) X10^3/uL Nucleated RBC % 0 (0-5) % Sodium 131 L (136-145) mmol/L Potassium 3.0 L (3.5-5.1) mmol/L Chloride 98 (98-107) mmol/L Carbon Dioxide 29.0 (21.0-32.0) mmol/L Anion Gap 4 L (5-15) BUN 10 (7-18) mg/dL Creatinine 0.78 (0.70-1.30) mg/dL Estim Creat Clear Calc 67.50 ml/min Est GFR (MDRD) Af Amer 123 (>60) mL/min Est GFR (MDRD) Non-Af 102 (>60) mL/min BUN/Creatinine Ratio 12.8 (10-20) RATIO Glucose 105 (74-106) mg/dL Calcium 9.1 (8.5-10.1) mg/dL Management Discussion w/another healthcare provider: Hospitalist and Enrollment Management Coordinator ([facility]) Discharge Plan Dx/Rx/DC Orders Clinical Impression: Immunization, tetanus-diphtheria, Cat bite of left hand with infection Disposition Disposition: Acute Care Hospital [facility]
[2023-06-08 11:22] LABS: Absolute Lymphocyte Count 1.22 X10^3/uL (0.83-4.51); Absolute Neutrophil Count 5.4 X10^3/uL (2.0-7.7); Basophil# 0.02 X10^3/uL; Basophil% 0.3 % (0-1); Eosinophil# 0.18 X10^3/uL; Eosinophils% 2.5 % (0-5); Hematocrit 41.6 % (40-54); Lymphocyte # 1.22 X10^3/ul (0.83-4.51); Lymphocyte % 16.7 % (19-41); Mean Corp Hgb Conc 33.7 g/dL (32-36); Mean Corpuscular Hgb 36.4 pg (27.0-32.0); Mean Corpuscular Volume 108.1 fL (80-94); Mean Platelet Vol. 10.6 fl (6.2-12.0); Monocyte# 0.48 X10^3/uL; Monocyte% 6.6 % (0-10); NRBC Flagged by Analyzer 0 % (0-5); Neutrophil # 5.37 X10^3/uL (2.7-7.7); Neutrophil % 73.4 % (47-70); Platelet Count 157 K/mm3 (150-450); RBC Distribution Width CV 13.3 % (11.6-14.6); RBC Distribution Width SD 53.1 fl (35.1-43.9); Red Blood Count 3.85 M/mm3 (4.6-6.2); White Blood Count 7.3 K/mm3 (4.4-11.0)
[2023-06-08 11:32] LABS: Anion Gap 4 (5-15); BUN 10 mg/dL (7-18); BUN/Creat Ratio 12.8 RATIO (10-20); Calcium,Total 9.1 mg/dL (8.5-10.1); Chloride 98 mmol/L (98-107); Creatinine, Serum 0.78 mg/dL (0.70-1.30); EST Glomerular Filtration Rate 102 mL/min (>60); Est Glom Filt Rate - Afr Amer 123 mL/min (>60); Glucose 105 mg/dL (74-106); Sodium Level 131 mmol/L (136-145)
[2023-06-08] MEDS: Ampicillin/Sulbactam 3 GM in 0.9% Normal Saline (100mL MB+) 100 ML IV ×3 (11:33→23:50)
[2023-06-08] MEDS: HYDROcodone Bitartrate/Apap 5/325 Tablet PO (11:34)
[2023-06-08] MEDS: Diphth,Pertuss(Acell),Tet Vac 0.5 ML Vial IM (11:34)
[2023-06-08 12:35] VITALS: BP 139/80; PULSE 76; RESP 18; TEMP 37.1; O2SAT 97
--- NOTE | 2023-06-08 14:00 | PCM.HP.STD ---
HPI - General General Date of Admission: 06/08/23 Date of Service: 06/08/23 Chief Complaint: Left hand and wrist arm redness HPI Narrative BHASKAR VASQUEZ, is a 78 M who presents with left hand and arm redness. Approximately 2 to 3 days ago, patient was bitten by his cat when he was grooming it. The following day, his hand started to get swollen and red. It progressed spreading proximally up his arm and had difficulty closing his hand. Presented to the emergency room today and received Unasyn. Patient said he was bit by the sink at about 8 to 9 years ago but had far less severe case of cellulitis at that time. [facility], [facility] Medical History Acute respiratory failure with hypoxia Asthma Hypertension Small bowel obstruction Status asthmaticus SVT (supraventricular tachycardia) Thrombocytopenia Home Medications amlodipine 5 mg tablet 5 mg PO DAILY Blood pressure 04/23/18 [History Last Taken 06/06/23] cholecalciferol (vitamin D3) 25 mcg (1,000 unit) tablet 125 mcg (5 x 25 mcg (1,000 unit)) PO DAILY #30 tabs 08/24/20 [Rx Last Taken 06/06/23] budesonide 1 mg/2 mL suspension for nebulization 1 mg (2 mL) inhalation BID #60 mL 02/19/22 [Rx Last Taken Unknown] losartan 100 mg tablet 100 mg PO DAILY BLOOD PRESSURE 05/26/23 [History Last Taken 06/06/23] albuterol sulfate 2.5 mg/3 mL (0.083 %) solution for nebulization 2.5 mg inhalation Q2H PRN Wheezing 06/08/23 [History Last Taken Unknown] cyanocobalamin (vitamin B-12) 100 mcg tablet (Vitamin B-12) 100 mcg PO DAILY SUPPLEMENT 06/08/23 [History Last Taken 06/06/23] hydrochlorothiazide 12.5 mg capsule 12.5 mg PO DAILY 06/08/23 [History Last Taken Unknown] sodium chloride 0.65 % nasal spray aerosol (Saline Nasal) 1 spray intranasal BID PRN DRY NARES 06/08/23 [History Last Taken 06/08/23] Allergy/AdvReac Type Severity Reaction Status Date / Time Sulfa (Sulfonamide Allergy Hives Verified 06/08/23 09:46 Antibiotics) fentanyl AdvReac Other Verified 06/08/23 09:46 Family History (Updated 06/08/23 @ 14:[address] Homer Yanez DO) Mother Heart disease Social History Smoking Status: Never smoker ROS ROS Narrative All review of systems were negative except as mentioned above in the history of present illness and the other review of systems. Vital Signs Vital Signs Vital Signs: 06/08/23 09:46 06/08/23 12:35 Temperature 37.2 C 37.1 C Temperature Source Temporal Oral Pulse Rate 88 76 Respiratory Rate 20 H 18 Blood Pressure 140/88 H 139/80 H Blood Pressure Mean 105 99 Pulse Ox 97 97 Oxygen Delivery Method Room Air Room Air Weight Weight: 64.8 kg Body Mass Index (BMI) 19.9 Physical Exam Const alert and no apparent distress Constitutional Narrative: Cachectic. Afebrile. Nontoxic. HEENT normocephalic and hearing grossly normal bilaterally Resp normal respiratory effort, no retractions, no use of accessory muscles and clear to auscultation bilaterally Cardio regular rate, regular rhythm, S1 normal heart sound and S2 normal heart sound GI normal to inspection, nondistended, normoactive bowel sounds, soft to palpation, non-tender and non-distended Extremity Extremity Narrative: Erythema of the left hand with swelling. Difficult to the clenching his hand and extending his fingers. Erythema extending proximally up his arm that is confluent. No fluctuance appreciated. Results Lab / Micro Data 06/08/23 10:20 06/08/23 10:20 Labs: Laboratory Results - last 24 hr 06/08/23 10:20: WBC 7.3, RBC 3.85 L, Hgb 14.0, Hct 41.6, MCV 108.1 H, MCH 36.4 H, MCHC 33.7, RDW Std Deviation 53.1 H, RDW Coeff of Mya 13.3, Plt Count 157, MPV 10.6, Immature Gran % (Auto) 0.500, Neut % (Auto) 73.4 H, Lymph % (Auto) 16.7 L, [place] % (Auto) 6.6, Eos % (Auto) 2.5, Baso % (Auto) 0.3, Absolute Neuts (auto) 5.4, Absolute Lymphs (auto) 1.22, Nucleated RBC % 0, Sodium 131 L, Potassium 3.0 L, Chloride 98, Carbon Dioxide 29.0, Anion Gap 4 L, BUN 10, Creatinine 0.78, Estim Creat Clear Calc 67.50, Est GFR (MDRD) Af Amer 123, Est GFR (MDRD) Non-Af 102, BUN/Creatinine Ratio 12.8, Glucose 105, Calcium 9.1 Assessment & Plan Assessment/Plan (1) Cat bite of left hand with infection: PLAN: Plan Left hand cellulitis Secondary to cat bite Will check a CT Antibiotics with ampicillin/sulbactam and vancomycin Consult orthopedics in case surgery would be needed. Notified by emergency room physician Elevate left upper extremity Follow-up cultures VTE prophylaxis with enoxaparin Charges/Coding Visit Charges Inpatient E&M: 01572 Init Hosp L2
[2023-06-08 14:04] VITALS: BP 139/80; PULSE 76; RESP 18; TEMP 37.1; O2SAT 97
--- NOTE | 2023-06-08 14:14 | CT_ITS ---
STUDY: CT SCAN FOREARM AND HAND LEFT REASON FOR EXAM: Male, 78 years old. Left hand and arm cellulitis RADIATION DOSAGE (If Supplied By Facility): CTDIvol = ( 5.68 ) mGy, DLP = ( 240.35 ) mGycm. Individualized dose optimization techniques were used for this CT.? TECHNIQUE: Multiple axial tomographic images as well as coronal and sagittal reconstruction were obtained following 100 mL of Isovue-300 contrast administration. COMPARISON: None. FINDINGS: There is evidence of a subcutaneous edema suggestive of a cellulitis. No radiopaque foreign body is seen. There is evidence of degenerative changes at the level of the carpal bones. CT/Extremity Upper WITH Contrast IMPRESSION: Soft tissue swelling. No radiopaque foreign body is seen. No evidence of abnormal fluid or abscess collection. Degenerative changes of the carpal bones. Electronically Signed: Babar Tomas MD at 15:10 EST ,
[2023-06-08 14:15] VITALS: BMI 19.1
[2023-06-08 14:25] VITALS: BP 149/78; PULSE 71; RESP 16; TEMP 36.6; O2SAT 97
[2023-06-08] MEDS: Acetaminophen 325 MG Tablet 650 MG PO ×2 (15:52→21:59)
[2023-06-08] MEDS: Vancomycin HCl 1,500 MG in 0.9% Normal Saline (500mL Bag) 500 ML 250 MG IV (15:52)
[2023-06-08] MEDS: oxyCODONE 5 MG Tablet PO ×2 (15:52→21:58)
[2023-06-08] MEDS: 0.9% Saline Lock 10 ML Syringe IV (15:52)
--- NOTE | 2023-06-08 15:57 | PCM.RX.CS ---
Consult Antibiotic Management Pharmacy has been consulted to manage selected antibiotic: Vancomycin Type of Intervention Type of Consult: New start Suspected Infection Suspected Infection: Skin/Soft tissue Labs Labs: Sodium 131 mmol/L (136-145) L 06/08/23 10:20 Potassium 3.0 mmol/L (3.5-5.1) L 06/08/23 10:20 Chloride 98 mmol/L (98-107) 06/08/23 10:20 Carbon Dioxide 29.0 mmol/L (21.0-32.0) 06/08/23 10:20 Anion Gap 4 (5-15) L 06/08/23 10:20 BUN 10 mg/dL (7-18) 06/08/23 10:20 Creatinine 0.78 mg/dL (0.70-1.30) 06/08/23 10:20 Est GFR (MDRD) Af Amer 123 mL/min (>60) 06/08/23 10:20 Est GFR (MDRD) Non-Af 102 mL/min (>60) 06/08/23 10:20 BUN/Creatinine Ratio 12.8 RATIO (10-20) 06/08/23 10:20 Glucose 105 mg/dL (74-106) 06/08/23 10:20 Pharmacy Plan for Drug Dosing Pharmacy Plan for Drug Dosing: NEW START IV VANCOMYCIN Consulting Physician: Beau Indication: Cellulitis/cat bite Goal Trough: 15-20 mg/dL SrCr: 0.78 mg/dL CrCl: 66.6 mL/min Comments: Loading dose of 1500mg given 06/08 @ 1552 Vancomycin Dose: Will start 750mg Q12 (06/09 @ 0400) and get a trough prior to 4th total dose per policy. Pending Level: 06/10/23 @ 0330 Pharmacy Service will continue to monitor and adjust dosing as required.
--- NOTE | 2023-06-08 16:37 | CONS.ORTHO ---
HPI Consult Data Date of Consult: 06/08/23 HPI Narrative HPI Narrative: BHASKAR VASQUEZ, is a 78 M who presents with a left hand and UE cellulitis following a cat bite. Getting worse and more painful over last 3 days. patient unsure if draining. mostly pain on the dorsum of the left hand. [facility] Medical History Acute respiratory failure with hypoxia Asthma Hypertension Small bowel obstruction Status asthmaticus SVT (supraventricular tachycardia) Thrombocytopenia Home Medications amlodipine 5 mg tablet 5 mg PO DAILY Blood pressure 04/23/18 [History Last Taken 06/06/23] cholecalciferol (vitamin D3) 25 mcg (1,000 unit) tablet 125 mcg (5 x 25 mcg (1,000 unit)) PO DAILY #30 tabs 08/24/20 [Rx Last Taken 06/06/23] budesonide 1 mg/2 mL suspension for nebulization 1 mg (2 mL) inhalation BID #60 mL 02/19/22 [Rx Last Taken Unknown] losartan 100 mg tablet 100 mg PO DAILY BLOOD PRESSURE 05/26/23 [History Last Taken 06/06/23] albuterol sulfate 2.5 mg/3 mL (0.083 %) solution for nebulization 2.5 mg inhalation Q2H PRN Wheezing 06/08/23 [History Last Taken Unknown] cyanocobalamin (vitamin B-12) 100 mcg tablet (Vitamin B-12) 100 mcg PO DAILY SUPPLEMENT 06/08/23 [History Last Taken 06/06/23] hydrochlorothiazide 12.5 mg capsule 12.5 mg PO DAILY 06/08/23 [History Last Taken Unknown] sodium chloride 0.65 % nasal spray aerosol (Saline Nasal) 1 spray intranasal BID PRN DRY NARES 06/08/23 [History Last Taken 06/08/23] Allergy/AdvReac Type Severity Reaction Status Date / Time Sulfa (Sulfonamide Allergy Hives Verified 06/08/23 14:22 Antibiotics) fentanyl AdvReac Other Verified 06/08/23 14:22 Family History (Updated 06/08/23 @ 14:[address] Homer Yanez DO) Mother Heart disease Social History Smoking Status: Never smoker Vital Signs Vital Signs Vital Signs: 06/08/23 09:46 06/08/23 12:35 06/08/23 14:04 Temperature 99 F 98.8 F 98.8 F Temperature Source Temporal Oral Pulse Rate 88 76 76 Respiratory Rate 20 H 18 18 Respiratory Effort Respiratory Depth Respiratory Pattern Blood Pressure 140/88 H 139/80 H 139/80 H Blood Pressure Mean 105 99 99 Blood Pressure Source Blood Pressure Position Blood Pressure Location Pulse Ox 97 97 97 Oxygen Delivery Method Room Air Room Air 06/08/23 14:25 06/08/23 14:15 Temperature 97.9 F Temperature Source Oral Pulse Rate 71 Respiratory Rate 16 Respiratory Effort Normal Non-Labored Respiratory Depth Normal Respiratory Pattern Normal Blood Pressure 149/78 H Blood Pressure Mean 101 Blood Pressure Source Monitor Blood Pressure Position Semi-Fowlers Blood Pressure Location Right Arm Pulse Ox 97 Oxygen Delivery Method Room Air Room Air Weight Weight: 137 lb 8 oz Body Mass Index (BMI) 19.1 Physical Exam Const General Appearance: cooperative and well developed Extremity normal capillary refill Extremity Narrative: redness warmth and swelling to dorsum of left hand extending up the forearm to the elbow, stopping just distal to that, full rom of fingers wrist and elbow, normal sensation to hand, no pain along flexor tendons, small poke holes dorsum of hand, no fluctuance or active drainage. forearm soft, no pain with passive stretch Lab / Micro Data Attestation: I reviewed the patient's lab results. 06/08/23 10:20 06/08/23 10:20 Labs: Laboratory Results - last 24 hr 06/08/23 10:20: WBC 7.3, RBC 3.85 L, Hgb 14.0, Hct 41.6, MCV 108.1 H, MCH 36.4 H, MCHC 33.7, RDW Std Deviation 53.1 H, RDW Coeff of Mya 13.3, Plt Count 157, MPV 10.6, Immature Gran % (Auto) 0.500, Neut % (Auto) 73.4 H, Lymph % (Auto) 16.7 L, [place] % (Auto) 6.6, Eos % (Auto) 2.5, Baso % (Auto) 0.3, Absolute Neuts (auto) 5.4, Absolute Lymphs (auto) 1.22, Nucleated RBC % 0, Sodium 131 L, Potassium 3.0 L, Chloride 98, Carbon Dioxide 29.0, Anion Gap 4 L, BUN 10, Creatinine 0.78, Estim Creat Clear Calc 67.50, Est GFR (MDRD) Af Amer 123, Est GFR (MDRD) Non-Af 102, BUN/Creatinine Ratio 12.8, Glucose 105, Calcium 9.1 Imaging Radiology Impression Upper Extremity CT 06/08/23 14:14 IMPRESSION: Soft tissue swelling. No radiopaque foreign body is seen. No evidence of abnormal fluid or abscess collection. Degenerative changes of the carpal bones. Electronically Signed: Babar Tomas MD at 15:10 EST , agree Assessment & Plan Assessment/Plan (1) Cat bite of left hand with infection: PLAN: 78 yr male with cat bite and bacterial infection L hand and forearm, no signs of fluid collection or need for I and D, nor septic joint. Would recommend IV antibiotics / ID consult. No role for acute surgical management at this point. Will sign off, please call with any concerns or worsening.
[2023-06-08] MEDS: Ibuprofen 600 MG Tablet PO ×2 (17:56→23:51)
[2023-06-08] MEDS: Budesonide Respules 0.5 MG/2 ML AMPUL.NEB. 1 MG INHALATION (19:18)
[2023-06-08 19:21] VITALS: PULSE 80; RESP 14
[2023-06-08 22:19] VITALS: BP 109/65; PULSE 85; RESP 16; TEMP 36.8; O2SAT 96
[2023-06-09] MEDS: Vancomycin HCl 750 MG in 0.9% Normal Saline (250mL Bag) 250 ML 250 MG IV (03:58)
[2023-06-09] MEDS: oxyCODONE 5 MG Tablet PO (03:58)
[2023-06-09] MEDS: Acetaminophen 325 MG Tablet 650 MG PO (03:59)
[2023-06-09 04:11] VITALS: BP 109/60; PULSE 75; RESP 16; TEMP 36.4; O2SAT 97
[2023-06-09] MEDS: Ibuprofen 600 MG Tablet PO (05:58)
[2023-06-09] MEDS: Ampicillin/Sulbactam 3 GM in 0.9% Normal Saline (100mL MB+) 100 ML IV (05:58)
[2023-06-09 07:19] VITALS: PULSE 66; RESP 14
--- NOTE | 2023-06-09 07:25 | PN.HOSP_ITS ---
Reason for Visit Reason for Visit: Diagnoses Local infection of the skin and subcutaneous tissue, unspecified (06/08/23) Open bite of left hand, initial encounter (06/08/23) Bitten by cat, initial encounter (06/08/23) Subjective Subjective Left hand and arm are doing better. Redness is improved as well as swelling. Patient able to extend his fingers better as well as make a fist. Objective Data Objective Data Vital Signs: Vital Signs Temp Pulse Resp BP Pulse Ox O2 Del Method 36.4 C L 75 16 109/60 97 Room Air 06/09/23 04:11 06/09/23 04:11 06/09/23 04:11 06/09/23 04:11 06/09/23 04:11 06/09/23 04:11 Oxygen Delivery Method Room Air Weight: 62.369 kg Body Mass Index (BMI) 19.1 Intake & Output: Intake and Output for Last 24 Hours 06/07/23 06/08/23 06/09/23 23:59 23:59 23:59 Intake Total 278.17 / 278.17 489 / 489 Output Total 200 / 200 300 / 300 Balance 78.17 / 78.17 189 / 189 Lab / Micro Data 06/09/23 06:55 06/09/23 06:55 Labs: Laboratory Results - last 24 hr 06/08/23 10:20: WBC 7.3, RBC 3.85 L, Hgb 14.0, Hct 41.6, MCV 108.1 H, MCH 36.4 H , MCHC 33.7, RDW Std Deviation 53.1 H, RDW Coeff of Mya 13.3, Plt Count 157, MPV 10.6, Immature Gran % (Auto) 0.500, Neut % (Auto) 73.4 H, Lymph % (Auto) 16.7 L, [place] % (Auto) 6.6, Eos % (Auto) 2.5, Baso % (Auto) 0.3, Absolute Neuts (auto) 5.4, Absolute Lymphs (auto) 1.22, Nucleated RBC % 0, Sodium 131 L, Potassium 3.0 L, Chloride 98, Carbon Dioxide 29.0, Anion Gap 4 L, BUN 10, Creatinine 0.78, Estim Creat Clear Calc 67.50, Est GFR (MDRD) Af Amer 123, Est GFR (MDRD) Non-Af 102, BUN/Creatinine Ratio 12.8, Glucose 105, Calcium 9.1 Radiography Diagnostic Testing: Radiology Impression Upper Extremity CT 06/08/23 14:14 IMPRESSION: Soft tissue swelling. No radiopaque foreign body is seen. No evidence of abnormal fluid or abscess collection. Degenerative changes of the carpal bones. Electronically Signed: Babar Tomas MD at 15:10 EST , Physical Exam Narrative Improved swelling and erythema of left upper extremity. Patient is able to clench his fist all all the way now. Almost able to fully extend his fingers. No fluctuance appreciated. Erythema still present in the dorsum of his hand extending up his arm. Const alert and no apparent distress Assessment & Plan Assessment/Plan (1) Cat bite of left hand with infection: PLAN: Plan Left hand cellulitis * Secondary to cat bite * CT showed showed soft tissue swelling. No abscess. * Antibiotics with ampicillin/sulbactam and vancomycin * Seen by orthopaedics and signed off. * Elevate left upper extremity * Culture results still pending at this time. Will discharge the patient with Augmentin and doxycycline. * Patient advised to keep his left arm elevated when he is at rest. VTE prophylaxis with enoxaparin
[2023-06-09 07:29] LABS: Absolute Lymphocyte Count 1.11 X10^3/uL (0.83-4.51); Absolute Neutrophil Count 3.5 X10^3/uL (2.0-7.7); Basophil# 0.04 X10^3/uL; Basophil% 0.7 % (0-1); Eosinophil# 0.28 X10^3/uL; Eosinophils% 5.1 % (0-5); Hemoglobin 12.7 g/dL (13.0-16.5); Lymphocyte # 1.11 X10^3/ul (0.83-4.51); Lymphocyte % 20.4 % (19-41); Mean Corp Hgb Conc 33.4 g/dL (32-36); Mean Corpuscular Hgb 36.3 pg (27.0-32.0); Mean Corpuscular Volume 108.6 fL (80-94); Mean Platelet Vol. 10.6 fl (6.2-12.0); Monocyte# 0.53 X10^3/uL; Monocyte% 9.7 % (0-10); NRBC Flagged by Analyzer 0 % (0-5); Neutrophil # 3.47 X10^3/uL (2.7-7.7); Neutrophil % 63.7 % (47-70); Platelet Count 134 K/mm3 (150-450); RBC Distribution Width CV 13.2 % (11.6-14.6); RBC Distribution Width SD 52.6 fl (35.1-43.9); White Blood Count 5.5 K/mm3 (4.4-11.0)
[2023-06-09 07:49] LABS: Anion Gap 4 (5-15); BUN 11 mg/dL (7-18); Calcium,Total 8.6 mg/dL (8.5-10.1); Chloride 105 mmol/L (98-107); Creatinine, Serum 0.73 mg/dL (0.70-1.30); EST Glomerular Filtration Rate 109 mL/min (>60); Est Glom Filt Rate - Afr Amer 132 mL/min (>60); Estimated Creatinine Clearance 64.97 ml/min; Glucose 99 mg/dL (74-106); Potassium 3.1 mmol/L (3.5-5.1); Sodium Level 135 mmol/L (136-145)
[2023-06-09 08:52] VITALS: BP 106/69; PULSE 92; RESP 14; TEMP 37; O2SAT 96
--- NOTE | 2023-06-09 10:19 | DS.PCM_ITS ---
Providers Date of Admission: 06/08/23 Primary Care Physician: Dr. Elijah Rodriguez MD Consultations 06/08/23 14:14 Consult: Orthopedics Routine Consulting Provider: Eduardo Villasenor Reason for Consult: cellulitis EMERGENT Consult: No MD Notified: Yes Date Notified: 06/08/23 Time Notified: 12:10 Method of Notification: ED Physician Initiated Reason For Visit: CELLULITIS Diagnosis Discharge Diagnosis (1) Cat bite of left hand with infection: Status: Acute Code(s): S61.452A - Open bite of left hand, initial encounter; L08.9 - Local infection of the skin and subcutaneous tissue, unspecified; W55.01XA - Bitten by cat, initial encounter Plan Left hand cellulitis * Secondary to cat bite * CT showed showed soft tissue swelling. No abscess. * Antibiotics with ampicillin/sulbactam and vancomycin * Seen by orthopaedics and signed off. * Elevate left upper extremity * Culture results still pending at this time. Will discharge the patient with Augmentin and doxycycline. * Patient advised to keep his left arm elevated when he is at rest. VTE prophylaxis with enoxaparin Medications at Discharge Home Medications amlodipine 5 mg tablet 5 mg PO DAILY Blood pressure 04/23/18 cholecalciferol (vitamin D3) 25 mcg (1,000 unit) tablet 125 mcg (5 x 25 mcg (1,000 unit)) PO DAILY #30 tabs 08/24/20 budesonide 1 mg/2 mL suspension for nebulization 1 mg (2 mL) inhalation BID #60 mL 02/19/22 losartan 100 mg tablet 100 mg PO DAILY BLOOD PRESSURE 05/26/23 albuterol sulfate 2.5 mg/3 mL (0.083 %) solution for nebulization 2.5 mg inhalation Q2H PRN Wheezing 06/08/23 cyanocobalamin (vitamin B-12) 100 mcg tablet (Vitamin B-12) 100 mcg PO DAILY SUPPLEMENT 06/08/23 hydrochlorothiazide 12.5 mg capsule 12.5 mg PO DAILY 06/08/23 sodium chloride 0.65 % nasal spray aerosol (Saline Nasal) 1 spray intranasal BID PRN DRY NARES 06/08/23 acetaminophen 325 mg tablet 1,000 mg (3.0769 x 325 mg) PO Q8H PRN PRN Pain 1-10 Or Fever >100.7 #0 tabs 06/09/23 amoxicillin 875 mg-potassium clavulanate 125 mg tablet 1 tab PO BID #12 tabs doxycycline monohydrate 100 mg tablet 100 mg PO BID #12 tabs 06/09/23 ibuprofen 600 mg tablet 600 mg PO Q6H PRN PRN Pain Score 1-10 #0 tabs 06/09/23 oxycodone 5 mg tablet 5 mg PO Q8H PRN pain 3 days #9 tabs 06/09/23 Hospital Course Operations None Procedures None Summary of Care Provided Hospital Course: Patient with left hand and arm cellulitis secondary to cat bite that he sustained about 2 days prior. Patient improved with Unasyn as well as vancomycin. Patient will be discharged with vancomycin and doxycycline. Patient advised to keep his left arm elevated while he is at rest. Weight / BMI Weight Weight: 62.369 kg Body Mass Index (BMI) 19.1 ABG / Lab / Microbiology Data 06/09/23 06:55 06/09/23 06:55 Laboratory: Laboratory Results - last 24 hr 06/08/23 10:20: WBC 7.3, RBC 3.85 L, Hgb 14.0, Hct 41.6, MCV 108.1 H, MCH 36.4 H , MCHC 33.7, RDW Std Deviation 53.1 H, RDW Coeff of Mya 13.3, Plt Count 157, MPV 10.6, Immature Gran % (Auto) 0.500, Neut % (Auto) 73.4 H, Lymph % (Auto) 16.7 L, [place] % (Auto) 6.6, Eos % (Auto) 2.5, Baso % (Auto) 0.3, Absolute Neuts (auto) 5.4, Absolute Lymphs (auto) 1.22, Nucleated RBC % 0, Sodium 131 L, Potassium 3.0 L, Chloride 98, Carbon Dioxide 29.0, Anion Gap 4 L, BUN 10, Creatinine 0.78, Estim Creat Clear Calc 67.50, Est GFR (MDRD) Af Amer 123, Est GFR (MDRD) Non-Af 102, BUN/Creatinine Ratio 12.8, Glucose 105, Calcium 9.1 06/09/23 06:55: WBC 5.5, RBC 3.50 L, Hgb 12.7 L, Hct 38.0 L, MCV 108.6 H, MCH 36.3 H, MCHC 33.4, RDW Std Deviation 52.6 H, RDW Coeff of Mya 13.2, Plt Count 134 L, MPV 10.6, Immature Gran % (Auto) 0.400, Neut % (Auto) 63.7, Lymph % (Auto) 20.4, [place] % (Auto) 9.7, Eos % (Auto) 5.1 H, Baso % (Auto) 0.7, Absolute Neuts (auto) 3.5, Absolute Lymphs (auto) 1.11, Nucleated RBC % 0, Sodium 135 L, Potassium 3.1 L, Chloride 105, Carbon Dioxide 26.0, Anion Gap 4 L, BUN 11, Creatinine 0.73, Estim Creat Clear Calc 64.97, Est GFR (MDRD) Af Amer 132, Est GFR (MDRD) Non-Af 109, BUN/Creatinine Ratio 15.0, Glucose 99, Calcium 8.6 Radiography Diagnostic Testing: Radiology Impression Upper Extremity CT 06/08/23 14:14 IMPRESSION: Soft tissue swelling. No radiopaque foreign body is seen. No evidence of abnormal fluid or abscess collection. Degenerative changes of the carpal bones. Electronically Signed: Babar Tomas MD at 15:10 EST , D/C Instructions Discharge Diet: No restrictions Keep extremity elevated above heart level: Left Arm Call your doctor if your incision/area has: Continuous Slow Oozing, Sudden Increased Bleeding, Increased Pain/ Swelling, Increased Redness, Foul Smelling Discharge and Swelling at the incision site Meaningful Use Info Meaningful Use Diagnoses (Choose all that apply): None applicable Discharge Plan Admission Admit Date/Time: 06/08/23 12:05 Primary Reason for Your Visit: Left hand and arm cellulitis Attending Provider: Homer Yanez Primary Care Provider: Elijah Rodriguez Consulting Providers: Eduardo Villasenor Discharge Orders/Prescriptions Prescriptions: New amoxicillin-pot clavulanate 875-125 mg tablet 1 tab PO BID Qty: 12 0RF doxycycline monohydrate 100 mg tablet 100 mg PO BID Qty: 12 0RF oxycodone 5 mg tablet 5 mg PO Q8H PRN (Reason: pain) 3 Days Qty: 9 0RF acetaminophen 325 mg Tablet 1,000 mg PO Q8H PRN PRN (Reason: Pain 1-10 Or Fever >100.7) Qty: 0 0RF ibuprofen 600 mg Tablet 600 mg PO Q6H PRN PRN (Reason: Pain Score 1-10) Qty: 0 0RF Continued budesonide 1 mg/2 mL suspension for nebulization 1 mg inhalation BID Qty: 60 6RF losartan 100 mg tablet 100 mg PO DAILY amlodipine 5 MG tablet 5 mg PO DAILY cholecalciferol (vitamin D3) 25 MCG tablet 125 mcg PO DAILY Qty: 30 0RF hydrochlorothiazide 12.5 mg capsule 12.5 mg PO DAILY cyanocobalamin (vitamin B-12) [Vitamin B-12] 100 mcg tablet 100 mcg PO DAILY Saline Nasal 0.65 % aerosol,spray 1 spray intranasal BID PRN (Reason: DRY NARES) albuterol sulfate 2.5 MG/3 ML solution for nebulization 2.5 mg inhalation Q2H PRN (Reason: Wheezing) Referrals / Follow Up: Elijah Rodriguez MD [Primary Care Provider] - Within 2 Weeks Disposition Disposition (needs filled in before D/C Order can be placed): Home, Self Care Charges/Coding Visit Charges Inpatient E&M: 59558 Disch Hosp
[2023-06-09] MEDS: Cholecalciferol (Vit D3) 125 MCG CAPSULE (5,000 UNITS) PO (10:25)
[2023-06-09] MEDS: Flu Vacc QS2023-24(65YR UP)/PF 240 MCG/0.7 ML Syringe IM (10:27)
[2023-06-09] MEDS: Enoxaparin 40 MG/0.4 ML Syringe SC (10:33)
--- NOTE | 2023-06-09 10:44 | CASEMGMT ---
ZAHIDA HANDY Assessment Face to Face with patient for initial transition planning/care coordination assessment. ZAHIDA HANDY introduced self and role at [facility], pt voices understanding. Pt is A&Ox4 and is resting comfortably in bed and is calm. Care providers, pharmacy, and demographics verified. Admitting dx: Cat bite, Cellulitis LACE Strata: 2 PCP: Michael Specialists: Dion for COPD Preferred Pharmacy: [facility] Insurance: O [facility] Prescription Benefit: Yes LNOK: Liban Morin (Friend) Living Arrangements: Pt lives alone in a single story apartment with 3 steps to enter with a handrail and no issues. ADLs/IADLs: States mainly ind. Pt states he recently broke his ribs and has been hiring a cleaning company to come clean his house. Otherwise the pt is able to perform all ADLs per self. Transportation: Pt states he is able to drive but does not have a working vehicle. Pt states his car broke down and he his waiting to save enough money to buy a new one in the fall. Pt uses [employer] [facility] and states he is happy using this service and is content with their pricing. DME: Walker and cane at home but does not use. Nebulizer. Walk in shower with grab bars and chair. HHC/SNF: Pt states he was in the [facility] here in August of 2019 for a fall where he fractured his neck. Pt states he was in the [facility] for 2 weeks and was DC with HHC afterwards for around a month. Pt could not recall the name of the HH Agency. Wound: Pt states that he feels safe and comfortable performing his dressing change for his wound per himself. Pt?s goal: DC home Plan: Pt plan is to DC home today via [employer] with no additional needs. Pt denies needing HHC or outpt therapy set up at this time. Pt states he is going to sign up for the silver sneakers after DC. Tiago Perez RN, CM
[2023-06-09 10:55] VITALS: BP 107/73; PULSE 82; RESP 14; TEMP 37; O2SAT 98
--- NOTE | 2023-06-09 11:03 | PHA.DC_ITS ---
Pharmacy [facility] has performed discharge medication reconciliation and counseling for this patient. 1. ACETAMINOPHEN 1000MG PO Q8H PRN PAIN 2. AUGMENTIN 875/125MG 1T PO BID X 6 DAYS 3. DOXYCYCLINE 100MG PO BID X 6 DAYS 4. IBUPROFEN 600MG PO Q6H PRN PAIN 5. OXYCODONE 5MG PO Q8H PRN PAIN The patient's discharge medication list was reviewed for discrepancies and discrepancies were resolved. The patient was counseled on the following discharge medications and changes in medications for homegoing were reviewed. The Reason for Use, instructions for use, and potential side effects were reviewed for all new medications. The patient's questions regarding all of their medications were answered. The patient was able to verbally demonstrate an understanding of their discharge medications. Medications at Discharge Home Medications amlodipine 5 mg tablet 5 mg PO DAILY Blood pressure 04/23/18 cholecalciferol (vitamin D3) 25 mcg (1,000 unit) tablet 125 mcg (5 x 25 mcg (1,000 unit)) PO DAILY #30 tabs 08/24/20 budesonide 1 mg/2 mL suspension for nebulization 1 mg (2 mL) inhalation BID #60 mL 02/19/22 losartan 100 mg tablet 100 mg PO DAILY BLOOD PRESSURE 05/26/23 albuterol sulfate 2.5 mg/3 mL (0.083 %) solution for nebulization 2.5 mg inhalation Q2H PRN Wheezing 06/08/23 cyanocobalamin (vitamin B-12) 100 mcg tablet (Vitamin B-12) 100 mcg PO DAILY SUPPLEMENT 06/08/23 hydrochlorothiazide 12.5 mg capsule 12.5 mg PO DAILY 06/08/23 sodium chloride 0.65 % nasal spray aerosol (Saline Nasal) 1 spray intranasal BID PRN DRY NARES 06/08/23 acetaminophen 325 mg tablet 1,000 mg (3.0769 x 325 mg) PO Q8H PRN PRN Pain 1-10 Or Fever >100.7 #0 tabs 06/09/23 amoxicillin 875 mg-potassium clavulanate 125 mg tablet 1 tab PO BID #12 tabs 06/09/23 doxycycline monohydrate 100 mg tablet 100 mg PO BID #12 tabs 06/09/23 ibuprofen 600 mg tablet 600 mg PO Q6H PRN PRN Pain Score 1-10 #0 tabs 06/09/23 oxycodone 5 mg tablet 5 mg PO Q8H PRN pain 3 days #9 tabs 06/09/23
== END 2023-06-09 11:20 | disposition home or self-care (01) | DRG 603 ==
LOC: ED 11:38 → MS3 12:38
PROVIDERS: Emergency Provider Emergency Medicine; PCP Family Medicine
DX: L03.114 Cellulitis of left upper limb (principal); I10 Essential (primary) hypertension; J45.909 Unspecified asthma, uncomplicated; S61.452A Open bite of left hand, initial encounter; Z79.51 Long term (current) use of inhaled steroids; Z79.899 Other long term (current) drug therapy; W55.01XA Bitten by cat, initial encounter
CPT/HCPCS: 36415; 73201; 80048; 85025; 87070; 87205; 90715; 94640; 99283; J7030; J7040; J7050; Q9967; 90662; A4216; J0295

== ENCOUNTER 2023-07-08 09:38 | Outpatient (CLI) | payer MEDICARE, SELFPAY | END 2023-07-08 23:59 | disposition home or self-care (01) | LOC: PSN 09:39 | PROVIDERS: PCP Family Medicine; Referring Provider Nurse Practitioner Acute Care; Visit Provider Nurse Practitioner Acute Care | DX: J44.9 Chronic obstructive pulmonary disease, unspecified (principal) | CPT/HCPCS: 94060; 94726; 94729 ==

== ENCOUNTER 2023-07-09 13:32 | Emergency (ER) | payer MEDICARE, SELFPAY ==
[2023-07-09 13:35] VITALS: BP 140/74; PULSE 76; RESP 18; TEMP 36.5; O2SAT 94; BMI 20.2
--- NOTE | 2023-07-09 13:49 | EDS_ITS ---
HPI <ЮЛИЯ Begum - Last Filed: 07/09/23 15:31> History of Present Illness Chief Complaint: Upper Extremity Injury Narrative Narrative: 78-year-old male tripped on uneven sidewalk. He tried to catch himself but struck his head and left arm on the pavement. No loss of consciousness. No blood thinners. He states he thinks his left arm was extended but he also hit the left shoulder on the ground and has pain and cannot move it. His left wrist is chronically swollen from a healing cat bite that occurred 3 weeks ago but does not hurt from the fall. Bystanders called EMS and he was only on the ground for couple minutes. He denies headache, vision changes, nausea or vomiting, or neck pain. No pain in his chest, back, or lower extremities. He is right-hand dominant. [facility] <ЮЛИЯ Begum - Last Filed: 07/09/23 15:31> [facility] Medical History (Updated 07/09/23 @ 15:20 by ЮЛИЯ Begum) Acute respiratory failure with hypoxia Asthma Fall Hypertension Small bowel obstruction Status asthmaticus SVT (supraventricular tachycardia) Thrombocytopenia Home Medications amlodipine 5 mg tablet 5 mg PO DAILY Blood pressure 04/23/18 [History Last Taken 06/06/23] cholecalciferol (vitamin D3) 25 mcg (1,000 unit) tablet 125 mcg (5 x 25 mcg (1,000 unit)) PO DAILY #30 tabs 08/24/20 [Rx Last Taken 06/06/23] budesonide 1 mg/2 mL suspension for nebulization 1 mg (2 mL) inhalation BID #60 mL 02/19/22 [Rx Last Taken Unknown] losartan 100 mg tablet 100 mg PO DAILY BLOOD PRESSURE 05/26/23 [History Last Taken 06/06/23] albuterol sulfate 2.5 mg/3 mL (0.083 %) solution for nebulization 2.5 mg inhalation Q2H PRN Wheezing 06/08/23 [History Last Taken Unknown] cyanocobalamin (vitamin B-12) 100 mcg tablet (Vitamin B-12) 100 mcg PO DAILY SUPPLEMENT 06/08/23 [History Last Taken 06/06/23] hydrochlorothiazide 12.5 mg capsule 12.5 mg PO DAILY 06/08/23 [History Last Taken Unknown] sodium chloride 0.65 % nasal spray aerosol (Saline Nasal) 1 spray intranasal BID PRN DRY NARES 06/08/23 [History Last Taken 06/08/23] acetaminophen 325 mg tablet 1,000 mg (3.0769 x 325 mg) PO Q8H PRN PRN Pain 1-10 Or Fever >100.7 #0 tabs 06/09/23 [Rx Last Taken Unknown] amoxicillin 875 mg-potassium clavulanate 125 mg tablet 1 tab PO BID #12 tabs 06/09/23 [Rx Last Taken Unknown] doxycycline monohydrate 100 mg tablet 100 mg PO BID #12 tabs 06/09/23 [Rx Last Taken Unknown] ibuprofen 600 mg tablet 600 mg PO Q6H PRN PRN Pain Score 1-10 #0 tabs 06/09/23 [Rx Last Taken Unknown] oxycodone 5 mg tablet 5 mg PO Q8H PRN pain 3 days #9 tabs 06/09/23 [Rx Last Taken Unknown] hydrocodone-acetaminophen 5-325mg 5mg-325mg 1 tab PO Q6H PRN pain 3 days #12 tabs 07/09/23 [Rx Last Taken Unknown] Allergy/AdvReac Type Severity Reaction Status Date / Time Sulfa (Sulfonamide Allergy Hives Verified 07/09/23 13:33 Antibiotics) fentanyl AdvReac Other Verified 07/09/23 13:33 Family History (Updated 06/08/23 @ 14:[address] Homer Yanez DO) Mother Heart disease Social History Smoking Status: Never smoker ROS <ЮЛИЯ Begum - Last Filed: 07/09/23 15:31> ROS ED ROS Narrative Eyes: Negative for visual change. CVS: Negative for chest pain. Respiratory: Negative for shortness of breath. GI: Negative for vomiting. Neuro: Negative for headache. Musc: Positive for left upper extremity pain, trauma. EXAM <ЮЛИЯ Begum - Last Filed: 07/09/23 15:31> Physical Exam Narrative Exam Narrative: CONST: Patient sitting in no acute distress. EYES: Normal inspection. PERRL, E.ART HEAD: Superficial small abrasions on forehead and upper bridge of nose, no raccoon eyes or jimenez sign, no hemotympanum, no nasal septal hematoma, no CSF otorrhea or rhinorrhea. NECK: Normal inspection. No midline spinal tenderness, no step off or crepitus. RESP: No respiratory distress, CTAB. Chest wall nontender. CVS: Regular rate and rhythm, no murmur, no gallop. ABD: Soft and nontender, no guarding or rebound, nondistended. Back: Normal inspection, no midline tenderness. SKIN: Color normal, no rash, warm, dry, intact. EXTREMITIES: LUE: Left arm in sling, tender over anterior shoulder and proximal humerus with limited range of motion due to pain. Mild soft tissue swelling and tenderness of the left elbow with an abrasion over the olecranon. No bony tenderness to the elbow but any movement causes pain in the shoulder. Chronic swelling in the left dorsal wrist from prior infection. No tenderness of the wrist or hand. Small abrasion on left pinky. 2+ radial pulses, distal motor and sensory function in median radial and ulnar distributions intact. RUE: Only remarkable for tenderness over right distal phalanx of the thumb, no deformity or crepitus, 2+ radial pulse and brisk cap refill. Lower extremities: Pelvis intact, no shortening or rotation, no tenderness, full range of motion, 2+ DP pulses. NEURO: Oriented x4. PSYCH: Normal affect. Const Vital Signs: 07/09/23 13:35 Temperature 97.7 F L Temperature Source Oral Pulse Rate 76 Respiratory Rate 18 Blood Pressure 140/74 H Blood Pressure Mean 96 Pulse Ox 94 Oxygen Delivery Method Room Air [facility] <ЮЛИЯ Begum - Last Filed: 07/09/23 15:31> [facility] Narrative Medical decision making narrative: Patient had a mechanical fall and head injury without LOC. No blood thinners. He has minor facial abrasions but no signs of basilar skull fracture. He landed on his left shoulder and has left shoulder tenderness and cannot range it. There is also swelling and abrasion over the left elbow. He is tender over the right thumb distal phalanx. Neurovascularly intact. Chest, abdomen, back nontender. Normal heart and lung sounds. Pelvis stable. Moving lower extremities without pain and neurovascularly intact. Right thumb x-ray shows fracture of the base of the distal phalanx and he was placed in a aluminum thumb splint. Initial follow-up left shoulder x-ray was read as arthritis with no acute process. Left elbow films negative. Patient has very significant pain in the left shoulder and cannot move it so humerus film was obtained and shows a proximal humerus fracture. He was placed in a sling and swath. He was treated here with [place] and Advil and prescribed [place] for home. He states he lives alone but wants to go home and can have someone assist him if needed. I provided orthopedic follow-up and he was discharged in stable condition. I have personally performed a face to face assessment of the patient and have reviewed the ALEX Note. I performed a substantive portion of the visit including all aspects of the following. My garcía findings include: History is 78-year-old male was walking downtown tripped and fell on uneven pavement hitting his left upper arm, shoulder, grazed his head and right thumb. Complaining of pain at the shoulder upper arm and right thumb. No LOC. No blood thinners. No neck pain. Denies any chest, abdominal, back or hip pain. Exam is [78-year-old male vital signs stable afebrile. Pulse ox 94% room air no hypoxia. He does not look septic or toxic. H EENT exam is round reactive light. No significant facial artery scalp trauma no hematoma. No significant lacerations. No bleeding. C-spine trachea nontender. Back and spine nontender. Lungs clear. Chest wall and ribs nontender. Abdomen soft nontender. Heart regular rhythm rate about 75 no murmur. Pelvic girdle intact. No shortening or rotation either hip. He has normal flexion extension of both hips knees and ankles. No deformities. Upper extremities he has tenderness to the left shoulder, left humerus and right thumb primarily distally. No gross bony deformities. Neurologically is awake and alert no focal motor deficits.] Medical Decision Making [x-ray of his right thumb shows a fracture of the proximal end of the distal phalanx of the thumb is nondisplaced.] Other additions or changes: [None] Radiography Diagnostic Testing: Right thumb x-ray 2 views shows a nondisplaced fracture of the distal phalanx proximal and on the right thumb. Interpreted by myself. Left shoulder x-ray shows chronic arthritis. No fracture or dislocation. Interpreted by myself and the radiologist. Additional left humerus x-ray shows impacted fracture of the proximal humerus. Left elbow x-ray shows no fracture. 3 views interpreted by myself. And the radiologist. <Dr. Evelio Kennedy MD - Last Filed: 07/09/23 16:21> [facility] MDM Narrative Medical decision making narrative: Patient had a mechanical fall and head injury without LOC. No blood thinners. He has minor facial abrasions but no signs of basilar skull fracture. He landed on his left shoulder and has left shoulder tenderness and cannot range it. There is also swelling and abrasion over the left elbow. He is tender over the right thumb distal phalanx. Neurovascularly intact. Chest, abdomen, back nontender. Normal heart and lung sounds. Pelvis stable. Moving lower extremities without pain and neurovascularly intact. I have personally performed a face to face assessment of the patient and have reviewed the ALEX Note. I performed a substantive portion of the visit including all aspects of the following. My garcía findings include: History is 78-year-old male was walking downtown tripped and fell on uneven pavement hitting his left upper arm, shoulder, grazed his head and right thumb. Complaining of pain at the shoulder upper arm and right thumb. No LOC. No blood thinners. No neck pain. Denies any chest, abdominal, back or hip pain. Exam is [78-year-old male vital signs stable afebrile. Pulse ox 94% room air no hypoxia. He does not look septic or toxic. H EENT exam is round reactive light. No significant facial artery scalp trauma no hematoma. No significant lacerations. No bleeding. C-spine trachea nontender. Back and spine nontender. Lungs clear. Chest wall and ribs nontender. Abdomen soft n ontender. Heart regular rhythm rate about 75 no murmur. Pelvic girdle intact. No shortening or rotation either hip. He has normal flexion extension of both hips knees and ankles. No deformities. Upper extremities he has tenderness to the left shoulder, left humerus and right thumb primarily distally. No gross bony deformities. Neurologically is awake and alert no focal motor deficits.] Medical Decision Making [x-ray of his right thumb shows a fracture of the proximal end of the distal phalanx of the thumb is nondisplaced. Left shoulder and humerus x-rays show a nondisplaced humerus, surgical neck fracture.] Other additions or changes: [None] History & Record Review Discussion w/independent historian: Patient Additional record(s) reviewed:: Prior inpatient record, Prior outpatient record, Prior ED visit and Prior labs Radiography Diagnostic Testing: Right thumb x-ray 2 views shows a nondisplaced fracture of the distal phalanx proximal and on the right thumb. Interpreted by myself. Left shoulder x-ray shows chronic arthritis. Suspect left surgical neck humerus fracture. Left humerus x-ray 2 views interpreted myself shows a nondisplaced surgical neck, humerus fracture. Also read by the radiologist agrees. Left elbow x-ray shows no fracture. 3 views interpreted by myself. And the radiologist. Discharge Plan Triage Chief Complaint: Upper Extremity Injury ED Midlevel Provider: Jessica Smith ED Provider: Evelio Kennedy Dx/Rx/DC Orders Clinical Impression: Fracture of proximal end of left humerus, Closed fracture of left proximal humerus, Closed head injury, Fall, Closed fracture of right thumb, Abrasion of elbow, left Instructions: Fall Prevention Assessing Risk, ED Fracture, Upper Extremity, ED Head Injury (Adult), ED Fracture, Thumb Prescriptions: New hydrocodone-acetaminophen 5-325 mg tablet 1 tab PO Q6H PRN (Reason: pain) 3 Days Qty: 12 0RF No Action budesonide 1 mg/2 mL suspension for nebulization 1 mg inhalation BID Qty: 60 6RF losartan 100 mg tablet 100 mg PO DAILY amlodipine 5 MG tablet 5 mg PO DAILY cholecalciferol (vitamin D3) 25 MCG tablet 125 mcg PO DAILY Qty: 30 0RF hydrochlorothiazide 12.5 mg capsule 12.5 mg PO DAILY cyanocobalamin (vitamin B-12) [Vitamin B-12] 100 mcg tablet 100 mcg PO DAILY Saline Nasal 0.65 % aerosol,spray 1 spray intranasal BID PRN (Reason: DRY NARES) albuterol sulfate 2.5 MG/3 ML solution for nebulization 2.5 mg inhalation Q2H PRN (Reason: Wheezing) amoxicillin-pot clavulanate 875-125 mg tablet 1 tab PO BID Qty: 12 0RF doxycycline monohydrate 100 mg tablet 100 mg PO BID Qty: 12 0RF oxycodone 5 mg tablet 5 mg PO Q8H PRN (Reason: pain) 3 Days Qty: 9 0RF acetaminophen 325 mg Tablet 1,000 mg PO Q8H PRN PRN (Reason: Pain 1-10 Or Fever >100.7) Qty: 0 0RF ibuprofen 600 mg Tablet 600 mg PO Q6H PRN PRN (Reason: Pain Score 1-10) Qty: 0 0RF Stand Alone Forms: Bone Health Referral Primary Care Provider: Elijah Rodriguez Referrals: Ward Kwan DO [Med Staff - Active Staff] - Elijah Rodriguez MD [Primary Care Provider] - Activity Restrictions/Additional Instructions: You have a fracture of your upper arm bone called the humerus. This is treated nonsurgically with a sling and swath. Take the pain medication as needed. He also fracture of your right thumb. Please call the orthopedic doctor to schedule an appointment. Disposition Disposition: Home, Self Care Discharge Date/Time: 07/09/23 15:59
[2023-07-09] MEDS: HYDROcodone Bitartrate/Apap 5/325 Tablet PO (13:57)
--- NOTE | 2023-07-09 14:05 | RAD_ITS ---
STUDY: X-RAY - LEFT SHOULDER REASON FOR EXAM: Male, 78 years old. Pain TECHNIQUE: 2 view(s) of the shoulder. COMPARISON: Comparison is made with prior study dated March 30, 2015. FINDINGS: Cephalic migration of the humeral head suggestive of a rotator cuff pathology. There is degenerative arthrosis of the acromioclavicular joint without inferior osseous spur formation. Degenerative spur is seen along the inferior aspect of the acromion. Normal humeral head and visualized proximal humerus. The soft tissue structures are unremarkable. Scarring at the left lung base. RAD/Shoulder min 2 Views IMPRESSION: Cephalic migration of the humeral head suggestive of rotator cuff pathology. Electronically Signed: Babar Tomas MD at 14:30 EST ,
--- NOTE | 2023-07-09 14:05 | RAD_ITS ---
STUDY: X-RAY - RIGHT HAND, ATTENTION RIGHT THUMB REASON FOR EXAM: Male, 78 years old. Right thumb pain TECHNIQUE: 2 view(s) of the finger were obtained. COMPARISON: None. FINDINGS: Normal metacarpal head. Normal metacarpophalangeal joint. Normal proximal phalanx. There is a nondisplaced transverse fracture at the base of the distal phalanx of the thumb. Normal distal interphalangeal joint. RAD/Finger(s) Min 2 Views IMPRESSION: Nondisplaced transverse fracture at the base of the distal phalanx of the thumb. Soft tissue swelling. Electronically Signed: Babar Tomas MD at 14:31 EST ,
--- NOTE | 2023-07-09 14:05 | RAD_ITS ---
STUDY: X-RAY - LEFT ELBOW REASON FOR EXAM: Male, 78 years old. Elbow pain following a fall. TECHNIQUE: 3 view(s) of the elbow. COMPARISON: None. FINDINGS: Normal visualized humerus, radius and ulna. Normal radiocapitellar and ulnotrochlear articulations. The soft tissue structures are unremarkable. RAD/Elbow min 3 Views IMPRESSION: Normal x-ray examination of the elbow. Electronically Signed: Babar Tomas MD at 14:32 EST ,
--- NOTE | 2023-07-09 14:50 | RAD_ITS ---
STUDY: X-RAY - LEFT HUMERUS REASON FOR EXAM: Male, 78 years old. Fall and pain TECHNIQUE: 3 view(s) of the humerus. COMPARISON: None. FINDINGS: Nondisplaced impacted fracture of the proximal surgical neck of the humerus. Degenerative changes of the left acromioclavicular joint. Soft tissue swelling. RAD/Humerus min 2 Views IMPRESSION: Nondisplaced impacted fracture of the proximal surgical neck of the humerus. Electronically Signed: Babar Tomas MD at 15:12 EST ,
[2023-07-09] MEDS: Ibuprofen 200 MG Tablet 400 MG PO (15:25)
[2023-07-09 15:36] VITALS: BP 153/80; PULSE 99; RESP 18; TEMP 36.5; O2SAT 94
--- NOTE | 2023-07-09 15:59 | ED.RN ---
i stated they can help pt into home
--- OUTSIDE RECORDS SUMMARY | 2023-07-09 16:53 | XMS RPT_ITS | CCD ---
Author Name Unknown Address [address] [place] [address] Organization [facility] Care Team Providers Care Offset Printing Operator Name Role Phone Gomez ROBERTS, Elijah Guerra Primary Care Provider Eiljah Dyer MD Unavailable ELIJAH DYER Primary Care Unavailab ELIJAH Germain Referring Unavailab le GOMEZELIJAH Primary Care Unavailab le GOMEZELIJAH Referring Unavailab le GOMEZELIJAH Primary Care Unavailab le ELIJAH DYER Referring Unavailab le GOMEZELIJAH PEARSON Primary Care Unavailab Elijah Germain MD Primary Care Provider Elijah Dyer MD Unavailable Elijah Dyer MD Primary Care Provider Gomez ROBERTS, Elijah Guerra Primary Care Provider Elijah Dyer MD Unavailable Jose RN, Rukhsana Unavailable Unavailable Jose RN, Rukhsana Unavailable Unavailable ELIJAH DYER Attending Unavailab le GOMEZELIJAH PEARSON Primary Care Unavailab le GOMEZELIJAH Attending Unavailab le GOMEZELIJAH PEARSON Primary Care Unavailab le ELIJAH DYER Attending Unavailab le ELIJAH DYER Primary Care Unavailab le ELIJAH DYER Attending Unavailab le ELIJAH DYER Primary Care Unavailab le Allergies Allergy Classification Reported Allergen(s) Allergy Type Date of Onset Reaction(s) Facility (20 sources) Cat; Translations: [CATS] Allergy to substance 2 Other: See Comments, Unknown [facility] (20 sources) Sulfonamides (Antibiotic); Translations: [SULFA (SULFONAMIDE ANTIBIOTICS)] Propensity to adverse reactions 6 Hives [facility] Work Phone: (14 sources) Angiotensin-conv erting enzyme inhibitor agent; Translations: [JUWAN INHIBITORS] Drug Allergy 7 Unknown [facility] (14 sources) fentaNYL; Translations: [FENTANYL] Drug Allergy Other: See Comments, Unknown [facility] (14 sources) Cigarette Smoke; Translations: [CIGARETTE SMOKE] Drug Allergy 7 Unknown [facility] Medications Current Medications Medication Drug Class(es) Dates Sig (Normalized) Sig (Original) amLODIPine 5 mg oral tablet (20 sources) Dihydropyridine Calcium Channel Rodger Start: 09-23-2022 End: 09-23-2023 take 1 tablet by mouth once daily amLODIPine (NORVASC) 5 mg tablet Take 1 tablet by mouth once daily. 90 tablet 3 09/23/2022 09/23/2023 Active Completed/Discontinued Medications Medication Drug Class(es) Dates Sig (Normalized) Sig (Original) acetaminophen 325 mg / oxyCODONE hydrochloride 5 mg oral tablet (2 sources) Opioid Agonist Start: 06-12-2022 take 1 tablet by mouth every six hours as needed for pain oxyCODONE-acetami nophen (PERCOCET) 5-325 mg tablet TAKE 1 TABLET BY MOUTH EVERY 6 HOURS NEEDED FOR PAIN FOR 5 DAYS 0 06/12/2022 Active Problems Active Problems Problem Classification Problem Date Documented Date Episodic/Chronic Alcohol-related disorders (2 sources) Alcohol dependence; Translations: [Alcohol dependence, uncomplicated] Onset: 07-05-2023 07-05-2023 Chronic Asthma (20 sources) Unspecified asthma, uncomplicated; Translations: [Asthma, unspecified type, unspecified] 10-26-2005 Chronic Cardiac dysrhythmias (12 sources) Supraventricular tachycardia; Translations: [Supraventricular tachycardia] Onset: 09-23-2022 09-23-2022 Chronic Chronic obstructive pulmonary disease and bronchiectasis (14 sources) Chronic obstructive lung disease; Translations: [Chronic obstructive pulmonary disease, unspecified] Onset: 07-08-2022 Chronic Coagulation and hemorrhagic disorders (12 sources) Thrombocytopenic disorder; Translations: [Thrombocytopenia, unspecified] Onset: 09-23-2022 09-23-2022 Chronic Diabetes mellitus without complication (1 source) Type 2 diabetes mellitus without complication; Translations: [Type 2 diabetes mellitus without complications] Chronic Diabetes mellitus without complication (2 sources) Hyperglycemia; Translations: [Hyperglycemia, unspecified] Onset: 01-21-2022 Episodic Diseases of white blood cells (12 sources) Neutropenia; Translations: [Neutropenia, unspecified] Onset: 09-23-2022 09-23-2022 Chronic Disorders of lipid metabolism (2 sources) Mixed hyperlipidemia; Translations: [Mixed hyperlipidemia] Onset: 01-06-2022 Chronic Diverticulosis and diverticulitis (20 sources) Diverticulosis of colon; Translations: [Diverticulosis of large intestine without perforation or abscess without bleeding] 10-26-2005 Chronic Essential hypertension (20 sources) Essential hypertension; Translations: [Essential (primary) hypertension] Onset: 01-06-2022 10-26-2005 Chronic Mood disorders (20 sources) Dysthymia; Translations: [Dysthymic disorder] 10-26-2005 Chronic Neoplasms of unspecified nature or uncertain behavior (2 sources) Gammopathy; 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 Nutritional deficiencies (20 sources) Malnutrition (calorie); Translations: [Moderate protein-calorie malnutrition] Onset: 07-28-2020 08-02-2020 Chronic Open wounds of extremities (2 sources) Infection of hand due to bite; Translations: [Open bite of unspecified hand, initial encounter] Onset: 06-09-2023 07-05-2023 Episodic Other fractures (2 sources) Closed fracture axis, odontoid process ; Translations: [Posterior displaced Type II dens fracture, subsequent encounter for fracture with routine healing] Episodic Other fractures (2 sources) Compression fracture of lumbar spine; Translations: [Wedge compression fracture of unspecified lumbar vertebra, initial encounter for closed fracture] Onset: 07-05-2023 07-05-2023 Episodic Other nutritional; endocrine; and metabolic disorders (20 sources) Disorder of plasma protein metabolism; Translations: [Other disorders of plasma-protein metabolism, not elsewhere classified] Onset: 01-22-2012 01-22-2012 Chronic Other screening for suspected conditions (not mental disorders or infectious disease) (4 sources) Patient encounter status; Translations: [Encounter for screening for malignant neoplasm of prostate] Onset: 01-06-2022 Episodic Residual codes; unclassified (1 source) Bilateral lower limb edema; Translations: [Localized edema] 12-23-2022 Episodic Past or Other Problems Problem Classification Problem Date Documented Date Episodic/Chronic Fracture of upper limb (20 sources) Fracture of scaphoid bone of wrist; Translations: [Nondisplaced fracture of middle third of navicular [scaphoid] bone of right wrist, subsequent encounter for fracture with routine healing] Onset: 08-19-2020 08-19-2020 Episodic Nonmalignant breast conditions (20 sources) Breast lump; Translations: [Unspecified lump in unspecified breast] Onset: 10-28-2005 10-28-2005 Episodic Open wounds of head; neck; and trunk (20 sources) Laceration of tongue; Translations: [Laceration without foreign body of oral cavity, initial encounter] Onset: 07-30-2020 08-02-2020 Episodic Other connective tissue disease (20 sources) H/O: arthrodesis; Translations: [Arthrodesis status] Onset: 09-11-2020 09-11-2020 Episodic Other fractures (20 sources) Fracture of odontoid process; Translations: [Posterior displaced Type II dens fracture, subsequent encounter for fracture with routine healing] Onset: 07-26-2020 08-14-2020 Episodic Other lower respiratory disease (20 sources) Disorder of diaphragm; Translations: [Disorders of diaphragm] Onset: 02-08-2006 02-08-2006 Episodic Pancreatic disorders (not diabetes) (20 sources) Disorder of pancreas; Translations: [Disease of pancreas, unspecified] Onset: 07-27-2020 08-02-2020 Episodic Residual codes; unclassified (20 sources) History of surgical procedure on cervical spine; Translations: [Other specified postprocedural states] Onset: 08-14-2020 08-14-2020 Episodic Residual codes; unclassified (1 source) Edema Onset: 12-23-2022 Episodic Respiratory failure; insufficiency; arrest (adult) (12 sources) Acute respiratory failure; Translations: [Acute respiratory failure with hypoxia] Onset: 09-23-2022 09-23-2022 Episodic Skull and face fractures (20 sources) Closed fracture of nasal bones; Translations: [Fracture of nasal bones, initial encounter for closed fracture] Onset: 07-27-2020 08-02-2020 Episodic Results Test Name Value Interpretation Reference Range Facil ity Vital Signs Date Time Vital Sign Value Performing Clinician Faci lity 12-23-2022 10:26-0400 Body height 175.3 cm Elijah Dyer MD Work Phone: [facility] 12-23-2022 10:26-0400 Body temperature 97 [degF] Elijah Dyer MD Work Phone: [facility] 12-23-2022 10:26-0400 Body weight 62.32 kg Elijah Dyer MD Work Phone: [facility] 12-23-2022 10:26-0400 Diastolic blood pressure 84 mm[Hg] Elijah Dyer MD Work Phone: [facility] 12-23-2022 10:26-0400 Heart rate 64 /min Elijah Dyer MD Work Phone: [facility] 12-23-2022 10:26-0400 Respiratory rate 18 /min Elijah Dyer MD Work Phone: [facility] 12-23-2022 10:26-0400 SaO2% (BldA) [Mass fraction] 97 % Elijah Dyer MD Work Phone: [facility] 12-23-2022 10:26-0400 Systolic blood pressure 122 mm[Hg] Elijah Dyer MD Work Phone: [facility] 07-08-2022 08:08-0500 Body height 175.3 cm Elijah Dyer MD Work Phone: [facility] 07-08-2022 08:08-0500 Body temperature 97.11 [degF] Elijah Dyer MD Work Phone: [facility] 07-08-2022 08:08-0500 Body weight 62.26 kg Elijah Dyer MD Work Phone: [facility] 07-08-2022 08:08-0500 Diastolic blood pressure 78 mm[Hg] Elijah Dyer MD Work Phone: [facility] 07-08-2022 08:08-0500 Heart rate 86 /min Elijah Dyer MD Work Phone: [facility] 07-08-2022 08:08-0500 Respiratory rate 17 /min Elijah Dyer MD Work Phone: [facility] 07-08-2022 08:08-0500 SaO2% (BldA) [Mass fraction] 95 % Elijah Dyer MD Work Phone: [facility] 07-08-2022 08:08-0500 Systolic blood pressure 122 mm[Hg] Elijah Dyer MD Work Phone: [facility] 01-05-2022 08:15-0400 Body height 175.3 cm Elijah Dyer MD Work Phone: [facility] 01-05-2022 08:15-0400 Body temperature 97.11 [degF] Elijah Dyer MD Work Phone: [facility] 01-05-2022 08:15-0400 Body weight 68.95 kg Elijah Dyer MD Work Phone: [facility] 01-05-2022 08:15-0400 Diastolic blood pressure 78 mm[Hg] Elijah Dyer MD Work Phone: [facility] 01-05-2022 08:15-0400 Heart rate 90 /min Elijah Dyer MD Work Phone: [facility] 01-05-2022 08:15-0400 Respiratory rate 14 /min Elijah Dyer MD Work Phone: [facility] 01-05-2022 08:15-0400 SaO2% (BldA) [Mass fraction] 93 % Elijah Dyer MD Work Phone: [facility] 01-05-2022 08:15-0400 Systolic blood pressure 116 mm[Hg] Elijah Dyer MD Work Phone: [facility] 10-13-2021 08:35-0400 Body height 180.3 cm Edgardo Artis PA-C Work Phone: [facility] 10-13-2021 08:35-0400 Body weight 70.7 kg Edgardo Artis PA-C Work Phone: [facility] 10-13-2021 08:35-0400 Diastolic blood pressure 82 mm[Hg] Edgardo Artis PA-C Work Phone: [facility] 10-13-2021 08:35-0400 Heart rate 94 /min Edgardo Artis PA-C Work Phone: [facility] 10-13-2021 08:35-0400 SaO2% (BldA) [Mass fraction] 99 % Edgardo Artis PA-C Work Phone: [facility] 10-13-2021 08:35-0400 Systolic blood pressure 126 mm[Hg] Edgardo Ingramterson PA-C Work Phone: [facility] 08-11-2021 11:05-0400 Body height 180.3 cm Silvia Mack MD Work Phone: [facility] 08-11-2021 11:05-0400 Body temperature 98.1 [degF] Silvia Mack MD Work Phone: [facility] 08-11-2021 11:05-0400 Body weight 70.31 kg Silvia Mack MD Work Phone: [facility] 08-11-2021 11:05-0400 Diastolic blood pressure 69 mm[Hg] Silvia Mack MD Work Phone: [facility] 08-11-2021 11:05-0400 Heart rate 80 /min Silvia Mack MD Work Phone: [facility] 08-11-2021 11:05-0400 SaO2% (BldA) [Mass fraction] 96 % Silvia Mack MD Work Phone: [facility] 08-11-2021 11:05-0400 Systolic blood pressure 144 mm[Hg] Silvia Mack MD Work Phone: [facility] Encounters Encounter Date Encounter Type Care Provider Facility Start: 07-05-2023 End: 07-05-2023 ambulatory ELIJAH DYER Facility:[id number] Procedures Date Procedure Procedure Detail Performing Clinician Start: 08-11-2021 Radex spine cervical 4 or 5 views Silvia Holder MD Work Phone: Plan of Treatment Date Care Activity Detail Author Start: 06-08-2033 Urine microalbumin profile DTaP,Tdap,Td Vaccine (2 - Td or Tdap) [facility] Start: 01-21-2025 DIABETES SCREEN DIABETES SCREEN [facility] Start: 01-21-2025 Diabetes Screening Diabetes Screening [facility] Start: 01-06-2025 DIABETES SCREEN DIABETES SCREEN [facility] Start: 07-05-2024 Annual PCP Team Chronic Disease Visit Annual PCP Team Chronic Disease Visit [facility] Start: 07-05-2024 BP Controlled (<130/80) BP Controlled (<130/80) [facility] Start: 12-24-2023 ANNUAL PCP TEAM CHRONIC DISEASE VISIT ANNUAL PCP TEAM CHRONIC DISEASE VISIT [facility] Start: 08-02-2023 DIABETES SCREEN DIABETES SCREEN [facility] Start: 07-09-2023 ANNUAL PCP TEAM CHRONIC DISEASE VISIT ANNUAL PCP TEAM CHRONIC DISEASE VISIT [facility] Start: 07-09-2023 BP CONTROLLED (<130/80) BP CONTROLLED (<130/80) [facility] Start: 05-10-2023 Advance Directive Discussion Advance Directive Discussion [facility] Start: 01-08-2023 Covid-19 Vaccine ( season) Covid-19 Vaccine ( season) [facility] Start: 01-08-2023 Influenza vaccination [facility] Start: 01-05-2023 ANNUAL PCP TEAM CHRONIC DISEASE VISIT ANNUAL PCP TEAM CHRONIC DISEASE VISIT [facility] Start: 01-05-2023 BP CONTROLLED (<130/80) BP CONTROLLED (<130/80) [facility] Start: 05-10-2022 ADVANCE DIRECTIVE DISCUSSION ADVANCE DIRECTIVE DISCUSSION [facility] Start: 01-18-2022 End: 03-20-2022 Hemoglobin A1c in Blood HGB A1C Lab Routine Hyperglycemia Expected: 01/18/2022, Expires: 03/20/2022 [facility] Work Phone: Immunizations Immunization Date Immunization Notes Care Provider Conner pop 02-19-2022 influenza, seasonal, injectable Elijah Dyer MD Work Phone: [facility] 02-19-2022 influenza virus vacc ine, unspecified formulation Elijah Dyer MD Work Phone: [facility] 02-19-2021 influenza nasal, unspecified formulation Elijah Dyer MD Work Phone: [facility] 02-24-2019 influenza, injectabl e, quadrivalent, preservative free Elijah Dyer MD Work Phone: [facility] 04-24-2018 influenza, seasonal, injectable, preservative free Elijah Dyer MD Work Phone: [facility] 02-15-2017 influenza, injectabl e, quadrivalent, preservative free Elijah Dyer MD Work Phone: [facility] 11-06-2013 pneumococcal polysaccharide vaccine, 23 valent Elijah Dyer MD Work Phone: [facility] 11-06-2013 pneumococcal vaccine , unspecified formulation Elijah Dyer MD Work Phone: [facility] 10-27-2003 tetanus and diphther ia toxoids, adsorbed, preservative free, for adult use (2 Lf of tetanus toxoid and 2 Lf of diphtheria toxoid) Silvia Mack MD Work Phone: [facility] Work Phone: Payers Date Payer Category Payer Medicare MMO MEDICARE MMO MEDADVANTAGE O [id number] 2020-Present [phone] [address] [place] [address] [facility] [id number] 2020 Medicare MMO MEDICARE MMO MEDADVANTAGE O [id number] 2020-Present [phone] [address] [place] [address] [facility] [id number] 2020 Unknown [id number] Social History Date Type Detail Facility Start: 07-26-2020 End: 07-08-2022 Tobacco smoking status NHIS Never smoked tobacco [facility] Start: 07-26-2020 End: 07-08-2022 Tobacco use and exposure Smokeless tobacco non-user [facility] Start: 08-11-2021 End: 07-05-2023 Alcohol intake Current drinker of alcohol (finding) [facility] Start: 07-26-2020 History SDOH Alcohol Comment one glass of wine every other day [facility] Start: 1945 Sex Assigned At Not on file [facility] Start: 08-01-2021 End: 01-05-2022 Exposure to SARS-CoV-2 (event) Not sure [facility] Start: 01-05-2022 History SDOH Alcohol Frequency 5 [facility] Start: 01-05-2022 History SDOH Alcohol Std Drinks 1 [facility] Start: 01-05-2022 History SDOH Social Connections Get Together 3 [facility] Start: 01-05-2022 History SDOH Physica l Activity DPW 0 [facility] Start: 01-05-2022 History SDOH Stress 2 [facility] Start: 01-05-2022 Education 21 [facility] History of tobacco use Passive smoker [facility] Start: 01-05-2022 End: 09-23-2022 History of Social function [facility] Start: 01-05-2022 End: 09-23-2022 Social connection and isolation panel [facility] Do you belong to any clubs or organizations such as moravian groups, unions, fraternal or athletic groups, or school groups? Yes [facility] Are you now , , , , never or living with a partner? [facility] How often to you hav e a drink containing alcohol? 4 or more times a week [facility] How many standard dr inks containing alcohol do you have on a typical day? 1 or 2 [facility] How often do you hav e 6 or more drinks on 1 occasion? Never [facility] How hard is it for y ou to pay for the very basics like food, housing, medical care, and heating Somewhat hard [facility] Adult Depression Scr eening Assessment 2 [facility] Do you feel stress - tense, restless, nervous, or anxious, or unable to sleep at night because your mind is troubled all the time - these days [OSQ] Only a little [facility] (I/We) worried wheth er (my/our) food would run out before (I/we) got money to buy more. Never true [facility] At any time in the p ast 12 months, were you homeless or living in detention [including now]? No [facility] Medical Equipment Procedure Code Equipment Code Equipment Origin al Text Equipment Identifier Dates Substitute Mastergraft Bone Graft Matrix Block Extension Void Filler 5ml - [id number] Start: 07-28-2020 Yusuf Synapse 3.5m m Curve Prebent Gold Titanium 30mm Spinal Nonsterile [id number] Start: 07-28-2020 Screw [place] r Set Inner Spine - [id number] Start: 07-28-2020 Screw Depuy Mountaineer Ti 3.5x30 Ls [id number] Start: 07-28-2020 Screw [place] 3.5mm Mini 22mm Bone Polyaxial Fix Angle 3.5mm Yusuf [id number] Start: 07-28-2020 Screw [place] 3.5mm Mini 20mm Bone Polyaxial Fix Angle 3.5mm Yusuf [id number] Start: 07-28-2020 Clinical Notes 08-01-2020 to 07-05-2023 Rukhsana Guan RN - 07/05/2023 11:55 AM Rukhsana Wmyan RN - 07/05/2023 11:53 AM Rukhsana Wyman RN - 06/29/2023 1:29 PM Rukhsana Wyman RN - 06/22/2023 1:07 PM EST Note Date & Type Note Facility 07-05-2023 Note HNO ID: [id number] Author: ELIJAH DYER MD Service: ? Author Type: Physician Type: Progress Notes Filed: 07/05/2023 13:24 Note Text: Subjective Reji Mendoza is a 78 year old male.Patient is in office for a follow up for chronic medical conditions. Patient was evaluated and treated at [facility] for Cellulitis of hand in May.Patient states he was bit by his cat, about 3 days later cat . Patient continues to have redness, swelling in left hand . Patient was prescribed Augmentin BID for 6 days. Also Doxycycline 100 mg BID for 6 days Patient states medication was finished as ordered Review of Systems Constitutional: Negative. HENT: Negative. Eyes: Negative. Respiratory: Negative. Cardiovascular: Negative. Gastrointestinal: Negative. Endocrine: Negative. Genitourinary: Negative. Musculoskeletal: Negative. Skin: Negative. Allergic/Immunologic: Negative. Neurological: Negative. Hematological: Negative. Psychiatric/Behavioral: Negative. PAST SURGICAL HISTORY Procedure Laterality Date ADENOIDECTOMY PRIMARY Adenoidectomy APPENDECTOMY 05/10/1949 COLSC FLX W/RMVL OF TUMOR POLYP LESION SNARE TQ 03/15/2012 polyp in ascending colon, tolbert colonic diverticula, diverticular narrowing in mid sigmoid NECK SURGERY HX 07/28/2020 C1-2 Fusion PAST SURGICAL HISTORY OF Left eye x 2 lazy eye PAST SURGICAL HISTORY OF 05/10/1991 grade 3 liver laceration REPAIR FIRST ABDOMINAL WALL HERNIA 05/10/1993 Hernia repair, incisional TONSILLECTOMY PRIMARY/SECONDARY Tonsillectomy PAST MEDICAL HISTORY Diagnosis Date Alcohol dependence (HCC) Anemia Closed C2 fracture (HCC) Diverticulosis of colon (without mention of hemorrhage) Diverticulosis Dysphagia Dysthymic disorder Depression (non-psychotic) Hypertension Insomnia, unspecified Tongue laceration Unspecified asthma(493.90) Unspecified essential hypertension Essential hypertension Vitamin B12 deficiency FAMILY HISTORY Problem Relation Age of Onset Hypertension Mother Emphysema Father Heart Mother Stroke Mother Kidney Disease Maternal Grandmother Cancer Maternal Grandfather stomach COPD Father emphysema Social History Tobacco Use Smoking status: Never Passive exposure: Past Smokeless tobacco: Never Vaping Use Vaping Use: Never used Substance Use Topics Alcohol use: Yes Comment: one glass of wine every other day Drug use: Not Currently ALLERGIES Allergen Reactions Juwan Inhibitors Unknown Cigarette Smoke Unknown Cats Unknown sneezing Fentanyl Unknown Sulfa (Sulfonamide * Hives Sulfa (Sulfonamide * Hives MEDICATIONS: hydroCHLOROthiazide 12.5 mg capsule Take 1 capsule by mouth once daily. amLODIPine (NORVASC) 5 mg tablet Take 1 tablet by mouth once daily. losartan (COZAAR) 100 mg tablet Take 1 tablet by mouth once daily. thiamine (VITAMIN B1) 100 mg tablet Take by mouth. sodium chloride (AYR, OCEAN) 0.65 % nasal spray Sodium Chloride Active 2 SPRAY NASAL 3 TIMES DAILY NEEDED August 24, 2020 7:45am polyethylene glycol 3350 (MIRALAX, GLYCOLAX) 17 gram/dose powder Take by mouth. pfntzfdjiee-tblygierx-gwarzdba (TRELEGY ELLIPTA) 100-62.5-25 mcg inhalation powder Apply to affected area. cyanocobalamin (VITAMIN B-12) 1,000 mcg tab Take 2 tablets by mouth once daily. ipratropium-albuterol (DUONEB) 0.5 mg-3 mg(2.5 mg base)/3 mL nebu Inhale 3 mL as instructed every 4 hours as needed for wheezing/shortness of breath. MULTIVITAMIN ORAL Take 1 capsule by mouth once daily. fluticasone (FLONASE) 50 mcg/actuation nasal spray Use 1 [place] in each nostril once daily. ALBUTEROL 90 MCG/ACTUATION AEROSOL INHALER Inhale as instructed every 6 hours. Administer every ___ hours. See Epic Results Review or unit specific flow sheet documentation for RT administration information. SHAKE WELL BEFORE USING albuterol HFA (PROVENTIL HFA) 90 mcg/actuation inhaler Inhale 2 Puffs as instructed every 6 hours as needed for wheezing/shortness of breath. amoxicillin-clavulanate potassium (AUGMENTIN) 875-125 mg per tablet Take 1 tablet by mouth every 12 hours for 7 days. cholecalciferol (VITAMIN D3) 5,000 unit tab Take 1 tablet by mouth once daily. Allergies, past surgical history, family history and past medical history were reviewed per this encounter. Medications were reviewed and verified. Objective BP 128/74 (BP Site: Left Arm, BP Position: Sitting, BP Cuff Size: Regular Adult) Pulse 84 Temp 36.3 ?C (97.3 ?F) (Temporal) Resp 18 Ht 175.3 cm (5' 9 ) Wt 62.1 kg (137 lb) SpO2 100% BMI 20.23 kg/m? Physical Exam Vitals reviewed. Constitutional: Appearance: Normal appearance. HENT: Head: Normocephalic and atraumatic. Nose: Nose normal. Eyes: Extraocular Movements: Extraocular movements intact. Pupils: Pupils are equal, round, and reactive to light. Cardiovascular: Rate and Rhythm: Normal rate and regular rhythm. Pulmon (more content not included)... [facility] 07-05-2023 Note HNO ID: [id number] Author: BRIAN BARRIGA LPN Service: ? Author Type: LICENSED NURSE Type: Progress Notes Filed: 07/05/2023 13:24 Note Text: Patient is in office for a follow up for chronic medical conditions. Patient was evaluated and treated at [facility] for Cellulitis of hand in May. Patient states he was bit by his cat, about 3 days later cat . Patient continues to have redness, swelling in left hand Patient was prescribed Augmentin BID for 6 days Also Doxycycline 100 mg BID for 6 days Patient states medication was finished as ordered Brian Barriga LPN July 05, 2023 1:01 PM [facility] 07-05-2023 Note Patient Outreach ( CAC) REJI MENDOZA ([id number]) 1945 M [facility] Date Time Provider Department 07/05/23 RUKHSANA GUAN [facility] During your visit today, we recorded the following information about you: Rukhsana Guan RN 07/05/2023 11:58 AM Signed TRANSITION CARE MANAGEMENT (TCM) FOLLOW-UP NOTE Provider Action/FYI Patient identified by name and date of : YES Spoke to patient Summary: EMR reviewed. Voicemail received from patient asking for a return call. Contacted patient back. He stated that he had received a call from [facility] regarding his transportation to his appointment today to Dr. Dyer'lyndsey. He was outside waiting for his ride to arrive. He stated I received the make, model, license plate number, and name of the mykel driving me. He stated I will follow up with you later . He denied any pertinent questions at this time. 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 - amLODIPine (NORVASC) 5 mg tablet Take 1 tablet by mouth once daily. - losartan (COZAAR) 100 mg tablet Take 1 tablet by mouth once daily. - thiamine (VITAMIN B1) 100 mg tablet Take by mouth. - sodium chloride (AYR, OCEAN) 0.65 % nasal spray Sodium Chloride Active 2 SPRAY NASAL 3 TIMES DAILY NEEDED August 24, 2020 7:45am - polyethylene glycol 3350 (MIRALAX, GLYCOLAX) 17 gram/dose powder Take by mouth. - wcvfyxiepfe-sxfghnwqi-lgfjmjqm (TRELEGY ELLIPTA) 100-62.5-25 mcg inhalation powder Apply to affected area. - cyanocobalamin (VITAMIN B-12) 1,000 mcg tab Take 2 tablets by mouth once daily. - ipratropium-albuterol (DUONEB) 0.5 mg-3 mg(2.5 mg base)/3 mL nebu Inhale 3 mL as instructed every 4 hours as needed for wheezing/shortness of breath. - MULTIVITAMIN ORAL Take 1 capsule by mouth once daily. - fluticasone (FLONASE) 50 mcg/actuation nasal spray Use 1 [place] in each nostril once daily. - cholecalciferol (VITAMIN D3) 5,000 unit tab Take 1 tablet by mouth once daily. - ALBUTEROL 90 MCG/ACTUATION AEROSOL INHALER PRN Problem List As Of Date 07/05/2023 Noted Resolved HYPERTENSION NOS [I10] DYSTHYMIC DISORDER [F34.1] ASTHMA UNSPECIFIED [J45.909] DIVERTICULOSIS OF COLON W/O BLEED [K57.30] MASS IN BREAST [N63.0] 10/28/2005 DISORDERS OF DIAPHRAGM [J98.6] 02/08/2006 Unspecified disorder of plasma protein metaboli*01/22/2012 Posterior displaced Type II dens fracture with *07/26/2020 Closed fracture of nasal bone [S02.2XXA] 07/27/2020 Fall [W19.XXXA] 07/27/2020 08/02/2020 Hyponatremia [E87.1] 07/27/2020 08/02/2020 Alcohol intoxication (HCC) [F10.929] 07/27/2020 08/02/2020 Pancreatic lesion [K86.9] 07/27/2020 Malnutrition of moderate degree (HCC) [E44.0] 07/28/2020 Vitamin D deficiency [E55.9] 07/29/2020 Tongue laceration [S01.512A] 07/30/2020 Facial laceration [S01.81XA] 07/30/2020 08/02/2020 Trauma [T14.90XA] 08/01/2020 08/02/2020 H/O cervical spine surgery [Z98.890] 08/14/2020 Nondisplaced fracture of middle third of navicu*08/19/2020 Arthrodesis status [Z98.1] 09/11/2020 Chronic obstructive pulmonary disease (HCC) [J4*07/08/2022 Neutropenia (HCC) [D70.9] 09/23/2022 Thrombocytopenia (HCC) [D69.6] 09/23/2022 Acute respiratory failure with hypoxia (HCC) [J*09/23/2022 Supraventricular tachycardia (HCC) [I47.10] 09/23/2022 Encounter Status:Closed by RUKHSANA GUAN on 07/05/23 [facility] 07-05-2023 Note HNO ID: [id number] Author: RUKHSANA GUAN, RN Service: ? Author Type: Registered Nurse Type: Progress Notes Filed: 07/05/2023 11:58 Note Text: TRANSITION CARE MANAGEMENT (TCM) FOLLOW-UP NOTE Provider Action/FYI Patient identified by name and date of : YES Spoke to patient Summary: EMR reviewed. Voicemail received from patient asking for a return call. Contacted patient back. He stated that he had received a call from [facility] regarding his transportation to his appointment today to Dr. Bryson. He was outside waiting for his ride to arrive. He stated I received the make, model, license plate number, and name of the ymkel driving me. He stated I will follow up with you later . He denied any pertinent questions at this time. Concerns: N/A 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: Will follow up 1 week Signature Rukhsana Guan RN July 05, 2023 [facility] 07-05-2023 Note HNO ID: [id number] Author: RUKHSANA GUAN RN Service: ? Author Type: Registered Nurse Type: Progress Notes Filed: 07/05/2023 11:54 Note Text: Opened in error [facility] 07-05-2023 History of Present illness Narrative TRANSITION CARE MANAGEMENT (TCM) FOLLOW-UP NOTE Provider Action/FYI Patient identified by name and date of : YES Spoke to patient Summary: EMR reviewed. Voicemail received from patient asking for a return call. Contacted patient back. He stated that he had received a call from [facility] regarding his transportation to his appointment today to Dr. Dyer's. He was outside waiting for his ride to arrive. He stated I received the make, model, license plate number, and name of the mykel driving me. He stated I will follow up with you later . He denied any pertinent questions at this time. Concerns: N/A 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: Will follow up 1 week Signature Rukhsana Guan RN July 05, 2023 documented in this encounter [facility] 07-05-2023 History of Present illness Narrative Opened in error documented in this encounter [facility] 06-29-2023 Note HNO ID: [id number] Author: RUKHSANA GUAN RN Service: ? Author Type: Registered Nurse Type: Progress Notes Filed: 06/29/2023 13:58 Note Text: TRANSITION CARE MANAGEMENT (TCM) FOLLOW-UP NOTE Provider Action/FYI Patient identified by name and date of : YES Spoke to patient Discharge Network Status: Umt-hp-Dh[facility]n (OON) Discharge Summary: EMR reviewed. Patient stated he is agreeable to contact [facility] [place] to schedule transportation to an appointment to see Dr. Dyer. Conference called [facility] [place] with patient and also secure [place] to schedule an appointment for next week. Patient was able to set up an appointment and a ride for 07/05. Patient stated that his hand remains swollen, but it has reduced. He still has difficulty moving some of fingers. Encouraged him discuss this with Dr. Dyer when he sees him in the office next week. Concerns: N/A 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: Will follow up 1 week Signature Rukhsana Guan RN June 29, 2023 [facility] 06-29-2023 Note Patient Outreach ( CAC) REJI MENDOZA ([id number]) 1945 [facility] Date Time Provider Department 06/29/23 RUKHSANA GUAN [facility] During your visit today, we recorded the following information about you: Rukhsana Guan RN 06/29/2023 1:58 PM Signed TRANSITION CARE MANAGEMENT (TCM) FOLLOW-UP NOTE Provider Action/FYI Patient identified by name and date of : YES Spoke to patient Discharge Network Status: Wlh-fa-Klicazb (OON) Discharge Summary: EMR reviewed. Patient stated he is agreeable to contact [facility] [place] to schedule transportation to an appointment to see Dr. Dyer. Conference called [facility] [place] with patient and also secure [place] to schedule an appointment for next week. Patient was able to set up an appointment and a ride for 07/05. Patient stated that his hand remains swollen, but it has reduced. He still has difficulty moving some of fingers. Encouraged him discuss this with Dr. Dyer when he sees him in the office next week. Concerns: N/A 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: Will follow up 1 week Signature Rukhsana Guan RN June 29, 2023 Allergies As of Date: 06/29/2023 Noted Allergy Reaction JUWAN INHIBITORS 12/28/2016 16 - Unknown CIGARETTE SMOKE 12/28/2016 16 - Unknown CATS 01/19/2012 14 - Other: See Comments Comments: sneezing FENTANYL 08/03/2020 14 - Other: See Comments SULFA (SULFONAMIDE ANTIBIOTICS) 10/26/2005 4 - Hives SULFA (SULFONAMIDE ANTIBIOTICS) 07/26/2020 4 - Hives Date Reviewed: 12/23/2022 Reviewed by: Brian Barriga LPN - Fully Assessed Prescriptions as of 06/29/2023 - hydroCHLOROthiazide 12.5 mg capsule Take 1 capsule by mouth once daily. - amLODIPine (NORVASC) 5 mg tablet Take 1 tablet by mouth once daily. - losartan (COZAAR) 100 mg tablet Take 1 tablet by mouth once daily. - thiamine (VITAMIN B1) 100 mg tablet Take by mouth. - sodium chloride (AYR, OCEAN) 0.65 % nasal spray Sodium Chloride Active 2 SPRAY NASAL 3 TIMES DAILY NEEDED August 24, 2020 7:45am - polyethylene glycol 3350 (MIRALAX, GLYCOLAX) 17 gram/dose powder Take by mouth. - ljduwgemliq-eolslwvrw-biznkygd (TRELEGY ELLIPTA) 100-62.5-25 mcg inhalation powder Apply to affected area. - cyanocobalamin (VITAMIN B-12) 1,000 mcg tab Take 2 tablets by mouth once daily. - ipratropium-albuterol (DUONEB) 0.5 mg-3 mg(2.5 mg base)/3 mL nebu Inhale 3 mL as instructed every 4 hours as needed for wheezing/shortness of breath. - MULTIVITAMIN ORAL Take 1 capsule by mouth once daily. - fluticasone (FLONASE) 50 mcg/actuation nasal spray Use 1 [place] in each nostril once daily. - cholecalciferol (VITAMIN D3) 5,000 unit tab Take 1 tablet by mouth once daily. - ALBUTEROL 90 MCG/ACTUATION AEROSOL INHALER PRN Problem List As Of Date 06/29/2023 Noted Resolved HYPERTENSION NOS [I10] DYSTHYMIC DISORDER [F34.1] ASTHMA UNSPECIFIED [J45.909] DIVERTICULOSIS OF COLON W/O BLEED [K57.30] MASS IN BREAST [N63.0] 10/28/2005 DISORDERS OF DIAPHRAGM [J98.6] 02/08/2006 Unspecified disorder of plasma protein metaboli*01/22/2012 Posterior displaced Type II dens fracture with *07/26/2020 Closed fracture of nasal bone [S02.2XXA] 07/27/2020 Fall [W19.XXXA] 07/27/2020 08/02/2020 Hyponatremia [E87.1] 07/27/2020 08/02/2020 Alcohol intoxication (HCC) [F10.929] 07/27/2020 08/02/2020 Pancreatic lesion [K86.9] 07/27/2020 Malnutrition of moderate degree (HCC) [E44.0] 07/28/2020 Vitamin D deficiency [E55.9] 07/29/2020 Tongue laceration [S01.512A] 07/30/2020 Facial laceration [S01.81XA] 07/30/2020 08/02/2020 Trauma [T14.90XA] 08/01/2020 08/02/2020 H/O cervical spine surgery [Z98.890] 08/14/2020 Nondisplaced fracture of middle third of navicu*08/19/2020 Arthrodesis status [Z98.1] 09/11/2020 Chronic obstructive pulmonary disease (HCC) [J4*07/08/2022 Neutropenia (HCC) [D70.9] 09/23/2022 Thrombocytopenia (HCC) [D69.6] 09/23/2022 Acute respiratory failure with hypoxia (HCC) [J*09/23/2022 Supraventricular tachycardia (HCC) [I47.10] 09/23/2022 Encounter Status:Closed by RUKHSANA GUAN on 06/29/23 [facility] 06-29-2023 History of Present illness Narrative TRANSITION CARE MANAGEMENT (TCM) FOLLOW-UP NOTE Provider Action/FYI Patient identified by name and date of : YES Spoke to patient Discharge Network Status: Pet-[facility]nm[facility] (OON) Discharge Summary: EMR reviewed. Patient stated he is agreeable to contact [facility] [place] to schedule transportation to an appointment to see Dr. Dyer. Conference called [facility] [place] with patient and also secure [place] to schedule an appointment for next week. Patient was able to set up an appointment and a ride for 07/05. Patient stated that his hand remains swollen, but it has reduced. He still has difficulty moving some of fingers. Encouraged him discuss this with Dr. Dyer when he sees him in the office next week. Concerns: N/A 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: Will follow up 1 week Signature Rukhsana Guan RN June 29, 2023 documented in this encounter [facility] 06-22-2023 Note HNO ID: [id number] Author: RUKHSANA GUAN, ZAHIDA Service: ? Author Type: Registered Nurse Type: Progress Notes Filed: 06/22/2023 13:16 Note Text: TRANSITION CARE MANAGEMENT (TCM) FOLLOW-UP NOTE Provider Action/FYI Patient identified by name and date of : YES Spoke to patient Summary: EMR reviewed. Patient stated that he still has swelling in his hand, but it has reduced in the size. He stated it is still draining, but the amount has reduce significantly. He denies redness, warmth, fever, body aches, or chills. Discussed with patient about scheduling an appointment with Dr. Dyer. Patient stated he wanted to wait, and maybe see about going next week. I offered to contact [facility] [place] transportation services while on the phone to set up a ride, but patient denied at this time. He stated that his hand is improving, but concerned because he still can't extend several of his fingers straight. I did encourage him to follow up with the orthopedic that saw him while in the hospital or Dr. Dyer. Concerns: How is his hand? Did he decide to schedule an appointment to be seen? 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: Will follow up 1-2 week Signature Rukhsana Guan RN June 22, 2023 [facility] 06-22-2023 Note Patient Outreach (MR ALDRIDGE) REJI MENDOZA ([id number]) 1945 M [facility] Date Time Provider Department 06/22/23 RUKHSANA GUAN [facility] During your visit today, we recorded the following information about you: Rukhsana Guan RN 06/22/2023 1:16 PM Signed TRANSITION CARE MANAGEMENT (TCM) FOLLOW-UP NOTE Provider Action/FYI Patient identified by name and date of : YES Spoke to patient Summary: EMR reviewed. Patient stated that he still has swelling in his hand, but it has reduced in the size. He stated it is still draining, but the amount has reduce significantly. He denies redness, warmth, fever, body aches, or chills. Discussed with patient about scheduling an appointment with Dr. Dyer. Patient stated he wanted to wait, and maybe see about going next week. I offered to contact [facility] [place] transportation services while on the phone to set up a ride, but patient denied at this time. He stated that his hand is improving, but concerned because he still can't extend several of his fingers straight. I did encourage him to follow up with the orthopedic that saw him while in the hospital or Dr. Dyer. Concerns: How is his hand? Did he decide to schedule an appointment to be seen? 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: Will follow up 1-2 week Signature Rukhsana Guan RN June 22, 2023 Allergies As of Date: 06/22/2023 Noted Allergy Reaction JUWAN INHIBITORS 12/28/2016 16 - Unknown CIGARETTE SMOKE 12/28/2016 16 - Unknown CATS 01/19/2012 14 - Other: See Comments Comments: sneezing FENTANYL 08/03/2020 14 - Other: See Comments SULFA (SULFONAMIDE ANTIBIOTICS) 10/26/2005 4 - Hives SULFA (SULFONAMIDE ANTIBIOTICS) 07/26/2020 4 - Hives Date Reviewed: 12/23/2022 Reviewed by: Brian Barriga LPN - Fully Assessed Prescriptions as of 06/22/2023 - hydroCHLOROthiazide 12.5 mg capsule Take 1 capsule by mouth once daily. - amLODIPine (NORVASC) 5 mg tablet Take 1 tablet by mouth once daily. - losartan (COZAAR) 100 mg tablet Take 1 tablet by mouth once daily. - thiamine (VITAMIN B1) 100 mg tablet Take by mouth. - sodium chloride (AYR, OCEAN) 0.65 % nasal spray Sodium Chloride Active 2 SPRAY NASAL 3 TIMES DAILY NEEDED August 24, 2020 7:45am - polyethylene glycol 3350 (MIRALAX, GLYCOLAX) 17 gram/dose powder Take by mouth. - uljqzoatbfp-sjbthkeyg-jfnsslcy (TRELEGY ELLIPTA) 100-62.5-25 mcg inhalation powder Apply to affected area. - cyanocobalamin (VITAMIN B-12) 1,000 mcg tab Take 2 tablets by mouth once daily. - ipratropium-albuterol (DUONEB) 0.5 mg-3 mg(2.5 mg base)/3 mL nebu Inhale 3 mL as instructed every 4 hours as needed for wheezing/shortness of breath. - MULTIVITAMIN ORAL Take 1 capsule by mouth once daily. - fluticasone (FLONASE) 50 mcg/actuation nasal spray Use 1 [place] in each nostril once daily. - cholecalciferol (VITAMIN D3) 5,000 unit tab Take 1 tablet by mouth once daily. - ALBUTEROL 90 MCG/ACTUATION AEROSOL INHALER PRN Problem List As Of Date 06/22/2023 Noted Resolved HYPERTENSION NOS [I10] DYSTHYMIC DISORDER [F34.1] ASTHMA UNSPECIFIED [J45.909] DIVERTICULOSIS OF COLON W/O BLEED [K57.30] MASS IN BREAST [N63.0] 10/28/2005 DISORDERS OF DIAPHRAGM [J98.6] 02/08/2006 Unspecified disorder of plasma protein metaboli*01/22/2012 Posterior displaced Type II dens fracture with *07/26/2020 Closed fracture of nasal bone [S02.2XXA] 07/27/2020 Fall [W19.XXXA] 07/27/2020 08/02/2020 Hyponatremia [E87.1] 07/27/2020 08/02/2020 Alcohol intoxication (HCC) [F10.929] 07/27/2020 08/02/2020 Pancreatic lesion [K86.9] 07/27/2020 Malnutrition of moderate degree (HCC) [E44.0] 07/28/2020 Vitamin D deficiency [E55.9] 07/29/2020 Tongue laceration [S01.512A] 07/30/2020 Facial laceration [S01.81XA] 07/30/2020 08/02/2020 Trauma [T14.90XA] 08/01/2020 08/02/2020 H/O cervical spine surgery [Z98.890] 08/14/2020 Nondisplaced fracture of middle third of navicu*08/19/2020 Arthrodesis status [Z98.1] 09/11/2020 Chronic obstructive pulmonary disease (HCC) [J4*07/08/2022 Neutropenia (HCC) [D70.9] 09/23/2022 Thrombocytopenia (HCC) [D69.6] 09/23/2022 Acute respiratory failure with hypoxia (HCC) [J*09/23/2022 Supraventricular tachycardia (HCC) [I47.10] 09/23/2022 Encounter Status:Closed by RUKHSANA GUAN on 06/22/23 [facility] 06-22-2023 History of Present illness Narrative TRANSITION CARE MANAGEMENT (TCM) FOLLOW-UP NOTE Provider Action/FYI Patient identified by name and date of : YES Spoke to patient Summary: EMR reviewed. Patient stated that he still has swelling in his hand, but it has reduced in the size. He stated it is still draining, but the amount has reduce significantly. He denies redness, warmth, fever, body aches, or chills. Discussed with patient about scheduling an appointment with Dr. Dyer. Patient stated he wanted to wait, and maybe see about going next week. I offered to contact [facility] [place] transportation services while on the phone to set up a ride, but patient denied at this time. He stated that his hand is improving, but concerned because he still can't extend several of his fingers straight. I did encourage him to follow up with the orthopedic that saw him while in the hospital or Dr. Dyer. Concerns: How is his hand? Did he decide to schedule an appointment to be seen? 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: Will follow up 1-2 week Signature Rukhsana Guan RN June 22, 2023 documented in this encounter [facility] 06-16-2023 Note HNO ID: [id number] Author: RUKHSANA GUAN RN Service: ? Author Type: Registered Nurse Type: Progress Notes Filed: 06/22/2023 13:05 Note Text: TRANSITION CARE MANAGEMENT (TCM) FOLLOW-UP NOTE Provider Action/FYI Patient identified by name and date of : YES Spoke to patient Summary: EMR reviewed. Message received from Jazmin that patient had contacted her and asked to speak with me. Contacted patient and he had questions regarding transportation services that are provided by [employer]. He had been reviewing the email of information that I had forwarded to him that included the information about the transportation services [facility] [employer] offers for Medicare plans. He was asking if the services were free and how many rides were provided. Reviewed with him the information on the [employer] documentation regarding rides. I also emailed to him my contact information. He had no further questions at this time. Concerns: How is his hand? S/S of infection? Wanting to scheduling an appointment with Dr. Dyer? 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: Will follow up 1 week Signature Rukhsana Guan RN June 16, 2023 [facility] 06-16-2023 Note HNO ID: [id number] Author: RUKHSANA GUAN RN Service: ? Author Type: Registered Nurse Type: Progress Notes Filed: 06/16/2023 14:32 Note Text: TRANSITION CARE MANAGEMENT (TCM) FOLLOW-UP NOTE Provider Action/FYI Patient identified by name and date of : YES Spoke to patient Discharge Network Status: [facility] (OON) Discharge Summary: EMR reviewed. Patient stated that this morning his hand had been hurting. It was also red but he contributes that to bumping it into something during the night. He stated he cleaned the wound well and completed wound care and the wound is feeling better. I did discuss with him on going to the ED if he felt his symptoms were worsening or worrisome. Educated patient on signs and symptoms of infection such as increase/spreading in redness, warmth to wound and surrounding area, fever, chills, body aches. Patient denies any of these symptoms at this time. I did discuss with patient that I had obtained the number for transportation services for [employer]. I offered to contact the office and have an appointment scheduled and assist patient with scheduling a ride with [employer]. Patient stated he wanted to wait a few days and see how his hand was doing prior to scheduling an appointment and ride. I did encourage him to schedule an appointment to follow up with Dr. Dyer. Concerns: How is his hand? 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: Will follow up this week Signature Rukhsana Guan RN June 16, 2023 [facility] 06-16-2023 History of Present illness Narrative TRANSITION CARE MANAGEMENT (TCM) FOLLOW-UP NOTE Provider Action/KAMRAN Patient identified by name and date of : YES Spoke to patient Summary: EMR reviewed. Message received from Jazmin that patient had contacted her and asked to speak with me. Contacted patient and he had questions regarding transportation services that are provided by [employer]. He had been reviewing the email of information that I had forwarded to him that included the information about the transportation services [employer] offers for Medicare plans. He was asking if the services were free and how many rides were provided. Reviewed with him the information on the [employer] documentation regarding rides. I also emailed to him my contact information. He had no further questions at this time. Concerns: How is his hand? S/S of infection? Wanting to scheduling an appointment with Dr. Dyer? 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: Will follow up this week Signature Rukhsana Guan RN June 16, 2023 documented in this encounter [facility] 06-16-2023 History of Present illness Narrative TRANSITION CARE MANAGEMENT (TCM) FOLLOW-UP NOTE Provider Action/KAMRAN Patient identified by name and date of : YES Spoke to patient Discharge Network Status: [id number]-Zpbbdyp (OON) Discharge Summary: EMR reviewed. Patient stated that this morning his hand had been hurting. It was also red but he contributes that to bumping it into something during the night. He stated he cleaned the wound well and completed wound care and the wound is feeling better. I did discuss with him on going to the ED if he felt his symptoms were worsening or worrisome. Educated patient on signs and symptoms of infection such as increase/spreading in redness, warmth to wound and surrounding area, fever, chills, body aches. Patient denies any of these symptoms at this time. I did discuss with patient that I had obtained the number for transportation services for [facility] [employer]. I offered to contact the office and have an appointment scheduled and assist patient with scheduling a ride with [employer]. Patient stated he wanted to wait a few days and see how his hand was doing prior to scheduling an appointment and ride. I did encourage him to schedule an appointment to follow up with Dr. Dyer. Concerns: How is his hand? 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: Will follow up this week Signature Rukhsana Guan RN June 16, 2023 documented in this encounter [facility] 06-16-2023 Note Patient Outreach (MR CAC) REJI MENDOZA ([id number]) 1945 M [facility] Date Time Provider Department 06/16/23 RUKHSANA GUAN [facility] During your visit today, we recorded the following information about you: Rukhsana Guan RN 06/16/2023 2:32 PM Signed TRANSITION CARE MANAGEMENT (TCM) FOLLOW-UP NOTE Provider Action/FYI Patient identified by name and date of : YES Spoke to patient Discharge Network Status: Zdu-kw-Xmbqyll (OON) Discharge Summary: EMR reviewed. Patient stated that this morning his hand had been hurting. It was also red but he contributes that to bumping it into something during the night. He stated he cleaned the wound well and completed wound care and the wound is feeling better. I did discuss with him on going to the ED if he felt his symptoms were worsening or worrisome. Educated patient on signs and symptoms of infection such as increase/spreading in redness, warmth to wound and surrounding area, fever, chills, body aches. Patient denies any of these symptoms at this time. I did discuss with patient that I had obtained the number for transportation services for [employer]. I offered to contact the office and have an appointment scheduled and assist patient with scheduling a ride with [facility] [place]. Patient stated he wanted to wait a few days and see how his hand was doing prior to scheduling an appointment and ride. I did encourage him to schedule an appointment to follow up with Dr. Dyer. Concerns: How is his hand? 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: Will follow up this week Signature Rukhsana Guan RN June 16, 2023 Allergies As of Date: 06/16/2023 Noted Allergy Reaction JUWAN INHIBITORS 12/28/2016 16 - Unknown CIGARETTE SMOKE 12/28/2016 16 - Unknown CATS 01/19/2012 14 - Other: See Comments Comments: sneezing FENTANYL 08/03/2020 14 - Other: See Comments SULFA (SULFONAMIDE ANTIBIOTICS) 10/26/2005 4 - Hives SULFA (SULFONAMIDE ANTIBIOTICS) 07/26/2020 4 - Hives Date Reviewed: 12/23/2022 Reviewed by: Brian Barriga LPN - Fully Assessed Prescriptions as of 06/16/2023 - hydroCHLOROthiazide 12.5 mg capsule Take 1 capsule by mouth once daily. - amLODIPine (NORVASC) 5 mg tablet Take 1 tablet by mouth once daily. - losartan (COZAAR) 100 mg tablet Take 1 tablet by mouth once daily. - thiamine (VITAMIN B1) 100 mg tablet Take by mouth. - sodium chloride (AYR, OCEAN) 0.65 % nasal spray Sodium Chloride Active 2 SPRAY NASAL 3 TIMES DAILY NEEDED August 24, 2020 7:45am - polyethylene glycol 3350 (MIRALAX, GLYCOLAX) 17 gram/dose powder Take by mouth. - hebupozzivu-ablvymcqc-nuvjyvlm (TRELEGY ELLIPTA) 100-62.5-25 mcg inhalation powder Apply to affected area. - cyanocobalamin (VITAMIN B-12) 1,000 mcg tab Take 2 tablets by mouth once daily. - ipratropium-albuterol (DUONEB) 0.5 mg-3 mg(2.5 mg base)/3 mL nebu Inhale 3 mL as instructed every 4 hours as needed for wheezing/shortness of breath. - MULTIVITAMIN ORAL Take 1 capsule by mouth once daily. - fluticasone (FLONASE) 50 mcg/actuation nasal spray Use 1 [place] in each nostril once daily. - cholecalciferol (VITAMIN D3) 5,000 unit tab Take 1 tablet by mouth once daily. - ALBUTEROL 90 MCG/ACTUATION AEROSOL INHALER PRN Problem List As Of Date 06/16/2023 Noted Resolved HYPERTENSION NOS [I10] DYSTHYMIC DISORDER [F34.1] ASTHMA UNSPECIFIED [J45.909] DIVERTICULOSIS OF COLON W/O BLEED [K57.30] MASS IN BREAST [N63.0] 10/28/2005 DISORDERS OF DIAPHRAGM [J98.6] 02/08/2006 Unspecified disorder of plasma protein metaboli*01/22/2012 Posterior displaced Type II dens fracture with *07/26/2020 Closed fracture of nasal bone [S02.2XXA] 07/27/2020 Fall [W19.XXXA] 07/27/2020 08/02/2020 Hyponatremia [E87.1] 07/27/2020 08/02/2020 Alcohol intoxication (HCC) [F10.929] 07/27/2020 08/02/2020 Pancreatic lesion [K86.9] 07/27/2020 Malnutrition of moderate degree (HCC) [E44.0] 07/28/2020 Vitamin D deficiency [E55.9] 07/29/2020 Tongue laceration [S01.512A] 07/30/2020 Facial laceration [S01.81XA] 07/30/2020 08/02/2020 Trauma [T14.90XA] 08/01/2020 08/02/2020 H/O cervical spine surgery [Z98.890] 08/14/2020 Nondisplaced fracture of middle third of navicu*08/19/2020 Arthrodesis status [Z98.1] 09/11/2020 Chronic obstructive pulmonary disease (HCC) [J4*07/08/2022 Neutropenia (HCC) [D70.9] 09/23/2022 Thrombocytopenia (HCC) [D69.6] 09/23/2022 Acute respiratory failure with hypoxia (HCC) [J*09/23/2022 Supraventricular tachycardia (HCC) [I47.10] 09/23/2022 Encounter Status:Closed by RUKHSANA GUAN on 06/16/23 [facility] 06-16-2023 Note Patient Outreach (MR ALDRIDGE) REJI MENDOZA ([id number]) 1945 M [facility] Date Time Provider Department 06/16/23 RUKHSANA GUAN [facility] During your visit today, we recorded the following information about you: Rukhsana Guan RN 06/22/2023 1:05 PM Addendum TRANSITION CARE MANAGEMENT (TCM) FOLLOW-UP NOTE Provider Action/FYI Patient identified by name and date of : YES Spoke to patient Summary: EMR reviewed. Message received from Jazmin that patient had contacted her and asked to speak with me. Contacted patient and he had questions regarding transportation services that are provided by [employer]. He had been reviewing the email of information that I had forwarded to him that included the information about the transportation services [employer] offers for Medicare plans. He was asking if the services were free and how many rides were provided. Reviewed with him the information on the [employer] documentation regarding rides. I also emailed to him my contact information. He had no further questions at this time. Concerns: How is his hand? S/S of infection? Wanting to scheduling an appointment with Dr. Dyer? 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: Will follow up 1 week Signature Rukhsana Guan RN June 16, 2023 Allergies As of Date: 06/16/2023 Noted Allergy Reaction JUWAN INHIBITORS 12/28/2016 16 - Unknown CIGARETTE SMOKE 12/28/2016 16 - Unknown CATS 01/19/2012 14 - Other: See Comments Comments: sneezing FENTANYL 08/03/2020 14 - Other: See Comments SULFA (SULFONAMIDE ANTIBIOTICS) 10/26/2005 4 - Hives SULFA (SULFONAMIDE ANTIBIOTICS) 07/26/2020 4 - Hives Date Reviewed: 12/23/2022 Reviewed by: Brian Barriga LPN - Fully Assessed Reason for Visit: Transition Of Care [4074] Prescriptions as of 06/22/2023 - hydroCHLOROthiazide 12.5 mg capsule Take 1 capsule by mouth once daily. - amLODIPine (NORVASC) 5 mg tablet Take 1 tablet by mouth once daily. - losartan (COZAAR) 100 mg tablet Take 1 tablet by mouth once daily. - thiamine (VITAMIN B1) 100 mg tablet Take by mouth. - sodium chloride (AYR, OCEAN) 0.65 % nasal spray Sodium Chloride Active 2 SPRAY NASAL 3 TIMES DAILY NEEDED August 24, 2020 7:45am - polyethylene glycol 3350 (MIRALAX, GLYCOLAX) 17 gram/dose powder Take by mouth. - qufzfssmtkw-djacnioyw-rpmwwrli (TRELEGY ELLIPTA) 100-62.5-25 mcg inhalation powder Apply to affected area. - cyanocobalamin (VITAMIN B-12) 1,000 mcg tab Take 2 tablets by mouth once daily. - ipratropium-albuterol (DUONEB) 0.5 mg-3 mg(2.5 mg base)/3 mL nebu Inhale 3 mL as instructed every 4 hours as needed for wheezing/shortness of breath. - MULTIVITAMIN ORAL Take 1 capsule by mouth once daily. - fluticasone (FLONASE) 50 mcg/actuation nasal spray Use 1 [place] in each nostril once daily. - cholecalciferol (VITAMIN D3) 5,000 unit tab Take 1 tablet by mouth once daily. - ALBUTEROL 90 MCG/ACTUATION AEROSOL INHALER PRN Problem List As Of Date 06/16/2023 Noted Resolved HYPERTENSION NOS [I10] DYSTHYMIC DISORDER [F34.1] ASTHMA UNSPECIFIED [J45.909] DIVERTICULOSIS OF COLON W/O BLEED [K57.30] MASS IN BREAST [N63.0] 10/28/2005 DISORDERS OF DIAPHRAGM [J98.6] 02/08/2006 Unspecified disorder of plasma protein metaboli*01/22/2012 Posterior displaced Type II dens fracture with *07/26/2020 Closed fracture of nasal bone [S02.2XXA] 07/27/2020 Fall [W19.XXXA] 07/27/2020 08/02/2020 Hyponatremia [E87.1] 07/27/2020 08/02/2020 Alcohol intoxication (HCC) [F10.929] 07/27/2020 08/02/2020 Pancreatic lesion [K86.9] 07/27/2020 Malnutrition of moderate degree (HCC) [E44.0] 07/28/2020 Vitamin D deficiency [E55.9] 07/29/2020 Tongue laceration [S01.512A] 07/30/2020 Facial laceration [S01.81XA] 07/30/2020 08/02/2020 Trauma [T14.90XA] 08/01/2020 08/02/2020 H/O cervical spine surgery [Z98.890] 08/14/2020 Nondisplaced fracture of middle third of navicu*08/19/2020 Arthrodesis status [Z98.1] 09/11/2020 Chronic obstructive pulmonary disease (HCC) [J4*07/08/2022 Neutropenia (HCC) [D70.9] 09/23/2022 Thrombocytopenia (HCC) [D69.6] 09/23/2022 Acute respiratory failure with hypoxia (HCC) [J*09/23/2022 Supraventricular tachycardia (HCC) [I47.10] 09/23/2022 Encounter Status:Closed by RUKHSANA GUAN on 06/17/23 [facility] 06-15-2023 Note HNO ID: [id number] Author: RUKHSANA GUAN, RN Service: ? Author Type: Registered Nurse Type: Progress Notes Filed: 06/16/2023 08:27 Note Text: TRANSITION CARE MANAGEMENT (TCM) FOLLOW-UP NOTE Provider Action/FYI Patient identified by name and date of : YES Spoke to patient Summary: EMR reviewed. Patient stated that the swelling and redness to his hand have reduced. He thought it still felt warm and he stated that it was draining. Discussed signs and symptoms of infection-fever, chills, body aches-patient denies any. He has been unable to find a ride to transport him to Dr. Dyer'lyndsey for a follow up appointment. He stated he hasn't contacted his insurance company regarding rides to medical appointments. I will assist him with this. Patient stated that he may go back to the ED to have his hand reevaluated. He is concerned because he only has a couple pills left of the antibiotic and with the warmth and drainage, he feels that he should be improved more. I did encouraged him to seek medical attention if his symptoms worsen or are worrisome. Patient stated that his cat over the weekend, the same cat that bit him and caused the infection. He stated that he has felt a little down lately . He stated that Dr. Dyer at prescribed him Zoloft, but he hasn't been taking it, but stated he was going to restart. I did discuss with patient that he should be seen by Dr. Dyer for this as well as his hand. I did tell him that Zoloft does not provide a quick improvement of mood. Patient stated that he was aware of that. Concerns: Hand-signs of infection? Did he go back to ED? 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 Patient stated that the swelling and redness to his hand have reduced. He thought it still felt warm and he stated that it was draining. Discussed signs and symptoms of infection-fever, chills, body aches-patient denies any. He has been unable to find a ride to transport him to Dr. Dyer's for a follow up appointment. He stated he hasn't contacted his insurance company regarding rides to medical appointments. I will assist him with this. Patient stated that he may go back to the ED to have his hand reevaluated. He is concerned because he only has a couple pills left of the antibiotic and with the warmth and drainage, he feels that he should be improved more. I did encouraged him to seek medical attention if his symptoms worsen or are worrisome. Patient stated that his cat over the weekend, the same cat that bit him and caused the infection. He stated that he has felt a little down lately . He stated that Dr. Dyer at prescribed him Zoloft, but he hasn't been taking it, but stated he was going to restart. I did discuss with patient that he should be seen by Dr. Dyer for this as well as his hand. I did tell him that Zoloft does not provide a quick improvement of mood. Patient stated that he was aware of that. Concerns: Hand-signs of infection? Did he go back to ED? 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 - amLODIPine (NORVASC) 5 mg tablet Take 1 tablet by mouth once daily. - losartan (COZAAR) 100 mg tablet Take 1 tablet by mouth once daily. - thiamine (VITAMIN B1) 100 mg tablet Take by mouth. - sodium chloride (AYR, OCEAN) 0.65 % nasal spray Sodium Chloride Active 2 SPRAY NASAL 3 TIMES DAILY NEEDED August 24, 2020 7:45am - polyethylene glycol 3350 (MIRALAX, GLYCOLAX) 17 gram/dose powder Take by mouth. - huergjjlsfr-ntasbvjkw-ugmxrndj (TRELEGY ELLIPTA) 100-62.5-25 mcg inhalation powder Apply to affected area. - cyanocobalamin (VITAMIN B-12) 1,000 mcg tab Take 2 tablets by mouth once daily. - ipratropium-albuterol (DUONEB) 0.5 mg-3 mg(2.5 mg base)/3 mL nebu Inhale 3 mL as instructed every 4 hours as needed for wheezing/shortness of breath. - MULTIVITAMIN ORAL Take 1 capsule by mouth once daily. - fluticasone (FLONASE) 50 mcg/actuation nasal spray Use 1 [place] in each nostril once daily. - cholecalciferol (VITAMIN D3) 5,000 unit tab Take 1 tablet by mouth once daily. - ALBUTEROL 90 MCG/ACTUATION AEROSOL INHALER PRN Problem List As Of Date 06/15/2023 Noted Resolved HYPERTENSION NOS [I10] DYSTHYMIC DISORDER [F34.1] ASTHMA UNSPECIFIED [J45.909] DIVERTICULOSIS OF COLON W/O BLEED [K57.30] MASS IN BREAST [N63.0] 10/28/2005 DISORDERS OF DIAPHRAGM [J98.6] 02/08/2006 Unspecified disorder of plasma protein metaboli*01/22/2012 Posterior displaced Type II dens fracture with *07/26/2020 Closed fracture of nasal bone [S02.2XXA] 07/27/2020 Fall [W19.XXXA] 07/27/2020 08/02/2020 Hyponatremia [E87.1] 07/27/2020 08/02/2020 Alcohol intoxication (HCC) [F10.929] 07/27/2020 08/02/2020 Pancreatic lesion [K86.9] 07/27/2020 Malnutrition of moderate degree (HCC) [E44.0] 07/28/2020 Vitamin D deficiency [E55.9] 07/29/2020 Tongue laceration [S01.512A] 07/30/2020 Facial laceration [S01.81XA] 07/30/2020 08/02/2020 Trauma [T14.90XA] 08/01/2020 08/02/2020 H/O cervical spine surgery [Z98.890] 08/14/2020 Nondisplaced fracture of middle third of navicu*08/19/2020 Arthrodesis status [Z98.1] 09/11/2020 Chronic obstructive pulmonary disease (HCC) [J4*07/08/2022 Neutropenia (HCC) [D70.9] 09/23/2022 Thrombocytopenia (HCC) [D69.6] 09/23/2022 Acute respiratory failure with hypoxia (HCC) [J*09/23/2022 Supraventricular tachycardia (HCC) [I47.10] 09/23/2022 Encounter Stat (more content not included)... [facility] 06-15-2023 History of Present illness Narrative Left voicemail for patient. documented in this encounter [facility] 06-10-2023 Miscellaneous Notes I do not do virtual visits. Especially video virtual visits. Secure chat from Rukhsana Guan RN: Vipul, this patient was hospitalized at [facility] for cellulitis to his hand from a cat bite. He said he has an open wound, sent home with his hand bandaged and was given some spare bandages and told to change daily. I talked to him about a follow up with Dr. Dyer, but he doesn't have a car. I did tell him his insurance more than likely would provide him rides to [place]. He was going to call and check. A couple thoughts....I think a [facility] SN would be a good idea for wound care/infection management. I am hoping [employer] can assist with transportation, but just in case there is no quick fix on this, is a virtual visit an option for him to follow up with Dr. Dyer? Brian Barriga LPN June 10, 2023 1:22 PM documented in this encounter [facility] 06-10-2023 Note Patient Outreach ( [facility]) REJI EMNDOZA ([id number]) 1945 M [facility] Date Time Provider Department 06/10/23 RUKHSANA GUAN During your visit today, we recorded the following information about you: Rukhsana Guan, RN 06/10/2023 1:48 PM Signed TRANSITION CARE MANAGEMENT (TCM) INITIAL CONTACT Provider Action/FYI: Patient has open wound, lack of transportation, would benefit from HHC SN to monitor wound Initial contact with patient post discharge, spoke to patient. Patient identified by name and . EMR reviewed. Introduced myself and my role. Reviewed patient's discharge paperwork that may include any activity restrictions, dietary instructions, follow up labs or tests, and follow up appointments. Medications reconciled. Patient has all newly prescribed medications in the home (antibiotics and pain medication). Reviewed with patient on pain management control as the discharge paperwork lists he can take Tylenol and Ibuprofen as well. Patient stated that his hand was wrapped with bandages when he discharged home from the hospital. He stated that he was sent home with extra bandages and was told to change the dressing daily. Educated patient on keeping bandage clean, dry, and changing as instructed. Discussed with patient on scheduling a follow up appointment with Dr. Dyer. Patient stated that transportation is limited as he does not have a car. He stated that he does use a local taxi service to get to the store to get needed supplies and food. Educated patient to contact his insurance company as they may provide him with transportation services to medical appointments. Discussed with patient on the possibility of having a HHC SN coming to his home to assess and monitor his wound. Patient was open to this idea. Will send a message to Dr. Dyer's office staff and [facility] regarding transportation, HHC SN needs, and the possibility of a virtual follow up appointment with Dr. Dyer. Will follow patient for weekly TCM calls. UPCOMING APPOINTMENTS: Elijah Dyer MD [Primary Care Provider] - Within 2 Weeks HHC/DME/LAB ORDERS: None DIET/ACTIVITY RESTRICTIONS: None TCM Eligibility Documentation Program: Transitional Care Management Status: Enrolled Effective Dates: 06/10/2023 - present Responsible Staff: Rukhsana Guan RN Discharge date: 06/09/2023 (Program start) Date of initial contact: 06/10/2023 Initial contact Target status: Successful; Contact made within 2 business days post-discharge SUMMARY: -Pt discharged from [facility] on 06/09/23. -Follow up appointment on to be scheduled. -Medication review done yes. -Admitted for: Open bite of left hand CONCERNS: Patient has lack of transportation for far distances to appointments, [facility] notified NEW MEDICATIONS: amoxicillin 875 mg-potassium clavulanate 125 mg tablet 1 tab PO BID doxycycline monohydrate 100 mg tablet 100 mg PO BID ibuprofen 600 mg tablet 600 mg PO Q6H PRN PRN Pain Score 1-10 oxycodone 5 mg tablet 5 mg PO Q8H PRN pain 3 days MEDS HELD/DISCONTINUED: N/A BRIEF HOSPITAL COURSE: Patient with left hand and arm cellulitis secondary to cat bite that he sustained about 2 days prior. Patient improved with Unasyn as well as vancomycin. Patient will be discharged with vancomycin and doxycycline. Patient advised to keep his left arm elevated while he is at rest. Allergies As of Date: 06/10/2023 Noted Allergy Reaction JUWAN INHIBITORS 12/28/2016 16 - Unknown CIGARETTE SMOKE 12/28/2016 16 - Unknown CATS 01/19/2012 14 - Other: See Comments Comments: sneezing FENTANYL 08/03/2020 14 - Other: See Comments SULFA (SULFONAMIDE ANTIBIOTICS) 10/26/2005 4 - Hives SULFA (SULFONAMIDE ANTIBIOTICS) 07/26/2020 4 - Hives Date Reviewed: 12/23/2022 Reviewed by: Brian Barriga LPN - Fully Assessed Prescriptions as of 06/10/2023 - hydroCHLOROthiazide 12.5 mg capsule Take 1 capsule by mouth once daily. - amLODIPine (NORVASC) 5 mg tablet Take 1 tablet by mouth once daily. - losartan (COZAAR) 100 mg tablet Take 1 tablet by mouth once daily. - thiamine (VITAMIN B1) 100 mg tablet Take by mouth. - sodium chloride (AYR, OCEAN) 0.65 % nasal spray Sodium Chloride Active 2 SPRAY NASAL 3 TIMES DAILY NEEDED August 24, 2020 7:45am - polyethylene glycol 3350 (MIRALAX, GLYCOLAX) 17 gram/dose powder Take by mouth. - thvyjrggiml-escdgvsag-fpccnbzm (TRELEGY ELLIPTA) 100-62.5-25 mcg inhalation powder Apply to affected area. - cyanocobalamin (VITAMIN B-12) 1,000 mcg tab Take 2 tablets by mouth once daily. - ipratropium-albuterol (DUONEB) 0.5 mg-3 mg(2.5 mg base)/3 mL nebu Inhale 3 mL as instructed every 4 hours as needed for wheezing/shortness of breath. - MULTIVITAMIN ORAL Take 1 capsule by mouth once daily. - fluticasone (FLONASE) 50 mcg/actuation nasal spray Use 1 [place] in each nostril once daily. - c (more content not included)... [facility] 06-10-2023 Note HNO ID: [id number] Author: RUKHSANA GUAN RN Service: ? Author Type: Registered Nurse Type: Progress Notes Filed: 06/10/2023 13:48 Note Text: TRANSITION CARE MANAGEMENT (TCM) INITIAL CONTACT Provider Action/FYI: Patient has open wound, lack of transportation, would benefit from [facility] SN to monitor wound Initial contact with patient post discharge, spoke to patient. Patient identified by name and . EMR reviewed. Introduced myself and my role. Reviewed patient's discharge paperwork that may include any activity restrictions, dietary instructions, follow up labs or tests, and follow up appointments. Medications reconciled. Patient has all newly prescribed medications in the home (antibiotics and pain medication). Reviewed with patient on pain management control as the discharge paperwork lists he can take Tylenol and Ibuprofen as well. Patient stated that his hand was wrapped with bandages when he discharged home from the hospital. He stated that he was sent home with extra bandages and was told to change the dressing daily. Educated patient on keeping bandage clean, dry, and changing as instructed. Discussed with patient on scheduling a follow up appointment with Dr. Dyer. Patient stated that transportation is limited as he does not have a car. He stated that he does use a local taxi service to get to the store to get needed supplies and food. Educated patient to contact his insurance company as they may provide him with transportation services to medical appointments. Discussed with patient on the possibility of having a [facility] SN coming to his home to assess and monitor his wound. Patient was open to this idea. Will send a message to Dr. Dyer's office staff and Sav PATRICIO regarding transportation, [facility] needs, and the possibility of a virtual follow up appointment with Dr. Dyer. Will follow patient for weekly TCM calls. UPCOMING APPOINTMENTS: Elijah Dyer MD [Primary Care Provider] - Within 2 Weeks HHC/DME/LAB ORDERS: None DIET/ACTIVITY RESTRICTIONS: None TCM Eligibility Documentation Program: Transitional Care Management Status: Enrolled Effective Dates: 06/10/2023 - present Responsible Staff: Rukhsana Guan RN Discharge date: 06/09/2023 (Program start) Date of initial contact: 06/10/2023 Initial contact Target status: Successful; Contact made within 2 business days post-discharge SUMMARY: -Pt discharged from [facility] on 06/09/23. -Follow up appointment on to be scheduled. -Medication review done yes. -Admitted for: Open bite of left hand CONCERNS: Patient has lack of transportation for far distances to appointments, Sav PATRICIO notified NEW MEDICATIONS: amoxicillin 875 mg-potassium clavulanate 125 mg tablet 1 tab PO BID doxycycline monohydrate 100 mg tablet 100 mg PO BID ibuprofen 600 mg tablet 600 mg PO Q6H PRN PRN Pain Score 1-10 oxycodone 5 mg tablet 5 mg PO Q8H PRN pain 3 days MEDS HELD/DISCONTINUED: N/A BRIEF HOSPITAL COURSE: Patient with left hand and arm cellulitis secondary to cat bite that he sustained about 2 days prior. Patient improved with Unasyn as well as vancomycin. Patient will be discharged with vancomycin and doxycycline. Patient advised to keep his left arm elevated while he is at rest. [facility] 03-15-2023 Miscellaneous Notes [facility] No-Show Documentation @Patient@ no showed for an appointment on 03/15/[address] Dyer. The patient was was scheduled for a follow up appointment. I called and spoke with the patient regarding missed appointment. No The patient stated the reason that they missed the appointment was because No answer . Resources discussed/offered to patient: N/A No show determined to be fault of patient: N/A This is the patients first no show in the last 12 months. Patient was rescheduled for na. Letter mailed regular mail AND certified : Yes Is this the Third or Fourth No Show ? No Jazmin Rodriguez March 15, 2023 3:17 PM documented in this encounter [facility] 12-23-2022 Note HNO ID: [id number] Author: Elijah Dyer MD Service: ? Author Type: Physician Type: Progress Notes Filed: 12/23/2022 2:27 PM Note Text: This note was created using Leiyooriter. Subjective Reji Mendoza is a 77 year old male. Reji presents today with bilateral lower extremity edema. This has been ongoing since his latest fall. He did injure his knee and hip. Nothing was fractured. He has continued pain. He has not been taking his medication as directed. He has been taking amlodipine but not valsartan. Review of Systems Constitutional: Negative. HENT: Negative. Eyes: Negative. Respiratory: Negative. Cardiovascular: Negative. Gastrointestinal: Negative. Endocrine: Negative. Genitourinary: Negative. Musculoskeletal: Negative. Skin: Negative. Allergic/Immunologic: Negative. Neurological: Negative. Hematological: Negative. Psychiatric/Behavioral: Negative. Objective BP 122/84 (BP Site: Left Arm, BP Position: Sitting, BP Cuff Size: Regular Adult) Pulse 64 Temp 36.1 ?C (97 ?F) (Temporal) Resp 18 Ht 175.3 cm (5' 9 ) Wt 62.3 kg (137 lb 6.4 oz) SpO2 97% BMI 20.29 kg/m? Physical Exam Vitals reviewed. Constitutional: Appearance: Normal appearance. HENT: Head: Normocephalic and atraumatic. Nose: Nose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 Present illness Narrative Radiology Service Progress Note PATIENT NAME: Reji Mendoza DATE OF SERVICE: August 11, 2021 TIME: 10:58 AM PATIENT IDENTITY VERIFICATION COMPLETED USING TWO (2) IDENTIFIERS: Name and Date of confirmed by patient verbally. FALL SCREENING: Has the patient had 2 falls in the last year or 1 fall with injury or currently using an Ambulatory Assistive Device (Walker, Cane, Wheelchair, Crutches, etc.)? No PATIENT GENDER DATA: Male PATIENT RELEVANT IMPLANT DATA REVIEWED: Not Applicable RADIOLOGY DEPARTMENT: General X-ray: Exam(s) Completed: Spine X-Ray(s): Cervical AP / LAT / FLEX-EXT PERIPHERAL IV DATA: Not applicable SIGNED BY: RT Charles(R) August 11, 2021 10:58 AM documented in this encounter [facility] 01-22-2021 Note HNO ID: [id number] Author: Silvia Holder I, MD Service: ? Author Type: Physician Type: Progress Notes Filed: 01/22/2021 10:29 AM Note Text: NEUROSURGERY FOLLOW UP OFFICE NOTE Silvia Holder MD Date of visit: January 22, 2021 Patient Name: Mr.Oscar Mendoza Date of : 1945 Current Age: [age] year old Sex: male MRN/E# [id number] Last Office Visit: 10/23/2020 Chief Complaint: No chief complaint on file. SUBJECTIVE: Reji Mendoza is a 75 year old male who presents to the office today for a follow up visit, to review imaging. He is status post a closed reduction of C2 fracture,?C1-C2 instrumented fusion,?Left hip autograft, allograft?07/28/2020. He has a past medical history of HTN. He denies smoking. He presented to [facility] ED 07/26/2020 after a fall down three steps and landing on his face. He admitted to drinking alcohol that day.?He had evidence of a?type II odontoid fracture with several millimeters of posterior displacement as well as displacement of C1-C2 joints.?He was neurologically intact. ?Because of this I recommended an instrumented fusion with open reduction for optimal healing.?Due to concern for alcohol withdrawal, the patient was given phenobarbital while he was in the ICU. He was stable for discharge to a SNF 08/02/2020.? ? He presented to the office 08/14/2020 for his?2?week?post operative visit. He felt that surgery?went well. He presented in wheelchair and wearing cervical collar. Although improved, did complain of some neck pain and stiffness. He denied any numbness or tingling. He denied any weakness or new symptoms.?He had x-rays obtained at this visit that demonstrated good alignment with good positioning of the hardware. There was no concern for screw pullout or failure. He was prescribed a short dose of antibiotics. There was slight degree of redness seen at the cranial end of the incision. ? He presented to the office 09/11/2020 for a 6 week post operative visit. He felt that he continued to improve. He was at home and had been ambulating independently. Presented in a wheelchair. He presented in aspen collar and reported compliance. He reported some neck stiffness and pain same as the prior visit. He was able to care for himself at home. Had no new concerns. He had x-rays obtained at this visit that demonstrated hardware in good position with no concern for screw pullout or failure. ? At his 3 month post operative visit he had been doing extremely well. He continued with some mild neck pain and stiffness that he attributed to the collar. He was given permission to wean himself out of the collar. He was given a prescription for physical therapy and I planned to see him back in 3 months time. Today he states he is doing well. He complains of some left-sided neck pain that is improved. He also complains of some difficulty using his arms with overhead work. That was longstanding. Otherwise he has no new complaints.. He is here for evaluation and plan of care. Symptoms: neck pain and stiffness PREVIOUS CONSERVATIVE TREATMENTS: C-Collar Physical Therapy PREVIOUS SURGERY: SURGERY:?Closed reduction of C2 fracture,?C1-C2 instrumented fusion,?Left hip autograft, allograft?07/28/2020 ? Pre-Surgical Symptoms:?neck pain PAIN EVALUATION No data found in the last 1 encounters. PAST MEDICAL HISTORY Diagnosis Date - Alcohol dependence (HCC) - Closed C2 fracture (HCC) - Dysphagia - Hypertension - Tongue laceration PAST SURGICAL HISTORY Procedure Laterality Date - NECK SURGERY HX 07/28/2020 FAMILY HISTORY Problem Relation Age of Onset - Hypertension Mother - Emphysema Father ALLERGIES Allergen Reactions - Sulfa (Sulfonamide * Hives Current Outpatient Medications Medication Sig Dispense Refill - enoxaparin (LOVENOX) 40 mg/0.4 mL Inject subcutaneously every 12 hours. - polyethylene glycol 3350 8.5 gram pwpk Take by mouth once daily. (Patient not taking: Reported on 10/23/2020 ) - sennosides-docusate sodium (SENNA PLUS) 8.6-50 mg capsule Take 1 capsule by mouth once daily. (Patient not taking: Reported on 10/23/2020 ) - Bisacodyl (DULCOLAX) 5 mg tab Take 5 mg by mouth as needed. (Patient not taking: Reported on 10/23/2020 ) - fluticasone (ALLERGY RELIEF, FLUTICASONE,) 50 mcg/actuation nasal spray Use 1 [place] in each nostril once daily. - Magnesium 200 mg tab Take by mouth. - cholecalciferol (VITAMIN D3) 5,000 unit tab Take 1 tablet by mouth once daily. 30 tablet 0 - melatonin 3 mg tablet Take 2 tablets by mouth daily at bedtime. 60 tablet 0 - thiamine (VITAMIN B1) 100 mg tablet Take 1 tablet by mouth once daily. (Patient not taking: Reported on 10/23/2020 ) 30 tablet 0 - amLODIPine (NORVASC) 5 mg tablet Take 5 mg by mouth once daily. No current facility-administered medications for this visit. REVIEW OF SYSTEMS Review of Systems OBJECTIVE: There were no vitals taken for this visit. Physi (more content not included)... [facility] 10-23-2020 Note HNO ID: [id number] Author: Silvia Holder I, MD Service: ? Author Type: Physician Type: Progress Notes Filed: 10/23/2020 10:31 AM Note Text: NEUROSURGERY POST-OP NOTE Silvia Holder MD Date of visit: October 23, 2020 Patient Name: Mr.Oscar Mendoza Date of : 1945 Current Age: [age] year old Sex: male MRN/E# [id number] Last Office Visit: 09/25/2020 SURGERY:?Closed reduction of C2 fracture,?C1-C2 instrumented fusion,?Left hip autograft, allograft?07/28/2020 ? Pre-Surgical Symptoms:?neck pain ? Mr. Reji mendoza is a 75 year old male with a past medical history of HTN. He denies smoking. ? He presented to [facility] ED 07/26/2020 after a fall down three steps and landing on his face. He admitted to drinking alcohol that day.?He had evidence of a?type II odontoid fracture with several millimeters of posterior displacement as well as displacement of C1-C2 joints.?He was neurologically intact. ?Because of this I recommended an instrumented fusion with open reduction for optimal healing.?Due to concern for alcohol withdrawal, the patient was given phenobarbital while he was in the ICU. He was stable for discharge to a SNF 08/02/2020.? ? He presented to the office 08/14/2020 for his?2?week?post operative visit. He felt that surgery?went well. He presented with a friend/relative. He presented in wheelchair and wearing cervical collar. He stated that he had been improving since surgery. Did complain of neck pain and stiffness. He has RUE injury and presented with brace to [facility]. He had been feeding himself and getting up independently and walking at his facility. He stated that the staff at his facility had been pleased with his progress he was making. He denied any numbness or tingling. He denied any weakness or new symptoms.?He had x-rays obtained at this visit that demonstrated good alignment with good positioning of the hardware. There was no concern for screw pullout or failure. He was prescribed a short dose of antibiotics. There was slight degree of redness seen at the cranial end of the incision. ? ? He presented to the office 09/11/2020 for a 6 week post operative visit. He felt that he continued to improve. He was at home and had been ambulating independently. Presented in a wheelchair. He presented in aspen collar and reported compliance. He reported some neck stiffness and pain same as last visit. He was able to care for himself at home. Had no new concerns. He had x-rays obtained at this visit that demonstrated hardware in good position with no concern for screw pullout or failure. ? Patient is having their 3 month post operative visit. Patient feels that surgery went well. He does report some mild neck pain and stiffness that he attributes to the collar. He complains of a new left thumb and pointer finger numbness that started 1 month ago but thinks it may be from playing on his phone. He also complains of a soreness in his right bicep from not using his muscles. He reports right hand weakness but states he was taken out of a brace for a right wrist injury recently. He otherwise has no other complaints and is pleased with his progress. Incision: Dry and intact, without redness Current Outpatient Medications Medication Sig Dispense Refill - enoxaparin (LOVENOX) 40 mg/0.4 mL Inject subcutaneously every 12 hours. - fluticasone (ALLERGY RELIEF, FLUTICASONE,) 50 mcg/actuation nasal spray Use 1 [place] in each nostril once daily. - Magnesium 200 mg tab Take by mouth. - cholecalciferol (VITAMIN D3) 5,000 unit tab Take 1 tablet by mouth once daily. 30 tablet 0 - melatonin 3 mg tablet Take 2 tablets by mouth daily at bedtime. 60 tablet 0 - amLODIPine (NORVASC) 5 mg tablet Take 5 mg by mouth once daily. - polyethylene glycol 3350 8.5 gram pwpk Take by mouth once daily. (Patient not taking: Reported on 10/23/2020 ) - sennosides-docusate sodium (SENNA PLUS) 8.6-50 mg capsule Take 1 capsule by mouth once daily. (Patient not taking: Reported on 10/23/2020 ) - Bisacodyl (DULCOLAX) 5 mg tab Take 5 mg by mouth as needed. (Patient not taking: Reported on 10/23/2020 ) - thiamine (VITAMIN B1) 100 mg tablet Take 1 tablet by mouth once daily. (Patient not taking: Reported on 10/23/2020 ) 30 tablet 0 No current facility-administered medications for this visit. Objective Review of Systems Constitutional: Negative for chills, diaphoresis and fever. HENT: Negative for congestion, sinus pressure and trouble swallowing. Eyes: Negative for pain, discharge and visual disturbance. Respiratory: Negative for cough, shortness of breath and wheezing. Cardiovascular: Negative for chest pain, palpitations and leg swelling. Gastrointestinal: Negative for constipation, diarrhea, nausea and vomiting. Endocrine: Negative for cold intolerance and heat intolerance. Genitourinary: Negative for difficulty urinating, frequency and urgency. Musculoskeletal: Positive for neck (more content not included)... [facility] 10-23-2020 Note HNO ID: [id number] Author: RT Dakota(Kinjal) Service: Radiology Author Type: Meteorological Technician Type: Progress Notes Filed: 10/23/2020 10:04 AM Note Text: Radiology Service Progress Note PATIENT NAME: Reji Mendoza DATE OF SERVICE: October 23, 2020 TIME: 10:03 AM PATIENT IDENTITY VERIFICATION COMPLETED USING TWO (2) IDENTIFIERS: Name and Date of confirmed by patient verbally. FALL SCREENING: Has the patient had 2 falls in the last year or 1 fall with injury or currently using an Ambulatory Assistive Device (Walker, Cane, Wheelchair, Crutches, etc.)? No PATIENT GENDER DATA: Male PATIENT RELEVANT IMPLANT DATA REVIEWED: Not Applicable RADIOLOGY DEPARTMENT: CT; Exam(s) Completed: Spine and General X-ray: Exam(s) Completed: Spine X-Ray(s): Cervical AP / LAT / FLEX-EXT PERIPHERAL IV DATA: Not applicable SIGNED BY: RT Dakota(R) October 23, 2020 10:03 AM [facility] documented as of this encounter (statuses as of 08/11/2021) [facility]03-25-2021 History of Past illness Narrative* Problem Noted Date Resolved Date Trauma 08/01/2020 08/02/2020 Facial laceration 07/30/2020 08/02/2020 Fall 07/27/2020 08/02/2020 Hyponatremia 07/27/2020 08/02/2020 Alcohol intoxication 07/27/2020 08/02/2020 documented as of this encounter (statuses as of 08/12/2021) [facility]-2021 History of Past illness Narrative* Problem Noted Date Resolved Date Trauma 08/01/2020 08/02/2020 Facial laceration 07/30/2020 08/02/2020 Fall 07/27/2020 08/02/2020 Hyponatremia 07/27/2020 08/02/2020 Alcohol intoxication 07/27/2020 08/02/2020 documented as of this encounter (statuses as of 10/08/2021) [facility]21 History of Past illness Narrative* Problem Noted Date Resolved Date Trauma 08/01/2020 08/02/2020 Facial laceration 07/30/2020 08/02/2020 Fall 07/27/2020 08/02/2020 Hyponatremia 07/27/2020 08/02/2020 Alcohol intoxication 07/27/2020 08/02/2020 documented as of this encounter (statuses as of 10/13/2021) [facility] History of Past illness Narrative* Problem Noted Date Resolved Date Trauma 08/01/2020 08/02/2020 Facial laceration 07/30/2020 08/02/2020 Fall 07/27/2020 08/02/2020 Hyponatremia 07/27/2020 08/02/2020 Alcohol intoxication 07/27/2020 08/02/2020 documented as of this encounter (statuses as of 01/05/2022) [facility] History of Past illness Narrative* Problem Noted Date Resolved Date Trauma 08/01/2020 08/02/2020 Facial laceration 07/30/2020 08/02/2020 Fall 07/27/2020 08/02/2020 Hyponatremia 07/27/2020 08/02/2020 Alcohol intoxication 07/27/2020 08/02/2020 documented as of this encounter (statuses as of 01/06/2022) [address]25-2021 History of Past illness Narrative* Problem Noted Date Resolved Date Trauma 08/01/2020 08/02/2020 Facial laceration 07/30/2020 08/02/2020 Fall 07/27/2020 08/02/2020 Hyponatremia 07/27/2020 08/02/2020 Alcohol intoxication 07/27/2020 08/02/2020 documented as of this encounter (statuses as of 01/06/2022) [address]25-2021 History of Past illness Narrative* Problem Noted Date Resolved Date Trauma 08/01/2020 08/02/2020 Facial laceration 07/30/2020 08/02/2020 Fall 07/27/2020 08/02/2020 Hyponatremia 07/27/2020 08/02/2020 Alcohol intoxication 07/27/2020 08/02/2020 documented as of this encounter (statuses as of 01/10/2022) [address]25-2021 History of Past illness Narrative* Problem Noted Date Resolved Date Trauma 08/01/2020 08/02/2020 Facial laceration 07/30/2020 08/02/2020 Fall 07/27/2020 08/02/2020 Hyponatremia 07/27/2020 08/02/2020 Alcohol intoxication 07/27/2020 08/02/2020 documented as of this encounter (statuses as of 01/16/2022) [address]25-2021 History of Past illness Narrative* Problem Noted Date Resolved Date Trauma 08/01/2020 08/02/2020 Facial laceration 07/30/2020 08/02/2020 Fall 07/27/2020 08/02/2020 Hyponatremia 07/27/2020 08/02/2020 Alcohol intoxication 07/27/2020 08/02/2020 documented as of this encounter (statuses as of 01/16/2022) [address]25-2021 History of Past illness Narrative* Problem Noted Date Resolved Date Trauma 08/01/2020 08/02/2020 Facial laceration 07/30/2020 08/02/2020 Fall 07/27/2020 08/02/2020 Hyponatremia 07/27/2020 08/02/2020 Alcohol intoxication 07/27/2020 08/02/2020 documented as of this encounter (statuses as of 01/18/2022) [address]25-2021 History of Past illness Narrative* Problem Noted Date Resolved Date Trauma 08/01/2020 08/02/2020 Facial laceration 07/30/2020 08/02/2020 Fall 07/27/2020 08/02/2020 Hyponatremia 07/27/2020 08/02/2020 Alcohol intoxication 07/27/2020 08/02/2020 documented as of this encounter (statuses as of 07/08/2022) [address]25-2021 History of Past illness Narrative* Problem Noted Date Resolved Date Trauma 08/01/2020 08/02/2020 Facial laceration 07/30/2020 08/02/2020 Fall 07/27/2020 08/02/2020 Hyponatremia 07/27/2020 08/02/2020 Alcohol intoxication 07/27/2020 08/02/2020 documented as of this encounter (statuses as of 09/17/2022) [address]25-2021 History of Past illness Narrative* Problem Noted Date Diagnosed Date Resolved Date Trauma 08/01/2020 08/02/2020 Facial laceration 07/30/2020 08/02/2020 Fall 07/27/2020 08/02/2020 Hyponatremia 07/27/2020 08/02/2020 Alcohol intoxication 07/27/2020 021 documented as of this encounter (statuses as of 12/24/2022) [address]25-2021 History of Past illness Narrative* Problem Noted Date Diagnosed Date Resolved Date Trauma 08/01/2020 08/02/2020 Facial laceration 07/30/2020 08/02/2020 Fall 07/27/2020 08/02/2020 Hyponatremia 07/27/2020 08/02/2020 Alcohol intoxication 07/27/2020 021 documented as of this encounter (statuses as of 03/16/2023) [address]25-2021 History of Past illness Narrative* Problem Noted Date Diagnosed Date Resolved Date Trauma 08/01/2020 08/02/2020 Facial laceration 07/30/2020 08/02/2020 Fall 07/27/2020 08/02/2020 Hyponatremia 07/27/2020 08/02/2020 Alcohol intoxication 07/27/2020 021 documented as of this encounter (statuses as of 06/10/2023) [facility]21 History of Past illness Narrative* Problem Noted Date Diagnosed Date Resolved Date Trauma 08/01/2020 08/02/2020 Facial laceration 07/30/2020 08/02/2020 Fall 07/27/2020 08/02/2020 Hyponatremia 07/27/2020 08/02/2020 Alcohol intoxication 07/27/2020 021 documented as of this encounter (statuses as of 06/11/2023) [facility] History of Past illness Narrative* Problem Noted Date Diagnosed Date Resolved Date Trauma 08/01/2020 08/02/2020 Facial laceration 07/30/2020 08/02/2020 Fall 07/27/2020 08/02/2020 Hyponatremia 07/27/2020 08/02/2020 Alcohol intoxication 07/27/2020 021 documented as of this encounter (statuses as of 06/16/2023) [facility] History of Past illness Narrative* Problem Noted Date Diagnosed Date Resolved Date Trauma 08/01/2020 08/02/2020 Facial laceration 07/30/2020 08/02/2020 Fall 07/27/2020 08/02/2020 Hyponatremia 07/27/2020 08/02/2020 Alcohol intoxication 07/27/2020 021 documented as of this encounter (statuses as of 06/17/2023) [facility] History of Past illness Narrative* Problem Noted Date Diagnosed Date Resolved Date Trauma 08/01/2020 08/02/2020 Facial laceration 07/30/2020 08/02/2020 Fall 07/27/2020 08/02/2020 Hyponatremia 07/27/2020 08/02/2020 Alcohol intoxication 07/27/2020 021 documented as of this encounter (statuses as of 06/17/2023) [facility] History of Past illness Narrative* Problem Noted Date Diagnosed Date Resolved Date Trauma 08/01/2020 08/02/2020 Facial laceration 07/30/2020 08/02/2020 Fall 07/27/2020 08/02/2020 Hyponatremia 07/27/2020 08/02/2020 Alcohol intoxication 07/27/2020 021 documented as of this encounter (statuses as of 06/22/2023) [facility] History of Past illness Narrative* Problem Noted Date Diagnosed Date Resolved Date Trauma 08/01/2020 08/02/2020 Facial laceration 07/30/2020 08/02/2020 Fall 07/27/2020 08/02/2020 Hyponatremia 07/27/2020 08/02/2020 Alcohol intoxication 07/27/2020 021 documented as of this encounter (statuses as of 06/29/2023) [facility] History of Past illness Narrative* Problem Noted Date Diagnosed Date Resolved Date Trauma 08/01/2020 08/02/2020 Facial laceration 07/30/2020 08/02/2020 Fall 07/27/2020 08/02/2020 Hyponatremia 07/27/2020 08/02/2020 Alcohol intoxication 07/27/2020 021 documented as of this encounter (statuses as of 07/05/2023) [address]25-2021 History of Past illness Narrative* Problem Noted Date Diagnosed Date Resolved Date Trauma 08/01/2020 08/02/2020 Facial laceration 07/30/2020 08/02/2020 Fall 07/27/2020 08/02/2020 Hyponatremia 07/27/2020 08/02/2020 Alcohol intoxication 07/27/2020 021 documented as of this encounter (statuses as of 07/05/2023) [facility] Closed odontoid fracture with type II morphology, posterior displacement, and routine healing, subsequent encounter- [facility] Arthrodesis status [facility] Diagnosis Arthrodesis status- Primary documented in this encounter [facility]* Diagnosis Closed odontoid fracture with type II morphology, posterior displacement, and routine healing, subsequent encounter- Primary documented in this encounter [facility]* Diagnosis Vitamin D deficiency- Primary Unspecified vitamin D deficiency 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 Primary hypertension Unspecified essential hypertension Mixed hyperlipidemia Screening PSA (prostate specific antigen) Special screening for malignant neoplasm of prostate Screening for deficiency anemia Screening for other and unspecified deficiency anemia documented in this encounter [facility] note* Diagnosis Type 2 diabetes mellitus without complication, without long-term current use of insulin (HCC)- Primary [facility] this [facility] Diagnosis 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 [facility] Diagnosis Hyperglycemia- Primary Other abnormal glucose documented in this encounter [facility]* Diagnosis Unspecified essential hypertension- Primary Dysthymic disorder Malnutrition of moderate degree (HCC) Malnutrition of moderate degree Chronic obstructive pulmonary disease, unspecified COPD type (HCC) documented in this encounter [facility] note* Diagnosis Bilateral leg edema- Primary Edema documented in this encounter [facility] for referral (narrative)* Diagnostic Procedure Only (Routine) - Closed Specialty Diagnoses / Procedures Referred By Lilia t Referred To Contact XR IMAGING Diagnoses Arthrodesis status Procedures XR CERV OTHER 4V AP/LAT/FLX/EXT X-RAY NECK MINIMUM 4 VIEWS Silvia Holder I, MD [address] [place] [address] Xr Imaging Referral ID Status Reason Start Date Expiration Date V isits Requested Visits Authorized Closed Auto-Generate d Referral 07/22/2021 02/21/2022 1 1 [facility] for referral (narrative)* Diagnostic Procedure Only (Routine) - Pending Review Specialty Diagnoses / Procedures Referred By Contac t Referred To Contact XR IMAGING Diagnoses Arthrodesis status Procedures XR CERV OTHER 4V AP/LAT/FLX/EXT RADEX SPINE CERVICAL 4 OR 5 VIEWS Silvia Holder I, MD [address] [place] [address] Xr Imaging Referral ID Status Reason Start Date Expiration Date Visits Requested Visits Authorized [id number] Pending Review Auto-Generat ed Referral 10/08/2021 11/07/2022 1 1 [facility] for visit Narrative* Diagnostic Procedure Only (Routine) - Closed Specialty Diagnoses / Procedures Referred By Lilia t Referred To Contact XR IMAGING Diagnoses Arthrodesis status Procedures XR CERV OTHER 4V AP/LAT/FLX/EXT X-RAY NECK MINIMUM 4 VIEWS Silvia Holder I, MD [address] [place] [address] Xr Imaging Referral ID Status Reason Start Date Expiration Date V isits Requested Visits Authorized [id number] Closed Auto-Generate d Referral 07/22/2021 02/21/2022 1 1 [facility] Summary Purpose Family History No Family History Records FoundNo Family History Records FoundNo Family History Records FoundNo Family History Records FoundNo Family History Records Found Advance Directives Documents on File Type Date Recorded Patient Flange Turner Expl anation Advance Directive(s) 07/28/2020 11:13 AM Advance Directive(s) 07/26/2020 9:21 PM Documents on File Type Date Recorded Patient Flange Turner Expl anation Advance Directive(s) 07/28/2020 11:13 AM Advance Directive(s) 07/26/2020 9:21 PM Documents on File Type Date Recorded Patient Flange Turner Expl anation Advance Directive(s) 07/28/2020 11:13 AM Additional Source Comments (unrecognized sect ion and content) No Status Records FoundNo Status Records FoundNo Status Records FoundNo Status Records FoundNo Status Records Found INFORMATION SOURCE (unrecogn ized section and content) DATE CREATED AUTHOR AUTHOR'S ORGANIZ ATION 04/26/2021 [facility] daquan Chapin DATE CREATED AUTHOR AUTHOR'S ORGANIZ ATION 10/16/2021 [facility] DATE CREATED AUTHOR AUTHOR'S ORGANIZ ATION 02/03/2022 [facility] DATE CREATED AUTHOR AUTHOR'S ORGANRICARDO ATION 07/06/2023 [facility] Ce nter Source Comments (unrecognize d section and content) In the event this informatio n is protected by the Federal Confidentiality of Alcohol and Drug Abuse Patient Records regulations: The Federal rules restrict any use of the information to criminally investigate or prosecute any alcohol or drug abuse patient.[facility] the event this information is protected by the Federal Confidentiality of Alcohol and Drug Abuse Patient Records regulations: The Federal rules restrict any use of the information to criminally investigate or prosecute any alcohol or drug abuse patient.[facility] the event this information is protected by the Federal Confidentiality of Alcohol and Drug Abuse Patient Records regulations: The Federal rules restrict any use of the information to criminally investigate or prosecute any alcohol or drug abuse patient.[facility] the event this information is protected by the Federal Confidentiality of Alcohol and Drug Abuse Patient Records regulations: The Federal rules restrict any use of the information to criminally investigate or prosecute any alcohol or drug abuse patient.[facility] the event this information is protected by the Federal Confidentiality of Alcohol and Drug Abuse Patient Records regulations: The Federal rules restrict any use of the information to criminally investigate or prosecute any alcohol or drug abuse patient.[facility] the event this information is protected by the Federal Confidentiality of Alcohol and Drug Abuse Patient Records regulations: The Federal rules restrict any use of the information to criminally investigate or prosecute any alcohol or drug abuse patient.[facility] the event this information is protected by the Federal Confidentiality of Alcohol and Drug Abuse Patient Records regulations: The Federal rules restrict any use of the information to criminally investigate or prosecute any alcohol or drug abuse patient.[facility] the event this information is protected by the Federal Confidentiality of Alcohol and Drug Abuse Patient Records regulations: The Federal rules restrict any use of the information to criminally investigate or prosecute any alcohol or drug abuse patient.[facility] the event this information is protected by the Federal Confidentiality of Alcohol and Drug Abuse Patient Records regulations: The Federal rules restrict any use of the information to criminally investigate or prosecute any alcohol or drug abuse patient.[facility] the event this information is protected by the Federal Confidentiality of Alcohol and Drug Abuse Patient Records regulations: The Federal rules restrict any use of the information to criminally investigate or prosecute any alcohol or drug abuse patient.[facility] the event this information is protected by the Federal Confidentiality of Alcohol and Drug Abuse Patient Records regulations: The Federal rules restrict any use of the information to criminally investigate or prosecute any alcohol or drug abuse patient.[facility] the event this information is protected by the Federal Confidentiality of Alcohol and Drug Abuse Patient Records regulations: The Federal rules restrict any use of the information to criminally investigate or prosecute any alcohol or drug abuse patient.[facility] the event this information is protected by the Federal Confidentiality of Alcohol and Drug Abuse Patient Records regulations: The Federal rules restrict any use of the information to criminally investigate or prosecute any alcohol or drug abuse patient.[facility] the event this information is protected by the Federal Confidentiality of Alcohol and Drug Abuse Patient Records regulations: The Federal rules restrict any use of the information to criminally investigate or prosecute any alcohol or drug abuse patient.[facility] Hospital[facility] the event this information is protected by the Federal Confidentiality of Alcohol and Drug Abuse Patient Records regulations: The Federal rules restrict any use of the information to criminally investigate or prosecute any alcohol or drug abuse patient.[facility] Hospital[facility] the event this information is protected by the Federal Confidentiality of Alcohol and Drug Abuse Patient Records regulations: The Federal rules restrict any use of the information to criminally investigate or prosecute any alcohol or drug abuse patient.[facility] Hospital[facility] the event this information is protected by the Federal Confidentiality of Alcohol and Drug Abuse Patient Records regulations: The Federal rules restrict any use of the information to criminally investigate or prosecute any alcohol or drug abuse patient.[facility] Hospital[facility] the event this information is protected by the Federal Confidentiality of Alcohol and Drug Abuse Patient Records regulations: The Federal rules restrict any use of the information to criminally investigate or prosecute any alcohol or drug abuse patient.[facility] Hospital[facility] the event this information is protected by the Federal Confidentiality of Alcohol and Drug Abuse Patient Records regulations: The Federal rules restrict any use of the information to criminally investigate or prosecute any alcohol or drug abuse patient.[facility] HospitalIn the event this information is protected by the Federal Confidentiality of Alcohol and Drug Abuse Patient Records regulations: The Federal rules restrict any use of the information to criminally investigate or prosecute any alcohol or drug abuse patient.[facility] HospitalIn the event this information is protected by the Federal Confidentiality of Alcohol and Drug Abuse Patient Records regulations: The Federal rules restrict any use of the information to criminally investigate or prosecute any alcohol or drug abuse patient.[facility] HospitalIn the event this information is protected by the Federal Confidentiality of Alcohol and Drug Abuse Patient Records regulations: The Federal rules restrict any use of the information to criminally investigate or prosecute any alcohol or drug abuse patient.[facility] HospitalIn the event this information is protected by the Federal Confidentiality of Alcohol and Drug Abuse Patient Records regulations: The Federal rules restrict any use of the information to criminally investigate or prosecute any alcohol or drug abuse patient.[facility] HospitalIn the event this information is protected by the Federal Confidentiality of Alcohol and Drug Abuse Patient Records regulations: The Federal rules restrict any use of the information to criminally investigate or prosecute any alcohol or drug abuse patient.[facility] Reason for Visit (unrecogniz ed section and content) Reason Comments Patient Update Reason Comments Medicare Wellness Exam Reason Onset Date Comments Refill Request 01/06/2022 Reason Comments Medication Problem Reason Comments Results Reason Comments Orders Reason Comments 6 Month Exam Reason Comments Edema Reason Comments Patient Update Reason Onset Date Comments Transition Of Care 06/16/2023 Reason Onset Date Comments Erroneous encounter-disregard 07/05/2023 Care Teams (unrecognized sec tion and content) Offset Printing Operator Relationship Specialty Start Date End Date Elijah Dyer MD [address] [place] [address] PCP - General Family Practice 07/26/20 Elijah Dyer MD [address] [place] [address] 07/26/20 Offset Printing Operator Relationship Specialty Start Date End Date Elijah Dyer MD [address] [place] [address] PCP - General Family Practice 07/26/20 Elijah Dyer MD [address] [place] [address] 07/26/20 Offset Printing Operator Relationship Specialty Start Date End Date Elijah Dyer MD [address] [place] [address] PCP - General Family Practice 07/26/20 Elijah Dyer MD [address] [place] [address] 07/26/20 Offset Printing Operator Relationship Specialty Start Date End Date Elijah Dyer MD [address] [place] [address] PCP - General Family Practice 07/26/20 Elijah Dyer MD [address] [place] [address] 07/26/20 Offset Printing Operator Relationship Specialty Start Date End Date Elijah Dyer MD [address] [place] [address] PCP - General Family Practice 07/26/20 Elijah Dyer MD [address] [place] [address] 07/26/20 Offset Printing Operator Relationship Specialty Start Date End Date Elijah Dyer MD [address] [place] [address] PCP - General Family Practice 07/26/20 Elijah Dyer MD [address] [place] [address] 07/26/20 Offset Printing Operator Relationship Specialty Start Date End Date Elijah Dyer MD [address] [place] [address] PCP - General Family Practice 07/26/20 Elijah Dyer MD [address] [place] [address] 07/26/20 Offset Printing Operator Relationship Specialty Start Date End Date Elijah Dyer MD [address] [place] [address] PCP - General Family Practice 07/26/20 Elijah Dyer MD [address] [place] [address] 07/26/20 Offset Printing Operator Relationship Specialty Start Date End Date Elijah Dyer MD [address] [place] [address] PCP - General Family Practice 07/26/20 Elijah Dyer MD [address] [place] [address] 07/26/20 Offset Printing Operator Relationship Specialty Start Date End Date Elijah Dyer MD [address] [place] [address] PCP - General Family Medicine 07/26/20 Elijah Dyer MD [address] [place] [address] 07/26/20 Offset Printing Operator Relationship Specialty Start Date End Date Elijah Dyre MD [address] [place] [address] PCP - General Family Medicine 07/26/20 Elijah Dyer MD [address] [place] [address] 07/26/20 Offset Printing Operator Relationship Specialty Start Date End Date Elijah Dyer MD [address] [place] [address] PCP - General Family Medicine 07/26/20 Elijah Dyer MD [address] [place] [address] 07/26/20 Offset Printing Operator Relationship Specialty Start Date End Date Elijah Dyer MD [address] [place] [address] PCP - General Family Medicine 07/26/20 Elijah Dyer MD [address] [place] [address] 07/26/20 Offset Printing Operator Relationship Specialty Start Date End Date Elijah Dyer MD [address] [place] [address] PCP - General Family Medicine 07/26/20 Elijah Dyer MD [address] [place] [address] 07/26/20 Rukhsana Guan, RN 06/10/23 Offset Printing Operator Relationship Specialty Start Date End Date Elijah Dyer MD [address] [place] [address] PCP - General Family Medicine 07/26/20 Elijah Dyer MD [address] [place] [address] 07/26/20 Rukhsana Guan, RN 06/10/23 Offset Printing Operator Relationship Specialty Start Date End Date Elijah Dyer MD [address] [place] [address] PCP - General Family Medicine 07/26/20 Elijah Dyer MD [address] [facility] [address] 07/26/20 Rukhsana Guan, RN 06/10/23 Offset Printing Operator Relationship Specialty Start Date End Date Elijah Dyer MD [address] [place] [address] PCP - General Family Medicine 07/26/20 Elijah Dyer MD [address] [facility] [address] 07/26/20 Rukhsana Guan RN 06/10/23 Offset Printing Operator Relationship Specialty Start Date End Date Elijah Dyer MD [address] [place] [address] PCP - General Family Medicine 07/26/20 Elijah Dyer MD [address] [facility] [address] 07/26/20 Rukhsana Guan, food service substitute [employer] 06/10/23 Offset Printing Operator Relationship Specialty Start Date End Date Elijah Dyer MD [address] [place] [address] PCP - General Family Medicine 07/26/20 Elijah Dyer MD [address] [place] [address] 07/26/20 Rukhsana Guan RN Primary Care [employer] 06/10/23 Offset Printing Operator Relationship Specialty Start Date End Date Elijah Dyer MD [address] [place] [address] PCP - General Family Medicine 07/26/20 Elijah Dyer MD [address] [place] [address] 07/26/20 Rukhsana Guan RN Primary Care [employer] 06/10/23 Offset Printing Operator Relationship Specialty Start Date End Date Elijah Dyer MD [address] [place] [address] PCP - General Family Medicine 07/26/20 Elijah Dyer MD [address] [place] [address] 07/26/20 Rukhsana Guan RN Primary Care [employer] 06/10/23 FOR RECORDS PERTAINING TO PATIENTS WHO ARE OR HAVE BEEN ENROLLED IN A CHEMICAL DEPENDENCY/SUBSTANCEABUSE PROGRAM, SOME INFORMATION MAY BE OMITTED. This clinical summary was aggregated from multiple sources. Caution should be exercised in using it in the provision of clinical care. This summary normalizes information from multiple sources, and as a consequence, information in this document may materially change the coding, format and clinical context of patient data. In addition, data may be omitted in some cases. CLINICAL DECISIONS SHOULD BE BASED ON THE PRIMARY CLINICAL RECORDS. [facility] [employer] provides no warranty or guarantee of the accuracy or completeness of information in this document.
== END 2023-07-09 15:59 | disposition home or self-care (01) ==
PROVIDERS: Emergency Provider Emergency Medicine; PCP Family Medicine; Visit Provider Emergency Medicine
DX: S42.215A Unspecified nondisplaced fracture of surgical neck of left humerus, initial encounter for closed fracture (principal); S62.524A Nondisplaced fracture of distal phalanx of right thumb, initial encounter for closed fracture; S50.312A Abrasion of left elbow, initial encounter; S00.31XA Abrasion of nose, initial encounter; S00.81XA Abrasion of other part of head, initial encounter; W01.198A Fall on same level from slipping, tripping and stumbling with subsequent striking against other object, initial encounter; Y93.01 Activity, walking, marching and hiking; Y99.8 Other external cause status; Y92.480 Sidewalk as the place of occurrence of the external cause; I10 Essential (primary) hypertension; Z79.899 Other long term (current) drug therapy
CPT/HCPCS: 99284; 73030; 73060; 73080; 73140

== ENCOUNTER 2023-07-10 18:37 | Inpatient (IN) | payer MEDICARE, SELFPAY ==
[2023-07-10 18:39] VITALS: BP 139/85; PULSE 110; RESP 20; TEMP 37; O2SAT 96; BMI 19.8
--- NOTE | 2023-07-10 18:58 | EX.ED.DYSGE1 ---
HPI <Lexus Julio RN - Last Filed: 07/10/23 21:45> History of Present Illness Chief Complaint: Confusion Detail of Chief Complaint: Fall Informant: patient Onset/Context/Timing Onset: Yesterday (Last p.m.) Current Severity: 02/16 Maximum Severity: 02/16 Associated Symptoms Associated Symptoms: Left arm pain, right thumb pain Narrative Narrative: Patient presents to the ED via EMS after a fall last p.m. in which she could not get up off the floor. Patient was seen in the ED yesterday for a fall in which he had a left proximal humeral fracture and a nondisplaced fracture of the right thumb. After patient was discharged from the ED, he reports that last p.m. he was bending over to pick something up last evening and fell on the floor. He was unable to get up. Patient then remained on the floor until today when he was able to call the police. Patient complains of left upper arm pain, left lateral rib pain, and right thumb pain. He also has a skin tear to his right elbow along with ecchymosis that is new. Patient reports hitting his head yesterday. Denies LOC. Patient reports urinating on himself as he was unable to get up. Patient states he is unable to care for himself at this time until he recovers from these injuries. Patient reports last alcohol use approximately 3 to 4 days ago. Per nursing staff, EMS reported that patient had been confused. They indicated patient had thought there were people in his home attempting to look at his ears. Patient then called the landlord who said nobody was in his home. The police were then called and verified there was nobody in the patient's home. EMS was then contacted for transport to the hospital. Patient denies recent illness. Reports taking medications as prescribed. Prior similar symptoms: Yes Recent Illness/Hospitalization: Yes PFSH <eLxus Julio RN - Last Filed: 07/10/23 21:45> [facility] Medical History Acute respiratory failure with hypoxia Asthma Fall Hypertension Small bowel obstruction Status asthmaticus SVT (supraventricular tachycardia) Thrombocytopenia Home Medications amlodipine 5 mg tablet 5 mg PO DAILY Blood pressure 04/23/18 [History Last Taken 06/06/23] cholecalciferol (vitamin D3) 25 mcg (1,000 unit) tablet 125 mcg (5 x 25 mcg (1,000 unit)) PO DAILY #30 tabs 08/24/20 [Rx Last Taken 06/06/23] budesonide 1 mg/2 mL suspension for nebulization 1 mg (2 mL) inhalation BID #60 mL 02/19/22 [Rx Last Taken Unknown] losartan 100 mg tablet 100 mg PO DAILY BLOOD PRESSURE 05/26/23 [History Last Taken 06/06/23] albuterol sulfate 2.5 mg/3 mL (0.083 %) solution for nebulization 2.5 mg inhalation Q2H PRN Wheezing 06/08/23 [History Last Taken Unknown] cyanocobalamin (vitamin B-12) 100 mcg tablet (Vitamin B-12) 100 mcg PO DAILY SUPPLEMENT 06/08/23 [History Last Taken 06/06/23] hydrochlorothiazide 12.5 mg capsule 12.5 mg PO DAILY 06/08/23 [History Last Taken Unknown] sodium chloride 0.65 % nasal spray aerosol (Saline Nasal) 1 spray intranasal BID PRN DRY NARES 06/08/23 [History Last Taken 06/08/23] acetaminophen 325 mg tablet 1,000 mg (3.0769 x 325 mg) PO Q8H PRN PRN Pain 1-10 Or Fever >100.7 #0 tabs 06/09/23 [Rx Last Taken Unknown] amoxicillin 875 mg-potassium clavulanate 125 mg tablet 1 tab PO BID #12 tabs 06/09/23 [Rx Last Taken Unknown] doxycycline monohydrate 100 mg tablet 100 mg PO BID #12 tabs 06/09/23 [Rx Last Taken Unknown] ibuprofen 600 mg tablet 600 mg PO Q6H PRN PRN Pain Score 1-10 #0 tabs 06/09/23 [Rx Last Taken Unknown] oxycodone 5 mg tablet 5 mg PO Q8H PRN pain 3 days #9 tabs 06/09/23 [Rx Last Taken Unknown] hydrocodone-acetaminophen 5-325mg 5mg-325mg 1 tab PO Q6H PRN pain 3 days #12 tabs 07/09/23 [Rx Last Taken Unknown] Allergy/AdvReac Type Severity Reaction Status Date / Time Sulfa (Sulfonamide Allergy Hives Verified 07/10/23 18:46 Antibiotics) fentanyl AdvReac Other Verified 07/10/23 18:46 Family History Mother Heart disease Social History housing: apartment Smoking Status: Never smoker ROS <Lexus Julio RN - Last Filed: 07/10/23 21:45> ROS ED Constitutional Constitutional ED: Denies chills, fever(s) or sweats Eyes Eyes: Denies blurry vision, change in vision or diplopia ENT ENT ED: Denies ear pain, rhinorrhea or sore throat Cardiovascular Cardiovascular: Reports other Details: Left lateral rib pain ; Denies orthopnea, palpitations, paroxysmal nocturnal dyspnea or racing heartbeat Respiratory/Chest Respiratory/Chest: Reports cough; Denies dyspnea, dyspnea on exertion, orthopnea, paroxysmal nocturnal dyspnea or sputum Gastrointestinal Gastrointestinal: Denies abdominal pain, constipation, diarrhea, nausea or vomiting Genitourinary Genitourinary ED: Denies dysuria, hematuria or urinary frequency Musculoskeletal Musculoskeletal: Reports arthralgias and myalgias; Denies back pain or neck pain Integumentary Reports other Details: Skin tear to right elbow ; Denies abscess Neurologic Neurologic: Denies headache(s), paresthesias or weakness Psychiatric Psychiatric: Denies anxiety or depression Hematologic/Lymphatic Hematologic/Lymphatic: Reports systems reviewed and no addt'l complaints, except as documented EXAM <Lexus Julio RN - Last Filed: 07/10/23 21:45> Physical Exam Narrative Exam Narrative: Thin, unkempt patient. Clothing is covered in cat hair. Const Vital Signs: 07/10/23 18:39 07/10/23 21:34 07/10/23 21:36 Temperature 98.6 F 97.8 F Temperature Source Temporal Pulse Rate 110 H 114 H 111 H Respiratory Rate 20 H 16 19 H Blood Pressure 139/85 H 152/69 H 152/69 H Blood Pressure Mean 103 96 96 Pulse Ox 96 98 99 Oxygen Delivery Method Room Air Positive unkempt General Appearance ED: unkempt HEENT Reports dry mucous membranes Negative for trauma or tenderness Mouth ED: Yes dry mucous membranes Mouth: dry mucous membranes Eyes PERRL Neck no lymphadenopathy, supple and no JVD Chest Wall Chest Narrative: Left lateral rib pain with palpation. Resp normal respiratory effort and clear to auscultation bilaterally Auscultation: Negative for rales, rhonchi or wheezes Cardio regular rate, regular rhythm, S1 normal heart sound and S2 normal heart sound GI normal to inspection, nondistended, normoactive bowel sounds and non-tender Auscultation: normoactive bowel sounds Palpation: soft Extremity Extremity Narrative: Left arm in a sling. Tenderness to left upper arm due to recently diagnosed left humeral fracture. Ecchymosis to left upper arm. Right thumb ecchymotic. Patient reports had been in metal splint which he removed. Mild edema to right thumb. General Extremety ED: Yes edema and tenderness General Extremity: edema Neuro oriented x3 Sensorium / Orientation: alert Motor Exam: strength 5/5 throughout Psych mental status grossly normal Appearance: unkempt Skin Skin Narrative: Skin tear to right elbow with large ecchymotic area noted. Mild edema. <Dr. Evelio Kennedy MD - Last Filed: 07/10/23 19:05> Physical Exam Const Vital Signs: 07/10/23 18:39 07/10/23 21:34 07/10/23 21:36 Temperature 98.6 F 97.8 F Temperature Source Temporal Pulse Rate 110 H 114 H 111 H Respiratory Rate 20 H 16 19 H Blood Pressure 139/85 H 152/69 H 152/69 H Blood Pressure Mean 103 96 96 Pulse Ox 96 98 99 Oxygen Delivery Method Room Air MDM <Lexus Julio RN - Last Filed: 07/10/23 21:45> [facility] Narrative Medical decision making narrative: IV line initiated. Labwork obtained to evaluate for leukocytosis, anemia, and electrolyte derangement. Chest x-ray obtained to evaluate for acute lung pathology, cardiac size, or mediastinal abnormality. Alcohol level obtained due to history of alcohol use. Urinalysis obtained to evaluate for infection/hematuria. I have personally performed a face to face assessment of the patient and have reviewed the ALEX Note. I performed a substantive portion of the visit including all aspects of the following. My garcía findings include: History is [78-year-old male seen yesterday in the emergency department he tripped and fell on uneven pavement causing a proximal humerus fracture and a right thumb fracture. He again fell at home last night he lives alone at home with cats and he was unable to get up. He denies any other complaints. He does drink almost daily.] Exam is [78-year-old male vital signs stable afebrile. Pulse ox 96% on room air no hypoxia. H EENT exam unremarkable. Pupils round reactive light. No signs of trauma to his face or scalp. Moist mucous membranes. Neck nontender. Trachea midline. Lungs clear to auscultation. Mild tenderness left chest. No crepitance or subcu air. Abdomen soft nontender. Moving all 4 extremities. Left arm is in a sling. His tenderness is proximal left humerus where he had a fracture diagnosed yesterday. Also the distal right thumb. Lower extremities are nontender no deformity. He is close are dirty. He is covered in cat hair. Neurologically he is awake. He is alert. He knows where he is at. He is answering questions. Following commands..] Medical Decision Making [78-year-old fell yesterday tripped on uneven pavement. Yesterday was diagnosed with a left proximal humerus fracture and a right thumb fracture. He fell again last night was unable to get off the floor at his apartment. Screening labs will be obtained.] Other additions or changes: [None] Lab Data Labs: Laboratory Results - last 24 hr 07/10/23 19:50 WBC 8.3 RBC 3.63 L Hgb 13.1 Hct 37.7 L MCV 103.9 H MCH 36.1 H MCHC 34.7 RDW Std Deviation 52.8 H RDW Coeff of Mya 13.8 Plt Count 143 L MPV 9.7 Immature Gran % (Auto) 0.400 Neut % (Auto) 83.2 H Lymph % (Auto) 9.1 L Coke % (Auto) 7.0 Eos % (Auto) 0.2 Baso % (Auto) 0.1 Absolute Neuts (auto) 6.9 Absolute Lymphs (auto) 0.76 L Nucleated RBC % 0 Sodium 130 L Potassium 3.7 Chloride 98 Carbon Dioxide 25.0 Anion Gap 7 BUN 11 Creatinine 0.75 Estim Creat Clear Calc 66.98 Est GFR (MDRD) Af Amer 129 Est GFR (MDRD) Non-Af 107 BUN/Creatinine Ratio 14.7 Glucose 107 H Calcium 9.2 Total Bilirubin 2.10 H AST 33 ALT 19 Alkaline Phosphatase 102 Total Creatine Kinase 410 H Total Protein 7.3 Albumin 3.4 Globulin 3.9 Albumin/Globulin Ratio 0.9 Ethyl Alcohol < 3.0 Radiography Diagnostic Testing: Clinical Impression(s) from Imaging Studies Brain CT 07/10/23 20:00 IMPRESSION: 1. Stable exam 2. Diffuse involutional change, chronic microvascular deep white matter disease. 3. No intracranial evidence of acute traumatic injury. 4. No intracranial mass, hemorrhage or acute territorial infarct. 5. No acute fractures. 6. No radiographically significant sinus disease.. Electronically Signed: Edgardo Chavarria MD at 20:34 EST , Chest X-Ray 07/10/23 20:04 IMPRESSION: 1. Minimal basilar atelectasis. 2. No evidence of acute cardiopulmonary process. Electronically Signed: Edgardo Chavarria MD at 20:21 EST , Differential Diagnosis Chest pain/SOB: COPD Abdominal Pain: UTI Differential Diagnosis: Intracranial hemorrhage Management Discussion w/another healthcare provider: Other (Dr Kennedy, ED Provider) Treatment and Re-Evaluation :: Lab work and imaging reviewed. CBC shows a normal white count 8.3, hemoglobin normal at 13.1, platelets slightly low at 143. Chemistries show hyponatremia at 130. Total bili is elevated at 2.10. CK is elevated at 410. Alcohol is negative at less than 3.0. Chest x-ray negative for acute cardiopulmonary process. Head CT negative for intracranial hemorrhage. Discussed lab work and imaging with patient. Patient concerned about ability to care for self at home with left humeral fracture, right thumb fracture, and weakness in bilateral lower extremities. Patient reports he does not feel he can ambulate and would benefit from hospitalization. Dr. Kennedy discussed case with hospitalist. Patient to be admitted for failure to thrive, weakness, recent humeral fracture, and recent thumb fracture. <Dr. Evelio Kennedy MD - Last Filed: 07/10/23 19:05> MDM MDM Narrative Medical decision making narrative: I have personally performed a face to face assessment of the patient and have reviewed the ALEX Note. I performed a substantive portion of the visit including all aspects of the following. My garcía findings include: History is [78-year-old male seen yesterday in the emergency department he tripped and fell on uneven pavement causing a proximal humerus fracture and a right thumb fracture. He again fell at home last night he lives alone at home with cats and he was unable to get up. He denies any other complaints. He does drink almost daily.] Exam is [78-year-old male vital signs stable afebrile. Pulse ox 96% on room air no hypoxia. H EENT exam unremarkable. Pupils round reactive light. No signs of trauma to his face or scalp. Moist mucous membranes. Neck nontender. Trachea midline. Lungs clear to auscultation. Mild tenderness left chest. No crepitance or subcu air. Abdomen soft nontender. Moving all 4 extremities. Left arm is in a sling. His tenderness is proximal left humerus where he had a fracture diagnosed yesterday. Also the distal right thumb. Lower extremities are nontender no deformity. He is close are dirty. He is covered in cat hair. Neurologically he is awake. He is alert. He knows where he is at. He is answering questions. Following commands..] Medical Decision Making [78-year-old fell yesterday tripped on uneven pavement. Yesterday was diagnosed with a left proximal humerus fracture and a right thumb fracture. He fell again last night was unable to get off the floor at his apartment. Screening labs will be obtained.] Other additions or changes: [None] History & Record Review Discussion w/independent historian: Patient Additional record(s) reviewed:: Prior inpatient record, Prior outpatient record, Prior ED visit, Prior labs and No prior records Lab Data Attestation: I reviewed the patient's lab results. Labs: Laboratory Results - last 24 hr 07/10/23 19:50 WBC 8.3 RBC 3.63 L Hgb 13.1 Hct 37.7 L MCV 103.9 H MCH 36.1 H MCHC 34.7 RDW Std Deviation 52.8 H RDW Coeff of Mya 13.8 Plt Count 143 L MPV 9.7 Immature Gran % (Auto) 0.400 Neut % (Auto) 83.2 H Lymph % (Auto) 9.1 L Coke % (Auto) 7.0 Eos % (Auto) 0.2 Baso % (Auto) 0.1 Absolute Neuts (auto) 6.9 Absolute Lymphs (auto) 0.76 L Nucleated RBC % 0 Sodium 130 L Potassium 3.7 Chloride 98 Carbon Dioxide 25.0 Anion Gap 7 BUN 11 Creatinine 0.75 Estim Creat Clear Calc 66.98 Est GFR (MDRD) Af Amer 129 Est GFR (MDRD) Non-Af 107 BUN/Creatinine Ratio 14.7 Glucose 107 H Calcium 9.2 Total Bilirubin 2.10 H AST 33 ALT 19 Alkaline Phosphatase 102 Total Creatine Kinase 410 H Total Protein 7.3 Albumin 3.4 Globulin 3.9 Albumin/Globulin Ratio 0.9 Ethyl Alcohol < 3.0 Radiography Chest X-Ray - ED: 1 View and Read by ED Physician Diagnostic Testing: Clinical Impression(s) from Imaging Studies Brain CT 07/10/23 20:00 IMPRESSION: 1. Stable exam 2. Diffuse involutional change, chronic microvascular deep white matter disease. 3. No intracranial evidence of acute traumatic injury. 4. No intracranial mass, hemorrhage or acute territorial infarct. 5. No acute fractures. 6. No radiographically significant sinus disease.. Electronically Signed: Edgardo Chavarria MD at 20:34 EST , Chest X-Ray 07/10/23 20:04 IMPRESSION: 1. Minimal basilar atelectasis. 2. No evidence of acute cardiopulmonary process. Electronically Signed: Edgardo Chavarria MD at 20:21 EST , Discharge Plan Dx/Rx/DC Orders Clinical Impression: Adult failure to thrive, Weakness, Falls, Fracture, humerus closed, Fracture of thumb, History of alcohol use Disposition Disposition: Acute Care [facility]
[2023-07-10] MEDS: 0.9% Normal Saline (1000mL) 1,000 ML 999 ML IV (19:34)
[2023-07-10 19:56] LABS: Absolute Lymphocyte Count 0.76 X10^3/uL (0.83-4.51); Absolute Neutrophil Count 6.9 X10^3/uL (2.0-7.7); Basophil# 0.01 X10^3/uL; Basophil% 0.1 % (0-1); Eosinophil# 0.02 X10^3/uL; Eosinophils% 0.2 % (0-5); Hematocrit 37.7 % (40-54); Hemoglobin 13.1 g/dL (13.0-16.5); Lymphocyte # 0.76 X10^3/ul (0.83-4.51); Lymphocyte % 9.1 % (19-41); Mean Corp Hgb Conc 34.7 g/dL (32-36); Mean Corpuscular Hgb 36.1 pg (27.0-32.0); Mean Corpuscular Volume 103.9 fL (80-94); Mean Platelet Vol. 9.7 fl (6.2-12.0); Monocyte# 0.58 X10^3/uL; NRBC Flagged by Analyzer 0 % (0-5); Neutrophil # 6.92 X10^3/uL (2.7-7.7); Neutrophil % 83.2 % (47-70); Platelet Count 143 K/mm3 (150-450); RBC Distribution Width CV 13.8 % (11.6-14.6); RBC Distribution Width SD 52.8 fl (35.1-43.9); Red Blood Count 3.63 M/mm3 (4.6-6.2); White Blood Count 8.3 K/mm3 (4.4-11.0)
--- NOTE | 2023-07-10 20:00 | CT_ITS ---
INDICATION: Trauma EXAMINATION: CT BRAIN - CT Head or Brain W/O Contrast Injection TECHNIQUE: Multiple axial images were obtained of the head without intravenous contrast. A radiation dose optimization technique was used for this scan. IV Contrast dosage and agent: 09/15/2022 RADIATION DOSAGE (If Supplied By Facility): CTDIvol = ( 44.99 ) mGy, DLP = ( 812.98 ) mGycm COMPARISON: No relevant prior examinations for comparison FINDINGS: HEMISPHERES: 1. The cerebral parenchyma, ventricular system, subarachnoid spaces have normal configuration and density. There is a normal gyral pattern. There is normal brown/white differentiation. No midline shift.. 2. Diffuse involutional change and chronic microvascular deep white matter disease. 3. No intraparenchymal mass, hemorrhage, or acute territorial infarct. CEREBELLUM - BRAINSTEM: The cerebellum, brainstem, basilar and suprasellar cisterns have normal appearance. No Chiari malformation. PITUITARY: Infundibulum and pituitary have normal configuration. Midline structures appear normal. CSF SPACES: Appropriate for age. No hydrocephalus. Basal cisterns are patent. VESSELS: 1. No significant vascular calcifications in the cavernous carotid vessels. 2. No hyperdense vascular signs noted.. ORBITS AND PARANASAL SINUSES: 1. Normal appearance of the bony orbits. Normal appearance of the globes and retrobulbar soft tissues.. 2. Mucosal thickening in the ethmoid and maxillary sinuses, no fluid or blood in the paranasal sinuses middle ear cavities or mastoid air cells. BONY ELEMENTS: Bony elements of the cranial vault, facial skeleton and skull base have normal appearance. Stable deformity of the nasal skeleton. Interval placement of posterior screws at C1.. SCALP AND SOFT TISSUES: Normal appearance of the soft tissues of the scalp and the visualized face OTHER: None ASPECTS Score for Acute Strokes: 10 CT/Brain/Head without Contrast IMPRESSION: 1. Stable exam 2. Diffuse involutional change, chronic microvascular deep white matter disease. 3. No intracranial evidence of acute traumatic injury. 4. No intracranial mass, hemorrhage or acute territorial infarct. 5. No acute fractures. 6. No radiographically significant sinus disease.. Electronically Signed: Edgardo Chavarria MD at 20:34 EST ,
--- NOTE | 2023-07-10 20:04 | RAD_ITS ---
INDICATION: Fall EXAMINATION/TECHNIQUE: X-RAY - XR Chest 1 View COMPARISON: No previous relevant examinations available for comparison.. FINDINGS: LIFE-SUPPORT AND LINES: 1. None HEART AND VESSELS: The cardiac silhouette, pulmonary vasculature have normal appearance. No evidence of congestive failure. LUNGS AND PLEURAL SPACES: Lungs are clear. No focal infiltrate, consolidation or effusions. No evidence of pneumothorax. Minimal basilar atelectasis, shallow inspiration is noted. Minimal blunting the CP angles MEDIASTINUM AND HILAR REGIONS: No masses adenopathy noted. No areas of calcification. Visualized upper airway is normal in position. BONY ELEMENTS: No acute bony changes noted. OTHER: Postoperative changes in the RIGHT upper quadrant. RAD/Chest 1 View (Portable) IMPRESSION: 1. Minimal basilar atelectasis. 2. No evidence of acute cardiopulmonary process. Electronically Signed: Edgardo Chavarria MD at 20:21 EST ,
[2023-07-10 20:09] LABS: Alcohol, Blood (Medical)-Serum < 3.0 mg/dL
[2023-07-10 20:16] LABS: CPK Total, Creatine Kinase 410 U/L (39-308)
[2023-07-10 20:17] LABS: ALB/GLOB Ratio 0.9 RATIO (0.9-2.4); AST(SGOT) 33 U/L (15-37); Alanine Aminotransfer ALT/SGPT 19 U/L (16-61); Albumin, Serum 3.4 g/dL (3.2-5.0); Alkaline Phosphatase 102 U/L (45-117); Anion Gap 7 (5-15); BUN 11 mg/dL (7-18); BUN/Creat Ratio 14.7 RATIO (10-20); Calcium,Total 9.2 mg/dL (8.5-10.1); Chloride 98 mmol/L (98-107); Creatinine, Serum 0.75 mg/dL (0.70-1.30); EST Glomerular Filtration Rate 107 mL/min (>60); Est Glom Filt Rate - Afr Amer 129 mL/min (>60); Estimated Creatinine Clearance 66.98 ml/min; Globulin 3.9 g/dL (2.2-4.2); Glucose 107 mg/dL (74-106); Potassium 3.7 mmol/L (3.5-5.1); Protein, Total 7.3 g/dL (6.4-8.2); Sodium Level 130 mmol/L (136-145)
[2023-07-10 21:34] VITALS: BP 152/69; PULSE 114; RESP 16; O2SAT 98
[2023-07-10 21:36] VITALS: BP 152/69; PULSE 111; RESP 19; TEMP 36.6; O2SAT 99
--- NOTE | 2023-07-10 21:40 | HP.PCM.HOS_ITS ---
[facility] - General General Date of Admission: 07/10/23 Date of Service: 07/10/23 Chief Complaint: Fall with Left Arm and Right Thumb Fracture. 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 He denies a LOC with his fall but he does admit to severe pain from his Left arm, Left rib cage and Right thumb. Mr. Nino reports he can no longer care for himself at home due to his inability to use his Left arm and he would therefore like ECF placement. He states his last EtOH use was ~3-4 days ago. He denies associated fever, chills, nausea, vo miting, diarrhea or constipation. In the ER he was diagnosed with generalized weakness and ambulatory dysfunction after recent fall with proximal Left Humerus Fracture and Right Thumb Fracture complicated by a second fall later the same evening with prolonged downtime causing mild myonecrosis with an elevated creatinine kinase of 410 U/L and mild hyponatremia of 130 mmol/L present on admission; likely due to Adverse Drug Reaction to HCTZ and he was then admitted to the general medical floor for ongoing care for a stay that is expected to be greater than 48 hours. [facility] Medical History (Updated 07/11/23 @ 03:[address] Santino Cortes, DO) Acute respiratory failure with hypoxia Asthma COPD (chronic obstructive pulmonary disease) Fall Hypertension Small bowel obstruction Status asthmaticus SVT (supraventricular tachycardia) Thrombocytopenia Home Medications amlodipine 5 mg tablet 5 mg PO DAILY Blood pressure 04/23/18 [History Last Taken 06/06/23] cholecalciferol (vitamin D3) 25 mcg (1,000 unit) tablet 125 mcg (5 x 25 mcg (1,000 unit)) PO DAILY #30 tabs 04/17/21 [Rx Last Taken 06/06/23] budesonide 1 mg/2 mL suspension for nebulization 1 mg (2 mL) inhalation BID #60 mL 02/19/22 [Rx Last Taken Unknown] losartan 100 mg tablet 100 mg PO DAILY BLOOD PRESSURE 05/26/23 [History Last Taken 06/06/23] albuterol sulfate 2.5 mg/3 mL (0.083 %) solution for nebulization 2.5 mg inhalation Q2H PRN Wheezing 06/08/23 [History Last Taken Unknown] cyanocobalamin (vitamin B-12) 100 mcg tablet (Vitamin B-12) 100 mcg PO DAILY SUPPLEMENT 06/08/23 [History Last Taken 06/06/23] hydrochlorothiazide 12.5 mg capsule 12.5 mg PO DAILY 06/08/23 [History Last Taken Unknown] sodium chloride 0.65 % nasal spray aerosol (Saline Nasal) 1 spray intranasal BID PRN DRY NARES 06/08/23 [History Last Taken 06/08/23] acetaminophen 325 mg tablet 1,000 mg (3.0769 x 325 mg) PO Q8H PRN PRN Pain 1-10 Or Fever >100.7 #0 tabs 06/09/23 [Rx Last Taken Unknown] doxycycline monohydrate 100 mg tablet 100 mg PO BID #12 tabs 06/09/23 [Rx Last Taken Unknown] ibuprofen 600 mg tablet 600 mg PO Q6H PRN PRN Pain Score 1-10 #0 tabs 06/09/23 [Rx Last Taken Unknown] oxycodone 5 mg tablet 5 mg PO Q8H PRN pain 3 days #9 tabs 06/09/23 [Rx Last Taken Unknown] hydrocodone-acetaminophen 5-325mg 5mg-325mg 1 tab PO Q6H PRN pain 3 days #12 tabs 07/09/23 [Rx Last Taken Unknown] Allergy/AdvReac Type Severity Reaction Status Date / Time Sulfa (Sulfonamide Allergy Hives Verified 07/10/23 22:20 Antibiotics) hydrochlorothiazide AdvReac Severe Other Verified 07/10/23 22:20 fentanyl AdvReac Other Verified 07/11/23 00:15 Family History Mother Heart disease Surgical History (Updated 07/11/23 @ 00:12 by Michael Gingery) H/O adenoidectomy History of appendectomy History of tonsillectomy Social History housing: apartment Smoking Status: Never smoker ROS ROS Narrative Review of systems: Constitutional: Patient denies fever or chills Eyes: Patient denies blurry vision or discharge from eyes. ENT: Patient denies runny nose, sore throat or ear pain. CV: Patient denies chest pain or palpitations. Resp: Patient denies SOB or cough. GI: Patient denies abdominal pain, nausea, vomiting, diarrhea or constipation. : Patient denies dysuria, hematuria or urinary frequency. MSK: Patient admits to significant LUE myalgias made worse with movement. Skin: Patient has a new skin tear on his Right elbow. Neuro: Patient admits to poor balance and frequent falls. Patient denies headache or focal neurologic weakness. Psych: Patient denies uncontrolled depression or anxiety. Hematologic: Patient has a large bruise over his LUE but he denies recent bleeding. Endocrinologic: Patient denies polyuria, polydipsia or polyphagia. 14 point ROS otherwise negative except for positives noted above in HPI. Vital Signs Vital Signs Vital Signs: 07/10/23 18:39 07/10/23 21:34 07/10/23 21:36 Temperature 98.6 F 97.8 F Temperature Source Temporal Pulse Rate 110 H 114 H 111 H Respiratory Rate 20 H 16 19 H Blood Pressure 139/85 H 152/69 H 152/69 H Blood Pressure Mean 103 96 96 Pulse Ox 96 98 99 Oxygen Delivery Method Room Air Weight Weight: 141 lb 12.116 oz Body Mass Index (BMI) 19.8 Physical Exam Const alert, oriented x3, no apparent distress and average body habitus General Appearance: cooperative HEENT normocephalic, head/scalp atraumatic and hearing grossly normal bilaterally HEENT Narrative: Dry mucous membranes noted. Eyes PERRL and EOMs intact bilaterally Neck no lymphadenopathy and supple Resp normal respiratory effort, no retractions, no use of accessory muscles and clear to auscultation bilaterally Cardio regular rate and regular rhythm GI normal to inspection, nondistended, normoactive bowel sounds, soft to palpation, non-tender and non-distended Extremity Extremity Narrative: Patient has severe, but resolving bruising of his LUE with sling in place. Skin Skin Narrative: Patient has evidence of bruising but denies rash. Neuro oriented x3, CN's II-XII intact bilaterally, moves all extremities and no focal motor deficits Sensorium / Orientation: awake, alert, oriented to person, oriented to place and oriented to time Speech: speech normal Psych affect normal Results Medical Records Data Attestation: I reviewed the patient's medical records Lab / Micro Data Attestation: I reviewed the patient's lab results. 07/10/23 19:50 07/10/23 19:50 Labs: Laboratory Results - last 24 hr 07/10/23 19:50: WBC 8.3, RBC 3.63 L, Hgb 13.1, Hct 37.7 L, MCV 103.9 H, MCH 36.1 H, MCHC 34.7, RDW Std Deviation 52.8 H, RDW Coeff of Mya 13.8, Plt Count 143 L, MPV 9.7, Immature Gran % (Auto) 0.400, Neut % (Auto) 83.2 H, Lymph % (Auto) 9.1 L, Manatee % (Auto) 7.0, Eos % (Auto) 0.2, Baso % (Auto) 0.1, Absolute Neuts (auto) 6.9, Absolute Lymphs (auto) 0.76 L, Nucleated RBC % 0, Sodium 130 L, Potassium 3.7, Chloride 98, Carbon Dioxide 25.0, Anion Gap 7, BUN 11, Creatinine 0.75, Estim Creat Clear Calc 66.98, Est GFR (MDRD) Af Amer 129, Est GFR (MDRD) Non-Af 107, BUN/Creatinine Ratio 14.7, Glucose 107 H, Calcium 9.2, Total Bilirubin 2.10 H, AST 33, ALT 19, Alkaline Phosphatase 102, Total Creatine Kinase 410 H, Total Protein 7.3, Albumin 3.4, Globulin 3.9, Albumin/Globulin Ratio 0.9, Ethyl Alc ohol < 3.0 Imaging Radiology Impression Brain CT 07/10/23 20:00 IMPRESSION: 1. Stable exam 2. Diffuse involutional change, chronic microvascular deep white matter disease. 3. No intracranial evidence of acute traumatic injury. 4. No intracranial mass, hemorrhage or acute territorial infarct. 5. No acute fractures. 6. No radiographically significant sinus disease.. Electronically Signed: Edgardo Chavarria MD at 20:34 EST , Chest X-Ray 07/10/23 20:04 IMPRESSION: 1. Minimal basilar atelectasis. 2. No evidence of acute cardiopulmonary process. Electronically Signed: Edgardo Chavarria MD at 20:21 EST , Assessment & Plan Assessment/Plan (1) Falls: QUALIFIERS: Encounter type: initial encounter Qualified Code(s): W19.XXXA - Unspecified fall, initial encounter (2) Myonecrosis: (3) Weakness: (4) Closed fracture of left proximal humerus: QUALIFIERS: Encounter type: sequela Fracture morphology: unspecified fracture morphology Qualified Code(s): S42.202S - Unspecified fracture of upper end of left humerus, sequela (5) Closed fracture of right thumb: QUALIFIERS: Encounter type: sequela Phalanx: unspecified phalanx Fracture alignment: nondisplaced Qualified Code(s): S62.501S - Fracture of unspecified phalanx of right thumb, sequela PLAN: Plan 1. Recent mechanical fall with proximal Left Humerus Fracture and Right Thumb Fracture - Admit to general medical floor. Continue supportive care with Ibuprofen prn for [id number] (level 1-5/10) pain or fever. Give IV Morphine prn for severe (level 6-10/10) pain. 2. Second fall later the same evening with prolonged downtime causing mild myonecrosis with an elevated creatinine kinase of 410 U/L complicating #1 - Volume resuscitate and recheck CK in the AM to monitor response to therapy. 3. Mild Hyponatremia of 130 mmol/L present on admission compounding #1 & #2 likely due to Adverse Drug Reaction to HCTZ - Add HCTZ to his list of allergies. Give NS IVF and then recheck BMP in the AM to ensure improvement. 4. Generalized Weakness with Ambulatory Dysfunction in the setting of Chronic EtOH Abuse with patient no longer able to live alone independently arising from #1 - #3 - Start on EtOH withdrawal protocol with Phenobarbital taper. PT/OT and Case Management to consult and treat to help with ECF placement with help appreciated in advance. 5. History of Thrombocytopenia (likely due to marrow suppression from EtOH) - Stable with platelet count of 143K present on admission. 6. Essential hypertension - Continue home regimen plus give prn IV Hydralazine for systolic blood pressure of > 160 mm Hg. 7. History of asthma - Stable with no evidence of acute flare. Resume prn nebulizers. 8. History of SVT - Noted. 9. History of SBO - Noted. 10. DVT prophylaxis - Heparin 5,000 units sq BID plus SCD's. Total time: Approximately 55 minutes. Charges/Coding Visit Charges Inpatient E&M: 29381 Init Hosp L2
[2023-07-10] MEDS: Ondansetron 4 MG/2 ML Vial IV (21:45)
[2023-07-10] MEDS: Morphine 4 MG/ML Syringe IV (21:45)
[2023-07-10 21:53] LABS: Bacteria 0 SEEN /hpf (None Seen); Mucous, Urine 0 SEEN /hpf (<or=2+)
[2023-07-10 21:58] LABS: Color, Urine Yellow (Yellow); Glucose, Dipstick Normal (Normal); Ketone-Dipstick 50 mg/dl (Negative); Leukocyte Esterase-Dipstick Negative /ul (Negative); Nitrite-Dipstick Negative (Negative); Occult Blood-Urine 10 /ul (Negative); Protein-Dipstick 15 mg/dl (Negative); Urine Bilirubin Dipstick Negative (Negative); Urine Clarity Clear (Clear); Urine Urobilinogen 1 mg/dl (Normal)
[2023-07-10 22:06] LABS: Red Blood Cells-Urine 0-5 SEEN /hpf (0-5); Squamous Epithelial Cells - UA 0-5 SEEN /hpf (0-5); White Blood Cells 0-5 SEEN /hpf (0-5)
[2023-07-10 23:00] VITALS: BP 126/60; PULSE 84; RESP 16; O2SAT 94
[2023-07-11] VITALS (9 sets, daily range): BP systolic 91–127; BP diastolic 53–68; PULSE 82–104; RESP 14–18; TEMP 36.4–36.9; O2SAT 92–98; BMI 19.8
[2023-07-11] MEDS: 0.9% Normal Saline (1000mL) 1,000 ML 75 ML IV ×2 (00:58→13:35)
[2023-07-11] MEDS: Phenobarbital 32.4 MG Tablet 64.8 MG PO ×6 (01:08→19:56)
[2023-07-11] MEDS: Morphine 2 MG/ML Syringe IV (01:08)
[2023-07-11] MEDS: 0.9% Saline Lock 10 ML Syringe IV (01:09)
[2023-07-11] MEDS: Ibuprofen 600 MG Tablet PO (04:12)
[2023-07-11] MEDS: Menthol/Lanolin/Calamine/Znox 113 GM Tube 1 APPLIC TOPICAL ×3 (06:06→19:57)
[2023-07-11] MEDS: Budesonide Respules 0.5 MG/2 ML AMPUL.NEB. INHALATION ×2 (07:12→19:57)
[2023-07-11] MEDS: Amox/Clavulanate 875 MG Tablet PO ×2 (07:41→16:19)
[2023-07-11] MEDS: Folic Acid 1 MG Tablet PO (07:41)
[2023-07-11] MEDS: Cholecalciferol (Vit D3) 125 MCG CAPSULE (5,000 UNITS) PO (07:42)
[2023-07-11] MEDS: Losartan Potassium 100 MG Tablet PO (07:42)
[2023-07-11] MEDS: Thiamine Hydrochloride 100 MG Tablet PO (07:42)
[2023-07-11] MEDS: amLODIPine 5 MG Tablet PO (07:42)
[2023-07-11 07:44] LABS: Absolute Lymphocyte Count 1.18 X10^3/uL (0.83-4.51); Absolute Neutrophil Count 3.6 X10^3/uL (2.0-7.7); Basophil# 0.02 X10^3/uL; Basophil% 0.4 % (0-1); Eosinophil# 0.18 X10^3/uL; Eosinophils% 3.3 % (0-5); Hematocrit 29.4 % (40-54); Hemoglobin 9.9 g/dL (13.0-16.5); Lymphocyte # 1.18 X10^3/ul (0.83-4.51); Lymphocyte % 21.8 % (19-41); Mean Corp Hgb Conc 33.7 g/dL (32-36); Mean Corpuscular Hgb 35.7 pg (27.0-32.0); Mean Corpuscular Volume 106.1 fL (80-94); Mean Platelet Vol. 9.9 fl (6.2-12.0); Monocyte# 0.46 X10^3/uL; Monocyte% 8.5 % (0-10); NRBC Flagged by Analyzer 0 % (0-5); Neutrophil # 3.55 X10^3/uL (2.7-7.7); Neutrophil % 65.6 % (47-70); Platelet Count 121 K/mm3 (150-450); RBC Distribution Width CV 14.1 % (11.6-14.6); RBC Distribution Width SD 53.7 fl (35.1-43.9); Red Blood Count 2.77 M/mm3 (4.6-6.2); White Blood Count 5.4 K/mm3 (4.4-11.0)
[2023-07-11] MEDS: Ensure Plus High Protein 120 ML LIQUID PO ×3 (07:48→16:21)
--- NOTE | 2023-07-11 08:01 | PN.HOSP_ITS ---
Reason for Visit Reason for Visit: Diagnoses Gangrene, not elsewhere classified (07/10/23) Other specified disorders of muscle (07/10/23) Weakness (07/10/23) Unspecified fracture of upper end of left humerus, sequela (07/10/23) Fracture of unspecified phalanx of right thumb, sequela (07/10/23) Unspecified fall, initial encounter (07/10/23) Subjective Subjective No new events. Objective Data Objective Data Vital Signs: Vital Signs Temp Pulse Resp BP Pulse Ox O2 Del Method 36.6 C 86 16 127/68 H 95 Room Air 07/11/23 04:06 07/11/23 07:13 07/11/23 07:13 07/11/23 04:06 07/11/23 07:13 07/11/23 07:13 Oxygen Delivery Method Room Air Weight: 64.3 kg Body Mass Index (BMI) 19.8 Intake & Output: Intake and Output for Last 24 Hours 07/09/23 07/10/23 07/11/23 23:59 23:59 23:59 Intake Total 1000 / 1000 Output Total 0 / 0 Balance 1000 / 1000 0 / 0 Lab / Micro Data 07/11/23 07:24 07/11/23 07:24 Labs: Laboratory Results - last 24 hr 07/10/23 19:50: WBC 8.3, RBC 3.63 L, Hgb 13.1, Hct 37.7 L, MCV 103.9 H, MCH 36.1 H, MCHC 34.7, RDW Std Deviation 52.8 H, RDW Coeff of Mya 13.8, Plt Count 143 L, MPV 9.7, Immature Gran % (Auto) 0.400, Neut % (Auto) 83.2 H, Lymph % (Auto) 9.1 L, [place] % (Auto) 7.0, Eos % (Auto) 0.2, Baso % (Auto) 0.1, Absolute Neuts (auto) 6.9, Absolute Lymphs (auto) 0.76 L, Nucleated RBC % 0, Sodium 130 L, Potassium 3.7, Chloride 98, Carbon Dioxide 25.0, Anion Gap 7, BUN 11, Creatinine 0.75, Estim Creat Clear Calc 66.98, Est GFR (MDRD) Af Amer 129, Est GFR (MDRD) Non-Af 107, BUN/Creatinine Ratio 14.7, Glucose 107 H, Calcium 9.2, Total Bilirubin 2.10 H, AST 33, ALT 19, Alkaline Phosphatase 102, Total Creatine Kinase 410 H, Total Protein 7.3, Albumin 3.4, Globulin 3.9, Albumin/Globulin Ratio 0.9, Ethyl Alcohol < 3.0 07/10/23 21:43: Urine Color Yellow, Urine Clarity Clear, Urine pH 5.0, Ur Specific Arrey 1.020, Urine Protein 15 H, Urine Glucose (UA) Normal, Urine Ketones 50 H, Urine Occult Blood 10 H, Urine Nitrite Negative, Urine Bilirubin Negative, Urine Urobilinogen 1 H, Ur Leukocyte Esterase Negative, Urine RBC 0-5 SEEN, Urine WBC 0-5 SEEN, Ur Squamous Epith Cells 0-5 SEEN, Urine Bacteria 0 SEEN, Urine Mucus 0 SEEN 07/11/23 07:24: WBC 5.4, RBC 2.77 L, Hgb 9.9 L, Hct 29.4 L, MCV 106.1 H, MCH 35.7 H, MCHC 33.7, RDW Std Deviation 53.7 H, RDW Coeff of Mya 14.1, Plt Count 121 L, MPV 9.9, Immature Gran % (Auto) 0.400, Neut % (Auto) 65.6, Lymph % (Auto) 21.8, [place] % (Auto) 8.5, Eos % (Auto) 3.3, Baso % (Auto) 0.4, Absolute Neuts (auto) 3.6, Absolute Lymphs (auto) 1.18, Nucleated RBC % 0 Radiography Diagnostic Testing: Radiology Impression Brain CT 07/10/23 20:00 IMPRESSION: 1. Stable exam 2. Diffuse involutional change, chronic microvascular deep white matter disease. 3. No intracranial evidence of acute traumatic injury. 4. No intracranial mass, hemorrhage or acute territorial infarct. 5. No acute fractures. 6. No radiographically significant sinus disease.. Electronically Signed: Edgardo Chavarria MD at 20:34 EST , Chest X-Ray 07/10/23 20:04 IMPRESSION: 1. Minimal basilar atelectasis. 2. No evidence of acute cardiopulmonary process. Electronically Signed: Edgardo Chavarria MD at 20:21 EST , Physical Exam Const alert and no apparent distress HEENT head/scalp atraumatic and moist oral mucous membranes Resp normal respiratory effort and no retractions Extremity Extremity Narrative: Left arm in a sling. Bruising over right thumb. Neuro Sensorium / Orientation: awake and alert Psych affect normal Assessment & Plan Assessment/Plan (1) Falls: QUALIFIERS: Encounter type: initial encounter Qualified Code(s): W19.XXXA - Unspecified fall, initial encounter (2) Myonecrosis: (3) Weakness: (4) Closed fracture of left proximal humerus: QUALIFIERS: Encounter type: sequela Fracture morphology: unspecified fracture morphology Qualified Code(s): S42.202S - Unspecified fracture of upper end of left humerus, sequela (5) Closed fracture of right thumb: QUALIFIERS: Encounter type: sequela Fracture alignment: nondis placed Phalanx: unspecified phalanx Qualified Code(s): S62.501S - Fracture of unspecified phalanx of right thumb, sequela PLAN: Plan Debility * PT OT eval and treat. * Pt too unsafe to return home given his falls and recent fractures to Left Humerus Fracture and Right Thumb Left humerus fracture * impacted fracture of proximal humerus * subsequent visit (sustained on 07/08). * Non-weight bearing. Sling. * Follow up with Dr. Kwan as per ED visit on 07/08 * Pain control. * Check 25-hydroxy vitamin D level and replace if low. Hyponatremia * improving * likely 2/2 HCTZ, which has been held. * monitor Rhabdomyolysis * mild, 2/2 fall, now resolved * no additional work up Chronic conditions: * History of Thrombocytopenia (likely due to marrow suppression from EtOH) - Stable with platelet count of 143K present on admission. * Essential hypertension - Continue home regimen plus give prn IV Hydralazine for systolic blood pressure of > 160 mm Hg. * History of asthma - Stable with no evidence of acute flare. Resume prn nebulizers. DVT prophylaxis - Heparin 5,000 units sq BID Disposition: To be determined. Anticipate patient will require alf facility given his frequent falls and now with left lower extremity fracture where he is nonweightbearing. Charges/Coding Visit Charges Inpatient E&M: 38335 Subs Hosp L1
[2023-07-11 08:05] LABS: CPK Total, Creatine Kinase 299 U/L (39-308)
[2023-07-11 08:07] LABS: AST(SGOT) 24 U/L (15-37); Alanine Aminotransfer ALT/SGPT 14 U/L (16-61); Albumin, Serum 2.7 g/dL (3.2-5.0); Alkaline Phosphatase 75 U/L (45-117); Anion Gap 2 (5-15); BUN 12 mg/dL (7-18); BUN/Creat Ratio 13.9 RATIO (10-20); Calcium,Total 8.6 mg/dL (8.5-10.1); Chloride 104 mmol/L (98-107); Creatinine, Serum 0.86 mg/dL (0.70-1.30); EST Glomerular Filtration Rate 90 mL/min (>60); Est Glom Filt Rate - Afr Amer 109 mL/min (>60); Estimated Creatinine Clearance 62.31 ml/min; Globulin 2.8 g/dL (2.2-4.2); Glucose 105 mg/dL (74-106); Phosphorus 3.1 mg/dL (2.5-4.9); Potassium 3.9 mmol/L (3.5-5.1); Protein, Total 5.5 g/dL (6.4-8.2); Sodium Level 134 mmol/L (136-145); Thyroid Stim Hormone (TSH) 3.27 uIU/mL (0.358-3.74)
[2023-07-12] MEDS: 0.9% Normal Saline (1000mL) 1,000 ML 75 ML IV ×2 (01:09→14:20)
[2023-07-12] MEDS: Phenobarbital 32.4 MG Tablet 64.8 MG PO ×5 (01:09→16:08)
[2023-07-12 01:19] VITALS: BP 137/71; PULSE 89; RESP 16; TEMP 36.9; O2SAT 97
[2023-07-12] MEDS: Menthol/Lanolin/Calamine/Znox 113 GM Tube 1 APPLIC TOPICAL ×3 (05:34→20:04)
[2023-07-12] MEDS: Budesonide Respules 0.5 MG/2 ML AMPUL.NEB. INHALATION ×2 (06:53→20:14)
[2023-07-12 06:55] VITALS: PULSE 90; RESP 16
[2023-07-12] MEDS: Ensure Plus High Protein 120 ML LIQUID PO ×3 (07:42→16:06)
[2023-07-12] MEDS: Thiamine Hydrochloride 100 MG Tablet PO (07:43)
[2023-07-12] MEDS: Amox/Clavulanate 875 MG Tablet PO ×2 (07:43→16:06)
[2023-07-12] MEDS: Folic Acid 1 MG Tablet PO (07:43)
[2023-07-12 08:00] VITALS: BP 95/54; PULSE 72; RESP 16; TEMP 36.7
[2023-07-12] MEDS: Cholecalciferol (Vit D3) 125 MCG CAPSULE (5,000 UNITS) PO (08:02)
[2023-07-12] MEDS: amLODIPine 5 MG Tablet PO (08:02)
[2023-07-12] MEDS: Losartan Potassium 100 MG Tablet PO (08:02)
[2023-07-12 08:32] LABS: Vitamin D,25 Hydroxy 17.6 ng/mL
--- NOTE | 2023-07-12 09:15 | PCM.PN.HOSP ---
Reason for Visit Reason for Visit: Diagnoses Gangrene, not elsewhere classified (07/10/23) Other specified disorders of muscle (07/10/23) Weakness (07/10/23) Unspecified fracture of upper end of left humerus, sequela (07/10/23) Fracture of unspecified phalanx of right thumb, sequela (07/10/23) Unspecified fall, initial encounter (07/10/23) Subjective Subjective Patient is an 78-year-old gentleman admitted with multiple falls. Patient was found to have left humeral fracture and right thumb. Admitted to regular nursing floor for further management Objective Data Objective Data Vital Signs: Vital Signs Temp Pulse Resp BP Pulse Ox O2 Del Method 98.1 F 72 16 95/54 L 97 Room Air 07/12/23 08:00 07/12/23 08:00 07/12/23 08:00 07/12/23 08:00 07/12/23 01:19 07/12/23 08:00 Oxygen Delivery Method Room Air Weight: 64.8 kg Body Mass Index (BMI) 20.0 Intake & Output: Intake and Output for Last 24 Hours 07/10/23 07/11/23 07/12/23 23:59 23:59 23:59 Intake Total 1000 / 1000 1596.25 / 1596.25 867.5 / 867.5 Output Total 150 / 350 200 / 200 Balance 1000 / 1000 1446.25 / 1246.25 667.5 / 667.5 Lab / Micro Data 07/11/23 07:24 07/11/23 07:24 Labs: Laboratory Results - last 24 hr 07/12/23 06:05: Vitamin D 25-Hydroxy 17.6 Physical Exam Narrative GENERAL: cooperative HEENT: Atraumatic; normocephalic EYES; Anicteric, Normal Conjunctiva NECK; supple, normal thyroid, RESPIRATORY: Diminished to auscultation CARDIOVASCULAR: Regular S1 S2, GI: soft, normoactive bowel sounds, : No Renal angle tenderness; EXTREMITIES: No edema, no clubbing, MUSCULOSKELETAL: Left upper extremity immobilized NEURO: Awake; no lateralizing signs. SKIN: No Rash PSYCH; Flat affect Assessment & Plan Assessment/Plan (1) Falls: QUALIFIERS: Encounter type: initial encounter Qualified Code(s): W19.XXXA - Unspecified fall, initial encounter (2) Myonecrosis: (3) Weakness: (4) Closed fracture of left proximal humerus: QUALIFIERS: Encounter type: sequela Fracture morphology: unspecified fracture morphology Qualified Code(s): S42.202S - Unspecified fracture of upper end of left humerus, sequela (5) Closed fracture of right thumb: QUALIFIERS: Encounter type: sequela Fracture alignment: nondisplaced Phalanx: unspecified phalanx Qualified Code(s): S62.501S - Fracture of unspecified phalanx of right thumb, sequela PLAN: Plan Patient is an 78-year-old gentleman admitted with multiple falls. Patient was found to have left humeral fracture and right thumb. Admitted to regular nursing floor for further management 1. Physical deconditioning -With multiple falls requested for PT OT eval and licensed clinical social worker to assist with discharge planning 2. Fall with recent fractures to Left Humerus Fracture and Right Thumb ? Patient managed with immobilization with plans for patient to follow-up with Dr. Kwan. 3. Hyponatremia ? Secondary to patient being on HCTZ held with subsequent monitoring of electrolytes ordered 4. Acute rhabdomyolysis 5. Essential hypertension - did continue home meds except for HCT given patient's hyponatremia 6. Chronic thrombocytopenia ? Secondary to chronic alcohol intake monitoring 7. History of mild intermittent asthma ? Currently not in exacerbation aerosol treatments as needed 8. DVT prophylaxis - - Heparin 5,000 units sq BID Time spent in the patient's overall evaluation,decision-making process, review of diagnostic data, adjustment of management, discussion with other providers, nursing nursing and ancillary staff involved in patient's care documentation, 40 Minutes Charges/Coding Visit Charges Inpatient E&M: 95794 Subs Hosp L2
--- NOTE | 2023-07-12 11:18 | CASEMGMT ---
Discharge Planning A list of?SNF providers including quality and resource use data and consistent with the patient's preferred geographic region, medical needs, and insurance network was created in [facility]Port Guide.? This list was provided to the SW. Dolores Naqvi Discharge Planning Asst.
--- NOTE | 2023-07-12 11:47 | CASEMGMT ---
ZAHIDA HANDY Assessment: Face to Face with pt for initial transition planning/care coordination assessment. ZAHIDA HANDY introduced self and role at [facility], pt voices understanding and consents to assessment. Pt is A&O x3. Pt was able to answer all orientation questions correctly. Pt was difficult to understand and kept his eyes closed during entire assessment. Pt sitting up iin chair in no distress. Care providers, pharmacy, and demographics verified/updated. Admitting Dx: hyponatremia, fall with left humeral fx and right thumb PCP:Michael Specialists:denies Preferred Pharmacy:[facility] Insurance: MMO Medicare Prescription Benefit: yes LNOK: Liban Morin, friend Living Arrangements: Pt lives alone in a ground level apt with 3 steps to enter. Pt reports he was I in ADL's prior to this hospitalization. Pt denies concerns at home. Transportation: Pt uses a taxi as his car is not running. DME:elle vieira, shower chair HHC/SNF: [facility] H[facility] in past and denies SNF stays Discussed with patient how his therapy session went. Pt did not provide much input. Discussed that pt may need some further rehab as hospitalist also reported this in rounds and by therapy notes. Pt states he will do whatever is recommended. Pt is aware that SW will be in to speak with him regarding his options for SNF. Pt states no further concerns/needs. CM to follow. Advised pt to ask CM if any further question/concerns/needs arise, voices understanding. Pt Goal: Did not state but stated will do whatever is recommended Plan: SNF, updated SINTIA Mccormick RN, CM
--- NOTE | 2023-07-12 13:50 | CASEMGMT ---
Addendum entered by Dolores Naqvi 07/12/23 14:46: Both referrals cancelled d/t patient request. Dolores Naqvi, Discharge Planning Asst. Original Note: Discharge Planning Referral sent via [facility] to [facility]. Dolores Naqvi, Discharge Planning Asst.
--- NOTE | 2023-07-12 13:52 | CASEMGMT ---
Addendum entered by Genny Cody 07/12/23 14:43: Social Work SW met with pt a second time and discussed discharge plan. Pt now requesting to go to [facility]. MARY internal medicine physician assistant and referral to be sent. JOSE DE JESUS Lundberg Original Note: Social Work SW met with pt and introduced self and role of SW. SDOH screening completed. Pt does states he has concerns with food insecurity but has not run out of food. SW provided pt with information on home delivered meals as well as food pantries and served meals. SW inquired about living will and health care POA. Pt is unsure about these documents but thinks he may have completed at some point and may have named a friend Liban Morin. SW spoke with pt regarding discharge plan and pt feels he will need placement at SNF for short term prior to returning to his home where he has lived independently. A list of SNF providers including quality and resource use data and consistent with the patient?s preferred geographic region, medical needs, and insurance network were provided from the [facility]Port Guide. Pt preferred provider is the ones in [place]. Referral to be sent to [facility] and [facility] as these are the [place] facilities in network with pt's insurance. [place] internal medicine physician assistant updated and to send referrals. SW requested with pt that his contact Liban Morin be contacted to discuss discharge plan and pt is agreeable. left with pt's friend Liban Morin requesting return call to discuss discharge plan. JOSE DE JESUS Plunkett
[2023-07-12 14:00] VITALS: BP 114/58; PULSE 86; RESP 16; TEMP 36.8; O2SAT 95
--- NOTE | 2023-07-12 14:46 | CASEMGMT ---
Addendum entered by Dolores Naqvi 07/12/23 16:21: Patient has been accepted by [facility] and precert will be submitted. Dolores Naqvi, Discharge Planning Asst. Original Note: Discharge Planning Referral sent via [facility]Port to [facility]. Dolores Naqvi, Discharge Planning Asst.
--- NOTE | 2023-07-12 16:37 | CASEMGMT ---
Social Work SW spoke with pt's friend Liban Morin. Liban states that pt has not completed a living will or health care POA. SW inquired about family. Liban states pt has no family that he is aware of and that he is the only person who cares for pt. JOSE DE JESUS Plunkett
--- NOTE | 2023-07-12 16:45 | CASEMGMT ---
Social Work SW received phone call back from Liban Morin, pt's contact. Liban states that he does assist pt at home and pt has been falling frequently and his home is unkempt. Liban is in agreement that pt will need SNF and Liban feels it will likely be alf. SW informed Liban that pt is choosing [facility] and Liban is in agreement with this. [facility] has accepted pt and precert has been started. Liban aware. SINTIA met with pt and updated on the same. Plan: [facility], pending precert JOSE DE JESUS Plunkett
[2023-07-12 20:03] VITALS: BP 119/62; PULSE 95; RESP 16; TEMP 36.6; O2SAT 100
[2023-07-12 20:14] VITALS: PULSE 89; RESP 16
[2023-07-13] VITALS (7 sets, daily range): BP systolic 85–137; BP diastolic 46–74; PULSE 77–89; RESP 16–20; TEMP 36.3–36.6; O2SAT 94–100; BMI 19.8
[2023-07-13] MEDS: Phenobarbital 32.4 MG Tablet 64.8 MG PO ×4 (00:26→14:15)
[2023-07-13] MEDS: 0.9% Normal Saline (1000mL) 1,000 ML 75 ML IV (04:13)
[2023-07-13] MEDS: Menthol/Lanolin/Calamine/Znox 113 GM Tube 1 APPLIC TOPICAL ×2 (04:14→12:43)
[2023-07-13] MEDS: Budesonide Respules 0.5 MG/2 ML AMPUL.NEB. INHALATION (06:45)
[2023-07-13 06:59] LABS: Absolute Lymphocyte Count 1.01 X10^3/uL (0.83-4.51); Basophil# 0.03 X10^3/uL; Basophil% 0.8 % (0-1); Eosinophil# 0.47 X10^3/uL; Eosinophils% 12.3 % (0-5); Hematocrit 24.7 % (40-54); Hemoglobin 8.3 g/dL (13.0-16.5); Lymphocyte # 1.01 X10^3/ul (0.83-4.51); Lymphocyte % 26.4 % (19-41); Mean Corp Hgb Conc 33.6 g/dL (32-36); Mean Corpuscular Hgb 35.6 pg (27.0-32.0); Monocyte# 0.27 X10^3/uL; Monocyte% 7.1 % (0-10); NRBC Flagged by Analyzer 0 % (0-5); Neutrophil # 2.03 X10^3/uL (2.7-7.7); Neutrophil % 53.1 % (47-70); Platelet Count 118 K/mm3 (150-450); RBC Distribution Width CV 14.2 % (11.6-14.6); RBC Distribution Width SD 55.1 fl (35.1-43.9); Red Blood Count 2.33 M/mm3 (4.6-6.2); White Blood Count 3.8 K/mm3 (4.4-11.0)
--- NOTE | 2023-07-13 07:49 | PCM.PN.HOSP ---
Reason for Visit Reason for Visit: Diagnoses Gangrene, not elsewhere classified (07/10/23) Other specified disorders of muscle (07/10/23) Weakness (07/10/23) Unspecified fracture of upper end of left humerus, sequela (07/10/23) Fracture of unspecified phalanx of right thumb, sequela (07/10/23) Unspecified fall, initial encounter (07/10/23) Subjective Subjective Patient seen symptoms well-controlled. Awaiting insurance approval prior to transfer to [facility] facility Objective Data Objective Data Vital Signs: Vital Signs Temp Pulse Resp BP Pulse Ox O2 Del Method 97.8 F 89 18 137/74 H 98 Room Air 07/13/23 04:15 07/13/23 04:15 07/13/23 04:15 07/13/23 04:15 07/13/23 04:15 07/13/23 04:15 Oxygen Delivery Method Room Air Weight: 64.4 kg Body Mass Index (BMI) 19.8 Intake & Output: Intake and Output for Last 24 Hours 07/11/23 07/12/23 07/13/23 23:59 23:59 23:59 Intake Total 1596.25 / 1596.25 2056.25 / 2056.25 1000 / 1000 Output Total 150 / 350 1350 / 1350 400 / 400 Balance 1446.25 / 1246.25 706.25 / 706.25 600 / 600 Lab / Micro Data 07/13/23 06:47 07/13/23 06:47 Labs: Laboratory Results - last 24 hr 07/12/23 06:05: Vitamin D 25-Hydroxy 17.6 07/13/23 06:47: WBC 3.8 L, RBC 2.33 L, Hgb 8.3 L, Hct 24.7 L, MCV 106.0 H, MCH 35.6 H, MCHC 33.6, RDW Std Deviation 55.1 H, RDW Coeff of Mya 14.2, Plt Count 118 L, MPV 10.0, Immature Gran % (Auto) 0.300, Neut % (Auto) 53.1, Lymph % (Auto) 26.4, [place] % (Auto) 7.1, Eos % (Auto) 12.3 H, Baso % (Auto) 0.8, Absolute Neuts (auto) 2.0, Absolute Lymphs (auto) 1.01, Nucleated RBC % 0 Physical Exam Narrative GENERAL: cooperative HEENT: Atraumatic; normocephalic EYES; Anicteric, Normal Conjunctiva NECK; supple, normal thyroid, RESPIRATORY: Diminished to auscultation CARDIOVASCULAR: Regular S1 S2, GI: soft, normoactive bowel sounds, : No Renal angle tenderness; EXTREMITIES: No edema, no clubbing, MUSCULOSKELETAL: Left upper extremity immobilized NEURO: Awake; no lateralizing signs. SKIN: No Rash PSYCH; Flat affect Assessment & Plan Assessment/Plan (1) Falls: QUALIFIERS: Encounter type: initial encounter Qualified Code(s): W19.XXXA - Unspecified fall, initial encounter (2) Myonecrosis: (3) Weakness: (4) Closed fracture of left proximal humerus: QUALIFIERS: Encounter type: sequela Fracture morphology: unspecified fracture morphology Qualified Code(s): S42.202S - Unspecified fracture of upper end of left humerus, sequela (5) Closed fracture of right thumb: QUALIFIERS: Encounter type: sequela Fracture alignment: nondisplaced Phalanx: unspecified phalanx Qualified Code(s): S62.501S - Fracture of unspecified phalanx of right thumb, sequela PLAN: Plan Patient is an 78-year-old gentleman admitted with multiple falls. Patient was found to have left humeral fracture and right thumb. Admitted to regular nursing floor for further management 1. Physical deconditioning -With multiple falls requested for PT OT eval and social science manager to assist with discharge planning ? 07/13/2023 pain remains well-controlled insurance precertification pending 2. Fall with recent fractures to Left Humerus Fracture and Right Thumb ? Patient managed with immobilization with plans for patient to follow-up with Dr. Kwan. 3. Hyponatremia ? Secondary to patient being on HCTZ held with subsequent monitoring of electrolytes ordered 4. Acute rhabdomyolysis 5. Essential hypertension - did continue home meds except for HCT given patient's hyponatremia 6. Chronic thrombocytopenia ? Secondary to chronic alcohol intake monitoring 7. History of mild intermittent asthma ? Currently not in exacerbation aerosol treatments as needed 8. DVT prophylaxis - - Heparin 5,000 units sq BID Time spent in the patient's overall evaluation,decision-making process, review of diagnostic data, adjustment of management, discussion with other providers, nursing nursing and ancillary staff involved in patient's care documentation, 35 Minutes Charges/Coding Visit Charges Inpatient E&M: 12592 Subs Hosp L2
[2023-07-13 07:58] LABS: Anion Gap 4 (5-15); BUN 8 mg/dL (7-18); Chloride 106 mmol/L (98-107); Creatinine, Serum 0.42 mg/dL (0.70-1.30); EST Glomerular Filtration Rate 208 mL/min (>60); Est Glom Filt Rate - Afr Amer 251 mL/min (>60); Estimated Creatinine Clearance 67.08 ml/min; Glucose 91 mg/dL (74-106); Magnesium 1.6 mg/dL (1.6-2.6); Phosphorus 2.9 mg/dL (2.5-4.9); Sodium Level 137 mmol/L (136-145)
[2023-07-13] MEDS: Losartan Potassium 100 MG Tablet PO (08:25)
[2023-07-13] MEDS: amLODIPine 5 MG Tablet PO (08:25)
[2023-07-13] MEDS: Amox/Clavulanate 875 MG Tablet PO ×2 (08:25→16:41)
[2023-07-13] MEDS: Thiamine Hydrochloride 100 MG Tablet PO (08:26)
[2023-07-13] MEDS: Folic Acid 1 MG Tablet PO (08:26)
[2023-07-13] MEDS: Cholecalciferol (Vit D3) 125 MCG CAPSULE (5,000 UNITS) PO (08:26)
[2023-07-13] MEDS: Ibuprofen 600 MG Tablet PO (08:29)
[2023-07-13] MEDS: Ensure Plus High Protein 120 ML LIQUID PO ×3 (08:29→16:48)
--- NOTE | 2023-07-13 08:35 | TREXTCAR_ITS ---
Diet Diet Order/Speech Therapy: 07/11/23 11:50 Diet: Regular - General Is pt able to select menu?: Yes Routine Orders/Code Status Code Status: Full Code Wound(s) R elbow: Wound Type: Skin Tear L elbow: Wound Type: Skin Tear R great, R 2nd toe and L 3rd toe: Wound Type: nails overgrowth Therapies Physical Therapy: Eval and Treat Occupational Therapy: Eval and Treat Problem/Diagnosis (1) Falls: Status: Acute Code(s): W19.XXXA - Unspecified fall, initial encounter (2) Myonecrosis: Status: Acute Code(s): M62.89 - Other specified disorders of muscle; I96 - Gangrene, not elsewhere classified (3) Weakness: Status: Acute Code(s): R53.1 - Weakness (4) Closed fracture of left proximal humerus: Status: Acute Code(s): S42.202A - Unspecified fracture of upper end of left humerus, initial encounter for closed fracture (5) Closed fracture of right thumb: Status: Acute Code(s): S62.501A - Fracture of unspecified phalanx of right thumb, initial encounter for closed fracture Plan Patient is an 78-year-old gentleman admitted with multiple falls. Patient was found to have left humeral fracture and right thumb. Admitted to regular nursing floor for further management 1. Physical deconditioning -With multiple falls requested for PT OT eval and social media sr strategy manager to assist with discharge planning ? 07/13/2023 pain remains well-controlled insurance precertification pending 2. Fall with recent fractures to Left Humerus Fracture and Right Thumb ? Patient managed with immobilization with plans for patient to follow-up with Dr. Kwan. 3. Hyponatremia ? Secondary to patient being on HCTZ held with subsequent monitoring of electrolytes ordered 4. Acute rhabdomyolysis 5. Essential hypertension - did continue home meds except for HCT given patient's hyponatremia 6. Chronic thrombocytopenia ? Secondary to chronic alcohol intake monitoring 7. History of mild intermittent asthma ? Currently not in exacerbation aerosol treatments as needed 8. DVT prophylaxis - - Heparin 5,000 units sq BID Time spent in the patient's overall evaluation,decision-making process, review of diagnostic data, adjustment of management, discussion with other providers, nursing nursing and ancillary staff involved in patient's care documentation, 35 Minutes Allergies/Procedures Done in Hospital Allergies Sulfa (Sulfonamide Antibiotics) Allergy (Verified 07/10/23 22:20) Hives hydrochlorothiazide Adverse Reaction (Severe, Verified 07/10/23 22:20) Other metabolic disturbances, per Dr. Cortes fentanyl Adverse Reaction (Verified 07/11/23 00:15) Other hallucinations Type of Care/Length of Stay Estimated LOS: Convalescent Care Less Than 30 days Type of Care Needed: Skilled Rehab Potential: Good Prognosis: Good Additional Orders/Day of Discharge Day of Discharge: 07/13/23 Dietary and Speech Recommendations Dietitian Recommendations/Changes: Will liberalize diet to Regular to try to optimize pt po intake Will continue ONS w/ medpass for increased nutrition if consumed. Discharge Plan Admission Admit Date/Time: 07/10/23 22:06 Attending Provider: Santino Uriarte Primary Care Provider: Elijah Rodriguez Consulting Providers: Santino Cortes; Homer Yanez; Shan Somers Discharge Orders/Prescriptions Prescriptions: New loperamide 2 mg Capsule 2 mg PO Q4H PRN PRN (Reason: LOOSE STOOLS) Qty: 0 0RF ondansetron HCl 8 mg Tablet 8 mg PO Q8H PRN PRN (Reason: NAUSEA) Qty: 0 0RF thiamine HCl (vitamin B1) [Vitamin B-1] 100 mg Tablet 100 mg PO DAILYCM Qty: 0 0RF melatonin 3 mg Tablet 3 mg PO QHS PRN PRN (Reason: Insomnia) Qty: 0 0RF trazodone 100 mg Tablet 100 mg PO QHS PRN (Reason: Insomnia) Qty: 0 0RF folic acid 1 mg Tablet 1 mg PO DAILY@0800 Qty: 0 0RF dicyclomine 10 mg Capsule 20 mg PO Q6H PRN PRN (Reason: abdominal discomfort) Qty: 0 0RF hydroxyzine pamoate 25 mg Capsule 50 mg PO Q4H PRN PRN (Reason: mild anxiety) Qty: 0 0RF menthol-zinc oxide [Calmoseptine] 0.44-20.6 % Ointment 1 applic topical TID Qty: 0 0RF Protocol: *Topical Application Instructions APPLICATION INSTRUCTIONS: buutocks Ensure Plus High Protein 0.08 gram-1.5 kcal/mL Liquid 120 ml PO TIDCM Qty: 0 0RF Continued budesonide 1 mg/2 mL suspension for nebulization 1 mg inhalation BID Qty: 60 6RF losartan 100 mg tablet 100 mg PO DAILY amlodipine 5 MG tablet 5 mg PO DAILY cholecalciferol (vitamin D3) 25 MCG tablet 125 mcg PO DAILY Qty: 30 0RF cyanocobalamin (vitamin B-12) [Vitamin B-12] 100 mcg tablet 100 mcg PO DAILY Saline Nasal 0.65 % aerosol,spray 1 spray intranasal BID PRN (Reason: DRY NARES) albuterol sulfate 2.5 MG/3 ML solution for nebulization 2.5 mg inhalation Q2H PRN (Reason: Wheezing) acetaminophen 325 mg Tablet 1,000 mg PO Q8H PRN PRN (Reason: Pain 1-10 Or Fever >100.7) Qty: 0 0RF ibuprofen 600 mg Tablet 600 mg PO Q6H PRN PRN (Reason: Pain Score 1-10) Qty: 0 0RF hydrocodone-acetaminophen 5-325 mg tablet 1 tab PO Q6H PRN (Reason: pain) 3 Days Qty: 12 0RF Discontinued hydrochlorothiazide 12.5 mg capsule 12.5 mg PO DAILY doxycycline monohydrate 100 mg tablet 100 mg PO BID Qty: 12 0RF oxycodone 5 mg tablet 5 mg PO Q8H PRN (Reason: pain) 3 Days Qty: 9 0RF Referrals / Follow Up: Elijah Rodriguez MD [Primary Care Provider] - Disposition Disposition (needs filled in before D/C Order can be placed): [facility]irement Facility (1) Falls Qualifiers: Encounter type: initial encounter Qualified Code(s): W19.XXXA - Unspecified fall, initial encounter (4) Closed fracture of left proximal humerus Qualifiers: Encounter type: sequela Fracture morphology: unspecified fracture morphology Qualified Code(s): S42.202S - Unspecified fracture of upper end of left humerus, sequela (5) Closed fracture of right thumb Qualifiers: Encounter type: sequela Fracture alignment: nondisplaced Phalanx: unspecified phalanx Qualified Code(s): S62.501S - Fracture of unspecified phalanx of right thumb, sequela
--- NOTE | 2023-07-13 08:40 | DS.PCM_ITS ---
Providers Date of Admission: 07/10/23 Date of Discharge: 07/13/23 Primary Care Physician: Dr. Elijah Rodriguez MD Reason For Visit: HYPONATREMIA, FALL WITH LEFT HUMERAL FX AND RIGHT Diagnosis Discharge Diagnosis (1) Falls: Status: Acute Code(s): W19.XXXA - Unspecified fall, initial encounter Qualifiers: Encounter type: initial encounter Qualified Code(s): W19.XXXA - Unspecified fall, initial encounter (2) Myonecrosis: Status: Acute Code(s): M62.89 - Other specified disorders of muscle; I96 - Gangrene, not elsewhere classified (3) Weakness: Status: Acute Code(s): R53.1 - Weakness (4) Closed fracture of left proximal humerus: Status: Acute Code(s): S42.202A - Unspecified fracture of upper end of left humerus, initial encounter for closed fracture Qualifiers: Encounter type: sequela Fracture morphology: unspecified fracture morphology Qualified Code(s): S42.202S - Unspecified fracture of upper end of left humerus, sequela (5) Closed fracture of right thumb: Status: Acute Code(s): S62.501A - Fracture of unspecified phalanx of right thumb, initial encounter for closed fracture Qualifiers: Encounter type: sequela Fracture alignment: nondisplaced Phalanx: unspecified phalanx Qualified Code(s): S62.501S - Fracture of unspecified phalanx of right thumb, sequela Plan Patient is an 78-year-old gentleman admitted with multiple falls. Patient was found to have left humeral fracture and right thumb. Admitted to regular nursing floor for further management 1. Physical deconditioning -With multiple falls requested for PT OT eval and social welfare administrator to assist with discharge planning ? 07/13/2023 pain remains well-controlled insurance precertification pending 2. Fall with recent fractures to Left Humerus Fracture and Right Thumb ? Patient managed with immobilization with plans for patient to follow-up with Dr. Kwan. 3. Hyponatremia ? Secondary to patient being on HCTZ held with subsequent monitoring of electrolytes ordered 4. Acute rhabdomyolysis 5. Essential hypertension - did continue home meds except for HCT given patient's hyponatremia 6. Chronic thrombocytopenia ? Secondary to chronic alcohol intake monitoring 7. History of mild intermittent asthma ? Currently not in exacerbation aerosol treatments as needed 8. DVT prophylaxis - - Heparin 5,000 units sq BID Time spent in the patient's overall evaluation,decision-making process, review of diagnostic data, adjustment of management, discussion with other providers, nursing nursing and ancillary staff involved in patient's care documentation, 35 Minutes Medications at Discharge Home Medications amlodipine 5 mg tablet 5 mg PO DAILY Blood pressure 04/23/18 cholecalciferol (vitamin D3) 25 mcg (1,000 unit) tablet 125 mcg (5 x 25 mcg (1,000 unit)) PO DAILY #30 tabs 08/24/20 budesonide 1 mg/2 mL suspension for nebulization 1 mg (2 mL) inhalation BID #60 mL 02/19/22 losartan 100 mg tablet 100 mg PO DAILY BLOOD PRESSURE 05/26/23 albuterol sulfate 2.5 mg/3 mL (0.083 %) solution for nebulization 2.5 mg inhalation Q2H PRN Wheezing 06/08/23 cyanocobalamin (vitamin B-12) 100 mcg tablet (Vitamin B-12) 100 mcg PO DAILY SUPPLEMENT 06/08/23 sodium chloride 0.65 % nasal spray aerosol (Saline Nasal) 1 spray intranasal BID PRN DRY NARES 06/08/23 acetaminophen 325 mg tablet 1,000 mg (3.0769 x 325 mg) PO Q8H PRN PRN Pain 1-10 Or Fever >100.7 #0 tabs 06/09/23 ibuprofen 600 mg tablet 600 mg PO Q6H PRN PRN Pain Score 1-10 #0 tabs 06/09/23 dicyclomine 10 mg capsule 20 mg (2 x 10 mg) PO Q6H PRN PRN abdominal discomfort #0 caps 07/13/23 folic acid 1 mg tablet 1 mg PO DAILY@0800 #0 tabs 07/13/23 food supplemt, lactose-reduced 0.08 gram-1.5 kcal/mL oral liquid (Ensure Plus High Protein) 120 ml PO TIDCM #0 mL 07/13/23 hydrocodone-acetaminophen 5-325mg 5mg-325mg 1 tab PO Q6H PRN pain 3 days #12 tabs 07/13/23 hydroxyzine pamoate 25 mg capsule 50 mg (2 x 25 mg) PO Q4H PRN PRN mild anxiety #0 caps 07/13/23 loperamide 2 mg capsule 2 mg PO Q4H PRN PRN LOOSE STOOLS #0 caps 07/13/23 melatonin 3 mg tablet 3 mg PO QHS PRN PRN Insomnia #0 tabs 07/13/23 menthol 0.44 %-zinc oxide 20.6 % topical ointment (Calmoseptine) 1 applic topical TID #0 grams 07/13/23 ondansetron HCl 8 mg tablet 8 mg PO Q8H PRN PRN NAUSEA #0 tabs 07/13/23 thiamine HCl (vitamin B1) 100 mg tablet (Vitamin B-1) 100 mg PO DAILYCM #0 tabs 07/13/23 trazodone 100 mg tablet 100 mg PO QHS PRN Insomnia #0 tabs 07/13/23 Physical Exam Narrative GENERAL: cooperative HEENT: Atraumatic; normocephalic EYES; Anicteric, Normal Conjunctiva NECK; supple, normal thyroid, RESPIRATORY: Diminished to auscultation CARDIOVASCULAR: Regular S1 S2, GI: soft, normoactive bowel sounds, : No Renal angle tenderness; EXTREMITIES: No edema, no clubbing, MUSCULOSKELETAL: Left upper extremity immobilized NEURO: Awake; no lateralizing signs. SKIN: No Rash PSYCH; Flat affect Weight / BMI Weight Weight: 64.4 kg Body Mass Index (BMI) 19.8 ABG / Lab / Microbiology Data 07/13/23 06:47 07/13/23 06:47 Laboratory: Laboratory Results - last 24 hr 07/13/23 06:47: WBC 3.8 L, RBC 2.33 L, Hgb 8.3 L, Hct 24.7 L, MCV 106.0 H, MCH 35.6 H, MCHC 33.6, RDW Std Deviation 55.1 H, RDW Coeff of Mya 14.2, Plt Count 11 8 L, MPV 10.0, Immature Gran % (Auto) 0.300, Neut % (Auto) 53.1, Lymph % (Auto) 26.4, [place] % (Auto) 7.1, Eos % (Auto) 12.3 H, Baso % (Auto) 0.8, Absolute Neuts (auto) 2.0, Absolute Lymphs (auto) 1.01, Nucleated RBC % 0, Sodium 137, Potassium 3.0 L, Chloride 106, Carbon Dioxide 27.0, Anion Gap 4 L, BUN 8, Cr eatinine 0.42 L, Estim Creat Clear Calc 67.08, Est GFR (MDRD) Af Amer 251, Est GFR (MDRD) Non-Af 208, BUN/Creatinine Ratio 19.0, Glucose 91, Calcium 8.0 L, Phosphorus 2.9, Magnesium 1.6 D/C Instructions Discharge Diet: No restrictions Discharge Activity: Return to Normal Activity Call your doctor if you observe: Fever of 101 or Higher, Shortness of breath, Fainting spells and Chest pain Meaningful Use Info Meaningful Use Diagnoses (Choose all that apply): None applicable Discharge Plan Admission Admit Date/Time: 07/10/23 22:06 Attending Provider: Santino Uriarte Primary Care Provider: Elijah Rodriguez Consulting Providers: Santino Cortes; Homer Yanez; Shan Somers Discharge Orders/Prescriptions Prescriptions: New loperamide 2 mg Capsule 2 mg PO Q4H PRN PRN (Reason: LOOSE STOOLS) Qty: 0 0RF ondansetron HCl 8 mg Tablet 8 mg PO Q8H PRN PRN (Reason: NAUSEA) Qty: 0 0RF thiamine HCl (vitamin B1) [Vitamin B-1] 100 mg Tablet 100 mg PO DAILYCM Qty: 0 0RF melatonin 3 mg Tablet 3 mg PO QHS PRN PRN (Reason: Insomnia) Qty: 0 0RF trazodone 100 mg Tablet 100 mg PO QHS PRN (Reason: Insomnia) Qty: 0 0RF folic acid 1 mg Tablet 1 mg PO DAILY@0800 Qty: 0 0RF dicyclomine 10 mg Capsule 20 mg PO Q6H PRN PRN (Reason: abdominal discomfort) Qty: 0 0RF hydroxyzine pamoate 25 mg Capsule 50 mg PO Q4H PRN PRN (Reason: mild anxiety) Qty: 0 0RF menthol-zinc oxide [Calmoseptine] 0.44-20.6 % Ointment 1 applic topical TID Qty: 0 0RF Protocol: *Topical Application Instructions APPLICATION INSTRUCTIONS: buutocks Ensure Plus High Protein 0.08 gram-1.5 kcal/mL Liquid 120 ml PO TIDCM Qty: 0 0RF Continued budesonide 1 mg/2 mL suspension for nebulization 1 mg inhalation BID Qty: 60 6RF losartan 100 mg tablet 100 mg PO DAILY amlodipine 5 MG tablet 5 mg PO DAILY cholecalciferol (vitamin D3) 25 MCG tablet 125 mcg PO DAILY Qty: 30 0RF cyanocobalamin (vitamin B-12) [Vitamin B-12] 100 mcg tablet 100 mcg PO DAILY Saline Nasal 0.65 % aerosol,spray 1 spray intranasal BID PRN (Reason: DRY NARES) albuterol sulfate 2.5 MG/3 ML solution for nebulization 2.5 mg inhalation Q2H PRN (Reason: Wheezing) acetaminophen 325 mg Tablet 1,000 mg PO Q8H PRN PRN (Reason: Pain 1-10 Or Fever >100.7) Qty: 0 0RF ibuprofen 600 mg Tablet 600 mg PO Q6H PRN PRN (Reason: Pain Score 1-10) Qty: 0 0RF hydrocodone-acetaminophen 5-325 mg tablet 1 tab PO Q6H PRN (Reason: pain) 3 Days Qty: 12 0RF Discontinued hydrochlorothiazide 12.5 mg capsule 12.5 mg PO DAILY doxycycline monohydrate 100 mg tablet 100 mg PO BID Qty: 12 0RF oxycodone 5 mg tablet 5 mg PO Q8H PRN (Reason: pain) 3 Days Qty: 9 0RF Referrals / Follow Up: Elijah Rodriguez MD [Primary Care Provider] - Disposition Disposition (needs filled in before D/C Order can be placed): Group Home Facility Charges/Coding Visit Charges Inpatient E&M: 25831 Disch Hosp >30min
--- NOTE | 2023-07-13 12:32 | CASEMGMT ---
Discharge Planning [facility] has obtained auth. SW updated. Dolores Naqvi, Discharge Planning Asst.
--- NOTE | 2023-07-13 14:53 | CASEMGMT ---
Social Work - ADVANCE DIRECTIVE VALIDATION and Discharge Planning Received notice from Discharge Physician Practice Administrator that insurance authorization received for patient to go to [facility]. Discharge Planning: Met with patient in room, introducing to self and role. Reviewed plan for [facility] and insurance authorization. Patient agreed, but then stated that not really sure I want to go to the SNF. Acknowledged patient's feeling, wanting to be at home and independent, but also looked at reality as to whether patient can safely manage at home alone. Gently broached with patient as to how patient could go home in current condition, taking into consideration need to have help with ADL and IADL completion, and that any visits by others would be intermittent. This rfp writer explained the goal is for patient to become stronger, more independent, and be able to manage self care needs. Patient agreed to go to the [facility]. During conversation, patient did voice concern about being able to pay bills. This rfp writer let patient know that can relay to friend Liban, as patient reports to trust Liban, to gather patient's personal belongings. Copy placed on chart, and copy made to go with patient to the SNF. Called patient's friend Liban to update to the plan, as well as to the Advanced Directives in place. Liban Morin reports he is full of surprises, referencing the patient. Updated Liban that patient is concerned about being able to pay bills. This rfp writer asked if Liban could help get patient's checkbook. Liban reports plan to stop by patient's house, gather some things, and check on patient's cat. Updated Dr. Uriarte about insurance authorization. Patient will discharge today. Convalescent exemption form completed via the [facility] system. ADVANCED DIRECTIVE VALIDATION: Broached patient's interest in completing Advance Directives. Patient reports has already done this, naming friend Liban Morni, as the POAHC. Patient reports desire to change code status wishes with the sheet metal contractor's office. Patient reports if heart stops, wants to have CPR (note, patient is listed as full code at [facility] currently). Patient gave verbal permission for this rfp writer to call [employer] Lul Stroud's office, in order to obtain the Advance Directives. Called [employer]'s office, and also coordinated patient to speak to the sheet metal contractor's office. Patient gave permission to the sheet metal contractor to have directives faxed to [facility]. Directives received. Plan: Skilled level of care to [facility] on a convalescent exemption form. No other services requested or indicated. -BRENDAN Carreon
--- NOTE | 2023-07-13 15:22 | CASEMGMT ---
Discharge Planning Discharge orders, signed med list, and transport time sent to [facility] via [employer] and fax. Physicians will transport patient by wheelchair at 6:30p. Nursing, SW, and patient updated. left for his friend (Liban Morin). Dolores Naqvi, Discharge Planning Asst.
[2023-07-13] MEDS: Potassium Chloride Oral Tablet 20 MEQ 60 MEQ PO (16:06)
== END 2023-07-13 19:27 | disposition skilled nursing facility (03) | DRG 563 ==
LOC: ED 22:21 → MS3 22:48
PROVIDERS: Admitting Provider Internal Medicine; Emergency Provider Emergency Medicine; PCP Family Medicine; Visit Provider Internal Medicine
DX: S42.202A Unspecified fracture of upper end of left humerus, initial encounter for closed fracture (principal); S62.502A Fracture of unspecified phalanx of left thumb, initial encounter for closed fracture; M62.82 Rhabdomyolysis; E87.1 Hypo-osmolality and hyponatremia; J44.9 Chronic obstructive pulmonary disease, unspecified; D69.6 Thrombocytopenia, unspecified; I10 Essential (primary) hypertension; F10.10 Alcohol abuse, uncomplicated; R53.81 Other malaise; Z79.51 Long term (current) use of inhaled steroids; Z79.899 Other long term (current) drug therapy; W19.XXXA Unspecified fall, initial encounter
CPT/HCPCS: 36415; 70450; 71045; 73030; 73060; 73080; 73140; 80048; 80053; 81001; 82077; 82306; 82550; 83735; 84100; 84443; 85025; 94060; 94640; 94668; 94726; 94729; 97110; 97162; 97166; 97530; 97535; 97802; 99283; 99284; A4216; J2405

== ENCOUNTER → 2023-07-21 | Outpatient (REF) | payer MEDICARE, SELFPAY ==
[2023-07-21 07:47] LABS: Hematocrit 28.7 % (40-54); Hemoglobin 9.6 g/dL (13.0-16.5); Mean Corp Hgb Conc 33.4 g/dL (32-36); Mean Corpuscular Hgb 35.4 pg (27.0-32.0); Mean Corpuscular Volume 105.9 fL (80-94); Mean Platelet Vol. 9.8 fl (6.2-12.0); Platelet Count 287 K/mm3 (150-450); RBC Distribution Width CV 13.8 % (11.6-14.6); RBC Distribution Width SD 53.1 fl (35.1-43.9); Red Blood Count 2.71 M/mm3 (4.6-6.2); White Blood Count 4.8 K/mm3 (4.4-11.0)
[2023-07-21 08:48] LABS: Anion Gap 4 (5-15); BUN 22 mg/dL (7-18); BUN/Creat Ratio 27.2 RATIO (10-20); CPK Total, Creatine Kinase 27 U/L (39-308); Calcium,Total 9.2 mg/dL (8.5-10.1); Chloride 100 mmol/L (98-107); Creatinine, Serum 0.81 mg/dL (0.70-1.30); EST Glomerular Filtration Rate 98 mL/min (>60); Est Glom Filt Rate - Afr Amer 118 mL/min (>60); Glucose 84 mg/dL (74-106); Potassium 4.6 mmol/L (3.5-5.1); Sodium Level 135 mmol/L (136-145)
== END ==
LOC: OLS.WCC 05:00
PROVIDERS: PCP Family Medicine; Visit Provider Family Medicine
DX: J44.9 Chronic obstructive pulmonary disease, unspecified (principal); I10 Essential (primary) hypertension; D69.6 Thrombocytopenia, unspecified
CPT/HCPCS: 36415; 80048; 82550; 85027

== ENCOUNTER 2023-09-28 17:31 | Emergency (ER) | payer MEDICARE, SELFPAY ==
[2023-09-28 17:36] VITALS: BP 108/66; PULSE 85; RESP 18; TEMP 35.9; O2SAT 96; BMI 17.1
--- NOTE | 2023-09-28 19:17 | ED.RN ---
Pt states I have animals to feed and I want to go home. RN intructed pt that he should stay and see a doctor for his head lac. Pt has left department
== END 2023-09-28 19:20 | disposition left against medical advice (07) ==
LOC: ED 19:29
PROVIDERS: PCP Family Medicine
DX: Z53.21 Procedure and treatment not carried out due to patient leaving prior to being seen by health care provider (principal)
CPT/HCPCS: 99282

== ENCOUNTER 2023-10-11 17:27 | Emergency (ER) | payer MEDICARE, SELFPAY ==
[2023-10-11 17:29] VITALS: BP 152/89; PULSE 88; RESP 18; TEMP 36.6; O2SAT 98; BMI 20.6
--- NOTE | 2023-10-11 18:04 | EKG12_ITS ---
Test Reason : FALL Blood Pressure : / mmHG Vent. Rate : 090 BPM Atrial Rate : 090 BPM P-R Int : 156 ms QRS Dur : 084 ms QT Int : 378 ms P-R-T Axes : 039 037 047 degrees QTc Int : 462 ms Sinus rhythm with occasional Premature ventricular complexes Septal infarct (cited on or before 14-OCT-2019) Abnormal ECG Confirmed by KATYA ROBERTS, AMBER ([id number]), health editor AYUSH MARIE ([id number]) on 10/12/2023 2:12:42 PM Referred By: Confirmed By:AMBER ALDANA MD
--- NOTE | 2023-10-11 18:04 | CT_ITS ---
STUDY: CT BRAIN WITHOUT CONTRAST REASON FOR EXAM: Male, 78 years old. fall RADIATION DOSAGE (If Supplied By Facility): CTDIvol = ( 44.99 ) mGy, DLP = ( 829.85 ) mGycm TECHNIQUE: Transaxial CT imaging of the brain was performed without administration of intravenous contrast material. Individualized dose optimization techniques were used for this CT. COMPARISON: July 10, 2023 FINDINGS: Normal soft tissue structures. Normal calvarium. Calcific plaquing of the cavernous carotids Mild atrophy and periventricular white matter ischemic changes. Normal basal ganglia and thalami. Normal brainstem. Normal cerebellum. 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 No mass effect or midline shift. There are no findings of an acute ischemic infarction. Mucous retention cyst in right maxillary sinus.. CT/Brain/Head without Contrast IMPRESSION: Mild atrophy and periventricular white matter ischemic changes. 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 If concern for acute infarct MRI recommended Electronically Signed: Joao Pineda MD at 19:07 EDT ,
--- NOTE | 2023-10-11 18:05 | RAD_ITS ---
STUDY: X-RAY - PELVIS AND LEFT HIP REASON FOR EXAM: Male, 78 years old. injury TECHNIQUE: 3 views of the pelvis and hip. COMPARISON: None. FINDINGS: There is a non-specific bowel gas pattern. Normal visualized soft tissue structures. Normal bilateral iliac wings, sacroiliac joints and visualized sacrum. Normal bilateral superior and inferior pubic rami. Normal pubic symphysis. Normal bilateral ischial tuberosities. Acute impacted supratrochanteric fracture of the left femoral neck with mild overlapping and varus angulation of fracture fragments. Normal acetabulum. Normal hip joint. RAD/HIP, UNI W/ Pelvis 2-3 Views IMPRESSION: Acute impacted left femoral neck fracture Electronically Signed: Joao Pineda MD at 19:16 EDT ,
--- NOTE | 2023-10-11 18:05 | RAD_ITS ---
STUDY: X-RAY - LEFT ELBOW REASON FOR EXAM: Male, 78 years old. injury TECHNIQUE: 3 view(s) of the elbow. COMPARISON: None. FINDINGS: Normal visualized humerus, radius and ulna. Normal radiocapitellar and ulnotrochlear articulations. Small olecranon spur is noted and soft tissue calcification likely representing calcific tendinitis The soft tissue structures are unremarkable. RAD/Elbow min 3 Views IMPRESSION: No acute fracture or dislocation. Electronically Signed: Joao Pineda MD at 19:19 EDT ,
--- NOTE | 2023-10-11 18:06 | EDS_ITS ---
HPI HPI - Fall History of Present Illness Chief Complaint: Fall Informant: patient Occured/Mechanism Occurred: Today Narrative Narrative: Patient presents after a fall in his home. He states he does not remember what happened that made him fall. He called a friend who came to check on him who then called EMS. Patient complains of severe left hip pain. His left leg is shortened and externally rotated. He denies to me any history of fractures or established orthopedic care. He denies headache. He denies taking blood thinners. I do see in his records a history of alcohol abuse. Nursing staff did ask him about this. He states he has a couple drinks a day. He denies any problems with withdrawal in the past. [facility] Medical History COPD (chronic obstructive pulmonary disease) Fall Status asthmaticus Acute respiratory failure with hypoxia Small bowel obstruction Hypertension Thrombocytopenia SVT (supraventricular tachycardia) Asthma Home Medications ?Medication ?Instructions ?Recorded ?Last Taken ?Type amlodipine 5 mg tablet 5 mg PO DAILY Blood pressure 04/23/18 06/06/23 History cholecalciferol (vitamin D3) 25 125 mcg (5 x 25 mcg (1,000 unit)) 08/24/20 06/06/23 Rx mcg (1,000 unit) tablet PO DAILY #30 tabs budesonide 1 mg/2 mL suspension 1 mg (2 mL) inhalation BID #60 mL 02/19/22 Unknown Rx for nebulization losartan 100 mg tablet 100 mg PO DAILY BLOOD PRESSURE 05/26/23 06/06/23 History albuterol sulfate 2.5 mg/3 mL 2.5 mg inhalation Q2H PRN Wheezing 06/08/23 Unknown History (0.083 %) solution for nebulization cyanocobalamin (vitamin B-12) 100 100 mcg PO DAILY SUPPLEMENT 06/08/23 06/06/23 History mcg tablet (Vitamin B-12) sodium chloride 0.65 % nasal spray 1 spray intranasal BID PRN DRY 06/08/23 06/08/23 History aerosol (Saline Nasal) NARES acetaminophen 325 mg tablet 1,000 mg (3.0769 x 325 mg) PO Q8H 06/09/23 Unknown Rx PRN PRN Pain 1-10 Or Fever >100.7 #0 tabs ibuprofen 600 mg tablet 600 mg PO Q6H PRN PRN Pain Score 06/09/23 Unknown Rx 1-10 #0 tabs dicyclomine 10 mg capsule 20 mg (2 x 10 mg) PO Q6H PRN PRN 07/13/23 Unknown Rx abdominal discomfort #0 caps folic acid 1 mg tablet 1 mg PO DAILY@0800 #0 tabs 07/13/23 Unknown Rx food supplemt, lactose-reduced 120 ml PO TIDCM #0 mL 07/13/23 Unknown Rx 0.08 gram-1.5 kcal/mL oral liquid (Ensure Plus High Protein) hydrocodone-acetaminophen 5-325mg 1 tab PO Q6H PRN pain 3 days #12 07/13/23 Unknown Rx 5mg-325mg tabs hydroxyzine pamoate 25 mg capsule 50 mg (2 x 25 mg) PO Q4H PRN PRN 07/13/23 Unknown Rx mild anxiety #0 caps loperamide 2 mg capsule 2 mg PO Q4H PRN PRN LOOSE STOOLS 07/13/23 Unknown Rx #0 caps melatonin 3 mg tablet 3 mg PO QHS PRN PRN Insomnia #0 07/13/23 Unknown Rx tabs menthol 0.44 %-zinc oxide 20.6 % 1 applic topical TID #0 grams 07/13/23 Unknown Rx topical ointment (Calmoseptine) ondansetron HCl 8 mg tablet 8 mg PO Q8H PRN PRN NAUSEA #0 tabs 07/13/23 Unknown Rx thiamine HCl (vitamin B1) 100 mg 100 mg PO DAILYCM #0 tabs 07/13/23 Unknown Rx tablet (Vitamin B-1) trazodone 100 mg tablet 100 mg PO QHS PRN Insomnia #0 tabs 07/13/23 Unknown Rx Allergy/AdvReac Type Severity Reaction Status Date / Time Sulfa (Sulfonamide Allergy Hives Verified 10/11/23 17:38 Antibiotics) hydrochlorothiazide AdvReac Severe Other Verified 10/11/23 17:38 fentanyl AdvReac Other Verified 10/11/23 17:38 Family History Mother Heart disease Surgical History History of tonsillectomy H/O adenoidectomy History of appendectomy Social History housing: apartment Smoking Status: Never smoker ROS ROS ED Constitutional Constitutional ED: Denies chills or fever(s) ENT ENT ED: Denies rhinorrhea or sore throat Cardiovascular Cardiovascular: Denies chest pain or palpitations Respiratory/Chest Respiratory/Chest: Denies cough or dyspnea Gastrointestinal Gastrointestinal: Denies abdominal pain, nausea or vomiting Musculoskeletal Musculoskeletal: Reports extremity pain; Denies back pain Integumentary Denies Abrasions or rash Neurologic Neurologic: Denies headache(s) Psychiatric Psychiatric: Denies anxiety or depression Allergic/Immunologic Allergic/Immunologic ED: Denies lip swelling or urticaria EXAM Physical Exam Const Vital Signs: 10/11/23 17:29 10/11/23 18:05 10/11/23 20:00 Temperature 97.9 F Temperature Source Temporal Pulse Rate 88 94 Respiratory Rate 18 19 H Respiratory Effort Normal Respiratory Depth Normal Respiratory Pattern Normal Blood Pressure 152/89 H Blood Pressure Mean 110 Pulse Ox 98 93 Oxygen Delivery Method Room Air Room Air Room Air Positive well nourished and well developed General Appearance ED: well developed HEENT Reports normocephalic Eyes EOMs intact bilaterally Neck full ROM Chest Wall inspection of chest normal and palpation of chest normal Resp normal respiratory effort and clear to auscultation bilaterally Cardio regular rate and regular rhythm GI non-tender Palpation: soft Extremity Extremity Narrative: Left lower extremity is shortened and externally rotated. Patient has tenderness to palpation on the left hip. He is able to wiggle his foot and has sensation intact in the distal lower leg. He also has skin tears noted to the left elbow. Good range of motion is noted. Neuro oriented x3 and moves all extremities Psych mental status grossly normal Skin Skin Narrative: Left upper extremity skin tears as noted above. MDM MDM MDM Narrative Medical decision making narrative: IV line established. Patient given morphine and Zofran for pain control. Labwork obtained to evaluate for leukocytosis, anemia, and electrolyte derangement. CT scan of the head will be obtained given his fall. X-rays of the left elbow, pelvis and left hip will be obtained to evaluate for fracture. EKG and chest x-ray will be obtained for preoperative clearance for anticipated left hip fracture. History & Record Review Discussion w/independent historian: Patient Lab Data Attestation: I reviewed the patient's lab results. Labs: Laboratory Results - last 24 hr 10/11/23 18:10 WBC 4.4 RBC 4.22 L Hgb 14.8 Hct 43.0 MCV 101.9 H MCH 35.1 H MCHC 34.4 RDW Std Deviation 64.1 H RDW Coeff of Mya 17.0 H Plt Count 178 MPV 9.7 Immature Gran % (Auto) 0.200 Neut % (Auto) 61.3 Lymph % (Auto) 25.2 Davis % (Auto) 6.9 Eos % (Auto) 5.3 H Baso % (Auto) 1.1 H Absolute Neuts (auto) 2.7 Absolute Lymphs (auto) 1.10 Nucleated RBC % 0 PT 13.4 INR 1.0 APTT 30.5 Sodium 124 L Potassium 3.2 L Chloride 89 L Carbon Dioxide 25.0 Anion Gap 10 BUN 8 Creatinine 0.73 Estim Creat Clear Calc 70.00 Est GFR (MDRD) Af Amer 133 Est GFR (MDRD) Non-Af 110 BUN/Creatinine Ratio 11.0 Glucose 111 H Calcium 8.7 Radiography Chest X-Ray - ED: 1 View, Read by ED Physician and Chronic Changes Diagnostic Testing: Clinical Impression(s) from Imaging Studies Brain CT 10/11/23 18:04 IMPRESSION: Mild atrophy and periventricular white matter ischemic changes. 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 If concern for acute infarct MRI recommended Electronically Signed: Joao Pineda MD at 19:07 EDT , Elbow X-Ray 10/11/23 18:05 IMPRESSION: No acute fracture or dislocation. Electronically Signed: Joao Pineda MD at 19:19 EDT , Hip/Pelvis X-Ray 10/11/23 18:05 IMPRESSION: Acute impacted left femoral neck fracture Electronically Signed: Joao Pineda MD at 19:16 EDT , Chest X-Ray 10/11/23 18:40 IMPRESSION: Diminished inspiratory effort. No acute cardiopulmonary pathology Electronically Signed: Joao Pineda MD at 19:18 EDT , Lower Extremity CT 10/11/23 19:12 IMPRESSION: Acute supratrochanteric fracture of the left hip.. Electronically Signed: Joao Pineda MD at 19:44 EDT , EKG Initial EKG: Attestation: I personally reviewed and interpreted this EKG as follows: Interpretation: Sinus Rhythm (Sinus at 90 with no evidence of acute ischemia.) Treatment and Re-Evaluation Narrative: CBC was normal white count 4.4 with a hemoglobin of 14.8. Differential unremarkable. Coags are normal. Chemistry studies significant for a sodium of 124 and a potassium of 3.2. He is receiving normal saline. Portable chest x- ray per my interpretation reveals chronic changes with no focal infiltrate. No rib fracture. Radiology interpretation reviewed and agrees. Pelvis and left hip fracture reveals a left femoral neck fracture per my interpretation. Radiology interpretation agrees. Left elbow x-ray per my interpretation reveals no fracture. I spoke with Dr. Fierro, on-call for orthopedics. He asked for a CT scan of the hip for further evaluation. I did obtain a head CT as well given the patient's fall. CT scan of the hip reveals a supratrochanteric fracture of the left hip. CT scan of the head reveals subacute to chronic bilateral subdural hematomas larger on the left. No mass effect. No active bleeding. Test results were discussed with the patient. With him having subdural hematomas, he will require larger facility with neurosurgery available should complications arise. Patient was discussed with John Swenson and has been accepted by ED for trauma transfer. Discharge Plan Triage Chief Complaint: Fall ED Provider: Blanca Leonard Dx/Rx/DC Orders Clinical Impression: Fracture of hip, left, closed, Subacute subdural hematoma, Hyponatremia Prescriptions: No Action budesonide 1 mg/2 mL suspension for nebulization 1 mg inhalation BID Qty: 60 6RF losartan 100 mg tablet 100 mg PO DAILY amlodipine 5 MG tablet 5 mg PO DAILY cholecalciferol (vitamin D3) 25 MCG tablet 125 mcg PO DAILY Qty: 30 0RF cyanocobalamin (vitamin B-12) [Vitamin B-12] 100 mcg tablet 100 mcg PO DAILY Saline Nasal 0.65 % aerosol,spray 1 spray intranasal BID PRN (Reason: DRY NARES) albuterol sulfate 2.5 MG/3 ML solution for nebulization 2.5 mg inhalation Q2H PRN (Reason: Wheezing) acetaminophen 325 mg Tablet 1,000 mg PO Q8H PRN PRN (Reason: Pain 1-10 Or Fever >100.7) Qty: 0 0RF ibuprofen 600 mg Tablet 600 mg PO Q6H PRN PRN (Reason: Pain Score 1-10) Qty: 0 0RF loperamide 2 mg Capsule 2 mg PO Q4H PRN PRN (Reason: LOOSE STOOLS) Qty: 0 0RF ondansetron HCl 8 mg Tablet 8 mg PO Q8H PRN PRN (Reason: NAUSEA) Qty: 0 0RF thiamine HCl (vitamin B1) [Vitamin B-1] 100 mg Tablet 100 mg PO DAILYCM Qty: 0 0RF melatonin 3 mg Tablet 3 mg PO QHS PRN PRN (Reason: Insomnia) Qty: 0 0RF trazodone 100 mg Tablet 100 mg PO QHS PRN (Reason: Insomnia) Qty: 0 0RF folic acid 1 mg Tablet 1 mg PO DAILY@0800 Qty: 0 0RF dicyclomine 10 mg Capsule 20 mg PO Q6H PRN PRN (Reason: abdominal discomfort) Qty: 0 0RF hydroxyzine pamoate 25 mg Capsule 50 mg PO Q4H PRN PRN (Reason: mild anxiety) Qty: 0 0RF menthol-zinc oxide [Calmoseptine] 0.44-20.6 % Ointment 1 applic topical TID Qty: 0 0RF Protocol: *Topical Application Instructions APPLICATION INSTRUCTIONS: buutocks Ensure Plus High Protein 0.08 gram-1.5 kcal/mL Liquid 120 ml PO TIDCM Qty: 0 0RF hydrocodone-acetaminophen 5-325 mg tablet 1 tab PO Q6H PRN (Reason: pain) 3 Days Qty: 12 0RF Primary Care Provider: Elijah Rodriguez Referrals: Elijah Rodriguez MD [Primary Care Provider] - Print Language: Ukrainian Disposition Disposition: Acute Care Hospital Discharge Location: [facility]
[2023-10-11] MEDS: Ondansetron 4 MG/2 ML Vial IV (18:17)
[2023-10-11] MEDS: Morphine 4 MG/ML Syringe IV (18:17)
[2023-10-11 18:23] LABS: Absolute Neutrophil Count 2.7 X10^3/uL (2.0-7.7); Basophil# 0.05 X10^3/uL; Basophil% 1.1 % (0-1); Eosinophil# 0.23 X10^3/uL; Eosinophils% 5.3 % (0-5); Hemoglobin 14.8 g/dL (13.0-16.5); Lymphocyte % 25.2 % (19-41); Mean Corp Hgb Conc 34.4 g/dL (32-36); Mean Corpuscular Hgb 35.1 pg (27.0-32.0); Mean Corpuscular Volume 101.9 fL (80-94); Mean Platelet Vol. 9.7 fl (6.2-12.0); Monocyte% 6.9 % (0-10); NRBC Flagged by Analyzer 0 % (0-5); Neutrophil # 2.67 X10^3/uL (2.7-7.7); Neutrophil % 61.3 % (47-70); Platelet Count 178 K/mm3 (150-450); RBC Distribution Width SD 64.1 fl (35.1-43.9); Red Blood Count 4.22 M/mm3 (4.6-6.2); White Blood Count 4.4 K/mm3 (4.4-11.0)
[2023-10-11 18:32] LABS: Prothrombin Time (Protime)PT. 13.4 SECONDS (11.7-14.9)
[2023-10-11 18:33] LABS: Partial Thromboplast Time 30.5 Seconds (24.1-36.2)
[2023-10-11 18:40] LABS: Anion Gap 10 (5-15); BUN 8 mg/dL (7-18); Calcium,Total 8.7 mg/dL (8.5-10.1); Chloride 89 mmol/L (98-107); Creatinine, Serum 0.73 mg/dL (0.70-1.30); EST Glomerular Filtration Rate 110 mL/min (>60); Est Glom Filt Rate - Afr Amer 133 mL/min (>60); Glucose 111 mg/dL (74-106); Potassium 3.2 mmol/L (3.5-5.1); Sodium Level 124 mmol/L (136-145)
--- NOTE | 2023-10-11 18:40 | RAD_ITS ---
STUDY: X-RAY CHEST REASON FOR EXAM: Male, 78 years old. cp TECHNIQUE: AP portable COMPARISON: July 10, 2023 FINDINGS: Less than optimal inspiratory effort and mild interstitial thickening at both lung bases. Tiny calcified granuloma in left upper lobe There is no demonstrated pleural abnormality. Normal size heart. Normal mediastinum and monisha. Normal visualized pulmonary arteries. Tortuous mildly calcified aortic arch and descending thoracic aorta. Normal visualized thoracic spine. Normal visualized ribs, clavicles, and shoulders. Postop changes of the right upper quadrant. RAD/Chest 1 View (Portable) IMPRESSION: Diminished inspiratory effort. No acute cardiopulmonary pathology Electronically Signed: Joao Pineda MD at 19:18 EDT ,
[2023-10-11] MEDS: 0.9% Normal Saline (1000mL) 1,000 ML 150 ML IV (19:09)
--- NOTE | 2023-10-11 19:12 | CT_ITS ---
CT LEFT LOWER EXTREMITY WITH 3-D IMAGING CLINICAL INDICATION: hip fracture TECHNIQUE: Axial CT images of the LEFT lower extremity was performed IV contrast material. Coronal and sagittal reformats were provided. The protocol utilizes one or more of the following dose reduction techniques: automated exposure control, adjustment of mA and/or kV according to patient size,and/or use of iterative reconstruction technique. RADIATION DOSAGE (If Supplied By Facility): CTDIvol = ( 12.60 ) mGy, DLP = ( 396.40 ) mGycm COMPARISON: FINDINGS: Bones: There is an acute obliquely oriented supracondylar fracture of the left femoral neck with mild overlapping and varus angulation of fracture fragments.. No lytic or blastic osseous masses. Soft Tissues: The deep soft tissue structures are unremarkable. The superficial soft tissues are unremarkable without evidence of edema, hematoma, or foreign body. CT/Extremity Lower without Contra IMPRESSION: Acute supratrochanteric fracture of the left hip.. Electronically Signed: Joao Pineda MD at 19:44 EDT ,
[2023-10-11 20:00] VITALS: PULSE 94; RESP 19; O2SAT 93
[2023-10-11 21:18] VITALS: BP 159/89; PULSE 95; RESP 21; TEMP 36.2; O2SAT 97
[2023-10-11] MEDS: HYDROmorphone 0.5 MG/0.5 ML SYRINGE IV (21:26)
[2023-10-11 22:00] VITALS: BP 149/100; PULSE 101; RESP 24; O2SAT 92
== END 2023-10-11 23:16 | disposition short-term general hospital (02) ==
PROVIDERS: Emergency Provider Emergency Medicine; PCP Family Medicine; Visit Provider Emergency Medicine
DX: S72.002A Fracture of unspecified part of neck of left femur, initial encounter for closed fracture (principal); J44.9 Chronic obstructive pulmonary disease, unspecified; S06.5XAA Traumatic subdural hemorrhage with loss of consciousness status unknown, initial encounter; E87.1 Hypo-osmolality and hyponatremia; W19.XXXA Unspecified fall, initial encounter
CPT/HCPCS: 70450; 71045; 73080; 73502; 73700; 80048; 85025; 85610; 85730; 93005; 96361; 96374; 96375; 99285; J7030; A4216; J2405

== ENCOUNTER → 2023-10-27 | Outpatient (REF) | payer MEDICARE, SELFPAY ==
[2023-10-27 09:06] LABS: Hematocrit 36.6 % (40-54); Hemoglobin 12.1 g/dL (13.0-16.5); Mean Corp Hgb Conc 33.1 g/dL (32-36); Mean Corpuscular Hgb 34.1 pg (27.0-32.0); Mean Corpuscular Volume 103.1 fL (80-94); Mean Platelet Vol. 10.3 fl (6.2-12.0); Platelet Count 332 K/mm3 (150-450); RBC Distribution Width SD 61.3 fl (35.1-43.9); Red Blood Count 3.55 M/mm3 (4.6-6.2); White Blood Count 7.2 K/mm3 (4.4-11.0)
[2023-10-27 09:35] LABS: Vitamin B12 917 pg/mL (211-911); Vitamin D,25 Hydroxy 33.6 ng/mL
[2023-10-27 09:39] LABS: Anion Gap 6 (5-15); BUN 16 mg/dL (7-18); BUN/Creat Ratio 28.3 RATIO (10-20); Calcium,Total 9.7 mg/dL (8.5-10.1); Chloride 91 mmol/L (98-107); Creatinine, Serum 0.56 mg/dL (0.70-1.30); EST Glomerular Filtration Rate 147 mL/min (>60); Est Glom Filt Rate - Afr Amer 178 mL/min (>60); Glucose 100 mg/dL (74-106); Sodium Level 127 mmol/L (136-145)
== END ==
LOC: OLS.WCC 04:00
PROVIDERS: PCP Family Medicine; Referring Provider Family Medicine; Visit Provider Family Medicine
DX: D64.9 Anemia, unspecified (principal); J44.9 Chronic obstructive pulmonary disease, unspecified; I10 Essential (primary) hypertension; D69.6 Thrombocytopenia, unspecified; I47.10 Supraventricular tachycardia, unspecified; M62.82 Rhabdomyolysis; K57.30 Diverticulosis of large intestine without perforation or abscess without bleeding; N28.81 Hypertrophy of kidney; E55.9 Vitamin D deficiency, unspecified
CPT/HCPCS: 36415; 80048; 82306; 82607; 85027

== ENCOUNTER → 2023-11-22 | Outpatient (REF) | payer MEDICARE, SELFPAY ==
[2023-11-22 08:15] LABS: Absolute Lymphocyte Count 1.37 X10^3/uL (0.83-4.51); Absolute Neutrophil Count 4.6 X10^3/uL (2.0-7.7); Basophil# 0.05 X10^3/uL; Basophil% 0.7 % (0-1); Eosinophil# 0.63 X10^3/uL; Eosinophils% 8.9 % (0-5); Hematocrit 37.7 % (40-54); Hemoglobin 12.1 g/dL (13.0-16.5); Lymphocyte # 1.37 X10^3/ul (0.83-4.51); Lymphocyte % 19.3 % (19-41); Mean Corp Hgb Conc 32.1 g/dL (32-36); Mean Corpuscular Hgb 33.6 pg (27.0-32.0); Mean Corpuscular Volume 104.7 fL (80-94); Mean Platelet Vol. 10.8 fl (6.2-12.0); Monocyte# 0.39 X10^3/uL; Monocyte% 5.5 % (0-10); NRBC Flagged by Analyzer 0 % (0-5); Neutrophil # 4.62 X10^3/uL (2.7-7.7); Neutrophil % 65.2 % (47-70); Platelet Count 251 K/mm3 (150-450); RBC Distribution Width CV 15.9 % (11.6-14.6); RBC Distribution Width SD 61.9 fl (35.1-43.9); White Blood Count 7.1 K/mm3 (4.4-11.0)
[2023-11-22 08:21] LABS: Anion Gap 4 (5-15); BUN 29 mg/dL (7-18); BUN/Creat Ratio 35.1 RATIO (10-20); Calcium,Total 9.6 mg/dL (8.5-10.1); Chloride 109 mmol/L (98-107); Creatinine, Serum 0.83 mg/dL (0.70-1.30); EST Glomerular Filtration Rate 95 mL/min (>60); Est Glom Filt Rate - Afr Amer 115 mL/min (>60); Glucose 102 mg/dL (74-106); Sodium Level 142 mmol/L (136-145)
== END ==
LOC: OLS.WCC 04:00
PROVIDERS: PCP Family Medicine; Visit Provider Family Medicine
DX: E86.0 Dehydration (principal); Z79.899 Other long term (current) drug therapy; R62.7 Adult failure to thrive; J44.9 Chronic obstructive pulmonary disease, unspecified
CPT/HCPCS: 36415; 80048; 85025